=== PATIENT | female | born 1955 | race Caucasian/White ===

== ENCOUNTER → 2016-11-03 | Outpatient (CLI) | payer MEDICARE ==
--- NOTE | 2016-11-03 16:49 | MR ---
EXAMINATION TYPE: MR cervical spine wo con DATE OF EXAM: 11/03/2016 COMPARISON: NONE HISTORY: 61-year-old female with cervicalgia, patient fell 2 months ago, neck pain TECHNIQUE: Multiplanar, multisequence images of the cervical spine were acquired. FINDINGS: No craniocervical junction abnormality, predental space widening, or prevertebral soft tissue swellin g. There is normal alignment of the cervical spine. No suspicious bone marrow replacement. There is variable mild to moderate disc desiccation throughout way disc osteophyte complex formation and bulging discs. Scattered ligamentum flavum thickening is also present along with facet and uncove rtebral joint degenerative change. At C2-C3, mild facet degenerative change without canal or foraminal stenosis. At C3-C4, facet and uncovertebral joint arthropathy with ligamentum flavum thickening and minimal pos terior disc bulge. Changes result in mild right neuroforaminal stenosis and minimal narrowing of the spinal canal but no cord contact. At C4-C5, there is facet degenerative change and minimal uncovertebral joint arthropathy. This causes minimal narrowing of the right neuroforamen and no spinal canal stenosis. At C5-C6, there is broad-based disc osteophyte complex with facet arthropathy and ligamentum flavum t hickening. Changes result in mild spinal canal stenosis and mild right neuroforaminal stenosis. At C6/C7, there is disc osteophyte complex with superimposed central disc protrusion as well as facet and uncovertebral joint degenerative change. Changes mildly narrow the spinal canal without signific ant neural foraminal stenosis. At C7-T1, facet degenerative change without canal or foraminal stenosis. Normal course, caliber, and signal intensity of the cervical cord. No prevertebral or paravertebral soft tissue abnormality seen. IMPRESSION: 1. Mild multilevel degenerative disc disease as well as mild to moderate scattered facet and uncovert ebral joint arthropathy and ligamentum flavum thickening. 2. The greatest degree of mild spinal canal stenosis is at C5-C6. Changes do not cause any significan t mass effect onto the cord. 3. Variable mild neuroforaminal narrowing throughout. No high-grade foraminal compromise.
== END | disposition home or self-care (01) ==
LOC: RADMRIMAIN 15:09
PROVIDERS: ATTEND Psychiatry & Neurology Pain Medicine
DX: M50.220 Other cervical disc displacement, mid-cervical region, unspecified level (principal); M50.322 Other cervical disc degeneration at C5-C6 level
CPT/HCPCS: 72141

== ENCOUNTER → 2016-11-05 | Outpatient (CLI) | payer MEDICARE ==
--- NOTE | 2016-11-05 15:31 | CT ---
EXAMINATION TYPE: CT lumbar spine wo con DATE OF EXAM: 11/05/2016 COMPARISON: NONE HISTORY: Low back pain with leg and toe numbness CT DLP: 489.7 mGycm CONTRAST: CT scan of the lumbar is performed without contrast. TECHNIQUE: CT of the lumbar spine is performed on a spiral scan at 3 mm thick sections. Reconstructed images are performed in the coronal and sagittal planes. FINDINGS: Pedicle screws are present L4 and L5. T12-L1: No focal disc herniation or significant disc bulge is evident. No spinal canal stenosis or neural foraminal stenosis is present. L1-L2: Minimal disc contact with the anterior thecal sac is present. No spinal canal stenosis present . Mild facet degenerative changes are present. L2-L3: Mild disc bulge is present with mild anterior thecal sac compression. No AP spinal canal steno sis present. Facet hypertrophy is present with mild posterior lateral thecal sac compression. L3-L4: Moderate disc bulge has moderate anterior thecal sac flattening. Facet hypertrophy is mild pos terior lateral thecal sac compression. No AP spinal canal stenosis present. Neural foramen are patent . L4-L5: Posterior right paracentral endplate spurring is present in the right paracentral canal. Manoj ectomy has been performed and no AP spinal canal stenosis is present. Neural foramen appear patent. L5-S1: No focal disc herniation or significant disc bulge is evident. No spinal canal stenosis or n eural foraminal stenosis is present Vertebral alignment appears normal. There is a 0.2 cm calcification at the inferior pole left kidney. Punctate calcifications at the inferior pole right kidney measuring 0.1 cm. IMPRESSION: 1. Moderate disc bulging L3-4 with moderate anterior thecal sac compression. No stenosis is present. 2. Right paracentral endplate spurring with moderate anterior thecal sac compression. No stenosis is present due to prior laminectomy.
== END | disposition home or self-care (01) ==
LOC: RADCTMAIN 15:01
PROVIDERS: ATTEND Psychiatry & Neurology Neurology
DX: M51.26 Other intervertebral disc displacement, lumbar region (principal); M46.06 Spinal enthesopathy, lumbar region; Z88.0 Allergy status to penicillin; Z88.6 Allergy status to analgesic agent
CPT/HCPCS: 72131

== ENCOUNTER → 2016-12-01 | Outpatient (CLI) | payer MEDICARE ==
--- NOTE | 2016-12-03 12:03 | MM ---
Reason for exam: screening (asymptomatic). Last mammogram was performed 1 year ago. History: Patient is postmenopausal. 2 excisional biopsies of the left breast, 1999. Took hormonal contraceptives for 10 years. Physical Findings: A clinical breast exam by your physician is recommended on an annual basis and results should be correlated with mammographic findings. MG 3D Screening Mammo W/Cad Bilateral CC, MLO, and XCCL view(s) were taken. Prior study comparison: November 29, 2015, bilateral MG 3d screening mammo w/cad. March 13, 2011, left diagnostic mammogram w/CAD. September 10, 2010, [facility] DIGITAL LEFT BREAST MAMMOGRAM w/CAD. There are scattered fibroglandular densities. No suspicious abnormality. No significant changes when compared with prior studies. ASSESSMENT: Negative, BI-RAD 1 RECOMMENDATION: Routine screening mammogram of both breasts in 1 year.
== END | disposition home or self-care (01) ==
LOC: RADMAMWWP 13:44
PROVIDERS: ATTEND Internal Medicine
DX: Z12.31 Encounter for screening mammogram for malignant neoplasm of breast (principal)
CPT/HCPCS: 77063; G0202

== ENCOUNTER 2017-04-01 19:49 | Emergency (ER) | payer MEDICARE ==
[2017-04-01 19:58] VITALS: TEMP 96.7
[2017-04-01 20:00] LABS: Glucose,Whole Blood 112 mg/dL (75-99)
[2017-04-01] MEDS ORDERED: SODIUM CHLORIDE 0.9% 1,000 ML IV STA (20:27)
--- NOTE | 2017-04-01 20:58 | ED ---
Recheck HPI - General Chief Complaint: Recheck/Abnormal Lab/Rx Stated Complaint: diabetic issues Time Seen by Provider: 04/01/17 20:08 Source: patient, EMS, RN notes reviewed, old records reviewed Mode of arrival: EMS Limitations: no limitations - History of Present Illness Initial Comments: Patient is 61-year-old female presents emergency department today chief complaint of a episode of low blood sugar. She reports that she did not eat anything today, but noted that her blood sugar was elevated at 450. She took 14 units of insulin, and EMS was called to scene because patient was acting abnormal. Blood sugar was 26, and an IV was started and patient was given D50. Patient reports that she registered she feels well at this time. She does complain of some intermittent episodes of chest pain she had today. She did take 3 aspirin when that occurred. She denies any chest pain right now. Patient states that she has had no history of cardiac history. She managed her diabetes with insulin. She lives with her fianc. e - Related Data Home Medications Medication Instructions Recorded Confirmed ALPRAZolam [Xanax] 1 mg PO TID 04/01/17 04/01/17 Divalproex [Depakote] 1,000 mg PO HS 04/01/17 04/01/17 HYDROcodone/APAP 10-325MG [[place] 1 tab PO TID PRN 04/01/17 04/01/17 10-325] INSULIN LISPRO (humaLOG) [humaLOG] See Protocol SQ ACHS PRN 04/01/17 04/01/17 Mirtazapine [Remeron] 45 mg PO HS 04/01/17 04/01/17 Sertraline [Zoloft] 150 mg PO DAILY 04/01/17 04/01/17 Allergies Allergy/AdvReac Type Severity Reaction Status Date / Time Penicillins Allergy Unknown Verified 04/01/17 20:46 ramipril [From Altace] Allergy Unknown Verified 04/01/17 20:46 Review of Systems ROS Statement: Those systems with pertinent positive or pertinent negative responses have been documented in the HPI. ROS Other: All systems not noted in ROS Statement are negative. Past Medical History Past Medical History: CVA/TIA, Diabetes Mellitus, Hyperlipidemia, Hypertension, Osteoarthritis (OA) Additional Past Medical History / Comment(s): Diabetes mellitus type 2 insulin requiring, hypertension, hyperlipidemia, CVA, restless leg syndrome, chronic diarrhea. History of Any Multi-Drug Resistant Organisms: None Reported Past Surgical History: Adenoidectomy, Appendectomy, Cholecystectomy, Hysterectomy, Orthopedic Surgery, Tonsillectomy Additional Past Surgical History / Comment(s): right knee repacement x2 , left ankle surgery, bladder suspension x 2 partial hysterectomy , left breast biopsy,T+A, colonoscopy, cholecystectomy, Lasik for both eyes. Past Anesthesia/Blood Transfusion Reactions: No Reported Reaction Past Psychological History: Anxiety, Bipolar, Depression, Panic Disorder Smoking Status: Heavy tobacco smoker Past Alcohol Use History: None Reported Past Drug Use History: Prescription Drug Abuse - Past Family History Mother Family Medical History: Diabetes Mellitus (Mother at age of 84 from diabetes mellitus complications with diabetic coma.) Father Family Medical History: CVA/TIA (Father at age of 86 from CVA status post carotid endarterectomy.) Brother(s) Family Medical History: No Reported History (Patient had one brother) Son(s) Family Medical History: No Reported History (Patient has 2 sons no major medical problems) Daughter(s) Family Medical History: No Reported History (One daughter who overdosed on heroin.) General Exam - General Exam Comments Initial Comments: Is a 61-year-old female. Alert and oriented 4. No distress. Limitations: no limitations General appearance: alert Head exam: Present: atraumatic, normocephalic, normal inspection Eye exam: Present: normal appearance, PERRL, EOMI. Absent: scleral icterus, conjunctival injection, periorbital swelling ENT exam: Present: normal exam, mucous membranes moist Neck exam: Present: normal inspection. Absent: tenderness, meningismus, lymphadenopathy Respiratory exam: Present: normal lung sounds bilaterally. Absent: respiratory distress, wheezes, rales, rhonchi, stridor Cardiovascular Exam: Present: regular rate, normal rhythm, normal heart sounds. Absent: systolic murmur, diastolic murmur, rubs, gallop, clicks GI/Abdominal exam: Present: soft, normal bowel sounds. Absent: distended, tenderness, guarding, rebound, rigid Extremities exam: Present: normal inspection, full ROM, normal capillary refill. Absent: tenderness, pedal edema, joint swelling, calf tenderness Back exam: Present: normal inspection Neurological exam: Present: alert, oriented X3, CN II-XII intact Psychiatric exam: Present: normal affect, normal mood Skin exam: Present: warm, dry, intact, normal color. Absent: rash Course Vital Signs 04/01/17 19:55 Temperature 96.7 F L Pulse Rate 81 Respiratory 18 Rate Blood Pressure 128/71 O2 Sat by Pulse 97 Oximetry Medical Decision Making - Medical Decision Making Is a 61-year-old female presents emergency Department chief complaint of hypoglycemic episode. Patient's was given D50 a with EMS arrival. Her blood sugar was hit here was 120. She is alert and oriented and has no other significant complaints. She did state that she had some episodes of chest pain earlier today, she took aspirin. At this time patient's EKG was reviewed to be normal. His laboratory was reviewed to be normal. Chest x-ray shows no abnormalities. As the importance of eating before she takes insulin, and to adjust her sliding scale appropriately. She reports that she did not eat a lot states today before taking 14 units of insulin. Patient understands treatment plan will comply. She will be discharged at this time. Discussed follow-up with PCP. - Lab Data Result diagrams: 04/01/17 20:50 04/01/17 20:50 Lab Results 04/01/17 04/01/17 04/01/17 Range/Units 19:59 20:50 20:50 WBC 10.6 (3.8-10.6) k/uL RBC 3.89 (3.80-5.40) m/uL Hgb 12.1 (11.4-16.0) gm/dL Hct 37.8 (34.0-46.0) % MCV 97.2 (80.0-100.0) fL MCH 31.1 (25.0-35.0) pg MCHC 32.0 (31.0-37.0) g/dL RDW 12.4 (11.5-15.5) % Plt Count 237 (150-450) k/uL Neutrophils % 84 % Lymphocytes % 8 % Monocytes % 5 % Eosinophils % 0 % Basophils % 0 % Neutrophils # 8.9 H (1.3-7.7) k/uL Lymphocytes # 0.8 L (1.0-4.8) k/uL Monocytes # 0.6 (0-1.0) k/uL Eosinophils # 0.0 (0-0.7) k/uL Basophils # 0.0 (0-0.2) k/uL PT (9.0-12.0) sec INR (<1.2) APTT (22.0-30.0) sec Sodium (137-145) mmol/L Potassium (3.5-5.1) mmol/L Chloride (98-107) mmol/L Carbon Dioxide (22-30) mmol/L Anion Gap mmol/L BUN (7-17) mg/dL Creatinine (0.52-1.04) mg/dL Est GFR (MDRD) Af Amer (>60 ml/min/1.73 sqM) Est GFR (MDRD) Non-Af (>60 ml/min/1.73 sqM) Glucose (74-99) mg/dL POC Glucose (mg/dL) 112 H (75-99) mg/dL POC Glu Toggler ID [place], [place] Calcium (8.4-10.2) mg/dL Magnesium (1.6-2.3) mg/dL Total Bilirubin (0.2-1.3) mg/dL AST (14-36) U/L ALT (9-52) U/L Alkaline Phosphatase (38-126) U/L Total Creatine Kinase 26 L (30-135) U/L CK-MB (CK-2) 0.3 (0.0-2.4) ng/mL CK-MB (CK-2) Rel Index 1.2 Troponin I <0.012 (0.000-0.034) ng/mL Total Protein (6.3-8.2) g/dL Albumin (3.5-5.0) g/dL 04/01/17 04/01/17 Range/Units 20:50 20:50 WBC (3.8-10.6) k/uL RBC (3.80-5.40) m/uL Hgb (11.4-16.0) gm/dL Hct (34.0-46.0) % MCV (80.0-100.0) fL MCH (25.0-35.0) pg MCHC (31.0-37.0) g/dL RDW (11.5-15.5) % Plt Count (150-450) k/uL Neutrophils % % Lymphocytes % % Monocytes % % Eosinophils % % Basophils % % Neutrophils # (1.3-7.7) k/uL Lymphocytes # (1.0-4.8) k/uL Monocytes # (0-1.0) k/uL Eosinophils # (0-0.7) k/uL Basophils # (0-0.2) k/uL PT 10.5 (9.0-12.0) sec INR 1.1 (<1.2) APTT 23.8 (22.0-30.0) sec Sodium 140 (137-145) mmol/L Potassium 3.8 (3.5-5.1) mmol/L Chloride 105 (98-107) mmol/L Carbon Dioxide 30 (22-30) mmol/L Anion Gap 5 mmol/L BUN 20 H (7-17) mg/dL Creatinine 0.60 (0.52-1.04) mg/dL Est GFR (MDRD) Af Amer >60 (>60 ml/min/1.73 sqM) Est GFR (MDRD) Non-Af >60 (>60 ml/min/1.73 sqM) Glucose 101 H (74-99) mg/dL POC Glucose (mg/dL) (75-99) mg/dL POC Glu Toggler ID Calcium 9.3 (8.4-10.2) mg/dL Magnesium 1.6 (1.6-2.3) mg/dL Total Bilirubin 0.2 (0.2-1.3) mg/dL AST 16 (14-36) U/L ALT 22 (9-52) U/L Alkaline Phosphatase 51 (38-126) U/L Total Creatine Kinase (30-135) U/L CK-MB (CK-2) (0.0-2.4) ng/mL CK-MB (CK-2) Rel Index Troponin I (0.000-0.034) ng/mL Total Protein 6.2 L (6.3-8.2) g/dL Albumin 3.3 L (3.5-5.0) g/dL 04/01/17 21:47 KG shows normal sinus rhythm, normal EKG. Ventricular rate of. SC interval 194 ms. QRS duration 76 ms. QT QTc is 442/[address] elevation or T-wave inversion. No suturable ventricular arrhythmias. - Radiology Data Radiology results: report reviewed Chest x-ray was reviewed and negative for any acute process. Disposition Clinical Impression: Hypoglycemia due to insulin Disposition: HOME SELF-CARE Condition: Good Instructions: Insulin Scale A (MPH) Additional Instructions: Patient should having small frequent meals, dose her insulin appropriately. Follow-up with primary care provider. Return to the emergency department if any alarming signs or symptoms occur. Referrals: Keaton Abdi MD [Primary Care Provider] - 1-2 days Time of Disposition: 22:07
[2017-04-01 21:10] LABS: Basophils % (A) 0 %; CH 32.6; CHCM 33.7; Eosinophils % (A) 0 %; HCT 37.8 % (34.0-46.0); HGB 12.1 gm/dL (11.4-16.0); Luc # (Auto) 0.21; Luc % (Auto) 2; Lymphocytes # (A) 0.8 k/uL (1.0-4.8); Lymphocytes % (A) 8 %; MCH 31.1 pg (25.0-35.0); MCV 97.2 fL (80.0-100.0); Mean Platelet Volume 7.3; Monocytes # (A) 0.6 k/uL (0-1.0); Monocytes % (A) 5 %; Neutrophils # (A) 8.9 k/uL (1.3-7.7); Neutrophils % (A) 84 %; RBC 3.89 m/uL (3.80-5.40); RDW 12.4 % (11.5-15.5); WBC 10.6 k/uL (3.8-10.6); WBC (Perox) 10.16
[2017-04-01 21:16] LABS: INR 1.1 (<1.2); Partial Thromboplastin Time 23.8 sec (22.0-30.0); Prothrombin Time 10.5 sec (9.0-12.0)
[2017-04-01 21:25] LABS: ALT 22 U/L (9-52); AST 16 U/L (14-36); Alkaline Phosphatase 51 U/L (38-126); Anion Gap 5 mmol/L; Blood Urea Nitrogen 20 mg/dL (7-17); Calcium 9.3 mg/dL (8.4-10.2); Carbon Dioxide 30 mmol/L (22-30); Chloride 105 mmol/L (98-107); Glucose 101 mg/dL (74-99); Magnesium 1.6 mg/dL (1.6-2.3); Non-African American GFR(MDRD) >60 (>60 ml/min/1.73 sqM); Potassium 3.8 mmol/L (3.5-5.1); Sodium 140 mmol/L (137-145); Total Bilirubin 0.2 mg/dL (0.2-1.3); Total Protein 6.2 g/dL (6.3-8.2)
[2017-04-01 21:33] LABS: Creatine Kinase 26 U/L (30-135)
--- NOTE | 2017-04-01 21:39 | XR ---
EXAMINATION: XR chest 2V DATE AND TIME: 04/01/2017 9:35 PM ORDERING PROVIDER: Veda Fonseca CLINICAL INDICATION: Chest Pain TECHNIQUE: PA and lateral COMPARISON: 12/16/2009 DESCRIPTION: The lungs are clear. The pleural spaces are negative. The cardiac silhouette is not enlarged. The mediastinal and pleural silhouettes are unremarkable. The skeletal structures are intact without focal findings. The soft tissues are unremarkable. IMPRESSION: NO ACUTE PROCESS.
[2017-04-01 21:48] LABS: Creatine Kinase MB 0.3 ng/mL (0.0-2.4); Troponin I <0.012 ng/mL (0.000-0.034)
[2017-04-01 22:20] VITALS: BP 126/61; PULSE 72; RESP 16
== END 2017-04-01 22:20 | disposition home or self-care (01) ==
LOC: EC 19:49
DX: E11.649 Type 2 diabetes mellitus with hypoglycemia without coma (principal); Z79.4 Long term (current) use of insulin; E78.5 Hyperlipidemia, unspecified; I10 Essential (primary) hypertension; M19.90 Unspecified osteoarthritis, unspecified site; Z86.73 Personal history of transient ischemic attack (TIA), and cerebral infarction without residual deficits; F31.9 Bipolar disorder, unspecified; F41.0 Panic disorder [episodic paroxysmal anxiety]; F17.200 Nicotine dependence, unspecified, uncomplicated; Z79.899 Other long term (current) drug therapy; Z88.0 Allergy status to penicillin; Z88.8 Allergy status to other drugs, medicaments and biological substances
CPT/HCPCS: 36415; 71020; 80053; 82550; 82553; 83036; 83735; 84484; 85025; 85610; 85730; 93005; 96360; 99284

== ENCOUNTER → 2017-04-26 | Outpatient (CLI) | payer MEDICARE | END | disposition home or self-care (01) | LOC: LABWHC1 15:45 | PROVIDERS: ATTEND Psychiatry & Neurology Psychiatry | DX: F31.9 Bipolar disorder, unspecified (principal) | CPT/HCPCS: 36415; 80164 ==

== ENCOUNTER 2018-06-29 10:03 | Emergency (ER) | payer MEDICARE ==
[2018-06-29 10:13] VITALS: TEMP 97.9
[2018-06-29] MEDS ORDERED: SODIUM CHLORIDE 0.9% 500 ML 500 ML IV STA (10:41)
--- NOTE | 2018-06-29 10:50 | ED ---
General Adult HPI - General Chief complaint: Seizure Stated complaint: Tremors Time Seen by Provider: 06/29/18 10:24 Source: patient Mode of arrival: wheelchair Limitations: no limitations - History of Present Illness Initial comments: Dictation was produced using [employer] dictation software. please excuse any grammatical, word or spelling errors. Chief Complaint: Sick C3-year-old female past medical history diabetes, CVA, hypertension, osteoporosis arthritis presents after concerns for seizure-like symptoms. History of Present Illness: He 3-year-old female. She is brought in by her son. Patient was under the care for her son when he noticed she was having tonic- clonic like activity. During that time she was unconscious. He reports that she was also stiff and convulsing. Patient has had seizures before however is not on any antiseizure medications. Patient was convulsing for several seconds and was somnolent immediately after. Patient was also incontinent to urine. Patient has extensive neurologic history including CVA and what sounds like seizures in the past. Patient has been otherwise more tired over the last 2-3 days. Patient reports numbness to the left face left upper arm and left lower leg. The ROS documented in this emergency department record has been reviewed and confirmed by me. Those systems with pertinent positive or negative responses have been documented in the HPI. All other systems are other negative and/or noncontributory. PHYSICAL EXAM: General Impression: Alert and oriented x3, not in acute distress, lethargic, cachexic HEENT: Normocephalic atraumatic, extra-ocular movements intact, pupils equal and reactive to light bilaterally, mucous membranes moist. Cardiovascular: Heart regular rate and rhythm, S1&S2 audible, no murmurs, rubs or gallops Chest: Lungs clear to auscultation bilaterally, no rhonchi, no wheeze, no rales Abdomen: Bowel sounds present, abdomen soft, non-tender, non-distended, no organomegaly Musculoskeletal: Pulses present and equal in all extremities, no peripheral edema Motor: no focal deficits noted Neurological: CN II-XII grossly intact, no focal motor or sensory deficits noted Skin: Intact with no visualized rashes Psych: Normal affect and mood ED course: 63-year-old female presents with seizure-like symptoms today. The pressure upon arrival was 78/54, rest of vital signs within normal limits. His HPI is consistent with acute seizure. CBC is unremarkable. INR 1.6. Metabolic panel shows mild acidosis likely secondary to lactic acid. Rest of metabolic panel is grossly unremarkable. Alcohol is negative. Computed tomogr aphy scan of the brain was obtained showing no acute processes however there is progressive nonspecific white matter change compared to 2009. We do not have neurology. Our facility. [facility] be [facility] for further inpatient management of symptoms. Patient case was discussed with Dr. Austin. Patient was observed in emergency department with no recurrent seizure episodes. Patient still continues to have mild paresthesias to the left side of her body. EKG interpretation: Ventricular rate 68, normal sinus rhythm,. Interval to , QRS 64, QTC 425. No MT prolongation, no QTC prolongation, no ST or T-wave changes noted. Overall, this EKG is unremarkable - Related Data Home Medications Medication Instructions Recorded Confirmed Divalproex [Depakote] 1,000 mg PO HS 04/01/17 06/29/18 HYDROcodone/APAP 10-325MG [[place] 1 tab PO TID PRN 04/01/17 06/29/18 10-325] Mirtazapine [Remeron] 45 mg PO HS 04/01/17 06/29/18 Sertraline [Zoloft] 150 mg PO DAILY 04/01/17 06/29/18 ALPRAZolam [Xanax] 0.5 mg PO TID 06/29/18 06/29/18 Albuterol Inhaler [Ventolin Hfa 1 - 2 puff INHALATION RT-Q6H PRN 06/29/18 06/29/18 Inhaler] Ipratropium [place] [Atrovent Hfa] 2 puff INHALATION RT-QID 06/29/18 06/29/18 Oxybutynin ER [Ditropan Xl] 10 mg PO DAILY 06/29/18 06/29/18 Pregabalin [Lyrica] 150 mg PO BID 06/29/18 06/29/18 Primidone [Mysoline] 100 mg PO BID 06/29/18 06/29/18 metFORMIN HCL [Glucophage] 500 mg PO BID 06/29/18 06/29/18 Allergies Allergy/AdvReac Type Severity Reaction Status Date / Time Penicillins Allergy Unknown Verified 06/29/18 10:47 ramipril [From Altace] Allergy Unknown Verified 06/29/18 10:47 Review of Systems ROS Statement: Those systems with pertinent positive or pertinent negative responses have been documented in the HPI. ROS Other: All systems not noted in ROS Statement are negative. Past Medical History Past Medical History: CVA/TIA, Diabetes Mellitus, Hyperlipidemia, Hypertension, Osteoarthritis (OA) Additional Past Medical History / Comment(s): Diabetes mellitus type 2 insulin requiring, hypertension, hyperlipidemia, CVA, restless leg syndrome, chronic diarrhea. History of Any Multi-Drug Resistant Organisms: None Reported Past Surgical History: Adenoidectomy, Appendectomy, Cholecystectomy, Hysterectomy, Orthopedic Surgery, Tonsillectomy Additional Past Surgical History / Comment(s): right knee repacement x2 , left ankle surgery, bladder suspension x 2 partial hysterectomy , left breast biopsy,T+A, colonoscopy, cholecystectomy, Lasik for both eyes. Past Anesthesia/Blood Transfusion Reactions: No Reported Reaction Past Psychological History: Anxiety, Bipolar, Depression, Panic Disorder Smoking Status: Heavy tobacco smoker Past Alcohol Use History: None Reported Past Drug Use History: Prescription Drug Abuse - Past Family History Mother Family Medical History: Diabetes Mellitus (Mother at age of 84 from diabetes mellitus complications with diabetic coma.) Father Family Medical History: CVA/TIA (Father at age of 86 from CVA status post carotid endarterectomy.) Brother(s) Family Medical History: No Reported History (Patient had one brother) Son(s) Family Medical History: No Reported History (Patient has 2 sons no major medical problems) Daughter(s) Family Medical History: No Reported History (One daughter who overdosed on heroin.) General Exam Limitations: no limitations Course Vital Signs 06/29/18 06/29/18 10:08 11:25 Temperature 97.9 F Pulse Rate 65 67 Respiratory 15 16 Rate Blood Pressure 78/54 103/60 O2 Sat by Pulse 99 97 Oximetry Medical Decision Making - Lab Data Result diagrams: 06/29/18 11:41 06/29/18 11:41 Lab Results 06/29/18 06/29/18 06/29/18 Range/Units 11:41 11:41 11:41 WBC 4.8 (3.8-10.6) k/uL RBC 3.65 L (3.80-5.40) m/uL Hgb 11.8 (11.4-16.0) gm/dL Hct 36.4 (34.0-46.0) % MCV 99.5 (80.0-100.0) fL MCH 32.3 (25.0-35.0) pg MCHC 32.5 (31.0-37.0) g/dL RDW 14.4 (11.5-15.5) % Plt Count 180 (150-450) k/uL Neutrophils % 66 % Lymphocytes % 22 % Monocytes % 6 % Eosinophils % 3 % Basophils % 0 % Neutrophils # 3.2 (1.3-7.7) k/uL Lymphocytes # 1.0 (1.0-4.8) k/uL Monocytes # 0.3 (0-1.0) k/uL Eosinophils # 0.1 (0-0.7) k/uL Basophils # 0.0 (0-0.2) k/uL Macrocytosis Slight PT 15.7 H (9.0-12.0) sec INR 1.6 H (<1.2) Sodium 143 (137-145) mmol/L Potassium 3.8 (3.5-5.1) mmol/L Chloride 114 H (98-107) mmol/L Carbon Dioxide 19 L (22-30) mmol/L Anion Gap 10 mmol/L BUN 18 H (7-17) mg/dL Creatinine 0.85 (0.52-1.04) mg/dL Est GFR (CKD-EPI)AfAm 84 (>60 ml/min/1.73 sqM) Est GFR (CKD-EPI)NonAf 72 (>60 ml/min/1.73 sqM) Glucose 130 H (74-99) mg/dL Calcium 8.5 (8.4-10.2) mg/dL Magnesium 2.0 (1.6-2.3) mg/dL Total Bilirubin 0.4 (0.2-1.3) mg/dL AST 21 (14-36) U/L ALT 16 (9-52) U/L Alkaline Phosphatase 74 (38-126) U/L Troponin I (0.000-0.034) ng/mL Total Protein 6.3 (6.3-8.2) g/dL Albumin 3.3 L (3.5-5.0) g/dL Serum Alcohol <10 mg/dL 06/29/18 Range/Units 11:41 WBC (3.8-10.6) k/uL RBC (3.80-5.40) m/uL Hgb (11.4-16.0) gm/dL Hct (34.0-46.0) % MCV (80.0-100.0) fL MCH (25.0-35.0) pg MCHC (31.0-37.0) g/dL RDW (11.5-15.5) % Plt Count (150-450) k/uL Neutrophils % % Lymphocytes % % Monocytes % % Eosinophils % % Basophils % % Neutrophils # (1.3-7.7) k/uL Lymphocytes # (1.0-4.8) k/uL Monocytes # (0-1.0) k/uL Eosinophils # (0-0.7) k/uL Basophils # (0-0.2) k/uL Macrocytosis PT (9.0-12.0) sec INR (<1.2) Sodium (137-145) mmol/L Potassium (3.5-5.1) mmol/L Chloride (98-107) mmol/L Carbon Dioxide (22-30) mmol/L Anion Gap mmol/L BUN (7-17) mg/dL Creatinine (0.52-1.04) mg/dL Est GFR (CKD-EPI)AfAm (>60 ml/min/1.73 sqM) Est GFR (CKD-EPI)NonAf (>60 ml/min/1.73 sqM) Glucose (74-99) mg/dL Calcium (8.4-10.2) mg/dL Magnesium (1.6-2.3) mg/dL Total Bilirubin (0.2-1.3) mg/dL AST (14-36) U/L ALT (9-52) U/L Alkaline Phosphatase (38-126) U/L Troponin I <0.012 (0.000-0.034) ng/mL Total Protein (6.3-8.2) g/dL Albumin (3.5-5.0) g/dL Serum Alcohol mg/dL Disposition Clinical Impression: Seizure Disposition: OTHER INSTITUTION NOT DEFINED Condition: Fair Referrals: Keaton Abdi MD [Primary Care Provider] - 1-2 days Decision Time: 12:51 - Out of Hospital Transfer - Req. Specs Out of Hospital Transfer - Requested Specifics: Other Emergency Center ([facility]
[2018-06-29 11:26] VITALS: RESP 16
--- NOTE | 2018-06-29 11:32 | CT ---
EXAMINATION TYPE: CT brain wo con DATE OF EXAM: 06/29/2018 COMPARISON: 1310 HISTORY: Seizure, history of CVA CT DLP: 1154.4 mGycm Automated exposure control for dose reduction was used. TECHNIQUE: CT scan of the head is performed without contrast. FINDINGS: There is no acute intracranial hemorrhage or midline shift identified. No suspicious extr a axial fluid collection. There is diffuse ventricular and sulcal prominence consistent with diffuse age-related cerebral atrophy. There is a stable prominent perivascular space at the level inferior ri ght basal ganglia in comparison to the exam of 2009. These have advanced in comparison the prior of 2 010 such as within the right frontal lobe on image 33. There a few scattered areas of low-attenuation in the periventricular white matter consistent with chronic small vessel ischemic change. Atheroscl erosis is noted of the intracranial vasculature. The globes are intact and the visualized sinuses are clear. Incidentally noted hyperostosis frontalis internus. IMPRESSION: 1. No acute intracranial hemorrhage or midline shift. 2. Progressive nonspecific white matter change in comparison to the prior 2009, most commonly on the basis of chronic microangiopathy.
[2018-06-29 12:11] LABS: Basophils % (A) 0 %; Eosinophils # (A) 0.1 k/uL (0-0.7); Eosinophils % (A) 3 %; HCT 36.4 % (34.0-46.0); HGB 11.8 gm/dL (11.4-16.0); Lymphocytes % (A) 22 %; MCH 32.3 pg (25.0-35.0); MCHC 32.5 g/dL (31.0-37.0); MCV 99.5 fL (80.0-100.0); Macrocytosis Slight; Mean Platelet Volume 8.1; Monocytes # (A) 0.3 k/uL (0-1.0); Monocytes % (A) 6 %; Neutrophils # (A) 3.2 k/uL (1.3-7.7); Neutrophils % (A) 66 %; Platelet Count 180 k/uL (150-450); RBC 3.65 m/uL (3.80-5.40); RDW 14.4 % (11.5-15.5); WBC 4.8 k/uL (3.8-10.6)
[2018-06-29 12:12] LABS: ALT 16 U/L (9-52); AST 21 U/L (14-36); Albumin 3.3 g/dL (3.5-5.0); Alcohol <10 mg/dL; Alkaline Phosphatase 74 U/L (38-126); Anion Gap 10 mmol/L; Blood Urea Nitrogen 18 mg/dL (7-17); Calcium 8.5 mg/dL (8.4-10.2); Carbon Dioxide 19 mmol/L (22-30); Chloride 114 mmol/L (98-107); Glucose 130 mg/dL (74-99); Potassium 3.8 mmol/L (3.5-5.1); Sodium 143 mmol/L (137-145); Total Bilirubin 0.4 mg/dL (0.2-1.3); Total Protein 6.3 g/dL (6.3-8.2)
[2018-06-29 12:18] LABS: INR 1.6 (<1.2); Prothrombin Time 15.7 sec (9.0-12.0)
[2018-06-29 12:50] LABS: Appearance,Urine Clear (Clear); Bilirubin,Urine Negative (Negative); Blood,Urine Negative (Negative); Color,Urine Yellow; Glucose,Urine (UA) Negative (Negative); Ketones,Urine Negative (Negative); Leukocyte Esterase,Urine Negative (Negative); Nitrite,Urine Negative (Negative); Protein,Urine Negative (Negative); Specific Gravity,Urine 1.023 (1.001-1.035); Urobilinogen,Urine <2.0 mg/dL (<2.0)
[2018-06-29 13:31] VITALS: BP 109/62; PULSE 72
== END 2018-06-29 13:30 | disposition other institution (70) ==
LOC: EC 10:03
DX: R56.9 Unspecified convulsions (principal); R25.1 Tremor, unspecified; E87.2 Acidosis; E11.9 Type 2 diabetes mellitus without complications; F31.9 Bipolar disorder, unspecified; F41.0 Panic disorder [episodic paroxysmal anxiety]; M19.90 Unspecified osteoarthritis, unspecified site; F17.200 Nicotine dependence, unspecified, uncomplicated; Z79.84 Long term (current) use of oral hypoglycemic drugs; Z79.899 Other long term (current) drug therapy; Z88.0 Allergy status to penicillin; Z88.8 Allergy status to other drugs, medicaments and biological substances; Z96.651 Presence of right artificial knee joint; Z90.49 Acquired absence of other specified parts of digestive tract; Z90.89 Acquired absence of other organs; Z90.711 Acquired absence of uterus with remaining cervical stump
CPT/HCPCS: 99285 ×2; 96360 ×2; 96361 ×2; 36415; 93005; 80053; 83735; 84484; 85025; 85610; 81003; 70450; G0480; 80320

== ENCOUNTER → 2018-07-13 | Outpatient (CLI) | payer MEDICARE ==
--- NOTE | 2018-07-13 15:23 | US ---
EXAMINATION TYPE: US carotid duplex BILAT DATE OF EXAM: 07/13/2018 COMPARISON: CLINICAL HISTORY: G45.9 TIA. Patient states having an unsteady gait x 1 week ago. TIA in 2004. No HTN. EXAM MEASUREMENTS: RIGHT: Peak Systolic Velocity (PSV) cm/sec ----- Right CCA: 67.8 ----- Right ICA: 82.2 ----- Right ECA: 54.6 ICA/CCA ratio: 1.2 RIGHT: End Diastole cm/sec ----- Right CCA: 19.4 ----- Right ICA: 34.8 ----- Right ECA: 10.1 LEFT: Peak Systolic Velocity (PSV) cm/sec ----- Left CCA: 72.2 ----- Left ICA: 143.1 ----- Left ECA: 32.9 ICA/CCA ratio: 2.0 LEFT: End Diastole cm/sec ----- Left CCA: 29.3 ----- Left ICA: 48.5 ----- Left ECA: 10.1 VERTEBRALS (direction of flow): Right Vertebral: Antegrade Left Vertebral: Antegrade Rhythm: Arrhythmia Bilateral wall thickening. Elevated left proximal and mid ICA. Plaque seen in bilateral bulbs exten ding into proximal ICA. Small amount of plaque seen in distal right CCA. IMPRESSION: 1. Stenosis of the left internal carotid artery corresponds to 50-69%. This could be more accurately assessed with CTA neck. 2. No hemodynamically significant stenosis within the right visualized carotid arterial system. 3. Cardiac arrhythmia. Correlate with EKG. Supervisor Delivery Department called office at end of exam and spoke to Alba regarding preliminary results. Criteria for Assigning % of Stenosis / Diameter reduction (Estimation based on the indirect measurements of the internal carotid artery velocities (ICA PSV). 1. Normal (no stenosis)=ICA PSV < 125 cm/s: ratio < 2.0: ICA EDV<40 cm/s. 2. Less than 50% stenosis=ICA PSV < 125 cm/s: ratio < 2.0: ICA EDV<40 cm/s. 3. 50 to 69% stenosis=ICA PSV of 125 to 230 cm/s: ration 2.0 ? 4.0: ICA EDV 40-100 cm/s. 4. Greater than 70% stenosis to near occlusion= ICA PSV > 230 cm/s: ratio > 4.0: ICA EDV > 100 cm/s. 5. Near occlusion= ICA PSV velocities may be low or undetectable: variable ratio and ICA EDV. 6. Total occlusion=unable to detect flow.
== END | disposition home or self-care (01) ==
LOC: RADUSWWP 14:29
PROVIDERS: ATTEND Internal Medicine
DX: I65.22 Occlusion and stenosis of left carotid artery (principal); I49.9 Cardiac arrhythmia, unspecified; Z88.0 Allergy status to penicillin; Z88.8 Allergy status to other drugs, medicaments and biological substances
CPT/HCPCS: 93880

== ENCOUNTER → 2018-09-06 | Outpatient (CLI) | payer MEDICARE | LOC: LABWHC1 16:20 | PROVIDERS: ATTEND Psychiatry & Neurology Psychiatry | DX: F31.9 Bipolar disorder, unspecified (principal) | CPT/HCPCS: 36415; 80164 ==

== ENCOUNTER → 2019-02-02 | Outpatient (CLI) | payer MEDICARE ==
--- NOTE | 2019-02-03 14:19 | MM ---
Reason for exam: screening (asymptomatic). Last mammogram was performed 2 years and 2 months ago. History: Patient is postmenopausal. 2 excisional biopsies of the left breast, 1999. Took hormonal contraceptives for 10 years. Physical Findings: A clinical breast exam by your physician is recommended on an annual basis and results should be correlated with mammographic findings. MG 3D Screening Mammo W/Cad Bilateral CC, MLO, and XCCL view(s) were taken. Prior study comparison: December 01, 2016, bilateral MG 3d screening mammo w/cad. November 29, 2015, bilateral MG 3d screening mammo w/cad. The breast tissue is heterogeneously dense. This may lower the sensitivity of mammography. Benign appearing bilateral calcifications. No suspicious abnormality. No significant changes when compared with prior studies. ASSESSMENT: Benign, BI-RAD 2 RECOMMENDATION: Routine screening mammogram of both breasts in 1 year.
== END | disposition home or self-care (01) ==
LOC: RADMAMWWP 10:04
PROVIDERS: ATTEND Internal Medicine
DX: Z12.31 Encounter for screening mammogram for malignant neoplasm of breast (principal)
CPT/HCPCS: 77063; 77067

== ENCOUNTER → 2019-09-13 | Outpatient (CLI) | payer MEDICARE ==
[2019-09-13 12:56] LABS: Basophils % (A) 1 %; Eosinophils # (A) 0.2 k/uL (0-0.7); Eosinophils % (A) 3 %; HCT 36.8 % (34.0-46.0); HGB 11.6 gm/dL (11.4-16.0); Lymphocytes # (A) 0.9 k/uL (1.0-4.8); Lymphocytes % (A) 16 %; MCH 31.8 pg (25.0-35.0); MCHC 31.5 g/dL (31.0-37.0); MCV 100.7 fL (80.0-100.0); Mean Platelet Volume 8.5; Monocytes # (A) 0.4 k/uL (0-1.0); Monocytes % (A) 7 %; Neutrophils % (A) 70 %; Platelet Count 158 k/uL (150-450); RBC 3.65 m/uL (3.80-5.40); RDW 12.7 % (11.5-15.5); WBC 5.7 k/uL (3.8-10.6)
[2019-09-13 18:42] LABS: ALT 11 U/L (8-44); AST 20 U/L (13-35); Albumin/Globulin Ratio 1.54 (1.60-3.17); Alkaline Phosphatase 67 U/L (41-126); Amylase 23 U/L (23-121); BUN/Creat Ratio 26.25 Ratio (12.00-20.00); Bilirubin, Conjugated <0.20 mg/dL (0.20-0.40); Calcium 8.8 mg/dL (8.7-10.3); Carbon Dioxide 27.6 mmol/L (21.6-31.8); Chloride 103 mmol/L (96-109); Chol/HDL Ratio 3.04; Cholesterol 143 mg/dL (0-200); Globulin 2.4 g/dL (1.6-3.3); Glucose 124 mg/dL (70-110); LDL Cholesterol,Calculated 59.8 mg/dL (0.0-131.0); Non-African American GFR(CKD) 76.8 (60.0-200.0); Potassium 4.6 mmol/L (3.5-5.5); Sodium 140 mmol/L (135-145); Total Bilirubin 0.2 mg/dL (0.2-1.2); Total Protein 6.1 g/dL (6.2-8.2); Valproic Acid (Depakene) 87.9 ug/mL (50.0-100.0)
[2019-09-13 19:47] LABS: Hemoglobin A1C 7.4 % (4.0-6.0)
== END | disposition home or self-care (01) ==
LOC: LABWHC1 10:37
PROVIDERS: ATTEND Clinical Nurse Specialist Psychiatric/Mental Health
DX: F31.9 Bipolar disorder, unspecified (principal)
CPT/HCPCS: 36415; 80053; 80061; 80164; 82150; 82248; 82306; 83036; 83690; 84439; 84443; 84479; 85025; 93005

== ENCOUNTER 2020-01-08 16:35 | Emergency (ER) | payer MEDICARE ==
[2020-01-08] MEDS ORDERED: DIPH,PERTUS(ACELL)TETVAC-LF 0.5 ML VIAL IM ONE (16:52)
[2020-01-08] MEDS ORDERED: LIDOCAINE 1% INJ 10MG/ML (20 ML MDV) SQ ONE (16:56)
--- NOTE | 2020-01-08 17:00 | ED ---
General Adult HPI - General Chief complaint: Fall Stated complaint: Fall Head lac and injury Time Seen by Provider: 01/08/20 16:45 Source: patient Mode of arrival: wheelchair Limitations: no limitations - History of Present Illness Initial comments: 64-year-old female presenting for evaluation of fall, head trauma. Patient was taking about 4 walk, was pulled off the porch by the leash. She fell striking the right side of her head. She was unconscious for approximately 1 minute. She does not remember the events in their entirety. She has laceration above her right eye. She also is complaining of some neck stiffness as well. Denies focal numbness or weakness. She came through walk in triage. She does not have any history of anticoagulation, she is uncertain when her last tetanus was. Location: head, face Radiation: non-radiation - Related Data Home Medications Medication Instructions Recorded Confirmed Divalproex [Depakote] 500 mg PO BID 04/01/17 01/08/20 HYDROcodone/APAP 10-325MG [[place] 1 tab PO TID PRN 04/01/17 01/08/20 10-325] Mirtazapine [Remeron] 45 mg PO HS 04/01/17 01/08/20 Sertraline [Zoloft] 100 mg PO BID 04/01/17 01/08/20 ALPRAZolam [Xanax] 0.5 mg PO TID 06/29/18 01/08/20 Oxybutynin ER [Ditropan Xl] 10 mg PO BID 06/29/18 01/08/20 metFORMIN HCL [Glucophage] 500 mg PO BID 06/29/18 01/08/20 Celecoxib [CeleBREX] 200 mg PO DAILY 01/08/20 01/08/20 Ergocalciferol [Vitamin D2] 50,000 unit PO Q7D 01/08/20 01/08/20 Famotidine 20 mg PO BID PRN 01/08/20 01/08/20 Memantine [Namenda] 5 mg PO BID 01/08/20 01/08/20 Metoprolol Succinate (ER) [Toprol 25 mg PO DAILY 01/08/20 01/08/20 Xl] Omeprazole [PriLOSEC] 40 mg PO DAILY PRN 01/08/20 01/08/20 Ondansetron Odt [Zofran ODT] 4 mg SUBLINGUAL BID PRN 01/08/20 01/08/20 Pregabalin [Lyrica] 200 mg PO BID 01/08/20 01/08/20 SUMAtriptan SUCCINATE [Imitrex] 50 mg PO DAILY PRN 01/08/20 01/08/20 levETIRAcetam [Keppra] 250 mg PO BID 01/08/20 01/08/20 levETIRAcetam [Keppra] 500 mg PO BID 01/08/20 01/08/20 Allergies Allergy/AdvReac Type Severity Reaction Status Date / Time Penicillins Allergy Unknown Verified 01/08/20 16:42 ramipril [From Altace] Allergy Unknown Verified 01/08/20 16:42 Review of Systems ROS Statement: Those systems with pertinent positive or pertinent negative responses have been documented in the HPI. ROS Other: All systems not noted in ROS Statement are negative. Past Medical History Past Medical History: CVA/TIA, Diabetes Mellitus, Hyperlipidemia, Hypertension, Osteoarthritis (OA) Additional Past Medical History / Comment(s): Diabetes mellitus type 2 insulin requiring, hypertension, hyperlipidemia, CVA, restless leg syndrome, chronic diarrhea. History of Any Multi-Drug Resistant Organisms: None Reported Past Surgical History: Adenoidectomy, Appendectomy, Cholecystectomy, Hysterectomy, Orthopedic Surgery, Tonsillectomy Additional Past Surgical History / Comment(s): right knee repacement x2 , left ankle surgery, bladder suspension x 2 partial hysterectomy , left breast bio psy,T+A, colonoscopy, cholecystectomy, Lasik for both eyes. Past Anesthesia/Blood Transfusion Reactions: No Reported Reaction Past Psychological History: Anxiety, Bipolar, Depression, Panic Disorder Past Alcohol Use History: None Reported Past Drug Use History: Prescription Drug Abuse - Past Family History Mother Family Medical History: Diabetes Mellitus (Mother at age of 84 from diabetes mellitus complications with diabetic coma.) Father Family Medical History: CVA/TIA (Father at age of 86 from CVA status post carotid endarterectomy.) Brother(s) Family Medical History: No Reported History (Patient had one brother) Son(s) Family Medical History: No Reported History (Patient has 2 sons no major medical problems) Daughter(s) Family Medical History: No Reported History (One daughter who overdosed on heroin.) General Exam Limitations: no limitations General appearance: alert, in no apparent distress Head exam: Present: normocephalic, other (3 cm laceration above rt eye). Absent: atraumatic Eye exam: Present: PERRL, EOMI, periorbital tenderness (rt). Absent: periorbital swelling Neck exam: Present: normal inspection, full ROM. Absent: tenderness, meningi smus Respiratory exam: Present: normal lung sounds bilaterally. Absent: respiratory distress Cardiovascular Exam: Present: regular rate, normal rhythm GI/Abdominal exam: Present: soft. Absent: distended, tenderness, guarding Extremities exam: Present: normal inspection, normal capillary refill. Absent: pedal edema, calf tenderness Neurological exam: Present: alert, oriented X3, CN II-XII intact. Absent: motor sensory deficit Psychiatric exam: Present: normal affect, normal mood Skin exam: Present: warm, dry, other (Laceration of the right eye). Absent: cyanosis, diaphoretic Course Vital Signs 01/08/20 16:36 Temperature 98.7 F Pulse Rate 70 Respiratory 18 Rate Blood Pressure 109/69 O2 Sat by Pulse 98 Oximetry Procedures - Laceration Laceration #1 Consent Obtained: verbal consent Indication: laceration Site: face Size (cm): 3 Description: linear Depth: simple, single layer Anesthetic Used: lidocaine 1% Anesthesia Technique: local infiltration Amount (mls): 5 Pre-repair: wound explored, irrigated extensively, deep structures intact Type of Sutures: nylon Size of Sutures: 5-0 Number of Sutures: 6 Technique: simple, interrupted Patient Tolerated Procedure: well Medical Decision Making - Medical Decision Making 64 with fall, laceration. Laceration repaired in the emergency department. CT performed negative for intracranial hemorrhage or mass effect, CT cervical bones is negative for fracture dislocation. CT cervical spine negative for fracture subluxation. Patient tetanus is updated. She is very eager for discharge. She will be observed by her son who is at bedside for the next 24 hours. Disposition Clinical Impression: Fall, Laceration, Concussion Disposition: HOME SELF-CARE Instructions (If sedation given, give patient instructions): Fall Prevention for Older Adults (ED), Concussion (ED), Care For Your Stitches (DC), Laceration (ED) Additional Instructions: Please return for suture removal in approximate 7 days. Is patient prescribed a controlled substance at d/c from ED?: No Referrals: Bazo,Charbal B, MD [Primary Care Provider] - 1-2 days Time of Disposition: 18:05
--- NOTE | 2020-01-08 17:45 | CT ---
EXAMINATION TYPE: CT brain cspine wo con, CT facial bones wo con DATE OF EXAM: 01/08/2020 COMPARISON: CT brain 06/29/2018 HISTORY: Forehead laceration post fall injury, trauma and pain CT DLP: 1012.3 mGycm Automated exposure control for dose reduction was used. TECHNIQUE: CT scan of the head and cervical spine, facial bones are performed without contrast. FINDINGS: There is no acute intracranial hemorrhage, mass effect, or midline shift identified. The ventricles and sulci are within normal limits in size. There are cerebral vascular calcifications. C ortical atrophy is stable. Periventricular white matter shows patchy low attenuation. Possible choroi guido fissure cyst is stable on the right. The globes are intact and the visualized sinuses are clear. Cervical spine is visualized in its entirety from C1 through upper thoracic levels and demonstrates s atisfactory alignment without evidence of acute fracture or dislocation. Prevertebral soft tissue ap pears within normal limits. The C1-C2 articulation is unremarkable. There are facet arthropathy harris ges. Facial bones show no fracture. Laceration is noted along the anterior frontal scalp in the suprapatel lar location on the right, there is lucency in the soft tissues. Changes of hyperostosis frontalis in terna are present. Orbits are symmetric. Temporomandibular joints show osteoarthritic change. Ostio meatal units are patent. IMPRESSION: 1. There is no acute fracture or dislocation evident in the cervical spine. 2. No acute intracranial hemorrhage, mass effect, or midline shift is seen. 3. No facial bone fracture. Soft tissue injury.
[2020-01-08 18:21] VITALS: BP 98/63; PULSE 71; RESP 16; TEMP 98
== END 2020-01-08 18:26 | disposition home or self-care (01) ==
LOC: EC 16:35
DX: S06.0X9A Concussion with loss of consciousness of unspecified duration, initial encounter (principal); S01.81XA Laceration without foreign body of other part of head, initial encounter; S05.31XA Ocular laceration without prolapse or loss of intraocular tissue, right eye, initial encounter; I10 Essential (primary) hypertension; E11.9 Type 2 diabetes mellitus without complications; M19.90 Unspecified osteoarthritis, unspecified site; G25.81 Restless legs syndrome; F41.0 Panic disorder [episodic paroxysmal anxiety]; F31.9 Bipolar disorder, unspecified; F41.9 Anxiety disorder, unspecified; Z79.84 Long term (current) use of oral hypoglycemic drugs; Z79.1 Long term (current) use of non-steroidal anti-inflammatories (NSAID); Z79.899 Other long term (current) drug therapy; Z88.8 Allergy status to other drugs, medicaments and biological substances; Z88.0 Allergy status to penicillin; Z23 Encounter for immunization; Z86.73 Personal history of transient ischemic attack (TIA), and cerebral infarction without residual deficits; Z96.651 Presence of right artificial knee joint; W18.00XA Striking against unspecified object with subsequent fall, initial encounter; Y92.009 Unspecified place in unspecified non-institutional (private) residence as the place of occurrence of the external cause
CPT/HCPCS: 72125; 70486; 70450; 90715; 99283; 12013; 90471; J2001

== ENCOUNTER 2020-03-04 12:34 | Inpatient (IN) | payer MEDICARE ==
[2020-03-04] MEDS ORDERED: IPRATROPIUM-ALBUTEROL 3 ML NEB INHALATION STA (12:53)
[2020-03-04] MEDS ORDERED: methylPREDNISolone SOD SUCCI 125 MG/2 ML VIAL IV STA (12:54)
--- NOTE | 2020-03-04 13:11 | XR ---
EXAMINATION TYPE: XR chest 1V portable DATE OF EXAM: 03/04/2020 COMPARISON: 03/24/2017 HISTORY: Cough TECHNIQUE: Single frontal view of the chest is obtained. FINDINGS: Heart is enlarged and there is a subsegmental left perihilar lower lobe infiltrate. Hyperi nflation noted. Appears to be patchy infiltrate in the right perihilar region. Underlying COPD suspec bola. Arthropathy of the shoulders with diffuse osteopenia. No pneumothorax. IMPRESSION: 1. Findings suspicious for multifocal pneumonia.
--- NOTE | 2020-03-04 13:11 | ED ---
General Adult HPI - General Stated complaint: SOB Time Seen by Provider: 03/04/20 12:41 Source: patient, EMS, RN notes reviewed Mode of arrival: EMS Limitations: no limitations - History of Present Illness Initial comments: This is a 64-year-old female presents emergency department via EMS chief complaint of shortness of breath. Patient had increased congestion shortness breath since last night. Patient was found to have pulse ox of 78% on room air upon arrival. Patient states she's had low-grade temp, productive cough. Patient has no history of CHF. Patient's had a history of CVA. Denies any leg pain leg swelling she states she does have some mild chest discomfort, tightness. She did feel better after breathing treatment given by EMS. Patient denies any sick contacts. Patient has headache, dizziness, blurred vision - Related Data Home Medications Medication Instructions Recorded Confirmed Divalproex [Depakote] 500 mg PO BID 04/01/17 03/04/20 HYDROcodone/APAP 10-325MG [[place] 1 tab PO TID PRN 04/01/17 03/04/20 10-325] Mirtazapine [Remeron] 45 mg PO HS 04/01/17 03/04/20 Sertraline [Zoloft] 100 mg PO BID 04/01/17 03/04/20 ALPRAZolam [Xanax] 0.5 mg PO TID 06/29/18 03/04/20 metFORMIN HCL [Glucophage] 500 mg PO BID 06/29/18 03/04/20 Celecoxib [CeleBREX] 200 mg PO DAILY 01/08/20 03/04/20 Ergocalciferol [Vitamin D2] 50,000 unit PO Q7D 01/08/20 03/04/20 Famotidine 20 mg PO BID PRN 01/08/20 03/04/20 Memantine [Namenda] 5 mg PO BID 01/08/20 03/04/20 Metoprolol Succinate (ER) [Toprol 25 mg PO DAILY 01/08/20 03/04/20 Xl] Omeprazole [PriLOSEC] 40 mg PO DAILY PRN 01/08/20 03/04/20 Ondansetron Odt [Zofran ODT] 4 mg SUBLINGUAL BID PRN 01/08/20 03/04/20 Pregabalin [Lyrica] 200 mg PO TID 01/08/20 03/04/20 SUMAtriptan SUCCINATE [Imitrex] 50 mg PO DAILY PRN 01/08/20 03/04/20 levETIRAcetam [Keppra] 250 mg PO BID 01/08/20 03/04/20 levETIRAcetam [Keppra] 500 mg PO BID 01/08/20 03/04/20 Oxybutynin ER [Ditropan Xl] 15 mg PO DAILY 03/04/20 03/04/20 traZODone HCL 100 mg PO HS 03/04/20 03/04/20 Allergies Allergy/AdvReac Type Severity Reaction Status Date / Time Penicillins Allergy Unknown Verified 03/04/20 14:27 ramipril [From Altace] Allergy Unknown Verified 03/04/20 14:27 Review of Systems ROS Statement: Those systems with pertinent positive or pertinent negative responses have been documented in the HPI. ROS Other: All systems not noted in ROS Statement are negative. Past Medical History Past Medical History: CVA/TIA, Diabetes Mellitus, Hyperlipidemia, Hypertension, Osteoarthritis (OA) Additional Past Medical History / Comment(s): Diabetes mellitus type 2 insulin requiring, hypertension, hyperlipidemia, CVA, restless leg syndrome, chronic diarrhea. History of Any Multi-Drug Resistant Organisms: None Reported Past Surgical History: Adenoidectomy, Appendectomy, Cholecystectomy, Hysterectomy, Orthopedic Surgery, Tonsillectomy Additional Past Surgical History / Comment(s): right knee repacement x2 , left ankle surgery, bladder suspension x 2 partial hysterectomy , left breast biopsy,T+A, colonoscopy, cholecystectomy, Lasik for both eyes. Past Anesthesia/Blood Transfusion Reactions: No Reported Reaction Past Psychological History: Anxiety, Bipolar, Depression, Panic Disorder Past Alcohol Use History: None Reported Past Drug Use History: Prescription Drug Abuse - Past Family History Mother Family Medical History: Diabetes Mellitus (Mother at age of 84 from diabetes mellitus complications with diabetic coma.) Father Family Medical History: CVA/TIA (Father at age of 86 from CVA status post carotid endarterectomy.) Brother(s) Family Medical History: No Reported History (Patient had one brother) Son(s) Family Medical History: No Reported History (Patient has 2 sons no major medical problems) Daughter(s) Family Medical History: No Reported History (One daughter who overdosed on heroin.) General Exam General appearance: alert, in no apparent distress Head exam: Present: atraumatic, normocephalic, normal inspection Eye exam: Present: normal appearance, PERRL, EOMI. Absent: scleral icterus, conjunctival injection, periorbital swelling ENT exam: Present: normal exam, normal oropharynx, mucous membranes moist Neck exam: Present: normal inspection, full ROM. Absent: tenderness, meningismus, lymphadenopathy Respiratory exam: Present: respiratory distress, wheezes, rhonchi, decreased breath sounds. Absent: normal lung sounds bilaterally, rales, stridor Cardiovascular Exam: Present: normal rhythm, tachycardia, normal heart sounds. Absent: systolic murmur, diastolic murmur, rubs, gallop, clicks GI/Abdominal exam: Present: soft, normal bowel sounds. Absent: distended, tenderness, guarding, rebound, rigid Course Vital Signs 03/04/20 03/04/20 03/04/20 12:52 12:58 13:40 Temperature 99.1 F 99.1 F Pulse Rate 113 H 113 H 111 H Respiratory 22 22 Rate Blood Pressure 103/68 103/68 O2 Sat by Pulse 78 L 78 L Oximetry 03/04/20 03/04/20 13:57 14:06 Temperature Pulse Rate 117 H Respiratory Rate Blood Pressure O2 Sat by Pulse 93 L Oximetry EKG Findings - EKG Comments: EKG Findings:: EKG performed at 12:44 sinus tachycardia rate of 113 VT 160 QRS 66 QT/QTC 290/394 Medical Decision Making - Medical Decision Making Chest x-ray shows multifocal infiltrates, patient's had hypoxia, severe COPD, coronavirus positive. Patient will be admitted for further evaluation, treatme nt, pulmonary evaluation. - Lab Data Result diagrams: 03/04/20 13:30 03/04/20 13:30 Lab Results 03/04/20 03/04/20 03/04/20 Range/Units 13:30 13:30 13:30 WBC 4.5 (3.8-10.6) k/uL RBC 4.42 (3.80-5.40) m/uL Hgb 13.7 (11.4-16.0) gm/dL Hct 42.6 (34.0-46.0) % MCV 96.3 (80.0-100.0) fL MCH 31.0 (25.0-35.0) pg MCHC 32.2 (31.0-37.0) g/dL RDW 13.5 (11.5-15.5) % Plt Count 140 L (150-450) k/uL MPV 8.7 Neutrophils % 79 % Lymphocytes % 12 % Monocytes % 6 % Eosinophils % 0 % Basophils % 0 % Neutrophils # 3.6 (1.3-7.7) k/uL Lymphocytes # 0.6 L (1.0-4.8) k/uL Monocytes # 0.3 (0-1.0) k/uL Eosinophils # 0.0 (0-0.7) k/uL Basophils # 0.0 (0-0.2) k/uL PT 9.9 (9.0-12.0) sec INR 0.9 (<1.2) APTT 29.6 (22.0-30.0) sec Sodium 137 (137-145) mmol/L Potassium 4.2 (3.5-5.1) mmol/L Chloride 106 (98-107) mmol/L Carbon Dioxide 24 (22-30) mmol/L Anion Gap 7 mmol/L BUN 19 H (7-17) mg/dL Creatinine 0.68 (0.52-1.04) mg/dL Est GFR (CKD-EPI)AfAm >90 (>60 ml/min/1.73 sqM) Est GFR (CKD-EPI)NonAf >90 (>60 ml/min/1.73 sqM) Glucose 193 H (74-99) mg/dL Plasma Lactic Acid Tal (0.7-2.0) mmol/L Calcium 8.7 (8.4-10.2) mg/dL Magnesium 1.6 (1.6-2.3) mg/dL Total Bilirubin 0.7 (0.2-1.3) mg/dL AST 29 (14-36) U/L ALT 15 (4-34) U/L Alkaline Phosphatase 73 (38-126) U/L Lactate Dehydrogenase 799 H (313-618) U/L C-Reactive Protein 185.8 H (<10.0) mg/L Total Protein 6.8 (6.3-8.2) g/dL Albumin 3.5 (3.5-5.0) g/dL Coronavirus (PCR) (Not Detectd) 03/04/20 03/04/20 Range/Units 13:30 14:50 WBC (3.8-10.6) k/uL RBC (3.80-5.40) m/uL Hgb (11.4-16.0) gm/dL Hct (34.0-46.0) % MCV (80.0-100.0) fL MCH (25.0-35.0) pg MCHC (31.0-37.0) g/dL RDW (11.5-15.5) % Plt Count (150-450) k/uL MPV Neutrophils % % Lymphocytes % % Monocytes % % Eosinophils % % Basophils % % Neutrophils # (1.3-7.7) k/uL Lymphocytes # (1.0-4.8) k/uL Monocytes # (0-1.0) k/uL Eosinophils # (0-0.7) k/uL Basophils # (0-0.2) k/uL PT (9.0-12.0) sec INR (<1.2) APTT (22.0-30.0) sec Sodium (137-145) mmol/L Potassium (3.5-5.1) mmol/L Chloride (98-107) mmol/L Carbon Dioxide (22-30) mmol/L Anion Gap mmol/L BUN (7-17) mg/dL Creatinine (0.52-1.04) mg/dL Est GFR (CKD-EPI)AfAm (>60 ml/min/1.73 sqM) Est GFR (CKD-EPI)NonAf (>60 ml/min/1.73 sqM) Glucose (74-99) mg/dL Plasma Lactic Acid Tal 3.1 H* (0.7-2.0) mmol/L Calcium (8.4-10.2) mg/dL Magnesium (1.6-2.3) mg/dL Total Bilirubin (0.2-1.3) mg/dL AST (14-36) U/L ALT (4-34) U/L Alkaline Phosphatase (38-126) U/L Lactate Dehydrogenase (313-618) U/L C-Reactive Protein (<10.0) mg/L Total Protein (6.3-8.2) g/dL Albumin (3.5-5.0) g/dL Coronavirus (PCR) Detected A (Not Detectd) Disposition Clinical Impression: COVID-19 Disposition: ADMITTED IP TO THIS [facility] Condition: Serious Referrals: Keaton Abdi MD [Primary Care Provider] - 1-2 days
[2020-03-04 14:04] LABS: Basophils % (A) 0 %; Eosinophils % (A) 0 %; HCT 42.6 % (34.0-46.0); HGB 13.7 gm/dL (11.4-16.0); Lymphocytes # (A) 0.6 k/uL (1.0-4.8); Lymphocytes % (A) 12 %; MCHC 32.2 g/dL (31.0-37.0); MCV 96.3 fL (80.0-100.0); Mean Platelet Volume 8.7; Monocytes # (A) 0.3 k/uL (0-1.0); Monocytes % (A) 6 %; Neutrophils # (A) 3.6 k/uL (1.3-7.7); Neutrophils % (A) 79 %; Platelet Count 140 k/uL (150-450); RBC 4.42 m/uL (3.80-5.40); RDW 13.5 % (11.5-15.5); WBC 4.5 k/uL (3.8-10.6)
[2020-03-04 14:09] LABS: INR 0.9 (<1.2); Partial Thromboplastin Time 29.6 sec (22.0-30.0); Prothrombin Time 9.9 sec (9.0-12.0)
[2020-03-04 14:13] LABS: ALT 15 U/L (4-34); AST 29 U/L (14-36); African American GFR (CKD) >90 (>60 ml/min/1.73 sqM); Albumin 3.5 g/dL (3.5-5.0); Alkaline Phosphatase 73 U/L (38-126); Anion Gap 7 mmol/L; Blood Urea Nitrogen 19 mg/dL (7-17); Calcium 8.7 mg/dL (8.4-10.2); Carbon Dioxide 24 mmol/L (22-30); Chloride 106 mmol/L (98-107); Glucose 193 mg/dL (74-99); LDH 799 U/L (313-618); Magnesium 1.6 mg/dL (1.6-2.3); Non-African American GFR(CKD) >90 (>60 ml/min/1.73 sqM); Potassium 4.2 mmol/L (3.5-5.1); Sodium 137 mmol/L (137-145); Total Bilirubin 0.7 mg/dL (0.2-1.3); Total Protein 6.8 g/dL (6.3-8.2)
[2020-03-04 14:25] LABS: C Reactive Protein 185.8 mg/L (<10.0)
[2020-03-04] MEDS ORDERED: SUMAtriptan succinate 50 MG TAB PO PRN (17:42)
[2020-03-04] MEDS ORDERED: FAMOTIDINE 20 MG TAB PO PRN (17:42)
[2020-03-04] MEDS ORDERED: PANTOPRAZOLE 40 MG TABLET PO PRN (17:42)
[2020-03-04] MEDS ORDERED: ONDANSETRON ODT 4 MG TAB PO PRN (17:42)
[2020-03-04] MEDS ORDERED: HYDROcodone/APAP 10-325MG 1 EACH TAB PO PRN (17:42)
[2020-03-04] MEDS ORDERED: TEMAZEPAM 15 MG CAP PO PRN (17:44)
--- NOTE | 2020-03-04 18:37 | CT ---
EXAMINATION TYPE: CT angio chest DATE OF EXAM: 03/04/2020 COMPARISON: Chest x-ray same day HISTORY: cough, SOB, elevated d-dimer, +covid CT DLP: 320 mGycm Automated exposure control for dose reduction was used. CONTRAST: CTA scan of the thorax is performed with IV Contrast, patient injected with 100 mL of Isovue 370, pul monary embolism protocol. MIP images are created and reviewed. 3D reconstructed images are created on an independent workstation and reviewed. FINDINGS: LUNGS: The lungs are remarkable for bilateral multifocal airspace disease, there is no concerning par enchymal mass or nodule identified. There is no pleural effusion or pneumothorax seen. The tracheo bronchial tree is remarkable for suspected mucus plugging in the right lower lobe and left lower lobe . AORTA: No additional significant abnormality is seen. MEDIASTINUM: There is satisfactory enhancement of the pulmonary artery and its branches, there is no CT evidence for pulmonary embolism. There are no greater than 1 cm hilar or mediastinal lymph nodes. No pericardial effusion is seen. OTHER: Patient is post cholecystectomy. Surgical clips are present at the level of the lesser curvat ure of the stomach, there is motion present. IMPRESSION: BILATERAL PNEUMONIA, THERE IS ASSOCIATED EXTENSIVE MUCUS PLUGGING SUSPECTED IN THE LOWER LOBES, FOLLO W-UP IS RECOMMENDED. THERE IS NO EVIDENT PULMONARY EMBOLISM
[2020-03-04] MEDS: ALBUTEROL HFA INHALER INHALATION SCH (19:34)
--- NOTE | 2020-03-04 21:36 | HP ---
HISTORY AND PHYSICAL DATE OF SERVICE: 03/04/2020 CHIEF COMPLAINT: Shortness of breath. HISTORY OF PRESENT ILLNESS: This 64-year-old woman with past medical history of CVA, TIA, diabetes, hypertension, hyperlipidemia, history of DJD, history of adenoidectomy, being followed by Dr. Abdi in the outpatient setting is complaining of shortness of breath. The patient also had some cough congestion for the last 2 days and pulse ox 78 percent upon arrival and the patient has productive cough. The patient apparently exposed to son who might have had Covid and the patient came to [facility] and was admitted for further evaluation and treatment. The chest x-ray showed bilateral pneumonia. Otherwise, CT scan is pending at this time. There is no history of any fever, rigor or chills. No history of headache, loss of consciousness or seizures at this time. PAST MEDICAL HISTORY: History CVA/TIA, diabetes, hypertension, DJD history of adenoidectomy. MEDICATIONS: Prior to admission include home medication are: Trazodone, Glucophage. Keppra. Zoloft. Imitrex, Lyrica, Ditropan XL, Zofran, Prilosec, Remeron, Toprol-XL, Namenda, [place] 5 mg. Vitamin D3, Depakote, Celebrex. Xanax. ALLERGIES: PENICILLIN, RAMIPRIL. FAMILY HISTORY: History of diabetes in the family. SOCIAL HISTORY: History of smoking, continued ongoing. REVIEW OF SYSTEMS: ENT: No diminished vision. No diminished hearing. CARDIOVASCULAR system as mentioned earlier. RESPIRATORY: As mentioned earlier. GI no nausea or vomiting. no dysuria. NERVOUS SYSTEM: No numbness. ALLERGY/IMMUNOLOGY: No asthma or hay fever. MUSCULOSKELETAL as mentioned earlier. HEMATOLOGY/ONCOLOGY: No history of anemia. ENDOCRINE as mentioned earlier. CONSTITUTIONAL: As mentioned earlier. DERMATOLOGY: Negative. RHEUMATOLOGY negative. PSYCHIATRY as mentioned earlier. PHYSICAL EXAMINATION: The patient is alert and oriented times three. Pulse 100. Blood pressure 121/80, respiration 22. Temperature 94% on 6 L. HEENT: Conjunctivae normal. NECK: No JVD. CARDIOVASCULAR: S1, S2 muffled. RESPIRATORY: Breath sounds diminished in the bases. Bilateral scattered rhonchi and crackles. ABDOMEN: Soft. Nontender. LEGS are no edema. No swelling. NERVOUS SYSTEM: Higher functions as mentioned earlier. Moves all 4 limbs. No focal motor or sensory deficits. LYMPHATICS: No lymph nodes palpable in the neck, axillae or groin. JOINTS: No active deforming arthropathy. LABS: WBC 4.2, hemoglobin 13.7, platelets are 140. D-dimer is 0.94, and plasma lactic acid 3.1. LDH is 799. Covid-19 positive. ASSESSMENT: 1. Acute Covid-19 pneumonia with bilateral interstitial pneumonia with acute hypoxic respiratory failure. 2. Chronic obstructive pulmonary disease, acute exacerbation. 3. Elevated plasma lactic acid indicative of sepsis, present on admission. 4. Elevated D-dimer. 5. Mild thrombocytopenia. 6. Elevated LDH and CRP secondary to Covid-19. 7. History of cerebrovascular accident/transient ischemic attack. 8. Diabetes mellitus type 2. 9. Hypertension. 10.Hyperlipidemia. 11.History of degenerative joint disease. 12.History of restless leg syndrome. 13.History of chronic diarrhea. 14.History of appendectomy. 15.History of cholecystectomy. 16.History of nicotine dependence. 17.Anxiety, bipolar depression, panic disorder. 18.History of prescription drug abuse. 19.Obesity with body mass index 31.9. 20.FULL CODE. RECOMMENDATIONS AND DISCUSSION: In this 64-year-old woman who presented with multiple complex medical issues, we will monitor the patient closely, continue the current medications. Resume the home medications. Optimize the bronchodilator treatment. Pulmonary and infectious disease consultations. Consider the patient for Remdesivir since the patient hypoxic and the patient had bilateral opacities. I would also recommend a D-dimer as well as CT scan of the chest with CT angio as well. Prognosis guarded. Further recommendations to follow. A copy of dictation being forwarded to Dr. Abdi who is the primary physician. MMODL / IJN: [id number] / MURRAY
[2020-03-04 21:52] LABS: Glucose,Whole Blood 319 mg/dL (75-99)
[2020-03-04] MEDS: DIVALPROEX 500 MG TABLET.DR PO SCH (22:02)
[2020-03-04] MEDS: PREGABALIN 100 MG CAP PO SCH (22:02)
[2020-03-04] MEDS: levETIRAcetam 500 MG TAB PO SCH (22:02)
[2020-03-04] MEDS: ALPRAZolam 0.5 MG TAB PO SCH (22:03)
[2020-03-04] MEDS: traZODone HCL 100 MG TAB PO SCH (22:03)
[2020-03-04] MEDS: SERTRALINE 100 MG TAB PO SCH (22:03)
[2020-03-04] MEDS: INSULIN ASPART (NovoLOG) 100 UNIT/ML VIAL SQ SCH (22:04)
[2020-03-04] MEDS: MIRTAZAPINE 45 MG TABLET PO SCH (23:12)
[2020-03-04] MEDS: MEMANTINE 5 MG TAB PO SCH (23:12)
[2020-03-04] MEDS: levETIRAcetam 250 MG TAB PO SCH (23:12)
[2020-03-04 23:38] LABS: Ferritin 94.3 ng/mL (10.0-291.0)
[2020-03-05 05:21] LABS: Basophils # (A) 0.1 k/uL (0-0.2); Basophils % (A) 2 %; Eosinophils % (A) 0 %; HCT 33.7 % (34.0-46.0); HGB 11.2 gm/dL (11.4-16.0); Lymphocytes # (A) 0.6 k/uL (1.0-4.8); Lymphocytes % (A) 8 %; MCH 31.6 pg (25.0-35.0); MCHC 33.1 g/dL (31.0-37.0); MCV 95.6 fL (80.0-100.0); Mean Platelet Volume 9.7; Monocytes # (A) 0.3 k/uL (0-1.0); Monocytes % (A) 5 %; Neutrophils # (A) 6.4 k/uL (1.3-7.7); Neutrophils % (A) 83 %; Platelet Count 128 k/uL (150-450); RBC 3.53 m/uL (3.80-5.40); RDW 13.2 % (11.5-15.5); WBC 7.7 k/uL (3.8-10.6)
[2020-03-05 07:34] LABS: Glucose,Whole Blood 165 mg/dL (75-99)
[2020-03-05] MEDS: ALBUTEROL HFA INHALER INHALATION SCH ×4 (07:53→20:07)
[2020-03-05] MEDS: PREGABALIN 100 MG CAP PO SCH ×3 (08:33→22:48)
[2020-03-05] MEDS: ALPRAZolam 0.5 MG TAB PO SCH ×3 (08:33→22:48)
[2020-03-05] MEDS: levETIRAcetam 500 MG TAB PO SCH ×2 (08:33→20:19)
[2020-03-05] MEDS: SERTRALINE 100 MG TAB PO SCH ×2 (08:33→20:19)
[2020-03-05] MEDS: ZINC SULFATE 220 MG CAP PO SCH (08:34)
[2020-03-05] MEDS: DIVALPROEX 500 MG TABLET.DR PO SCH ×2 (08:34→20:19)
[2020-03-05] MEDS: MELOXICAM 7.5 MG TAB PO SCH (08:34)
[2020-03-05] MEDS: ASCORBIC ACID 500 MG TAB PO SCH (08:34)
[2020-03-05] MEDS: METOPROLOL SUCCINATE (ER) 25 MG TAB.ER.24H PO SCH (08:34)
[2020-03-05] MEDS: CHOLECALCIFEROL 400 UNIT TAB PO SCH (08:36)
[2020-03-05] MEDS: OXYBUTYNIN 15 MG TAB.ER.24 PO SCH (08:36)
[2020-03-05] MEDS: levETIRAcetam 250 MG TAB PO SCH ×2 (08:36→20:20)
[2020-03-05] MEDS: MEMANTINE 5 MG TAB PO SCH ×2 (08:37→20:20)
[2020-03-05] MEDS: INSULIN ASPART (NovoLOG) 100 UNIT/ML VIAL SQ SCH ×4 (08:40→22:48)
[2020-03-05] MEDS ORDERED: dexAMETHasone 2 MG TAB PO SCH (09:00)
[2020-03-05] MEDS ORDERED: ERGOCALCIFEROL 50,000 UNIT CAP PO SCH (09:00)
[2020-03-05 10:14] LABS: Anion Gap 5.8 mmol/L (4.00-12.00); BUN/Creat Ratio 31.25 Ratio (12.00-20.00); Calcium 7.8 mg/dL (8.7-10.3); Carbon Dioxide 26.2 mmol/L (21.6-31.8); Non-African American GFR(CKD) 76.8 (60.0-200.0); Potassium 4.4 mmol/L (3.5-5.5)
[2020-03-05] MEDS: ENOXAPARIN 40 MG/0.4 ML SYRINGE SQ SCH (11:09)
[2020-03-05 11:51] LABS: Glucose,Whole Blood 146 mg/dL (75-99)
--- NOTE | 2020-03-05 15:05 | P.PN ---
Subjective Progress Note Date: 03/05/20 This is a 64-year-old female who was recently admitted with shortness of breath along with some cough and congestion and is being closely monitored. She was also found to have Covid 19 pneumonia. CTA of the chest shows bilateral pneumonia with no evidence of PE noted. Patient was initiated on IV steroids along with bronchodilators, Lovenox, and zinc supplements. Pulmonary and infectious disease are consulted and pending at this time. Patient continues to require oxygen at 4 L via nasal cannula due to shortness of breath and cough. Patient's lactic acid has improved and is 0.9. Patient is currently afebrile. Review of systems: Constitutional: Reports of fatigue, and chills Cardiovascular: No reports of chest pain or palpitations Respiratory: Reports shortness of breath and cough GI: No reports of nausea, vomiting, or diarrhea : No reports of dysuria or retention Neurovascular: Ports generalized weakness no reports of numbness All medications have been reviewed Active Medications Albuterol Sulfate (Albuterol Hfa Inhaler) 2 puff INHALATION RT-QID [facility] Last Admin: 03/05/20 11:56 Dose: 2 puff Documented by: Alprazolam (Alprazolam 0.5 Mg Tab) 0.5 mg PO TID [facility] Last Admin: 03/05/20 08:33 Dose: 0.5 mg Documented by: Ascorbic Acid (Ascorbic Acid 500 Mg Tab) 250 mg PO DAILY [facility] Last Admin: 03/05/20 08:34 Dose: 250 mg Documented by: Budesonide/Formoterol Fumarate (Symbicort 160-4.5 Mcg Inhaler) 2 puff INHALATION RT-BID [facility] Cholecalciferol (Cholecalciferol 400 Unit Tab) 400 unit PO DAILY [facility] Last Admin: 03/05/20 08:36 Dose: 400 unit Documented by: Divalproex Sodium (Divalproex 500 Mg Tablet.Dr) 500 mg PO BID [facility] Last Admin: 03/05/20 08:34 Dose: 500 mg Documented by: Enoxaparin Sodium (Enoxaparin 40 Mg/0.4 Ml Syringe) 40 mg SQ Q24HR [facility] Last Admin: 03/05/20 11:09 Dose: 40 mg Documented by: Ergocalciferol (Ergocalciferol 50,000 Unit Cap) 50,000 unit PO Q7D [facility] Last Admin: 03/05/20 08:37 Dose: 50,000 unit Documented by: Famotidine (Famotidine 20 Mg Tab) 20 mg PO BID PRN PRN Reason: gerd Insulin Aspart (Insulin Aspart (Novolog) 100 Unit/Ml Vial) 0 unit SQ ACHS [facility]; Protocol Last Admin: 03/05/20 12:42 Dose: 1 unit Documented by: Levetiracetam (Levetiracetam 500 Mg Tab) 500 mg PO BID [facility] Last Admin: 03/05/20 08:33 Dose: 500 mg Documented by: Levetiracetam (Levetiracetam 250 Mg Tab) 250 mg PO BID [facility] Last Admin: 03/05/20 08:36 Dose: 250 mg Documented by: Meloxicam (Meloxicam 7.5 Mg Tab) 7.5 mg PO DAILY [facility] Last Admin: 03/05/20 08:34 Dose: 7.5 mg Documented by: Memantine (Memantine 5 Mg Tab) 5 mg PO BID [facility] Last Admin: 03/05/20 08:37 Dose: 5 mg Documented by: Methylprednisolone Sodium Succinate (Methylprednisolone Sod Succi 125 Mg/2 Ml Vial) 60 mg IV Q6HR [facility] Metoprolol Succinate (Metoprolol Succinate (Er) 25 Mg Tab.Er.24h) 25 mg PO DAILY [facility] Last Admin: 03/05/20 08:34 Dose: 25 mg Documented by: Mirtazapine (Mirtazapine 45 Mg Tablet) 45 mg PO HS [facility] Last Admin: 03/04/20 23:12 Dose: Not Given Documented by: Ondansetron HCl (Ondansetron Odt 4 Mg Tab) 4 mg PO BID PRN PRN Reason: Nausea Oxybutynin Chloride (Oxybutynin 15 Mg Tab.Er.24) 15 mg PO DAILY [facility] Last Admin: 03/05/20 08:36 Dose: 15 mg Documented by: Pantoprazole Sodium (Pantoprazole 40 Mg Tablet) 40 mg PO DAILY PRN PRN Reason: gerd Pregabalin (Pregabalin 100 Mg Cap) 200 mg PO TID [facility] Last Admin: 03/05/20 08:33 Dose: 200 mg Documented by: Sertraline HCl (Sertraline 100 Mg Tab) 100 mg PO BID [facility] Last Admin: 03/05/20 08:33 Dose: 100 mg Documented by: Sumatriptan Succinate (Sumatriptan Succinate 50 Mg Tab) 50 mg PO DAILY PRN PRN Reason: Migraine Headache Temazepam (Temazepam 15 Mg Cap) 15 mg PO HS PRN PRN Reason: Insomnia Trazodone HCl (Trazodone Hcl 100 Mg Tab) 100 mg PO HS [facility] Last Admin: 03/04/20 22:03 Dose: 100 mg Documented by: Zinc Sulfate (Zinc Sulfate 220 Mg Cap) 220 mg PO DAILY [facility] Last Admin: 03/05/20 08:34 Dose: 220 mg Documented by: Objective - Vital Signs Vital signs: Vital Signs Temp 98.3 F 03/05/20 13:24 Pulse 67 03/05/20 13:24 Resp 17 03/05/20 13:24 BP 96/56 03/05/20 13:24 Pulse Ox 96 03/05/20 13:24 Intake & Output 03/04/20 03/05/20 03/05/20 18:59 06:59 18:59 Intake Total 100 Balance 100 Weight 106.594 kg 106.594 kg Intake: Oral 100 Other: Voiding Method Bedside Commode Bedside Commode Incontinent Incontinent # Voids 0 0 - Exam Gen: This is a 64-year-old female awake, alert and oriented 3, well-developed, well-nourished. Temp is 98.3F, pulse is 67, respirations are 17, blood pressure is 96/56, oxygen saturation is 96 on 4 L via nasal cannula. HEENT: Head is atraumatic, normocephalic. Pupils equal, round. Sclerae is anicteric. NECK: Supple. No JVD. No lymphadenopathy. No thyromegaly. LUNGS: diminished breath sounds bilaterally with a few scattered rhonchi and crackles noted No intercostal retractions. HEART: S1, S2 are muffled ABDOMEN: Soft. Bowel sounds are present. No masses. No tenderness. EXTREMITIES: No pedal edema. No calf tenderness. NEUROLOGICAL: Patient is awake, alert and oriented x3. Cranial nerves 2 through 12 are grossly intact. Diffusely weak - Labs CBC & Chem 7: 03/05/20 04:56 03/05/20 04:56 Labs: Abnormal Lab Results - Last 24 Hours (Table) 03/04/20 03/04/20 03/04/20 Range/Units 13:30 13:30 14:50 RBC (3.80-5.40) m/uL Hgb (11.4-16.0) gm/dL Hct (34.0-46.0) % Plt Count (150-450) k/uL Lymphocytes # (1.0-4.8) k/uL D-Dimer 0.94 H (<0.60) mg/L FEU BUN/Creatinine Ratio (12.00-20.00) Ratio Glucose (70-110) mg/dL POC Glucose (mg/dL) (75-99) mg/dL Plasma Lactic Acid Tal (0.7-2.0) mmol/L Calcium (8.7-10.3) mg/dL Procalcitonin 0.20 H (0.02-0.09) ng/mL Coronavirus (PCR) Detected A (Not Detectd) 03/04/20 03/04/20 03/04/20 Range/Units 18:08 21:38 21:50 RBC (3.80-5.40) m/uL Hgb (11.4-16.0) gm/dL Hct (34.0-46.0) % Plt Count (150-450) k/uL Lymphocytes # (1.0-4.8) k/uL D-Dimer (<0.60) mg/L FEU BUN/Creatinine Ratio (12.00-20.00) Ratio Glucose (70-110) mg/dL POC Glucose (mg/dL) 319 H (75-99) mg/dL Plasma Lactic Acid Tal 4.4 H* 3.3 H* (0.7-2.0) mmol/L Calcium (8.7-10.3) mg/dL Procalcitonin (0.02-0.09) ng/mL Coronavirus (PCR) (Not Detectd) 03/05/20 03/05/20 03/05/20 Range/Units 01:05 04:56 04:56 RBC 3.53 L (3.80-5.40) m/uL Hgb 11.2 L (11.4-16.0) gm/dL Hct 33.7 L (34.0-46.0) % Plt Count 128 L (150-450) k/uL Lymphocytes # 0.6 L (1.0-4.8) k/uL D-Dimer (<0.60) mg/L FEU BUN/Creatinine Ratio 31.25 H (12.00-20.00) Ratio Glucose 175 H (70-110) mg/dL POC Glucose (mg/dL) (75-99) mg/dL Plasma Lactic Acid Tal 2.2 H* (0.7-2.0) mmol/L Calcium 7.8 L (8.7-10.3) mg/dL Procalcitonin (0.02-0.09) ng/mL Coronavirus (PCR) (Not Detectd) 03/05/20 03/05/20 Range/Units 07:32 11:49 RBC (3.80-5.40) m/uL Hgb (11.4-16.0) gm/dL Hct (34.0-46.0) % Plt Count (150-450) k/uL Lymphocytes # (1.0-4.8) k/uL D-Dimer (<0.60) mg/L FEU BUN/Creatinine Ratio (12.00-20.00) Ratio Glucose (70-110) mg/dL POC Glucose (mg/dL) 165 H 146 H (75-99) mg/dL Plasma Lactic Acid Tal (0.7-2.0) mmol/L Calcium (8.7-10.3) mg/dL Procalcitonin (0.02-0.09) ng/mL Coronavirus (PCR) (Not Detectd) Assessment and Plan Assessment: Acute: 19 pneumonia with bilateral interstitial pneumonia with acute hypoxic respiratory failure Chronic obstructive pulmonary disease, acute exacerbation Elevated plasma lactic acid indicative of sepsis, present on admission Elevated d-dimer Mild thrombocytopenia elevated LDH and CRP secondary to Covid 19 history of CVA/TIA Diabetes mellitus type 2 Hypertension Hyperlipidemia history of degenerative joint disease history of restless leg syndrome history of chronic diarrhea History of appendectomy History of cholecystectomy History of nicotine dependence Anxiety, bipolar depression, panic disorder History of prescription drug abuse Obesity with a body mass index of 31.9 Full code Recommendations and discussion: Recommend to continue current medications, management, and symptomatic treatment. Patient is maintained on bronchodilators along with IV steroids and will continue at this time. Patient was also started on zinc supplements and Lovenox. Infectious disease and pulmonary consulted and pending at this time. Patient continues to require 4 L of oxygen for continued shortness of breath. Patient's d-dimer was elevated and CTA of the chest was done showing bilateral pneumonia with extensive mucus plugging in the lower lobes with no evidence of PE noted. Will continue to monitor vital signs and labs closely. Due to multiple complex medical issues, prognosis is guarded. Further recommendations to follow.
[2020-03-05] MEDS: methylPREDNISolone SOD SUCCI 125 MG/2 ML VIAL IV SCH ×2 (16:42→16:45)
--- NOTE | 2020-03-05 17:17 | P.CNPUL ---
History of Present Illness Consult date: 03/05/20 Requesting physician: Brunilda Pinto Reason for consult: dyspnea, hypoxemia Chief complaint: Shortness of breath, hypoxemia, COVID19 History of present illness: 64-year-old white female patient of Dr. Abdi, with past medical history of hypertension, hyperlipidemia, previous history of CVA/TIA, diabetes mellitus type 2, osteoarthritis, anxiety, depression, presented emergency department on 03/04/2020 per EMS for evaluation of worsening shortness of breath, congestive cough, with onset of symptoms since last Wednesday, her symptoms aggressively became worse, with increasing chest congestion, cough, and patient has developed worsening dyspnea and hypoxemia. When the EMS arrived patient's pulse ox was 78% on room air, she also had a low-grade temperature. Has some mild chest discomfort, tightness, she received a breathing treatments given to her by the EMS, felt slightly better. She denied any sick contacts. Chest x-ray was completed showing hyperinflation, patchy infiltrate in the right perihilar region, subsegmental left perihilar lower lobe infiltrate, findings suspicious for multifocal pneumonia, patient was tested for COVID19 and was found to be positive. Her lab work on admission showed a white blood cell count of 4.5, hemoglobin of 13.7, lymphocyte count of 0.6, d-dimer was mildly elevated at 0.94, electrolytes were unremarkable, BUN was 19 creatinine was 0.68, plasma l actic acid was elevated at 3.1, currently improved and is down to 0.9. Inflammatory markers were elevated with LDH of 799, and CRP of 185.8, pro calcitonin level was 0.20. CTA chest showing bilateral pneumonia, with associated extensive mucus plugging suspected in the lower lobes, with no evidence of pulmonary embolism. Patient was started on Decadron, which we will switch over to high-dose IV Solu-Medrol, she is on Symbicort, Pepcid, Lovenox at 40 mg daily. Review of Systems All systems: negative Constitutional: Denies chills, Denies fever Eyes: denies blurred vision, denies pain Ears, nose, mouth and throat: Denies headache, Denies sore throat Cardiovascular: Denies chest pain, Denies shortness of breath Respiratory: Reports dyspnea, Denies cough Gastrointestinal: Denies abdominal pain, Denies diarrhea, Denies nausea, Denies vomiting Genitourinary: Denies dysuria, Denies hematuria Musculoskeletal: Denies myalgias Integumentary: Denies pruritus, Denies rash Neurological: Denies numbness, Denies weakness Psychiatric: Denies anxiety, Denies depression Endocrine: Denies fatigue, Denies weight change Past Medical History Past Medical History: COPD, CVA/TIA, Diabetes Mellitus, Hyperlipidemia, Hyper tension Additional Past Medical History / Comment(s): Diabetes mellitus type 2 insulin requiring, hypertension, hyperlipidemia, CVA, restless leg syndrome, chronic diarrhea. History of Any Multi-Drug Resistant Organisms: None Reported Past Surgical History: Adenoidectomy, Appendectomy, Cholecystectomy, Hysterectomy, Orthopedic Surgery, Tonsillectomy Additional Past Surgical History / Comment(s): right knee repacement x2 , left ankle surgery, bladder suspension x 2 partial hysterectomy , left breast biopsy,T+A, colonoscopy, cholecystectomy, Lasik for both eyes. Past Anesthesia/Blood Transfusion Reactions: No Reported Reaction Past Psychological History: Anxiety, Bipolar, Depression, Panic Disorder Smoking Status: Current every day smoker Past Alcohol Use History: None Reported Past Drug Use History: Prescription Drug Abuse - Past Family History Mother Family Medical History: Diabetes Mellitus Father Family Medical History: CVA/TIA Brother(s) Family Medical History: No Reported History Son(s) Family Medical History: No Reported History Daughter(s) Family Medical History: No Reported History Medications and Allergies Home Medications Medication Instructions Recorded Confirmed Type Divalproex [Depakote] 500 mg PO BID 04/01/17 03/04/20 History HYDROcodone/APAP 10-325MG [[place] 1 tab PO TID PRN 04/01/17 03/04/20 History 10-325] Mirtazapine [Remeron] 45 mg PO HS 04/01/17 03/04/20 History Sertraline [Zoloft] 100 mg PO BID 04/01/17 03/04/20 History ALPRAZolam [Xanax] 0.5 mg PO TID 06/29/18 03/04/20 History metFORMIN HCL [Glucophage] 500 mg PO BID 06/29/18 03/04/20 History Celecoxib [CeleBREX] 200 mg PO DAILY 01/08/20 03/04/20 History Ergocalciferol [Vitamin D2] 50,000 unit PO Q7D 01/08/20 03/04/20 History Famotidine 20 mg PO BID PRN 01/08/20 03/04/20 History Memantine [Namenda] 5 mg PO BID 01/08/20 03/04/20 History Metoprolol Succinate (ER) [Toprol 25 mg PO DAILY 01/08/20 03/04/20 History Xl] Omeprazole [PriLOSEC] 40 mg PO DAILY PRN 01/08/20 03/04/20 History Ondansetron Odt [Zofran ODT] 4 mg SUBLINGUAL BID PRN 01/08/20 03/04/20 History Pregabalin [Lyrica] 200 mg PO TID 01/08/20 03/04/20 History SUMAtriptan SUCCINATE [Imitrex] 50 mg PO DAILY PRN 01/08/20 03/04/20 History levETIRAcetam [Keppra] 250 mg PO BID 01/08/20 03/04/20 History levETIRAcetam [Keppra] 500 mg PO BID 01/08/20 03/04/20 History Oxybutynin ER [Ditropan Xl] 15 mg PO DAILY 03/04/20 03/04/20 History traZODone HCL 100 mg PO HS 03/04/20 03/04/20 History Allergies Allergy/AdvReac Type Severity Reaction Status Date / Time Penicillins Allergy Unknown Verified 03/04/20 14:27 ramipril [From Altace] Allergy Unknown Verified 03/04/20 14:27 Physical Exam Vitals: Vital Signs Temp Pulse Pulse Resp BP BP Pulse Ox 03/05/20 13:24 98.3 F 67 17 96/56 96 03/05/20 12:53 93 L 03/05/20 08:00 98.5 F 69 15 92/54 94 L 03/05/20 02:00 97.6 F 74 20 93/58 95 03/04/20 21:30 99.1 F 83 18 107/65 93 L 03/04/20 21:25 99 F 90 18 124/61 96 03/04/20 19:56 86 18 91 L Intake and Output 03/05/20 03/05/20 03/05/20 06:59 14:59 22:59 Intake Total 100 Balance 100 Intake: Oral 100 Other: Voiding Method Bedside Commode Incontinent # Voids 0 0 GENERAL EXAM: Alert, very pleasant, 64-year-old white female, on 4 L of oxygen and the pulse ox of 93-96%, comfortable in no apparent distress. HEAD: Normocephalic/atraumatic. EYES: Normal reaction of pupils, equal size. Conjunctiva pink, sclera white. NOSE: Clear with pink turbinates. THROAT: No erythema or exudates. NECK: No masses, no JVD, no thyroid enlargement, no adenopathy. CHEST: No chest wall deformity. Symmetrical expansion. LUNGS: Equal air entry with diffuse rhonchi CVS: Regular rate and rhythm, normal S1 and S2, no gallops, no murmurs, no rubs ABDOMEN: Soft, nontender. No hepatosplenomegaly, normal bowel sounds, no guarding or rigidity. EXTREMITIES: No clubbing, no edema, no cyanosis, 2+ pulses and upper and lower extremities. MUSCULOSKELETAL: Muscle strength and tone normal. SPINE: No scoliosis or deformity SKIN: No rashes CENTRAL NERVOUS SYSTEM: Alert and oriented -3. No focal deficits, tone is normal in all 4 extremities. PSYCHIATRIC: Alert and oriented -3. Appropriate affect. Intact judgment and insight. Results - Laboratory Findings CBC and BMP: 03/05/20 04:56 03/05/20 04:56 PT/INR, D-dimer PT 9.9 sec (9.0-12.0) 03/04/20 13:30 INR 0.9 (<1.2) 03/04/20 13:30 D-Dimer 0.94 mg/L FEU (<0.60) H 03/04/20 13:30 Abnormal lab findings: Abnormal Labs 03/04/20 03/04/20 03/04/20 13:30 13:30 13:30 RBC Hgb Hct Plt Count 140 L Lymphocytes # 0.6 L D-Dimer BUN 19 H BUN/Creatinine Ratio Glucose 193 H POC Glucose (mg/dL) Plasma Lactic Acid Tal 3.1 H* Calcium Lactate Dehydrogenase 799 H C-Reactive Protein 185.8 H Procalcitonin Coronavirus (PCR) 03/04/20 03/04/20 03/04/20 13:30 13:30 14:50 RBC Hgb Hct Plt Count Lymphocytes # D-Dimer 0.94 H BUN BUN/Creatinine Ratio Glucose POC Glucose (mg/dL) Plasma Lactic Acid Tal Calcium Lactate Dehydrogenase C-Reactive Protein Procalcitonin 0.20 H Coronavirus (PCR) Detected A 03/04/20 03/04/20 03/04/20 18:08 21:38 21:50 RBC Hgb Hct Plt Count Lymphocytes # D-Dimer BUN BUN/Creatinine Ratio Glucose POC Glucose (mg/dL) 319 H Plasma Lactic Acid Tal 4.4 H* 3.3 H* Calcium Lactate Dehydrogenase C-Reactive Protein Procalcitonin Coronavirus (PCR) 03/05/20 03/05/20 03/05/20 01:05 04:56 04:56 RBC 3.53 L Hgb 11.2 L Hct 33.7 L Plt Count 128 L Lymphocytes # 0.6 L D-Dimer BUN BUN/Creatinine Ratio 31.25 H Glucose 175 H POC Glucose (mg/dL) Plasma Lactic Acid Tal 2.2 H* Calcium 7.8 L Lactate Dehydrogenase C-Reactive Protein Procalcitonin Coronavirus (PCR) 03/05/20 03/05/20 07:32 11:49 RBC Hgb Hct Plt Count Lymphocytes # D-Dimer BUN BUN/Creatinine Ratio Glucose POC Glucose (mg/dL) 165 H 146 H Plasma Lactic Acid Tal Calcium Lactate Dehydrogenase C-Reactive Protein Procalcitonin Coronavirus (PCR) - Diagnostic Findings Chest x-ray: report reviewed, image reviewed CT scan - chest: report reviewed, image reviewed Assessment and Plan Plan: Assessment: #1. Acute hypoxic respiratory failure related to COVID 19 related to pneumonitis #2. Lactic acidosis, rule out possibility of sepsis #3. Increased inflammatory markers related to "19 related pneumonia #4. Elevated d-dimer with no evidence of pulmonary embolism on the CT chest #5. COPD #6. Previous history of CVA and TIA #7. Diabetes mellitus type 2 #8. Hypertension #9. Hyperlipidemia #10. History of DJD #11. History of adenoidectomy #12. Anxiety and depression Plan: We'll switch to oral Decadron to IV Solu-Medrol, we'll add Remdesivir, continue prophylactic dose of Lovenox, add bronchodilators, blood culture has been sent and pending, continue monitoring for signs of worsening oxygenation, no dyspnea, we'll continue to follow I performed a history & physical examination of the patient and discussed their management with my nurse practitioner, Yadira Mills. I reviewed the nurse practitioner's note and agree with the documented findings and plan of care. Lung sounds are positive for congestive cough, bibasilar crackles. The findings and the impression was discussed with the patient. I attest to the documentation by the nurse practitioner. Time with Patient: Greater than 30
[2020-03-05 17:29] LABS: Glucose,Whole Blood 190 mg/dL (75-99)
[2020-03-05] MEDS ORDERED: REMDESIVIR 200 MG in SODIUM CHLORIDE 0.9% 250 ML IVPB ONE (18:00)
[2020-03-05] MEDS: SYMBICORT 160-4.5 MCG INHALER INHALATION SCH (20:08)
[2020-03-05] MEDS: traZODone HCL 100 MG TAB PO SCH (20:19)
[2020-03-05] MEDS: MIRTAZAPINE 45 MG TABLET PO SCH (20:20)
[2020-03-05 21:33] LABS: Glucose,Whole Blood 209 mg/dL (75-99)
--- NOTE | 2020-03-05 23:17 | P.CONS ---
History of Present Illness - Reason for Consult Consult date: 03/05/20 Pneumonia Requesting physician: Brunilda Pinto - Chief Complaint shortness of breath x days - History of Present Illness Patient is a 64-year-old female presenting to the ER at [facility] yesterday afternoon for evaluation of increasing shortness of breath congested cough and this patient symptom has been going on since last Wednesday, patient had denies having any headache some sore throat but no other URI symptoms main symptom has been shortness of breath on minimal exertion and even at rest she also have a cough which is moderate intensity not bringing up any sputum some nausea but no vomiting no abdominal pain or diarrhea, with the symptom the patient was evaluated by the ER physician on arrival to the ER patient did have low-grade fever of 99.8 F, patient was hypoxic with O2 sats of 78% on room air patient did have a normal white count with lymphopenia D-dimer was elevated 0.94 elevated lactic acid elevated LDH CRP as well as procalcitonin leger PCR came back positive patient did have a chest x-ray multifocal pneumonia patient also have a CT angiogram of the chest which shows bilateral pneumonia with extensive mucus plugging suspected lower lobes patient was started on remdesivir Lovenox zinc and Solu-Medrol interestingly was consulted for further management of antibiotic therapy. Review of Systems Positive point has been mentioned in HPI rest of the systems are negative Past Medical History Past Medical History: COPD, CVA/TIA, Diabetes Mellitus, Hyperlipidemia, Hypertension Additional Past Medical History / Comment(s): Diabetes mellitus type 2 insulin requiring, hypertension, hyperlipidemia, CVA, restless leg syndrome, chronic diarrhea. History of Any Multi-Drug Resistant Organisms: None Reported Past Surgical History: Adenoidectomy, Appendectomy, Cholecystectomy, Hyst erectomy, Orthopedic Surgery, Tonsillectomy Additional Past Surgical History / Comment(s): right knee repacement x2 , left ankle surgery, bladder suspension x 2 partial hysterectomy , left breast biopsy,T+A, colonoscopy, cholecystectomy, Lasik for both eyes. Past Anesthesia/Blood Transfusion Reactions: No Reported Reaction Past Psychological History: Anxiety, Bipolar, Depression, Panic Disorder Smoking Status: Current every day smoker Past Alcohol Use History: None Reported Past Drug Use History: Prescription Drug Abuse - Past Family History Mother Family Medical History: Diabetes Mellitus Father Family Medical History: CVA/TIA Brother(s) Family Medical History: No Reported History Son(s) Family Medical History: No Reported History Daughter(s) Family Medical History: No Reported History Medications and Allergies Home Medications Medication Instructions Recorded Confirmed Type Divalproex [Depakote] 500 mg PO BID 04/01/17 03/04/20 History HYDROcodone/APAP 10-325MG [[facility] 1 tab PO TID PRN 04/01/17 03/04/20 History 10-325] Mirtazapine [Remeron] 45 mg PO HS 04/01/17 03/04/20 History Sertraline [Zoloft] 100 mg PO BID 04/01/17 03/04/20 History ALPRAZolam [Xanax] 0.5 mg PO TID 06/29/18 03/04/20 History metFORMIN HCL [Glucophage] 500 mg PO BID 06/29/18 03/04/20 History Celecoxib [CeleBREX] 200 mg PO DAILY 01/08/20 03/04/20 History Ergocalciferol [Vitamin D2] 50,000 unit PO Q7D 01/08/20 03/04/20 History Famotidine 20 mg PO BID PRN 01/08/20 03/04/20 History Memantine [Namenda] 5 mg PO BID 01/08/20 03/04/20 History Metoprolol Succinate (ER) [Toprol 25 mg PO DAILY 01/08/20 03/04/20 History Xl] Omeprazole [PriLOSEC] 40 mg PO DAILY PRN 01/08/20 03/04/20 History Ondansetron Odt [Zofran ODT] 4 mg SUBLINGUAL BID PRN 01/08/20 03/04/20 History Pregabalin [Lyrica] 200 mg PO TID 01/08/20 03/04/20 History SUMAtriptan SUCCINATE [Imitrex] 50 mg PO DAILY PRN 01/08/20 03/04/20 History levETIRAcetam [Keppra] 250 mg PO BID 01/08/20 03/04/20 History levETIRAcetam [Keppra] 500 mg PO BID 01/08/20 03/04/20 History Oxybutynin ER [Ditropan Xl] 15 mg PO DAILY 03/04/20 03/04/20 History traZODone HCL 100 mg PO HS 03/04/20 03/04/20 History Allergies Allergy/AdvReac Type Severity Reaction Status Date / Time Penicillins Allergy Unknown Verified 03/04/20 14:27 ramipril [From Altace] Allergy Unknown Verified 03/04/20 14:27 Physical Exam Vitals: Vital Signs Temp Pulse Resp BP Pulse Ox 03/05/20 20:00 98.1 F 73 18 99/62 90 L 03/05/20 13:24 98.3 F 67 17 96/56 96 03/05/20 12:53 93 L 03/05/20 08:00 98.5 F 69 15 92/54 94 L 03/05/20 02:00 97.6 F 74 20 93/58 95 Intake and Output 03/05/20 03/05/20 03/05/20 06:59 14:59 22:59 Intake Total 100 200 Balance 100 200 Intake: Oral 100 200 Other: Voiding Method Bedside Commode Incontinent # Voids 0 0 GENERAL DESCRIPTION: Elderly female lying in bed, no distress. No tachypnea or accessory muscle of respiration use. HEENT: Shows Pallor , no scleral icterus. Oral mucous membrane is dry. NECK: Trachea central, no thyromegaly. LUNGS: Unlabored breathing. Decreased breath sound at the bases. No wheeze or crackle. HEART: S1, S2, regular rate and rhythm. ABDOMEN: Soft, no tenderness , guarding or rigidity EXTREMITIES: No edema of feet. SKIN: No rash, no masses palpable. NEUROLOGICAL: The patient is awake, alert, oriented x3, mood and affect normal. Results CBC & Chem 7: 03/05/20 04:56 03/05/20 04:56 Labs: Abnormal Lab Results - Last 24 Hours (Table) 03/04/20 03/04/20 03/04/20 Range/Units 13:30 21:38 21:50 RBC (3.80-5.40) m/uL Hgb (11.4-16.0) gm/dL Hct (34.0-46.0) % Plt Count (150-450) k/uL Lymphocytes # (1.0-4.8) k/uL BUN/Creatinine Ratio (12.00-20.00) Ratio Glucose (70-110) mg/dL POC Glucose (mg/dL) 319 H (75-99) mg/dL Plasma Lactic Acid Tal 3.3 H* (0.7-2.0) mmol/L Calcium (8.7-10.3) mg/dL Procalcitonin 0.20 H (0.02-0.09) ng/mL 03/05/20 03/05/20 03/05/20 Range/Units 01:05 04:56 04:56 RBC 3.53 L (3.80-5.40) m/uL Hgb 11.2 L (11.4-16.0) gm/dL Hct 33.7 L (34.0-46.0) % Plt Count 128 L (150-450) k/uL Lymphocytes # 0.6 L (1.0-4.8) k/uL BUN/Creatinine Ratio 31.25 H (12.00-20.00) Ratio Glucose 175 H (70-110) mg/dL POC Glucose (mg/dL) (75-99) mg/dL Plasma Lactic Acid Tal 2.2 H* (0.7-2.0) mmol/L Calcium 7.8 L (8.7-10.3) mg/dL Procalcitonin (0.02-0.09) ng/mL 03/05/20 03/05/20 03/05/20 Range/Units 07:32 11:49 17:28 RBC (3.80-5.40) m/uL Hgb (11.4-16.0) gm/dL Hct (34.0-46.0) % Plt Count (150-450) k/uL Lymphocytes # (1.0-4.8) k/uL BUN/Creatinine Ratio (12.00-20.00) Ratio Glucose (70-110) mg/dL POC Glucose (mg/dL) 165 H 146 H 190 H (75-99) mg/dL Plasma Lactic Acid Tal (0.7-2.0) mmol/L Calcium (8.7-10.3) mg/dL Procalcitonin (0.02-0.09) ng/mL 03/05/20 Range/Units 21:32 RBC (3.80-5.40) m/uL Hgb (11.4-16.0) gm/dL Hct (34.0-46.0) % Plt Count (150-450) k/uL Lymphocytes # (1.0-4.8) k/uL BUN/Creatinine Ratio (12.00-20.00) Ratio Glucose (70-110) mg/dL POC Glucose (mg/dL) 209 H (75-99) mg/dL Plasma Lactic Acid Tal (0.7-2.0) mmol/L Calcium (8.7-10.3) mg/dL Procalcitonin (0.02-0.09) ng/mL Microbiology - Last 24 Hours (Table) 03/04/20 13:30 Blood Culture - Preliminary Blood No Growth after 24 hours Assessment and Plan Assessment: 1-patient presented to hospital with increasing shortness of breath congested cough sputum production in this patient who did have a evidence of lymphopenia elevated LDH CRP also elevated procalcitonin with evidence of bilateral multifocal pneumonia likely secondary to COVID-19 superadded bacterial pneumonia not entirely excluded. 2-penicillin allergy (1) COVID-19 Current Visit: Yes Status: Acute Code(s): U07.1 - COVID-19 SNOMED Code(s): 697638438 Plan: 1-we will obtain a sputum for Gram stain and culture 2-continue with remdesivir Solu-Medrol Lovenox and zinc 3-we will add Levaquin We will follow on clinical condition and cultures to further adjust medication if needed Thank you for this consultation we will follow the patient along with you Time with Patient: Greater than 30
[2020-03-06] MEDS: methylPREDNISolone SOD SUCCI 125 MG/2 ML VIAL IV SCH ×4 (02:10→21:47)
[2020-03-06 06:37] LABS: Basophils % (A) 0 %; Eosinophils % (A) 0 %; HCT 36.6 % (34.0-46.0); HGB 11.9 gm/dL (11.4-16.0); Hypochromasia Slight; Lymphocytes # (A) 0.8 k/uL (1.0-4.8); Lymphocytes % (A) 8 %; MCH 32.3 pg (25.0-35.0); MCHC 32.6 g/dL (31.0-37.0); MCV 99.1 fL (80.0-100.0); Mean Platelet Volume 9.3; Monocytes # (A) 0.3 k/uL (0-1.0); Monocytes % (A) 3 %; Neutrophils # (A) 8.7 k/uL (1.3-7.7); Neutrophils % (A) 86 %; Platelet Count 136 k/uL (150-450); RBC 3.69 m/uL (3.80-5.40); RDW 13.2 % (11.5-15.5); WBC 10.1 k/uL (3.8-10.6)
[2020-03-06 07:33] LABS: Glucose,Whole Blood 136 mg/dL (75-99)
[2020-03-06] MEDS: ASCORBIC ACID 500 MG TAB PO SCH (08:02)
[2020-03-06] MEDS: INSULIN ASPART (NovoLOG) 100 UNIT/ML VIAL SQ SCH ×4 (08:03→21:47)
[2020-03-06] MEDS: ZINC SULFATE 220 MG CAP PO SCH (08:03)
[2020-03-06] MEDS: LEVOFLOXACIN 750 MG TAB PO SCH (08:03)
[2020-03-06] MEDS: ENOXAPARIN 40 MG/0.4 ML SYRINGE SQ SCH (08:03)
[2020-03-06] MEDS: METOPROLOL SUCCINATE (ER) 25 MG TAB.ER.24H PO SCH (08:03)
[2020-03-06] MEDS: levETIRAcetam 500 MG TAB PO SCH ×2 (08:03→21:46)
[2020-03-06] MEDS: SERTRALINE 100 MG TAB PO SCH ×2 (08:03→21:46)
[2020-03-06] MEDS: DIVALPROEX 500 MG TABLET.DR PO SCH ×2 (08:03→21:46)
[2020-03-06] MEDS: MELOXICAM 7.5 MG TAB PO SCH (08:03)
[2020-03-06] MEDS: PREGABALIN 100 MG CAP PO SCH ×3 (08:03→22:14)
[2020-03-06] MEDS: ALPRAZolam 0.5 MG TAB PO SCH ×3 (08:03→22:14)
[2020-03-06] MEDS: MEMANTINE 5 MG TAB PO SCH ×2 (08:04→21:46)
[2020-03-06] MEDS: CHOLECALCIFEROL 400 UNIT TAB PO SCH (08:04)
[2020-03-06] MEDS: levETIRAcetam 250 MG TAB PO SCH ×2 (08:04→21:46)
[2020-03-06] MEDS: OXYBUTYNIN 15 MG TAB.ER.24 PO SCH (08:04)
[2020-03-06] MEDS: ALBUTEROL HFA INHALER INHALATION SCH ×4 (09:30→20:04)
[2020-03-06] MEDS: SYMBICORT 160-4.5 MCG INHALER INHALATION SCH ×2 (09:30→20:04)
[2020-03-06 10:18] LABS: African American GFR (CKD) 110.1 (60.0-200.0); Anion Gap 7.6 mmol/L (4.00-12.00); Calcium 8.3 mg/dL (8.7-10.3); Carbon Dioxide 25.4 mmol/L (21.6-31.8); Potassium 4.8 mmol/L (3.5-5.5)
[2020-03-06 11:24] LABS: Glucose,Whole Blood 187 mg/dL (75-99)
--- NOTE | 2020-03-06 15:07 | P.PN ---
Subjective Progress Note Date: 03/06/20 Principal diagnosis: Acute hypoxic respiratory failure secondary to CoVID 19 pneumonitis 64-year-old white female patient of Dr. Abdi, with past medical history of hypertension, hyperlipidemia, previous history of CVA/TIA, diabetes mellitus type 2, osteoarthritis, anxiety, depression, presented emergency department on 03/04/2020 per EMS for evaluation of worsening shortness of breath, congestive cough, with onset of symptoms since last Wednesday, her symptoms aggressively clyde me worse, with increasing chest congestion, cough, and patient has developed worsening dyspnea and hypoxemia. When the EMS arrived patient's pulse ox was 78% on room air, she also had a low-grade temperature. Has some mild chest discomfort, tightness, she received a breathing treatments given to her by the EMS, felt slightly better. She denied any sick contacts. Chest x-ray was completed showing hyperinflation, patchy infiltrate in the right perihilar region, subsegmental left perihilar lower lobe infiltrate, findings suspicious for multifocal pneumonia, patient was tested for COVID19 and was found to be positive. Her lab work on admission showed a white blood cell count of 4.5, hemoglobin of 13.7, lymphocyte count of 0.6, d-dimer was mildly elevated at 0.94, electrolytes were unremarkable, BUN was 19 creatinine was 0.68, plasma lactic acid was elevated at 3.1, currently improved and is down to 0.9. Inflammatory markers were elevated with LDH of 799, and CRP of 185.8, pro calcit onin level was 0.20. CTA chest showing bilateral pneumonia, with associated extensive mucus plugging suspected in the lower lobes, with no evidence of pulmonary embolism. Patient was started on Decadron, which we will switch over to high-dose IV Solu-Medrol, she is on Symbicort, Pepcid, Lovenox at 40 mg daily. The patient is seen today 03/06/2020 in follow-up on the regular medical floor. Currently maintaining O2 saturation in the 90s on 4 L/m per nasal cannula. She's afebrile. Blood cultures reveal no growth. White count 10.1. Hemoglobin 11.9. Platelets 136. Sodium 144. Potassium 4.8. Creatinine 0.6. This is day #2 of Remdesivir. She remains on bronchodilators, IV Solu-Medrol, Lovenox. Objective - Vital Signs Vital signs: Vital Signs Temp 97.5 F L 03/06/20 14:00 Pulse 65 03/06/20 14:00 Resp 18 03/06/20 14:00 BP 107/62 03/06/20 14:00 Pulse Ox 97 03/06/20 14:00 Intake & Output 03/05/20 03/06/20 03/06/20 18:59 06:59 18:59 Intake Total 200 300 Balance 200 300 Intake: Oral 200 300 Other: Voiding Method Bedside Commode Bedside Commode Incontinent Incontinent # Voids 0 0 - Exam GENERAL EXAM: Alert, very pleasant, 64-year-old female patient, on 4 L of oxygen and the pulse ox of 97%, comfortable in no apparent distress. HEAD: Normocephalic/atraumatic. EYES: Normal reaction of pupils, equal size. Conjunctiva pink, sclera white. NOSE: Clear with pink turbinates. THROAT: No erythema or exudates. NECK: No masses, no JVD, no thyroid enlargement, no adenopathy. CHEST: No chest wall deformity. Symmetrical expansion. LUNGS: Equal air entry with diffuse rhonchi CVS: Regular rate and rhythm, normal S1 and S2, no gallops, no murmurs, no rubs ABDOMEN: Soft, nontender. No hepatosplenomegaly, normal bowel sounds, no guarding or rigidity. EXTREMITIES: No clubbing, no edema, no cyanosis, 2+ pulses and upper and lower extremities. MUSCULOSKELETAL: Muscle strength and tone normal. SPINE: No scoliosis or deformity SKIN: No rashes CENTRAL NERVOUS SYSTEM: No focal deficits, tone is normal in all 4 extremities. PSYCHIATRIC: Alert and oriented -3. Appropriate affect. Intact judgment and insight. - Labs CBC & Chem 7: 03/06/20 05:48 03/06/20 05:48 Labs: Abnormal Lab Results - Last 24 Hours (Table) 03/05/20 03/05/20 03/06/20 Range/Units 17:28 21:32 05:48 RBC 3.69 L (3.80-5.40) m/uL Plt Count 136 L (150-450) k/uL Neutrophils # 8.7 H (1.3-7.7) k/uL Lymphocytes # 0.8 L (1.0-4.8) k/uL Chloride (96-109) mmol/L BUN/Creatinine Ratio (12.00-20.00) Ratio Glucose (70-110) mg/dL POC Glucose (mg/dL) 190 H 209 H (75-99) mg/dL Calcium (8.7-10.3) mg/dL 03/06/20 03/06/20 03/06/20 Range/Units 05:48 07:22 11:16 RBC (3.80-5.40) m/uL Plt Count (150-450) k/uL Neutrophils # (1.3-7.7) k/uL Lymphocytes # (1.0-4.8) k/uL Chloride 111 H (96-109) mmol/L BUN/Creatinine Ratio 40.00 H (12.00-20.00) Ratio Glucose 138 H (70-110) mg/dL POC Glucose (mg/dL) 136 H 187 H (75-99) mg/dL Calcium 8.3 L (8.7-10.3) mg/dL Microbiology - Last 24 Hours (Table) 03/04/20 13:30 Blood Culture - Preliminary Blood No Growth after 24 hours Assessment and Plan Assessment: 1 Acute hypoxic respiratory failure secondary to COVID 19 related to pn eumonitis 2 Lactic acidosis, rule out possibility of sepsis 3 Increased inflammatory markers related to CoVID 19 related pneumonia 4 Elevated d-dimer with no evidence of pulmonary embolism on the CT chest 5 COPD 6 Previous history of CVA and TIA 7 Diabetes mellitus type 2 8 Hypertension 9 Hyperlipidemia 10 History of DJD 11 History of adenoidectomy 12 Anxiety and depression Plan: The patient was seen and evaluated by Dr. Crawley Continue with the current treatment plan for now Repeat chest x-ray in the a.m. We'll continue to follow I, the cosigning physician, performed a history & physical examination of the patient. Lungs sounds with bilateral scattered rhonchi. Maintaining good O2 saturations in the 90s on 4 L/m per nasal cannula. I discussed the assessment and plan of care with my nurse practitioner, Cheri Shaw. I attest to the above note as dictated by her.
[2020-03-06 17:16] LABS: Glucose,Whole Blood 211 mg/dL (75-99)
[2020-03-06] MEDS: REMDESIVIR 100 MG in SODIUM CHLORIDE 0.9% 250 ML IVPB SCH (17:49)
[2020-03-06 20:46] LABS: Glucose,Whole Blood 182 mg/dL (75-99)
[2020-03-06] MEDS: traZODone HCL 100 MG TAB PO SCH (21:46)
[2020-03-06] MEDS: MIRTAZAPINE 45 MG TABLET PO SCH (21:46)
[2020-03-06] MEDS: NICOTINE 14MG/24HR PATCH TRANSDERM SCH (21:46)
[2020-03-07] MEDS: methylPREDNISolone SOD SUCCI 125 MG/2 ML VIAL IV SCH ×5 (00:48→23:11)
--- NOTE | 2020-03-07 00:51 | P.PN ---
Subjective Progress Note Date: 03/06/20 This is a 64-year-old female who was recently admitted with shortness of breath along with some cough and congestion and is being closely monitored. She was also found to have Covid 19 pneumonia. CTA of the chest shows bilateral pneumonia with no evidence of PE noted. Patient was initiated on IV steroids along with bronchodilators, Lovenox, and zinc supplements. Pulmonary and infectious disease are consulted and pending at this time. Patient continues to require oxygen at 4 L via nasal cannula due to shortness of breath and cough. Patient's lactic acid has improved and is 0.9. Patient is currently afebrile. 03/06/2020 Patient is seen in follow up and continues to have shortness of breath with cough and is being closely monitored. Pulmonary and infectious disease following. Patient is maintained on IV steroids along with bronchodilators, lovenox, and zinc supplements. Patient has been started on Remdesivir as well as Levaquin. Patient is quite weak and will have PT/OT evaluate the patient for possible ECF placement. Patient is currently on 4L of oxygen via NC. Social work consulted. Incentive spirometer ordered. Review of systems: Constitutional: Reports fatigue Cardiovascular: No reports of chest pain or palpitations Respiratory: Reports shortness of breath and cough GI: No reports of nausea, vomiting, or diarrhea : No reports of dysuria or retention Neurovascular: reports generalized weakness no reports of numbness All medications have been reviewed Active Medications Albuterol Sulfate (Albuterol Hfa Inhaler) 2 puff INHALATION RT-QID [facility] Last Admin: 03/06/20 15:46 Dose: 2 puff Documented by: Alprazolam (Alprazolam 0.5 Mg Tab) 0.5 mg PO TID [facility] Last Admin: 03/06/20 08:03 Dose: 0.5 mg Documented by: Ascorbic Acid (Ascorbic Acid 500 Mg Tab) 250 mg PO DAILY [facility] Last Admin: 03/06/20 08:02 Dose: 250 mg Documented by: Budesonide/Formoterol Fumarate (Symbicort 160-4.5 Mcg Inhaler) 2 puff INHALATION RT-BID [facility] Last Admin: 03/06/20 09:30 Dose: 2 puff Documented by: Cholecalciferol (Cholecalciferol 400 Unit Tab) 400 unit PO DAILY [facility] Last Admin: 03/06/20 08:04 Dose: 400 unit Documented by: Divalproex Sodium (Divalproex 500 Mg Tablet.Dr) 500 mg PO BID [facility] Last Admin: 03/06/20 08:03 Dose: 500 mg Documented by: Enoxaparin Sodium (Enoxaparin 40 Mg/0.4 Ml Syringe) 40 mg SQ Q24HR [facility] Last Admin: 03/06/20 08:03 Dose: 40 mg Documented by: Ergocalciferol (Ergocalciferol 50,000 Unit Cap) 50,000 unit PO Q7D [facility] Last Admin: 03/05/20 08:37 Dose: 50,000 unit Documented by: Famotidine (Famotidine 20 Mg Tab) 20 mg PO BID PRN PRN Reason: gerd Remdesivir 100 mg/ Sodium (Chloride) 250 mls @ 250 mls/hr IVPB DAILY@1800 [facility] Stop: 03/09/20 18:59 Insulin Aspart (Insulin Aspart (Novolog) 100 Unit/Ml Vial) 0 unit SQ ACHS [facility]; Protocol Last Admin: 03/06/20 12:58 Dose: 3 unit Documented by: Levetiracetam (Levetiracetam 500 Mg Tab) 500 mg PO BID [facility] Last Admin: 03/06/20 08:03 Dose: 500 mg Documented by: Levetiracetam (Levetiracetam 250 Mg Tab) 250 mg PO BID [facility] Last Admin: 03/06/20 08:04 Dose: 250 mg Documented by: Levofloxacin (Levofloxacin 750 Mg Tab) 750 mg PO DAILY [facility] Last Admin: 03/06/20 08:03 Dose: 750 mg Documented by: Meloxicam (Meloxicam 7.5 Mg Tab) 7.5 mg PO DAILY [facility] Last Admin: 03/06/20 08:03 Dose: 7.5 mg Documented by: Memantine (Memantine 5 Mg Tab) 5 mg PO BID [facility] Last Admin: 03/06/20 08:04 Dose: 5 mg Documented by: Methylprednisolone Sodium Succinate (Methylprednisolone Sod Succi 125 Mg/2 Ml Vial) 60 mg IV Q6HR [facility] Last Admin: 03/06/20 13:01 Dose: 60 mg Documented by: Metoprolol Succinate (Metoprolol Succinate (Er) 25 Mg Tab.Er.24h) 25 mg PO DAILY [facility] Last Admin: 03/06/20 08:03 Dose: 25 mg Documented by: Mirtazapine (Mirtazapine 45 Mg Tablet) 45 mg PO HS [facility] Last Admin: 03/05/20 20:20 Dose: 45 mg Documented by: Ondansetron HCl (Ondansetron Odt 4 Mg Tab) 4 mg PO BID PRN PRN Reason: Nausea Oxybutynin Chloride (Oxybutynin 15 Mg Tab.Er.24) 15 mg PO DAILY [facility] Last Admin: 03/06/20 08:04 Dose: 15 mg Documented by: Pantoprazole Sodium (Pantoprazole 40 Mg Tablet) 40 mg PO DAILY PRN PRN Reason: gerd Pregabalin (Pregabalin 100 Mg Cap) 200 mg PO TID [facility] Last Admin: 03/06/20 08:03 Dose: 200 mg Documented by: Sertraline HCl (Sertraline 100 Mg Tab) 100 mg PO BID [facility] Last Admin: 03/06/20 08:03 Dose: 100 mg Documented by: Sumatriptan Succinate (Sumatriptan Succinate 50 Mg Tab) 50 mg PO DAILY PRN PRN Reason: Migraine Headache Temazepam (Temazepam 15 Mg Cap) 15 mg PO HS PRN PRN Reason: Insomnia Trazodone HCl (Trazodone Hcl 100 Mg Tab) 100 mg PO HS [facility] Last Admin: 03/05/20 20:19 Dose: 100 mg Documented by: Zinc Sulfate (Zinc Sulfate 220 Mg Cap) 220 mg PO DAILY [facility] Last Admin: 03/06/20 08:03 Dose: 220 mg Documented by: Objective - Vital Signs Vital signs: Vital Signs Temp 97.5 F L 03/06/20 14:00 Pulse 65 03/06/20 14:00 Resp 18 03/06/20 14:00 BP 107/62 03/06/20 14:00 Pulse Ox 97 03/06/20 14:00 Intake & Output 03/05/20 03/06/20 03/06/20 18:59 06:59 18:59 Intake Total 200 300 Balance 200 300 Intake: Oral 200 300 Other: Voiding Method Bedside Commode Bedside Commode Incontinent Incontinent # Voids 0 0 - Exam Gen: This is a 64-year-old female awake, alert and oriented 3, well-developed, well-nourished. Temp is 97.5F, pulse is 65, respirations are 18, blood pressure is 107/62, oxygen saturation is 97 on 4 L via nasal cannula. HEENT: Head is atraumatic, normocephalic. Pupils equal, round. Sclerae is anicteric. NECK: Supple. No JVD. No lymphadenopathy. No thyromegaly. LUNGS: diminished breath sounds bilaterally with a few scattered rhonchi and crackles noted No intercostal retractions. HEART: S1, S2 are muffled ABDOMEN: Soft. Bowel sounds are present. No masses. No tenderness. EXTREMITIES: No pedal edema. No calf tenderness. NEUROLOGICAL: Patient is awake, alert and oriented x3. Cranial nerves 2 through 12 are grossly intact. Diffusely weak - Labs CBC & Chem 7: 03/06/20 05:48 03/06/20 05:48 Labs: Abnormal Lab Results - Last 24 Hours (Table) 03/05/20 03/05/20 03/06/20 Range/Units 17:28 21:32 05:48 RBC 3.69 L (3.80-5.40) m/uL Plt Count 136 L (150-450) k/uL Neutrophils # 8.7 H (1.3-7.7) k/uL Lymphocytes # 0.8 L (1.0-4.8) k/uL Chloride (96-109) mmol/L BUN/Creatinine Ratio (12.00-20.00) Ratio Glucose (70-110) mg/dL POC Glucose (mg/dL) 190 H 209 H (75-99) mg/dL Calcium (8.7-10.3) mg/dL 03/06/20 03/06/20 03/06/20 Range/Units 05:48 07:22 11:16 RBC (3.80-5.40) m/uL Plt Count (150-450) k/uL Neutrophils # (1.3-7.7) k/uL Lymphocytes # (1.0-4.8) k/uL Chloride 111 H (96-109) mmol/L BUN/Creatinine Ratio 40.00 H (12.00-20.00) Ratio Glucose 138 H (70-110) mg/dL POC Glucose (mg/dL) 136 H 187 H (75-99) mg/dL Calcium 8.3 L (8.7-10.3) mg/dL Microbiology - Last 24 Hours (Table) 03/04/20 13:30 Blood Culture - Preliminary Blood No Growth after 24 hours Assessment and Plan Assessment: Acute Covid 19 pneumonia with bilateral interstitial pneumonia with acute hypoxic respiratory failure Chronic obstructive pulmonary disease, acute exacerbation Elevated plasma lactic acid indicative of sepsis, present on admission Elevated d-dimer Mild thrombocytopenia elevated LDH and CRP secondary to Covid 19 history of CVA/TIA Diabetes mellitus type 2 Hypertension Hyperlipidemia history of degenerative joint disease history of restless leg syndrome history of chronic diarrhea History of appendectomy History of cholecystectomy History of nicotine dependence Anxiety, bipolar depression, panic disorder History of prescription drug abuse Obesity with a body mass index of 31.9 Full code Recommendations and discussion: Recommend to continue current medications, management, and symptomatic treatment. Patient is maintained on bronchodilators along with IV steroids and will continue at this time. Patient was also started on zinc supplements and Lovenox. Infectious disease and pulmonary following. Remdesivir and oral Levaquin initiated. Patient continues to require 4 L of oxygen for continued shortness of breath. Incentive spirometer ordered and instructed the patient to continue to use at least 10 times every hour while awake. Will continue to monitor vital signs and labs closely. Due to multiple complex medical issues, prognosis is guarded. PT/OT to evaluate the patient. Social work following for possible ecf placement. Further recommendations to follow.
--- NOTE | 2020-03-07 01:07 | PN ---
PROGRESS NOTE DATE OF SERVICE: 03/06/2020 REASON FOR FOLLOWUP: Acute COVID-19 pneumonia. INTERVAL HISTORY: The patient is currently afebrile. The patient is breathing comfortably. Patient denies having any chest pain. She did have a cough, not bringing up any sputum. No nausea, no vomiting. No abdominal pain, no diarrhea. PHYSICAL EXAMINATION: Blood pressure 96/55, pulse of 76, temperature 97.5. She is 93% on 4 L nasal cannula. General description is an elderly female lying in bed in no distress. RESPIRATORY SYSTEM: Unlabored breathing, decreased breath sounds at the bases. No wheeze. HEART: S1, S2. Regular rate and rhythm. ABDOMEN: Soft, no tenderness. LABS: Hemoglobin 11.9, white count 10.1, BUN of 24, creatinine 0.6. Blood culture negative. DIAGNOSTIC IMPRESSION AND PLAN: Patient with acute COVID-19 pneumonia in this patient currently being treated with remdesivir, Solu-Medrol to continue along with Lovenox and respiratory support and monitor clinical course closely. MMODL / IJN: [id number] /
[2020-03-07 07:16] LABS: Glucose,Whole Blood 182 mg/dL (75-99)
[2020-03-07] MEDS: SYMBICORT 160-4.5 MCG INHALER INHALATION SCH ×2 (07:58→19:28)
[2020-03-07] MEDS: ALBUTEROL HFA INHALER INHALATION SCH ×4 (07:58→19:28)
[2020-03-07] MEDS: OXYBUTYNIN 15 MG TAB.ER.24 PO SCH (08:24)
[2020-03-07] MEDS: DIVALPROEX 500 MG TABLET.DR PO SCH ×2 (08:24→20:46)
[2020-03-07] MEDS: CHOLECALCIFEROL 400 UNIT TAB PO SCH (08:24)
[2020-03-07] MEDS: levETIRAcetam 500 MG TAB PO SCH ×2 (08:24→20:45)
[2020-03-07] MEDS: MEMANTINE 5 MG TAB PO SCH ×2 (08:24→20:46)
[2020-03-07] MEDS: SERTRALINE 100 MG TAB PO SCH ×2 (08:24→20:45)
[2020-03-07] MEDS: ALPRAZolam 0.5 MG TAB PO SCH ×3 (08:25→21:52)
[2020-03-07] MEDS: LEVOFLOXACIN 750 MG TAB PO SCH (08:25)
[2020-03-07] MEDS: MELOXICAM 7.5 MG TAB PO SCH (08:25)
[2020-03-07] MEDS: PREGABALIN 100 MG CAP PO SCH ×3 (08:25→21:59)
[2020-03-07] MEDS: METOPROLOL SUCCINATE (ER) 25 MG TAB.ER.24H PO SCH (08:25)
[2020-03-07] MEDS: levETIRAcetam 250 MG TAB PO SCH ×2 (08:25→20:46)
[2020-03-07] MEDS: NICOTINE 14MG/24HR PATCH TRANSDERM SCH (08:26)
[2020-03-07] MEDS: ASCORBIC ACID 500 MG TAB PO SCH (08:26)
[2020-03-07] MEDS: ZINC SULFATE 220 MG CAP PO SCH (08:26)
[2020-03-07] MEDS: ENOXAPARIN 40 MG/0.4 ML SYRINGE SQ SCH (08:26)
[2020-03-07] MEDS: INSULIN ASPART (NovoLOG) 100 UNIT/ML VIAL SQ SCH ×4 (08:26→20:46)
--- NOTE | 2020-03-07 09:43 | XR ---
EXAMINATION TYPE: XR chest 1V portable DATE OF EXAM: 03/07/2020 COMPARISON: Prior chest x-ray 03/04/2020 HISTORY: Covid pneumonitis TECHNIQUE: Single frontal view of the chest is obtained. FINDINGS: Patchy density somewhat less confluent in the right upper lobe, there is patchy density in the right lower lobe, possibly retrocardiac region, perihilar region on the left. Heart is stable. A karan is dense. There is no pneumothorax or pleural effusion. IMPRESSION: Correlate for pneumonia.
[2020-03-07 10:09] LABS: Basophils # (A) 0.1 k/uL (0-0.2); Basophils % (A) 1 %; Eosinophils % (A) 0 %; HCT 37.1 % (34.0-46.0); HGB 12.1 gm/dL (11.4-16.0); Hypochromasia Slight; Lymphocytes # (A) 0.4 k/uL (1.0-4.8); Lymphocytes % (A) 4 %; MCH 31.8 pg (25.0-35.0); MCHC 32.6 g/dL (31.0-37.0); MCV 97.6 fL (80.0-100.0); Mean Platelet Volume 8.9; Monocytes # (A) 0.5 k/uL (0-1.0); Monocytes % (A) 4 %; Neutrophils # (A) 9.6 k/uL (1.3-7.7); Neutrophils % (A) 89 %; Platelet Count 139 k/uL (150-450); RDW 13.2 % (11.5-15.5); WBC 10.8 k/uL (3.8-10.6)
[2020-03-07 11:37] LABS: Glucose,Whole Blood 217 mg/dL (75-99)
--- NOTE | 2020-03-07 14:57 | P.PN ---
Subjective Progress Note Date: 03/07/20 Principal diagnosis: Acute hypoxic respiratory failure secondary to CoVID 19 pneumonitis 64-year-old white female patient of Dr. Abdi, with past medical history of hypertension, hyperlipidemia, previous history of CVA/TIA, diabetes mellitus type 2, osteoarthritis, anxiety, depression, presented emergency department on 03/04/2020 per EMS for evaluation of worsening shortness of breath, congestive cough, with onset of symptoms since last Wednesday, her symptoms aggressively clyde me worse, with increasing chest congestion, cough, and patient has developed worsening dyspnea and hypoxemia. When the EMS arrived patient's pulse ox was 78% on room air, she also had a low-grade temperature. Has some mild chest discomfort, tightness, she received a breathing treatments given to her by the EMS, felt slightly better. She denied any sick contacts. Chest x-ray was completed showing hyperinflation, patchy infiltrate in the right perihilar region, subsegmental left perihilar lower lobe infiltrate, findings suspicious for multifocal pneumonia, patient was tested for COVID19 and was found to be positive. Her lab work on admission showed a white blood cell count of 4.5, hemoglobin of 13.7, lymphocyte count of 0.6, d-dimer was mildly elevated at 0.94, electrolytes were unremarkable, BUN was 19 creatinine was 0.68, plasma lactic acid was elevated at 3.1, currently improved and is down to 0.9. Inflammatory markers were elevated with LDH of 799, and CRP of 185.8, pro calcit onin level was 0.20. CTA chest showing bilateral pneumonia, with associated extensive mucus plugging suspected in the lower lobes, with no evidence of pulmonary embolism. Patient was started on Decadron, which we will switch over to high-dose IV Solu-Medrol, she is on Symbicort, Pepcid, Lovenox at 40 mg daily. The patient is seen today 03/06/2020 in follow-up on the regular medical floor. Currently maintaining O2 saturation in the 90s on 4 L/m per nasal cannula. She's afebrile. Blood cultures reveal no growth. White count 10.1. Hemoglobin 11.9. Platelets 136. Sodium 144. Potassium 4.8. Creatinine 0.6. This is day #2 of Remdesivir. She remains on bronchodilators, IV Solu-Medrol, Lovenox. The patient is seen today 03/07/2020 in follow-up on the regular medical floor. She is awake and alert in no acute distress. He is maintaining O2 saturation in the mid 90s on 6 L/m per nasal cannula. Currently afebrile. Chest x-ray showing improvement. There is still some infiltrate in the right lower lobe. On antibiotics in the form of Levaquin. She remains on IV Solu-Medrol. This is day #3 of Remdesivir. Continue vitamin supplements. NicoDerm patch in place. Lovenox for DVT prophylaxis. Objective - Vital Signs Vital signs: Vital Signs Temp 97.5 F L 03/07/20 10:05 Pulse 69 03/07/20 10:05 Resp 20 03/07/20 10:05 BP 116/68 03/07/20 10:05 Pulse Ox 96 03/07/20 10:05 Intake & Output 03/06/20 03/07/20 03/07/20 18:59 06:59 18:59 Other: Voiding Method Bedside Commode Bedside Commode Bedside Commode Incontinent Incontinent Incontinent # Voids 2 1 - Exam GENERAL EXAM: Alert, very pleasant, 64-year-old female patient, on 6 L of oxygen and the pulse ox of 96%, comfortable in no apparent distress. HEAD: Normocephalic/atraumatic. EYES: Normal reaction of pupils, equal size. Conjunctiva pink, sclera white. NOSE: Clear with pink turbinates. THROAT: No erythema or exudates. NECK: No masses, no JVD, no thyroid enlargement, no adenopathy. CHEST: No chest wall deformity. Symmetrical expansion. LUNGS: Equal air entry with cataract rhonchi bilaterally CVS: Regular rate and rhythm, normal S1 and S2, no gallops, no murmurs, no rubs ABDOMEN: Soft, nontender. No hepatosplenomegaly, normal bowel sounds, no guarding or rigidity. EXTREMITIES: No clubbing, no edema, no cyanosis, 2+ pulses and upper and lower extremities. MUSCULOSKELETAL: Muscle strength and tone normal. SPINE: No scoliosis or deformity SKIN: No rashes CENTRAL NERVOUS SYSTEM: No focal deficits, tone is normal in all 4 extremities. PSYCHIATRIC: Alert and oriented -3. Appropriate affect. Intact judgment and insight. - Labs CBC & Chem 7: 03/07/20 09:46 03/06/20 05:48 Labs: Abnormal Lab Results - Last 24 Hours (Table) 03/06/20 03/06/20 03/07/20 Range/Units 17:13 20:45 07:04 WBC (3.8-10.6) k/uL Plt Count (150-450) k/uL Neutrophils # (1.3-7.7) k/uL Lymphocytes # (1.0-4.8) k/uL POC Glucose (mg/dL) 211 H 182 H 182 H (75-99) mg/dL 03/07/20 03/07/20 Range/Units 09:46 11:35 WBC 10.8 H (3.8-10.6) k/uL Plt Count 139 L (150-450) k/uL Neutrophils # 9.6 H (1.3-7.7) k/uL Lymphocytes # 0.4 L (1.0-4.8) k/uL POC Glucose (mg/dL) 217 H (75-99) mg/dL Microbiology - Last 24 Hours (Table) 03/04/20 13:30 Blood Culture - Preliminary Blood No Growth after 48 hours Assessment and Plan Assessment: 1 Acute hypoxic respiratory failure secondary to COVID 19 related to pneumonitis 2 Lactic acidosis, rule out possibility of sepsis 3 Increased inflammatory markers related to CoVID 19 related pneumonia 4 Elevated d-dimer with no evidence of pulmonary embolism on the CT chest 5 COPD 6 Previous history of CVA and TIA 7 Diabetes mellitus type 2 8 Hypertension 9 Hyperlipidemia 10 History of DJD 11 History of adenoidectomy 12 Anxiety and depression Plan: The patient was seen and evaluated by Dr. Crawley Continue with the current treatment plan for now We'll continue to follow I, the cosigning physician, performed a history & physical examination of the patient. Lungs sounds with bilateral scattered rhonchi. Maintaining good O2 saturations in the 90s on 6 L/m per nasal cannula. I discussed the assessment and plan of care with my nurse practitioner, Cheri Shaw. I attest to the above note as dictated by her.
[2020-03-07 15:47] LABS: Anion Gap 8.2 mmol/L (4.00-12.00); Calcium 8.4 mg/dL (8.7-10.3); Carbon Dioxide 25.8 mmol/L (21.6-31.8); Non-African American GFR(CKD) 76.8 (60.0-200.0); Potassium 4.1 mmol/L (3.5-5.5)
--- NOTE | 2020-03-07 15:52 | P.PN ---
Subjective Progress Note Date: 03/07/20 HISTORY OF PRESENT ILLNESS This is a 64-year-old female admitted to the hospital and treated for: 19 pneumonia. Patient states that she is feeling a little bit better today. She continues to have cough. She denies having any abdominal pain, no diarrhea. No abdominal tenderness. No edema. Repeat chest x-ray correlate for pneumonia. She has been afebrile, heart rate 69, blood pressure 116/60, pulse ox 96% on 6 L nasal cannula. Repeat lab work reveals CBC 10.8, platelet count 139, lymphocytes 0.4. Legionella antigen negative. Patient is on day #3/5 of Remdesivir. PHYSICAL EXAMINATION Gen: This is a 64-year-old female. She is resting in bed and appears to be comfortable at rest. HEENT: Head is atraumatic, normocephalic. Pupils equal, round. Sclerae is anicteric. LUNGS: Decreased breath sounds at the bases. No wheezing. No intercostal retractions. HEART: Regular rate and rhythm. No murmur. ABDOMEN: Soft. Bowel sounds are present. No masses. No tenderness. EXTREMITIES: No pedal edema. No calf tenderness. NEUROLOGICAL: Patient is awake, alert and oriented x3. ASSESSMENT Covid 19 pneumonia Acute hypoxic respiratory failure Lactic acidosis Elevated inflammatory marker secondary to Covid 19 Elevated d-dimer with CAT scan negative for pulmonary embolism COPD PLAN Continue Remdesivir day #3/5 Continue supplements with zinc, vitamin C, vitamin D Continue Lovenox 40 mg subcu every 24 hours Continue Solu-Medrol 60 mg IV every 6 hours Continue Levaquin 750 mg daily The above dictated assessment and findings were discussed with Dr. Cowart. The impression and plan of care have been directed as dictated. Brisa Bloom nurse practitioner acting as scribe for Dr. Cowart. Objective - Vital Signs Vital signs: Vital Signs Temp 98.4 F 03/07/20 05:40 Pulse 73 03/07/20 05:40 Resp 22 03/07/20 05:40 BP 128/71 03/07/20 05:40 Pulse Ox 91 L 03/07/20 05:40 Intake & Output 03/06/20 03/07/20 03/07/20 18:59 06:59 18:59 Other: Voiding Method Bedside Commode Bedside Commode Incontinent Incontinent # Voids 2 1 - Labs CBC & Chem 7: 03/07/20 09:46 03/06/20 05:48 Labs: Abnormal Lab Results - Last 24 Hours (Table) 03/06/20 03/06/20 03/06/20 Range/Units 11:16 17:13 20:45 WBC (3.8-10.6) k/uL Plt Count (150-450) k/uL Neutrophils # (1.3-7.7) k/uL Lymphocytes # (1.0-4.8) k/uL POC Glucose (mg/dL) 187 H 211 H 182 H (75-99) mg/dL 03/07/20 03/07/20 Range/Units 07:04 09:46 WBC 10.8 H (3.8-10.6) k/uL Plt Count 139 L (150-450) k/uL Neutrophils # 9.6 H (1.3-7.7) k/uL Lymphocytes # 0.4 L (1.0-4.8) k/uL POC Glucose (mg/dL) 182 H (75-99) mg/dL Microbiology - Last 24 Hours (Table) 03/04/20 13:30 Blood Culture - Preliminary Blood No Growth after 48 hours
--- NOTE | 2020-03-07 16:14 | P.PN ---
Subjective Progress Note Date: 03/07/20 This is a 64-year-old female who was recently admitted with shortness of breath along with some cough and congestion and is being closely monitored. She was also found to have Covid 19 pneumonia. CTA of the chest shows bilateral pneumonia with no evidence of PE noted. Patient was initiated on IV steroids along with bronchodilators, Lovenox, and zinc supplements. Pulmonary and infectious disease are consulted and pending at this time. Patient continues to require oxygen at 4 L via nasal cannula due to shortness of breath and cough. Patient's lactic acid has improved and is 0.9. Patient is currently afebrile. 03/06/2020 Patient is seen in follow up and continues to have shortness of breath with cough and is being closely monitored. Pulmonary and infectious disease following. Patient is maintained on IV steroids along with bronchodilators, lovenox, and zinc supplements. Patient has been started on Remdesivir as well as Levaquin. Patient is quite weak and will have PT/OT evaluate the patient for possible ECF placement. Patient is currently on 4L of oxygen via NC. Social work consulted. Incentive spirometer ordered. 03/07/2020 Patient is seen and evaluated in follow up with worsening shortness of breath and currently maintained on 6 L of oxygen via nasal cannula at 96%. Patient is lethargic although arousable and slightly confused at times. Patient continues to be maintained on IV steroids along with bronchodilators, Lovenox, zinc, oral Levaquin, and Remdesivir day 2. Pulmonary and infectious disease are following closely. Sugar slightly elevated in the 200s and is currently maintained on sliding scale and will continue at this time. Appetite continues to be poor al though patient does eat at each meal. She needs encouragement with the use of incentive spirometer. Once stabilized and discharge patient will possibly require ECF for continued rehab as she continues to be quite weak and not getting out of bed much. PT/OT following. Review of systems: Constitutional: Reports fatigue Cardiovascular: No reports of chest pain or palpitations Respiratory: Reports worsening shortness of breath and cough GI: No reports of nausea, vomiting, or diarrhea : No reports of dysuria or retention Neurovascular: reports generalized weakness no reports of numbness All medications have been reviewed Active Medications Albuterol Sulfate (Albuterol Hfa Inhaler) 2 puff INHALATION RT-QID [facility] Last Admin: 03/07/20 15:47 Dose: 2 puff Documented by: Alprazolam (Alprazolam 0.5 Mg Tab) 0.5 mg PO TID [facility] Last Admin: 03/07/20 08:25 Dose: 0.5 mg Documented by: Ascorbic Acid (Ascorbic Acid 500 Mg Tab) 250 mg PO DAILY [facility] Last Admin: 03/07/20 08:26 Dose: 250 mg Documented by: Budesonide/Formoterol Fumarate (Symbicort 160-4.5 Mcg Inhaler) 2 puff INHALATION RT-BID [facility] Last Admin: 03/07/20 07:58 Dose: 2 puff Documented by: Cholecalciferol (Cholecalciferol 400 Unit Tab) 400 unit PO DAILY [facility] Last Admin: 03/07/20 08:24 Dose: 400 unit Documented by: Divalproex Sodium (Divalproex 500 Mg Tablet.Dr) 500 mg PO BID [facility] Last Admin: 03/07/20 08:24 Dose: 500 mg Documented by: Enoxaparin Sodium (Enoxaparin 40 Mg/0.4 Ml Syringe) 40 mg SQ Q24HR [facility] Last Admin: 03/07/20 08:26 Dose: 40 mg Documented by: Ergocalciferol (Ergocalciferol 50,000 Unit Cap) 50,000 unit PO Q7D [facility] Last Admin: 03/05/20 08:37 Dose: 50,000 unit Documented by: Famotidine (Famotidine 20 Mg Tab) 20 mg PO BID PRN PRN Reason: gerd Remdesivir 100 mg/ Sodium (Chloride) 250 mls @ 250 mls/hr IVPB DAILY@1800 [facility] Stop: 03/09/20 18:59 Last Admin: 03/06/20 17:49 Dose: 250 mls/hr Documented by: Insulin Aspart (Insulin Aspart (Novolog) 100 Unit/Ml Vial) 0 unit SQ ACHS [facility]; Protocol Last Admin: 03/07/20 12:46 Dose: 4 unit Documented by: Levetiracetam (Levetiracetam 500 Mg Tab) 500 mg PO BID [facility] Last Admin: 03/07/20 08:24 Dose: 500 mg Documented by: Levetiracetam (Levetiracetam 250 Mg Tab) 250 mg PO BID [facility] Last Admin: 03/07/20 08:25 Dose: 250 mg Documented by: Levofloxacin (Levofloxacin 750 Mg Tab) 750 mg PO DAILY [facility] Last Admin: 03/07/20 08:25 Dose: 750 mg Documented by: Meloxicam (Meloxicam 7.5 Mg Tab) 7.5 mg PO DAILY [facility] Last Admin: 03/07/20 08:25 Dose: 7.5 mg Documented by: Memantine (Memantine 5 Mg Tab) 5 mg PO BID [facility] Last Admin: 03/07/20 08:24 Dose: 5 mg Documented by: Methylprednisolone Sodium Succinate (Methylprednisolone Sod Succi 125 Mg/2 Ml Vial) 60 mg IV Q6HR [facility] Last Admin: 03/07/20 12:46 Dose: 60 mg Documented by: Metoprolol Succinate (Metoprolol Succinate (Er) 25 Mg Tab.Er.24h) 25 mg PO DAILY [facility] Last Admin: 03/07/20 08:25 Dose: 25 mg Documented by: Mirtazapine (Mirtazapine 45 Mg Tablet) 45 mg PO HS [facility] Last Admin: 03/06/20 21:46 Dose: 45 mg Documented by: Nicotine (Nicotine 14mg/24hr Patch) 1 patch TRANSDERM DAILY [facility] Last Admin: 03/07/20 08:26 Dose: 1 patch Documented by: Ondansetron HCl (Ondansetron Odt 4 Mg Tab) 4 mg PO BID PRN PRN Reason: Nausea Oxybutynin Chloride (Oxybutynin 15 Mg Tab.Er.24) 15 mg PO DAILY [facility] Last Admin: 03/07/20 08:24 Dose: 15 mg Documented by: Pantoprazole Sodium (Pantoprazole 40 Mg Tablet) 40 mg PO DAILY PRN PRN Reason: gerd Pregabalin (Pregabalin 100 Mg Cap) 200 mg PO TID [facility] Last Admin: 03/07/20 08:25 Dose: 200 mg Documented by: Sertraline HCl (Sertraline 100 Mg Tab) 100 mg PO BID [facility] Last Admin: 03/07/20 08:24 Dose: 100 mg Documented by: Sumatriptan Succinate (Sumatriptan Succinate 50 Mg Tab) 50 mg PO DAILY PRN PRN Reason: Migraine Headache Temazepam (Temazepam 15 Mg Cap) 15 mg PO HS PRN PRN Reason: Insomnia Trazodone HCl (Trazodone Hcl 100 Mg Tab) 100 mg PO HS [facility] Last Admin: 03/06/20 21:46 Dose: 100 mg Documented by: Zinc Sulfate (Zinc Sulfate 220 Mg Cap) 220 mg PO DAILY [facility] Last Admin: 03/07/20 08:26 Dose: 220 mg Documented by: Objective - Vital Signs Vital signs: Vital Signs Temp 98.4 F 03/07/20 05:40 Pulse 73 03/07/20 05:40 Resp 22 03/07/20 05:40 BP 128/71 03/07/20 05:40 Pulse Ox 91 L 03/07/20 05:40 Intake & Output 03/06/20 03/07/20 03/07/20 18:59 06:59 18:59 Other: Voiding Method Bedside Commode Bedside Commode Incontinent Incontinent # Voids 2 1 - Exam Gen: This is a 64-year-old female awake, alert and oriented 3, well-developed, well-nourished. Temp is 97.5F, pulse is 69, respirations are 20, blood pressure is 116/68, oxygen saturation is 96% on 6 L via nasal cannula. HEENT: Head is atraumatic, normocephalic. Pupils equal, round. Sclerae is anicteric. NECK: Supple. No JVD. No lymphadenopathy. No thyromegaly. LUNGS: diminished breath sounds bilaterally with a few scattered rhonchi and c rackles noted No intercostal retractions. HEART: S1, S2 are muffled ABDOMEN: Soft. Bowel sounds are present. No masses. No tenderness. EXTREMITIES: No pedal edema. No calf tenderness. NEUROLOGICAL: Patient is awake, alert and oriented x3. Cranial nerves 2 through 12 are grossly intact. Diffusely weak - Labs CBC & Chem 7: 03/07/20 09:46 03/07/20 09:46 Labs: Abnormal Lab Results - Last 24 Hours (Table) 03/06/20 03/06/20 03/06/20 Range/Units 05:48 11:16 17:13 Chloride 111 H (96-109) mmol/L BUN/Creatinine Ratio 40.00 H (12.00-20.00) Ratio Glucose 138 H (70-110) mg/dL POC Glucose (mg/dL) 187 H 211 H (75-99) mg/dL Calcium 8.3 L (8.7-10.3) mg/dL 03/06/20 03/07/20 Range/Units 20:45 07:04 Chloride (96-109) mmol/L BUN/Creatinine Ratio (12.00-20.00) Ratio Glucose (70-110) mg/dL POC Glucose (mg/dL) 182 H 182 H (75-99) mg/dL Calcium (8.7-10.3) mg/dL Microbiology - Last 24 Hours (Table) 03/04/20 13:30 Blood Culture - Preliminary Blood No Growth after 48 hours Assessment and Plan Assessment: Acute Covid 19 pneumonia with bilateral interstitial pneumonia with acute hypoxic respiratory failure Chronic obstructive pulmonary disease, acute exacerbation Elevated plasma lactic acid indicative of sepsis, present on admission Elevated d-dimer Mild thrombocytopenia elevated LDH and CRP secondary to Covid 19 history of CVA/TIA Diabetes mellitus type 2 Hypertension Hyperlipidemia history of degenerative joint disease history of restless leg syndrome history of chronic diarrhea History of appendectomy History of cholecystectomy History of nicotine dependence Anxiety, bipolar depression, panic disorder History of prescription drug abuse Obesity with a body mass index of 31.9 Full code Recommendations and discussion: Recommend to continue current medications, management, and symptomatic treatment. Patient is maintained on bronchodilators along with IV steroids and will continue at this time. Patient was also started on zinc supplements and Lovenox. Infectious disease and pulmonary following. Remdesivir and oral Levaquin initiated. Patient continues to require 6 L of oxygen for continued shortness of breath. Incentive spirometer ordered and instructed the patient to continue to use at least 10 times every hour while awake. Patient needs encou ragement on the use of incentive spirometer. Discussed with nursing staff. Will continue to monitor vital signs and labs closely. Due to multiple complex medical issues, prognosis is guarded. PT/OT to evaluate the patient. Social work following for possible ecf placement. Further recommendations to follow.
[2020-03-07 17:00] LABS: Glucose,Whole Blood 162 mg/dL (75-99)
[2020-03-07] MEDS: REMDESIVIR 100 MG in SODIUM CHLORIDE 0.9% 250 ML IVPB SCH (17:57)
[2020-03-07 20:20] LABS: Glucose,Whole Blood 214 mg/dL (75-99)
[2020-03-07] MEDS: MIRTAZAPINE 45 MG TABLET PO SCH (20:46)
[2020-03-07] MEDS: traZODone HCL 100 MG TAB PO SCH (20:46)
[2020-03-08] MEDS: methylPREDNISolone SOD SUCCI 125 MG/2 ML VIAL IV SCH ×3 (06:01→17:24)
[2020-03-08 07:24] LABS: Glucose,Whole Blood 193 mg/dL (75-99)
[2020-03-08] MEDS: ENOXAPARIN 40 MG/0.4 ML SYRINGE SQ SCH (08:19)
[2020-03-08] MEDS: ZINC SULFATE 220 MG CAP PO SCH (08:20)
[2020-03-08] MEDS: PREGABALIN 100 MG CAP PO SCH ×3 (08:20→21:20)
[2020-03-08] MEDS: INSULIN ASPART (NovoLOG) 100 UNIT/ML VIAL SQ SCH ×4 (08:20→21:20)
[2020-03-08] MEDS: ALPRAZolam 0.5 MG TAB PO SCH ×3 (08:20→21:20)
[2020-03-08] MEDS: CHOLECALCIFEROL 400 UNIT TAB PO SCH (08:20)
[2020-03-08] MEDS: ASCORBIC ACID 500 MG TAB PO SCH (08:20)
[2020-03-08] MEDS: METOPROLOL SUCCINATE (ER) 25 MG TAB.ER.24H PO SCH (08:21)
[2020-03-08] MEDS: LEVOFLOXACIN 750 MG TAB PO SCH (08:21)
[2020-03-08] MEDS: levETIRAcetam 500 MG TAB PO SCH ×2 (08:21→21:20)
[2020-03-08] MEDS: SERTRALINE 100 MG TAB PO SCH ×2 (08:21→21:20)
[2020-03-08] MEDS: levETIRAcetam 250 MG TAB PO SCH ×2 (08:21→21:20)
[2020-03-08] MEDS: OXYBUTYNIN 15 MG TAB.ER.24 PO SCH (08:21)
[2020-03-08] MEDS: MELOXICAM 7.5 MG TAB PO SCH (08:21)
[2020-03-08] MEDS: MEMANTINE 5 MG TAB PO SCH ×2 (08:21→21:20)
[2020-03-08] MEDS: DIVALPROEX 500 MG TABLET.DR PO SCH ×2 (08:21→21:20)
[2020-03-08] MEDS: NICOTINE 14MG/24HR PATCH TRANSDERM SCH (08:21)
[2020-03-08] MEDS: SYMBICORT 160-4.5 MCG INHALER INHALATION SCH ×2 (09:07→19:51)
[2020-03-08] MEDS: ALBUTEROL HFA INHALER INHALATION SCH ×4 (09:07→19:51)
[2020-03-08 12:09] LABS: Glucose,Whole Blood 192 mg/dL (75-99)
--- NOTE | 2020-03-08 14:31 | P.PN ---
Subjective Progress Note Date: 03/08/20 This is a 64-year-old female who was recently admitted with shortness of breath along with some cough and congestion and is being closely monitored. She was also found to have Covid 19 pneumonia. CTA of the chest shows bilateral pneumonia with no evidence of PE noted. Patient was initiated on IV steroids along with bronchodilators, Lovenox, and zinc supplements. Pulmonary and infectious disease are consulted and pending at this time. Patient continues to require oxygen at 4 L via nasal cannula due to shortness of breath and cough. Patient's lactic acid has improved and is 0.9. Patient is currently afebrile. 03/06/2020 Patient is seen in follow up and continues to have shortness of breath with cough and is being closely monitored. Pulmonary and infectious disease following. Patient is maintained on IV steroids along with bronchodilators, lovenox, and zinc supplements. Patient has been started on Remdesivir as well as Levaquin. Patient is quite weak and will have PT/OT evaluate the patient for possible ECF placement. Patient is currently on 4L of oxygen via NC. Social work consulted. Incentive spirometer ordered. 03/07/2020 Patient is seen and evaluated in follow up with worsening shortness of breath and currently maintained on 6 L of oxygen via nasal cannula at 96%. Patient is lethargic although arousable and slightly confused at times. Patient continues to be maintained on IV steroids along with bronchodilators, Lovenox, zinc, oral Levaquin, and Remdesivir day 2. Pulmonary and infectious disease are following closely. Sugar slightly elevated in the 200s and is currently maintained on sliding scale and will continue at this time. Appetite continues to be poor al though patient does eat at each meal. She needs encouragement with the use of incentive spirometer. Once stabilized and discharge patient will possibly require ECF for continued rehab as she continues to be quite weak and not getting out of bed much. PT/OT following. 03/08/2020 Patient seen in follow-up and continues to be closely monitored. Patient is currently receiving Remdesivir for Covid 19 and is on day 3. She is maintained on IV steroids along with inhalers, Lovenox, zinc, and oral antibiotics in the form of Levaquin. Infectious disease and pulmonary are following. Her nursing staff patient is now requiring 8 L via nasal cannula as she was found to be 89% on 6 L of oxygen. Discussed with the patient at length about continuing to use incentive spirometer and increasing activity and getting up out of the bed as she continues to lay most of the day and sleep most of the day. Patient also instructed and educated about the importance of eating and maintaining her diet. Will continue with close monitoring of blood sugars and treat with sliding scale. D-dimer slightly improved at 0.71. Will repeat a.m. labs and monitor vital signs and labs closely. Social work following for possible placement at a [facility] for continued PT/OT therapy for strength and mobility. Review of systems: Constitutional: Reports fatigue Cardiovascular: No reports of chest pain or palpitations Respiratory: Reports worsening shortness of breath and cough GI: No reports of nausea, vomiting, or diarrhea : No reports of dysuria or retention Neurovascular: reports generalized weakness no reports of numbness All medications have been reviewed Active Medications Albuterol Sulfate (Albuterol Hfa Inhaler) 2 puff INHALATION RT-QID [facility] Last Admin: 03/08/20 12:01 Dose: 2 puff Documented by: Alprazolam (Alprazolam 0.5 Mg Tab) 0.5 mg PO TID [facility] Last Admin: 03/08/20 08:20 Dose: 0.5 mg Documented by: Ascorbic Acid (Ascorbic Acid 500 Mg Tab) 250 mg PO DAILY [facility] Last Admin: 03/08/20 08:20 Dose: 250 mg Documented by: Budesonide/Formoterol Fumarate (Symbicort 160-4.5 Mcg Inhaler) 2 puff INHALATION RT-BID [facility] Last Admin: 03/08/20 09:07 Dose: 2 puff Documented by: Cholecalciferol (Cholecalciferol 400 Unit Tab) 400 unit PO DAILY [facility] Last Admin: 03/08/20 08:20 Dose: 400 unit Documented by: Divalproex Sodium (Divalproex 500 Mg Tablet.Dr) 500 mg PO BID [facility] Last Admin: 03/08/20 08:21 Dose: 500 mg Documented by: Enoxaparin Sodium (Enoxaparin 40 Mg/0.4 Ml Syringe) 40 mg SQ Q24HR [facility] Last Admin: 03/08/20 08:19 Dose: 40 mg Documented by: Ergocalciferol (Ergocalciferol 50,000 Unit Cap) 50,000 unit PO Q7D [facility] Last Admin: 03/05/20 08:37 Dose: 50,000 unit Documented by: Famotidine (Famotidine 20 Mg Tab) 20 mg PO BID PRN PRN Reason: gerd Remdesivir 100 mg/ Sodium (Chloride) 250 mls @ 250 mls/hr IVPB DAILY@1800 [facility] Stop: 03/09/20 18:59 Last Admin: 03/07/20 17:57 Dose: 250 mls/hr Documented by: Insulin Aspart (Insulin Aspart (Novolog) 100 Unit/Ml Vial) 0 unit SQ ACHS [facility]; Protocol Last Admin: 03/08/20 12:26 Dose: 3 unit Documented by: Levetiracetam (Levetiracetam 500 Mg Tab) 500 mg PO BID [facility] Last Admin: 03/08/20 08:21 Dose: 500 mg Documented by: Levetiracetam (Levetiracetam 250 Mg Tab) 250 mg PO BID [facility] Last Admin: 03/08/20 08:21 Dose: 250 mg Documented by: Levofloxacin (Levofloxacin 750 Mg Tab) 750 mg PO DAILY [facility] Last Admin: 03/08/20 08:21 Dose: 750 mg Documented by: Meloxicam (Meloxicam 7.5 Mg Tab) 7.5 mg PO DAILY [facility] Last Admin: 03/08/20 08:21 Dose: 7.5 mg Documented by: Memantine (Memantine 5 Mg Tab) 5 mg PO BID [facility] Last Admin: 03/08/20 08:21 Dose: 5 mg Documented by: Methylprednisolone Sodium Succinate (Methylprednisolone Sod Succi 125 Mg/2 Ml Vial) 60 mg IV Q6HR [facility] Last Admin: 03/08/20 12:26 Dose: 60 mg Documented by: Metoprolol Succinate (Metoprolol Succinate (Er) 25 Mg Tab.Er.24h) 25 mg PO DAILY [facility] Last Admin: 03/08/20 08:21 Dose: 25 mg Documented by: Mirtazapine (Mirtazapine 45 Mg Tablet) 45 mg PO HS [facility] Last Admin: 03/07/20 20:46 Dose: 45 mg Documented by: Nicotine (Nicotine 14mg/24hr Patch) 1 patch TRANSDERM DAILY [facility] Last Admin: 03/08/20 08:21 Dose: 1 patch Documented by: Ondansetron HCl (Ondansetron Odt 4 Mg Tab) 4 mg PO BID PRN PRN Reason: Nausea Oxybutynin Chloride (Oxybutynin 15 Mg Tab.Er.24) 15 mg PO DAILY [facility] Last Admin: 03/08/20 08:21 Dose: 15 mg Documented by: Pantoprazole Sodium (Pantoprazole 40 Mg Tablet) 40 mg PO DAILY PRN PRN Reason: gerd Pregabalin (Pregabalin 100 Mg Cap) 200 mg PO TID [facility] Last Admin: 03/08/20 08:20 Dose: 200 mg Documented by: Sertraline HCl (Sertraline 100 Mg Tab) 100 mg PO BID [facility] Last Admin: 03/08/20 08:21 Dose: 100 mg Documented by: Sumatriptan Succinate (Sumatriptan Succinate 50 Mg Tab) 50 mg PO DAILY PRN PRN Reason: Migraine Headache Last Admin: 03/07/20 19:56 Dose: 50 mg Documented by: Temazepam (Temazepam 15 Mg Cap) 15 mg PO HS PRN PRN Reason: Insomnia Trazodone HCl (Trazodone Hcl 100 Mg Tab) 100 mg PO HS [facility] Last Admin: 03/07/20 20:46 Dose: 100 mg Documented by: Zinc Sulfate (Zinc Sulfate 220 Mg Cap) 220 mg PO DAILY [facility] Last Admin: 03/08/20 08:20 Dose: 220 mg Documented by: Objective - Vital Signs Vital signs: Vital Signs Temp 97.5 F L 03/08/20 04:31 Pulse 70 03/08/20 04:31 Resp 16 03/08/20 04:31 BP 128/73 03/08/20 04:31 Pulse Ox 89 L 03/08/20 04:31 Intake & Output 03/07/20 03/08/20 03/08/20 18:59 06:59 18:59 Intake Total 250 200 Balance 250 200 Intake: Intake, IV Titration 250 Amount Remdesivir 100 mg In 250 Sodium Chloride 0.9% 250 ml @ 250 mls/hr IVPB DAILY@1800 [facility] Rx#: [id number] Oral 200 Other: Voiding Method Bedside Commode Bedside Commode Incontinent Incontinent # Voids 1 1 - Exam Gen: This is a 64-year-old female awake, alert and oriented 3, well-developed, well-nourished. Temp is 97.5F, pulse is 70, respirations are 16, blood pressure is 128/73, oxygen saturation is 89 % on 6 L via nasal cannula with oxygen improvement of 94% on 8 L high flow HEENT: Head is atraumatic, normocephalic. Pupils equal, round. Sclerae is anicteric. NECK: Supple. No JVD. No lymphadenopathy. No thyromegaly. LUNGS: diminished breath sounds bilaterally with a few scattered rhonchi and crackles noted No intercostal retractions. HEART: S1, S2 are muffled ABDOMEN: Soft. Bowel sounds are present. No masses. No tenderness. EXTREMITIES: No pedal edema. No calf tenderness. NEUROLOGICAL: Patient is awake, alert and oriented x3. Cranial nerves 2 through 12 are grossly intact. Diffusely weak - Labs CBC & Chem 7: 03/07/20 09:46 03/07/20 09:46 Labs: Abnormal Lab Results - Last 24 Hours (Table) 03/07/20 03/07/20 03/07/20 Range/Units 09:46 09:46 11:35 WBC 10.8 H (3.8-10.6) k/uL Plt Count 139 L (150-450) k/uL Neutrophils # 9.6 H (1.3-7.7) k/uL Lymphocytes # 0.4 L (1.0-4.8) k/uL D-Dimer (<0.60) mg/L FEU BUN 28.0 H (9.0-27.0) mg/dL BUN/Creatinine Ratio 35.00 H (12.00-20.00) Ratio Glucose 248 H (70-110) mg/dL POC Glucose (mg/dL) 217 H (75-99) mg/dL Calcium 8.4 L (8.7-10.3) mg/dL 03/07/20 03/07/20 03/08/20 Range/Units 16:55 20:03 06:58 WBC (3.8-10.6) k/uL Plt Count (150-450) k/uL Neutrophils # (1.3-7.7) k/uL Lymphocytes # (1.0-4.8) k/uL D-Dimer 0.71 H (<0.60) mg/L FEU BUN (9.0-27.0) mg/dL BUN/Creatinine Ratio (12.00-20.00) Ratio Glucose (70-110) mg/dL POC Glucose (mg/dL) 162 H 214 H (75-99) mg/dL Calcium (8.7-10.3) mg/dL 03/08/20 Range/Units 07:07 WBC (3.8-10.6) k/uL Plt Count (150-450) k/uL Neutrophils # (1.3-7.7) k/uL Lymphocytes # (1.0-4.8) k/uL D-Dimer (<0.60) mg/L FEU BUN (9.0-27.0) mg/dL BUN/Creatinine Ratio (12.00-20.00) Ratio Glucose (70-110) mg/dL POC Glucose (mg/dL) 193 H (75-99) mg/dL Calcium (8.7-10.3) mg/dL Microbiology - Last 24 Hours (Table) 03/04/20 13:30 Blood Culture - Preliminary Blood No Growth after 72 hours Assessment and Plan Assessment: Acute Covid 19 pneumonia with bilateral interstitial pneumonia with acute hypoxic respiratory failure Chronic obstructive pulmonary disease, acute exacerbation Elevated plasma lactic acid indicative of sepsis, present on admission Elevated d-dimer Mild thrombocytopenia elevated LDH and CRP secondary to Covid 19 history of CVA/TIA Diabetes mellitus type 2 Hypertension Hyperlipidemia history of degenerative joint disease history of restless leg syndrome history of chronic diarrhea History of appendectomy History of cholecystectomy History of nicotine dependence Anxiety, bipolar depression, panic disorder History of prescription drug abuse Obesity with a body mass index of 31.9 Full code Recommendations and discussion: Recommend to continue current medications, management, and symptomatic treatment. Patient is maintained on bronchodilators along with IV steroids and will continue at this time. Patient was also started on zinc supplements and Lovenox. Infectious disease and pulmonary following. Remdesivir and oral Levaquin initiated. Patient continues to require 8 L of oxygen for continued shortness of breath. Incentive spirometer ordered and instructed the patient to continue to use at least 10 times every hour while awake. Patient needs encouragement on the use of incentive spirometer. Discussed with nursing staff. Will continue to monitor vital signs and labs closely. Due to multiple complex medical issues, prognosis is guarded. PT/OT to evaluate the patient. Social work following for possible ecf placement at a [facility]. Further recommendations to follow.
--- NOTE | 2020-03-08 14:53 | P.PN ---
Subjective Progress Note Date: 03/08/20 Principal diagnosis: Acute hypoxic respiratory failure secondary to CoVID 19 pneumonitis 64-year-old white female patient of Dr. Abdi, with past medical history of hypertension, hyperlipidemia, previous history of CVA/TIA, diabetes mellitus type 2, osteoarthritis, anxiety, depression, presented emergency department on 03/04/2020 per EMS for evaluation of worsening shortness of breath, congestive cough, with onset of symptoms since last Wednesday, her symptoms aggressively clyde me worse, with increasing chest congestion, cough, and patient has developed worsening dyspnea and hypoxemia. When the EMS arrived patient's pulse ox was 78% on room air, she also had a low-grade temperature. Has some mild chest discomfort, tightness, she received a breathing treatments given to her by the EMS, felt slightly better. She denied any sick contacts. Chest x-ray was completed showing hyperinflation, patchy infiltrate in the right perihilar region, subsegmental left perihilar lower lobe infiltrate, findings suspicious for multifocal pneumonia, patient was tested for COVID19 and was found to be positive. Her lab work on admission showed a white blood cell count of 4.5, hemoglobin of 13.7, lymphocyte count of 0.6, d-dimer was mildly elevated at 0.94, electrolytes were unremarkable, BUN was 19 creatinine was 0.68, plasma lactic acid was elevated at 3.1, currently improved and is down to 0.9. Inflammatory markers were elevated with LDH of 799, and CRP of 185.8, pro calcit onin level was 0.20. CTA chest showing bilateral pneumonia, with associated extensive mucus plugging suspected in the lower lobes, with no evidence of pulmonary embolism. Patient was started on Decadron, which we will switch over to high-dose IV Solu-Medrol, she is on Symbicort, Pepcid, Lovenox at 40 mg daily. The patient is seen today 03/06/2020 in follow-up on the regular medical floor. Currently maintaining O2 saturation in the 90s on 4 L/m per nasal cannula. She's afebrile. Blood cultures reveal no growth. White count 10.1. Hemoglobin 11.9. Platelets 136. Sodium 144. Potassium 4.8. Creatinine 0.6. This is day #2 of Remdesivir. She remains on bronchodilators, IV Solu-Medrol, Lovenox. The patient is seen today 03/07/2020 in follow-up on the regular medical floor. She is awake and alert in no acute distress. He is maintaining O2 saturation in the mid 90s on 6 L/m per nasal cannula. Currently afebrile. Chest x-ray showing improvement. There is still some infiltrate in the right lower lobe. On antibiotics in the form of Levaquin. She remains on IV Solu-Medrol. This is day #3 of Remdesivir. Continue vitamin supplements. NicoDerm patch in place. Lovenox for DVT prophylaxis. The patient is seen today 03/08/2020 in follow-up on the regular medical floor. She remains awake and alert in no acute distress. She is now requiring 8 L high flow nasal cannula to maintain O2 saturations in the 90s. She states she is feeling better. Continues with a cough. Nonproductive. D-dimer 0.71. LDH 292. Glucose 192. Continue on Symbicort, albuterol, Lovenox IV Solu-Medrol. Remains on vitamin C, vitamin D, zinc. This is day #4 of her Remdesivir. Nicotine patch in place. Objective - Vital Signs Vital signs: Vital Signs Temp 97.6 F 03/08/20 11:00 Pulse 67 03/08/20 11:00 Resp 16 03/08/20 11:00 BP 113/63 03/08/20 11:00 Pulse Ox 94 L 03/08/20 11:00 Intake & Output 03/07/20 03/08/20 03/08/20 18:59 06:59 18:59 Intake Total 250 200 240 Balance 250 200 240 Intake: Intake, IV Titration 250 Amount Remdesivir 100 mg In 250 Sodium Chloride 0.9% 250 ml @ 250 mls/hr IVPB DAILY@1800 [facility] Rx#: [id number] Oral 200 240 Other: Voiding Method Bedside Commode Bedside Commode Bedside Commode Incontinent Incontinent Incontinent # Voids 1 1 - Exam GENERAL EXAM: Alert, very pleasant, 64-year-old female patient, on 8 L of oxygen and the pulse ox of 94%, comfortable in no apparent distress. HEAD: Normocephalic/atraumatic. EYES: Normal reaction of pupils, equal size. Conjunctiva pink, sclera white. NOSE: Clear with pink turbinates. THROAT: No erythema or exudates. NECK: No masses, no JVD, no thyroid enlargement, no adenopathy. CHEST: No chest wall deformity. Symmetrical expansion. LUNGS: Equal air entry with scattered rhonchi bilaterally CVS: Regular rate and rhythm, normal S1 and S2, no gallops, no murmurs, no rubs ABDOMEN: Soft, nontender. No hepatosplenomegaly, normal bowel sounds, no guarding or rigidity. EXTREMITIES: No clubbing, no edema, no cyanosis, 2+ pulses and upper and lower extremities. MUSCULOSKELETAL: Muscle strength and tone normal. SPINE: No scoliosis or deformity SKIN: No rashes CENTRAL NERVOUS SYSTEM: No focal deficits, tone is normal in all 4 extremities. PSYCHIATRIC: Alert and oriented -3. Appropriate affect. Intact judgment and insight. - Labs CBC & Chem 7: 03/07/20 09:46 03/07/20 09:46 Labs: Abnormal Lab Results - Last 24 Hours (Table) 03/07/20 03/07/20 03/07/20 Range/Units 09:46 16:55 20:03 D-Dimer (<0.60) mg/L FEU BUN 28.0 H (9.0-27.0) mg/dL BUN/Creatinine Ratio 35.00 H (12.00-20.00) Ratio Glucose 248 H (70-110) mg/dL POC Glucose (mg/dL) 162 H 214 H (75-99) mg/dL Calcium 8.4 L (8.7-10.3) mg/dL Lactate Dehydrogenase (120-246) U/L 03/08/20 03/08/20 03/08/20 Range/Units 06:58 06:58 07:07 D-Dimer 0.71 H (<0.60) mg/L FEU BUN (9.0-27.0) mg/dL BUN/Creatinine Ratio (12.00-20.00) Ratio Glucose (70-110) mg/dL POC Glucose (mg/dL) 193 H (75-99) mg/dL Calcium (8.7-10.3) mg/dL Lactate Dehydrogenase 292 H (120-246) U/L 03/08/20 Range/Units 11:49 D-Dimer (<0.60) mg/L FEU BUN (9.0-27.0) mg/dL BUN/Creatinine Ratio (12.00-20.00) Ratio Glucose (70-110) mg/dL POC Glucose (mg/dL) 192 H (75-99) mg/dL Calcium (8.7-10.3) mg/dL Lactate Dehydrogenase (120-246) U/L Microbiology - Last 24 Hours (Table) 03/04/20 13:30 Blood Culture - Preliminary Blood No Growth after 72 hours Assessment and Plan Assessment: 1 Acute hypoxic respiratory failure secondary to COVID 19 related to pneumonitis, on 8 L high flow nasal cannula, receiving Remdesivir 2 Lactic acidosis, rule out possibility of sepsis 3 Increased inflammatory markers related to CoVID 19 related pneumonia, receiving steroids 4 Elevated d-dimer with no evidence of pulmonary embolism on the CT chest 5 COPD 6 Previous history of CVA and TIA 7 Diabetes mellitus type 2 8 Hypertension 9 Hyperlipidemia 10 History of DJD 11 History of adenoidectomy 12 Anxiety and depression Plan: The patient was seen and evaluated by Dr. Crawley Remains on 8 L high flow nasal cannula Continue Remdesivir, IV steroids, Lovenox Continue vitamin supplements Titrate the FiO2 as tolerated We'll continue to follow I, the cosigning physician, performed a history & physical examination of the patient. Lungs sounds with bilateral scattered rhonchi. Maintaining good O2 saturations in the 90s on 8 L/m per nasal cannula. I discussed the assessment and plan of care with my nurse practitioner, Cheri Shaw. I attest to the above note as dictated by her.
--- NOTE | 2020-03-08 15:54 | P.PN ---
Subjective Progress Note Date: 03/08/20 HISTORY OF PRESENT ILLNESS This is a 64-year-old female admitted to the hospital and treated for COVID-19 pneumonia. Patient states that she is feeling a little bit better today. She continues to have cough. She denies having any abdominal pain, no diarrhea. No abdominal tenderness. No edema. Repeat chest x-ray correlate for pneumonia. She has been afebrile, heart rate 69, blood pressure 116/60, pulse ox 96% on 6 L nasal cannula. Repeat lab work reveals CBC 10.8, platelet count 139, lymphocytes 0.4. Legionella antigen negative. Patient is on day #3/5 of Remdesivir. 03/08: The patient is feeling better today, breathing status is improving but still requiring large amount of oxygen. She denies having any chest pain. She does complain of overall body aches. No lower extremity edema. Patient has been afebrile, heart rate 70, blood pressure 120/73, pulse ox 89% on 6 L, 94% on 8 L. PHYSICAL EXAMINATION Gen: This is a 64-year-old female. She is resting in bed and appears to be comfortable at rest. HEENT: Head is atraumatic, normocephalic. Pupils equal, round. Sclerae is anicteric. LUNGS: Decreased breath sounds at the bases. Mild expiratory wheezing. No in tercostal retractions. HEART: Regular rate and rhythm. No murmur. ABDOMEN: Soft. Bowel sounds are present. No masses. No tenderness. EXTREMITIES: No pedal edema. No calf tenderness. NEUROLOGICAL: Patient is awake, alert and oriented x3. ASSESSMENT Covid 19 pneumonia Acute hypoxic respiratory failure Lactic acidosis Elevated inflammatory marker secondary to Covid 19 Elevated d-dimer with CAT scan negative for pulmonary embolism COPD PLAN Continue Remdesivir day #4/5 Continue supplements with zinc, vitamin C, vitamin D Continue Lovenox 40 mg subcu every 24 hours Continue Solu-Medrol 60 mg IV every 6 hours Continue Levaquin 750 mg daily The above dictated assessment and findings were discussed with Dr. Cowart. The impression and plan of care have been directed as dictated. Brisa Bloom nurse practitioner acting as scribe for Dr. Cowart. Objective - Vital Signs Vital signs: Vital Signs Temp 97.6 F 03/08/20 11:00 Pulse 67 03/08/20 11:00 Resp 16 03/08/20 11:00 BP 113/63 03/08/20 11:00 Pulse Ox 94 L 03/08/20 11:00 Intake & Output 03/07/20 03/08/20 03/08/20 18:59 06:59 18:59 Intake Total 250 200 Balance 250 200 Intake: Intake, IV Titration 250 Amount Remdesivir 100 mg In 250 Sodium Chloride 0.9% 250 ml @ 250 mls/hr IVPB DAILY@1800 [facility] Rx#: [id number] Oral 200 Other: Voiding Method Bedside Commode Bedside Commode Bedside Commode Incontinent Incontinent Incontinent # Voids 1 1 - Labs CBC & Chem 7: 03/07/20 09:46 03/07/20 09:46 Labs: Abnormal Lab Results - Last 24 Hours (Table) 03/07/20 03/07/20 03/07/20 Range/Units 09:46 16:55 20:03 D-Dimer (<0.60) mg/L FEU BUN 28.0 H (9.0-27.0) mg/dL BUN/Creatinine Ratio 35.00 H (12.00-20.00) Ratio Glucose 248 H (70-110) mg/dL POC Glucose (mg/dL) 162 H 214 H (75-99) mg/dL Calcium 8.4 L (8.7-10.3) mg/dL Lactate Dehydrogenase (120-246) U/L 03/08/20 03/08/20 03/08/20 Range/Units 06:58 06:58 07:07 D-Dimer 0.71 H (<0.60) mg/L FEU BUN (9.0-27.0) mg/dL BUN/Creatinine Ratio (.00-20.00) Ratio Glucose (70-110) mg/dL POC Glucose (mg/dL) 193 H (75-99) mg/dL Calcium (8.7-10.3) mg/dL Lactate Dehydrogenase 292 H (120-246) U/L 03/08/20 Range/Units 11:49 D-Dimer (<0.60) mg/L FEU BUN (9.0-27.0) mg/dL BUN/Creatinine Ratio (12.00-20.00) Ratio Glucose (70-110) mg/dL POC Glucose (mg/dL) 192 H (75-99) mg/dL Calcium (8.7-10.3) mg/dL Lactate Dehydrogenase (120-246) U/L Microbiology - Last 24 Hours (Table) 03/04/20 13:30 Blood Culture - Preliminary Blood No Growth after 72 hours
[2020-03-08 16:41] LABS: Glucose,Whole Blood 176 mg/dL (75-99)
[2020-03-08 16:56] LABS: C Reactive Protein 3.3 mg/dL (0.0-0.8)
[2020-03-08] MEDS: REMDESIVIR 100 MG in SODIUM CHLORIDE 0.9% 250 ML IVPB SCH (17:25)
[2020-03-08 20:20] LABS: Glucose,Whole Blood 204 mg/dL (75-99)
[2020-03-08] MEDS: MIRTAZAPINE 45 MG TABLET PO SCH (21:20)
[2020-03-08] MEDS: traZODone HCL 100 MG TAB PO SCH (21:20)
[2020-03-09] MEDS: methylPREDNISolone SOD SUCCI 125 MG/2 ML VIAL IV SCH ×4 (00:32→17:16)
[2020-03-09 07:21] LABS: Glucose,Whole Blood 228 mg/dL (75-99)
[2020-03-09] MEDS: NICOTINE 14MG/24HR PATCH TRANSDERM SCH (08:48)
[2020-03-09] MEDS: ASCORBIC ACID 500 MG TAB PO SCH (08:48)
[2020-03-09] MEDS: CHOLECALCIFEROL 400 UNIT TAB PO SCH (08:48)
[2020-03-09] MEDS: ALPRAZolam 0.5 MG TAB PO SCH ×3 (08:48→20:52)
[2020-03-09] MEDS: OXYBUTYNIN 15 MG TAB.ER.24 PO SCH (08:49)
[2020-03-09] MEDS: SERTRALINE 100 MG TAB PO SCH ×2 (08:49→20:51)
[2020-03-09] MEDS: ZINC SULFATE 220 MG CAP PO SCH (08:49)
[2020-03-09] MEDS: MEMANTINE 5 MG TAB PO SCH ×2 (08:49→20:52)
[2020-03-09] MEDS: METOPROLOL SUCCINATE (ER) 25 MG TAB.ER.24H PO SCH (08:49)
[2020-03-09] MEDS: PREGABALIN 100 MG CAP PO SCH ×3 (08:49→20:52)
[2020-03-09] MEDS: ENOXAPARIN 40 MG/0.4 ML SYRINGE SQ SCH (08:50)
[2020-03-09] MEDS: levETIRAcetam 250 MG TAB PO SCH ×2 (08:50→20:51)
[2020-03-09] MEDS: DIVALPROEX 500 MG TABLET.DR PO SCH ×2 (08:51→20:51)
[2020-03-09] MEDS: INSULIN ASPART (NovoLOG) 100 UNIT/ML VIAL SQ SCH ×4 (08:51→20:52)
[2020-03-09] MEDS: LEVOFLOXACIN 750 MG TAB PO SCH (08:52)
[2020-03-09] MEDS: levETIRAcetam 500 MG TAB PO SCH ×2 (08:53→20:52)
[2020-03-09] MEDS: MELOXICAM 7.5 MG TAB PO SCH (08:56)
[2020-03-09] MEDS: SYMBICORT 160-4.5 MCG INHALER INHALATION SCH ×2 (09:06→19:47)
[2020-03-09] MEDS: ALBUTEROL HFA INHALER INHALATION SCH ×4 (09:06→19:47)
[2020-03-09 11:18] LABS: Glucose,Whole Blood 258 mg/dL (75-99)
[2020-03-09] MEDS: HYDROcodone/APAP 5-325MG 1 EACH TAB PO PRN ×2 (12:28→19:37)
--- NOTE | 2020-03-09 14:06 | P.PN ---
Subjective Progress Note Date: 03/09/20 Principal diagnosis: Acute hypoxic respiratory failure secondary to CoVID 19 pneumonitis 64-year-old white female patient of Dr. Abdi, with past medical history of hypertension, hyperlipidemia, previous history of CVA/TIA, diabetes mellitus type 2, osteoarthritis, anxiety, depression, presented emergency department on 03/04/2020 per EMS for evaluation of worsening shortness of breath, congestive cough, with onset of symptoms since last Wednesday, her symptoms aggressively clyde me worse, with increasing chest congestion, cough, and patient has developed worsening dyspnea and hypoxemia. When the EMS arrived patient's pulse ox was 78% on room air, she also had a low-grade temperature. Has some mild chest discomfort, tightness, she received a breathing treatments given to her by the EMS, felt slightly better. She denied any sick contacts. Chest x-ray was completed showing hyperinflation, patchy infiltrate in the right perihilar region, subsegmental left perihilar lower lobe infiltrate, findings suspicious for multifocal pneumonia, patient was tested for COVID19 and was found to be positive. Her lab work on admission showed a white blood cell count of 4.5, hemoglobin of 13.7, lymphocyte count of 0.6, d-dimer was mildly elevated at 0.94, electrolytes were unremarkable, BUN was 19 creatinine was 0.68, plasma lactic acid was elevated at 3.1, currently improved and is down to 0.9. Inflammatory markers were elevated with LDH of 799, and CRP of 185.8, pro calcit onin level was 0.20. CTA chest showing bilateral pneumonia, with associated extensive mucus plugging suspected in the lower lobes, with no evidence of pulmonary embolism. Patient was started on Decadron, which we will switch over to high-dose IV Solu-Medrol, she is on Symbicort, Pepcid, Lovenox at 40 mg daily. The patient is seen today 03/06/2020 in follow-up on the regular medical floor. Currently maintaining O2 saturation in the 90s on 4 L/m per nasal cannula. She's afebrile. Blood cultures reveal no growth. White count 10.1. Hemoglobin 11.9. Platelets 136. Sodium 144. Potassium 4.8. Creatinine 0.6. This is day #2 of Remdesivir. She remains on bronchodilators, IV Solu-Medrol, Lovenox. The patient is seen today 03/07/2020 in follow-up on the regular medical floor. She is awake and alert in no acute distress. He is maintaining O2 saturation in the mid 90s on 6 L/m per nasal cannula. Currently afebrile. Chest x-ray showing improvement. There is still some infiltrate in the right lower lobe. On antibiotics in the form of Levaquin. She remains on IV Solu-Medrol. This is day #3 of Remdesivir. Continue vitamin supplements. NicoDerm patch in place. Lovenox for DVT prophylaxis. The patient is seen today 03/08/2020 in follow-up on the regular medical floor. She remains awake and alert in no acute distress. She is now requiring 8 L high flow nasal cannula to maintain O2 saturations in the 90s. She states she is feeling better. Continues with a cough. Nonproductive. D-dimer 0.71. LDH 292. Glucose 192. Continue on Symbicort, albuterol, Lovenox IV Solu-Medrol. Remains on vitamin C, vitamin D, zinc. This is day #4 of her Remdesivir. Nicotine patch in place. Patient is seen today 03/09/2020 in follow-up on the regular medical floor. She is awake and alert in no acute distress. She is resting quite comfortably in bed. She does have a loose nonproductive cough. Maintaining O2 saturation in the 90s on 8 L high flow nasal cannula. She's been afebrile. Hemodynamically stable. This is day #5 of her Remdesivir. She remains on IV Solu-Medrol, bronchodilators, Lovenox. Antibiotics in the form of Levaquin. Continues on vitamin supplements. Objective - Vital Signs Vital signs: Vital Signs Temp 98.1 F 03/09/20 11:00 Pulse 63 03/09/20 11:00 Resp 17 03/09/20 11:00 BP 110/68 03/09/20 11:00 Pulse Ox 98 03/09/20 11:00 Intake & Output 03/08/20 03/09/20 03/09/20 18:59 06:59 18:59 Intake Total 490 Balance 490 Intake: Intake, IV Titration 250 Amount Remdesivir 100 mg In 250 Sodium Chloride 0.9% 250 ml @ 250 mls/hr IVPB DAILY@1800 [facility] Rx#: [id number] Oral 240 Other: Voiding Method Bedside Commode Bedside Commode Bedside Commode Incontinent # Voids 2 # Bowel Movements 0 - Exam GENERAL EXAM: Alert, very pleasant, 64-year-old female patient, on 8 L of oxygen and the pulse ox of 98%, comfortable in no apparent distress. HEAD: Normocephalic/atraumatic. EYES: Normal reaction of pupils, equal size. Conjunctiva pink, sclera white. NOSE: Clear with pink turbinates. THROAT: No erythema or exudates. NECK: No masses, no JVD, no thyroid enlargement, no adenopathy. CHEST: No chest wall deformity. Symmetrical expansion. LUNGS: Equal air entry with scattered rhonchi bilaterally CVS: Regular rate and rhythm, normal S1 and S2, no gallops, no murmurs, no rubs ABDOMEN: Soft, nontender. No hepatosplenomegaly, normal bowel sounds, no guarding or rigidity. EXTREMITIES: No clubbing, no edema, no cyanosis, 2+ pulses and upper and lower extremities. MUSCULOSKELETAL: Muscle strength and tone normal. SPINE: No scoliosis or deformity SKIN: No rashes CENTRAL NERVOUS SYSTEM: No focal deficits, tone is normal in all 4 extremities. PSYCHIATRIC: Alert and oriented -3. Appropriate affect. Intact judgment and insight. - Labs CBC & Chem 7: 03/07/20 09:46 03/07/20 09:46 Labs: Abnormal Lab Results - Last 24 Hours (Table) 03/08/20 03/08/20 03/08/20 Range/Units 06:58 16:40 20:16 POC Glucose (mg/dL) 176 H 204 H (75-99) mg/dL C-Reactive Protein 3.3 H (0.0-0.8) mg/dL 03/09/20 03/09/20 Range/Units 07:13 11:17 POC Glucose (mg/dL) 228 H 258 H (75-99) mg/dL C-Reactive Protein (0.0-0.8) mg/dL Microbiology - Last 24 Hours (Table) 03/04/20 13:30 Blood Culture - Preliminary Blood No Growth after 96 hours Assessment and Plan Assessment: 1 Acute hypoxic respiratory failure secondary to COVID 19 related to pneumonitis, on 8 L high flow nasal cannula, receiving Remdesivir 2 Lactic acidosis, rule out possibility of sepsis 3 Increased inflammatory markers related to CoVID 19 related pneumonia, receiving steroids 4 Elevated d-dimer with no evidence of pulmonary embolism on the CT chest 5 COPD 6 Previous history of CVA and TIA 7 Diabetes mellitus type 2 8 Hypertension 9 Hyperlipidemia 10 History of DJD 11 History of adenoidectomy 12 Anxiety and depression Plan: The patient was seen and evaluated by Dr. Crawley Continue Remdesivir, IV steroids, Lovenox Continue vitamin supplements Titrate the FiO2 as tolerated Chest x-ray and labs in a.m. We'll continue to follow I, the cosigning physician, performed a history & physical examination of the patient. Lungs sounds with bilateral scattered rhonchi. Maintaining good O2 saturations in the 90s on 8 L/m per nasal cannula. I discussed the assessment and plan of care with my nurse practitioner, Cheri Shaw. I attest to the above note as dictated by her.
[2020-03-09 17:07] LABS: Glucose,Whole Blood 212 mg/dL (75-99)
[2020-03-09] MEDS: REMDESIVIR 100 MG in SODIUM CHLORIDE 0.9% 250 ML IVPB SCH (17:17)
[2020-03-09 20:14] LABS: Glucose,Whole Blood 244 mg/dL (75-99)
[2020-03-09] MEDS: MIRTAZAPINE 45 MG TABLET PO SCH (20:52)
[2020-03-09] MEDS: traZODone HCL 100 MG TAB PO SCH (20:52)
--- NOTE | 2020-03-09 22:20 | PN ---
PROGRESS NOTE DATE OF SERVICE: 03/09/2020 REASON FOR FOLLOWUP: COVID-19 pneumonia. INTERVAL HISTORY: Patient is currently afebrile. The patient is breathing comfortably. However, she continues to have a cough, not bringing up any sputum though. No nausea, no vomiting. No abdominal pain, no diarrhea. PHYSICAL EXAMINATION: Blood pressure 113/67, pulse of 64, temperature 97.3. She is 97% on 8 L nasal cannula. General description is an elderly female lying in bed in no distress. Respiratory system: Unlabored breathing, coarse breath sounds bilaterally, no wheeze. Heart S1, S2. Regular rate and rhythm. Abdomen soft. No tenderness. LABS: No new labs have been done today. Blood culture negative. DIAGNOSTIC IMPRESSION AND PLAN: Patient with acute COVID-19 pneumonia and this patient with no worsening, chest x-ray showing some clinical improvement, however, is requiring more supplemental oxygen. The patient is currently covered with Lovenox, Solu-Medrol, Remdesivir and patient will complete her 5-day course and continue supportive care. MMODL / IJN: [id number] /
[2020-03-10] MEDS: methylPREDNISolone SOD SUCCI 125 MG/2 ML VIAL IV SCH ×5 (00:32→23:43)
[2020-03-10 07:15] LABS: Glucose,Whole Blood 275 mg/dL (75-99)
[2020-03-10] MEDS: INSULIN ASPART (NovoLOG) 100 UNIT/ML VIAL SQ SCH ×4 (08:18→20:51)
[2020-03-10] MEDS: ENOXAPARIN 40 MG/0.4 ML SYRINGE SQ SCH (08:18)
[2020-03-10] MEDS: DIVALPROEX 500 MG TABLET.DR PO SCH ×2 (08:19→20:50)
[2020-03-10] MEDS: METOPROLOL SUCCINATE (ER) 25 MG TAB.ER.24H PO SCH (08:19)
[2020-03-10] MEDS: MEMANTINE 5 MG TAB PO SCH ×2 (08:19→20:51)
[2020-03-10] MEDS: OXYBUTYNIN 15 MG TAB.ER.24 PO SCH (08:19)
[2020-03-10] MEDS: ALPRAZolam 0.5 MG TAB PO SCH ×3 (08:19→22:42)
[2020-03-10] MEDS: MELOXICAM 7.5 MG TAB PO SCH (08:19)
[2020-03-10] MEDS: levETIRAcetam 500 MG TAB PO SCH ×2 (08:19→20:51)
[2020-03-10] MEDS: ZINC SULFATE 220 MG CAP PO SCH (08:19)
[2020-03-10] MEDS: levETIRAcetam 250 MG TAB PO SCH ×2 (08:19→22:42)
[2020-03-10] MEDS: NICOTINE 14MG/24HR PATCH TRANSDERM SCH (08:19)
[2020-03-10] MEDS: ASCORBIC ACID 500 MG TAB PO SCH (08:19)
[2020-03-10] MEDS: PREGABALIN 100 MG CAP PO SCH ×3 (08:20→22:42)
[2020-03-10] MEDS: CHOLECALCIFEROL 400 UNIT TAB PO SCH (08:20)
[2020-03-10] MEDS: LEVOFLOXACIN 750 MG TAB PO SCH (08:27)
[2020-03-10] MEDS: SERTRALINE 100 MG TAB PO SCH ×2 (08:27→20:51)
--- NOTE | 2020-03-10 08:38 | XR ---
EXAMINATION TYPE: XR chest 1V portable DATE OF EXAM: 03/10/2020 Comparison: 05/08/2019 Clinical History: 64-year-old female CoVID pneumonia Findings: Heart normal size. Atherosclerotic arch calcifications. Bilateral mild interstitial densities especia lly in the periphery of the lungs similar to minimally increased on the left. Possible trace left eff usion. Impression: Subtle interstitial infiltrates may be minimally worsened on the left.
[2020-03-10] MEDS: ALBUTEROL HFA INHALER INHALATION SCH ×4 (08:44→20:54)
[2020-03-10] MEDS: SYMBICORT 160-4.5 MCG INHALER INHALATION SCH ×2 (08:44→21:00)
[2020-03-10] MEDS: HYDROcodone/APAP 5-325MG 1 EACH TAB PO PRN ×2 (10:12→19:22)
[2020-03-10 10:58] LABS: Glucose,Whole Blood 273 mg/dL (75-99)
[2020-03-10 11:55] LABS: C Reactive Protein 1.7 mg/dL (0.0-0.8)
--- NOTE | 2020-03-10 14:38 | P.PN ---
Subjective Progress Note Date: 03/10/20 Principal diagnosis: Acute hypoxic respiratory failure secondary to CoVID 19 pneumonitis 64-year-old white female patient of Dr. Abdi, with past medical history of hypertension, hyperlipidemia, previous history of CVA/TIA, diabetes mellitus type 2, osteoarthritis, anxiety, depression, presented emergency department on 03/04/2020 per EMS for evaluation of worsening shortness of breath, congestive cough, with onset of symptoms since last Wednesday, her symptoms aggressively clyde me worse, with increasing chest congestion, cough, and patient has developed worsening dyspnea and hypoxemia. When the EMS arrived patient's pulse ox was 78% on room air, she also had a low-grade temperature. Has some mild chest discomfort, tightness, she received a breathing treatments given to her by the EMS, felt slightly better. She denied any sick contacts. Chest x-ray was completed showing hyperinflation, patchy infiltrate in the right perihilar region, subsegmental left perihilar lower lobe infiltrate, findings suspicious for multifocal pneumonia, patient was tested for COVID19 and was found to be positive. Her lab work on admission showed a white blood cell count of 4.5, hemoglobin of 13.7, lymphocyte count of 0.6, d-dimer was mildly elevated at 0.94, electrolytes were unremarkable, BUN was 19 creatinine was 0.68, plasma lactic acid was elevated at 3.1, currently improved and is down to 0.9. Inflammatory markers were elevated with LDH of 799, and CRP of 185.8, pro calcit onin level was 0.20. CTA chest showing bilateral pneumonia, with associated extensive mucus plugging suspected in the lower lobes, with no evidence of pulmonary embolism. Patient was started on Decadron, which we will switch over to high-dose IV Solu-Medrol, she is on Symbicort, Pepcid, Lovenox at 40 mg daily. The patient is seen today 03/06/2020 in follow-up on the regular medical floor. Currently maintaining O2 saturation in the 90s on 4 L/m per nasal cannula. She's afebrile. Blood cultures reveal no growth. White count 10.1. Hemoglobin 11.9. Platelets 136. Sodium 144. Potassium 4.8. Creatinine 0.6. This is day #2 of Remdesivir. She remains on bronchodilators, IV Solu-Medrol, Lovenox. The patient is seen today 03/07/2020 in follow-up on the regular medical floor. She is awake and alert in no acute distress. He is maintaining O2 saturation in the mid 90s on 6 L/m per nasal cannula. Currently afebrile. Chest x-ray showing improvement. There is still some infiltrate in the right lower lobe. On antibiotics in the form of Levaquin. She remains on IV Solu-Medrol. This is day #3 of Remdesivir. Continue vitamin supplements. NicoDerm patch in place. Lovenox for DVT prophylaxis. The patient is seen today 03/08/2020 in follow-up on the regular medical floor. She remains awake and alert in no acute distress. She is now requiring 8 L high flow nasal cannula to maintain O2 saturations in the 90s. She states she is feeling better. Continues with a cough. Nonproductive. D-dimer 0.71. LDH 292. Glucose 192. Continue on Symbicort, albuterol, Lovenox IV Solu-Medrol. Remains on vitamin C, vitamin D, zinc. This is day #4 of her Remdesivir. Nicotine patch in place. Patient is seen today 03/09/2020 in follow-up on the regular medical floor. She is awake and alert in no acute distress. She is resting quite comfortably in bed. She does have a loose nonproductive cough. Maintaining O2 saturation in the 90s on 8 L high flow nasal cannula. She's been afebrile. Hemodynamically stable. This is day #5 of her Remdesivir. She remains on IV Solu-Medrol, bronchodilators, Lovenox. Antibiotics in the form of Levaquin. Continues on vitamin supplements. The patient is seen today 03/10/2020 in follow-up on the regular medical floor. She remains awake and alert in no acute distress. Resting quite comfortably in bed. Still requiring 8 L high flow nasal cannula to maintain O2 saturations in the 90s. She's been afebrile. Hemodynamically stable. D-dimer 0.74. LDH 322. C-reactive protein 1.7. Glucose 273. Completed Remdesivir yesterday. She remains on IV Solu-Medrol, bronchodilators, Lovenox. Antibiotics in the form of Levaquin. Continues on vitamin supplements. Chest x-ray shows subtle interstitial infiltrates slightly worse on the left. Objective - Vital Signs Vital signs: Vital Signs Temp 97.2 F L 03/10/20 11:00 Pulse 73 03/10/20 11:00 Resp 17 03/10/20 11:00 BP 104/68 03/10/20 11:00 Pulse Ox 97 03/10/20 11:00 Intake & Output 03/09/20 03/10/20 03/10/20 18:59 06:59 18:59 Other: Voiding Method Bedside Commode Bedside Commode Bedside Commode Incontinent Incontinent # Voids 3 # Bowel Movements 1 - Exam GENERAL EXAM: Alert, very pleasant, 64-year-old female patient, on 8 L of oxygen and the pulse ox of 97%, comfortable in no apparent distress. HEAD: Normocephalic/atraumatic. EYES: Normal reaction of pupils, equal size. Conjunctiva pink, sclera white. NOSE: Clear with pink turbinates. THROAT: No erythema or exudates. NECK: No masses, no JVD, no thyroid enlargement, no adenopathy. CHEST: No chest wall deformity. Symmetrical expansion. LUNGS: Equal air entry with scattered rhonchi bilaterally CVS: Regular rate and rhythm, normal S1 and S2, no gallops, no murmurs, no rubs ABDOMEN: Soft, nontender. No hepatosplenomegaly, normal bowel sounds, no guarding or rigidity. EXTREMITIES: No clubbing, no edema, no cyanosis, 2+ pulses and upper and lower extremities. MUSCULOSKELETAL: Muscle strength and tone normal. SPINE: No scoliosis or deformity SKIN: No rashes CENTRAL NERVOUS SYSTEM: No focal deficits, tone is normal in all 4 extremities. PSYCHIATRIC: Alert and oriented -3. Appropriate affect. Intact judgment and insight. - Labs CBC & Chem 7: 03/07/20 09:46 03/07/20 09:46 Labs: Abnormal Lab Results - Last 24 Hours (Table) 03/09/20 03/09/20 03/10/20 Range/Units 16:55 20:11 07:13 D-Dimer (<0.60) mg/L FEU POC Glucose (mg/dL) 212 H 244 H 275 H (75-99) mg/dL Lactate Dehydrogenase (120-246) U/L C-Reactive Protein (0.0-0.8) mg/dL 03/10/20 03/10/2020 Range/Units 07:33 07:33 10:57 D-Dimer 0.74 H (<0.60) mg/L FEU POC Glucose (mg/dL) 273 H (75-99) mg/dL Lactate Dehydrogenase 322 H (120-246) U/L C-Reactive Protein 1.7 H (0.0-0.8) mg/dL Microbiology - Last 24 Hours (Table) 03/04/20 13:30 Blood Culture - Preliminary Blood No Growth after 120 hours Assessment and Plan Assessment: 1 Acute hypoxic respiratory failure secondary to COVID 19 related to pneumonitis, on 8 L high flow nasal cannula, completed Remdesivir 2 Lactic acidosis, rule out possibility of sepsis 3 Increased inflammatory markers related to CoVID 19 related pneumonia, receiving steroids 4 Elevated d-dimer with no evidence of pulmonary embolism on the CT chest 5 COPD 6 Previous history of CVA and TIA 7 Diabetes mellitus type 2 8 Hypertension 9 Hyperlipidemia 10 History of DJD 11 History of adenoidectomy 12 Anxiety and depression Plan: The patient was seen and evaluated by Dr. Crawley Chest x-ray and labs reviewed Completed Remdesivir, Continue IV steroids, Lovenox Continue vitamin supplements Titrate the FiO2 as tolerated We'll continue to follow I, the cosigning physician, performed a history & physical examination of the patient. Lungs sounds with bilateral scattered rhonchi. Maintaining good O2 saturations in the 90s on 8 L/m per nasal cannula. I discussed the assessment and plan of care with my nurse practitioner, Cheri Shaw. I attest to the above note as dictated by her.
[2020-03-10 17:18] LABS: Glucose,Whole Blood 191 mg/dL (75-99)
[2020-03-10 20:10] LABS: Glucose,Whole Blood 244 mg/dL (75-99)
[2020-03-10] MEDS: MIRTAZAPINE 45 MG TABLET PO SCH (20:51)
[2020-03-10] MEDS: traZODone HCL 100 MG TAB PO SCH (20:51)
--- NOTE | 2020-03-10 23:19 | PN ---
PROGRESS NOTE DATE OF SERVICE: 03/10/2020 REASON FOR FOLLOWUP: COVID-19 pneumonia. INTERVAL HISTORY: The patient is currently afebrile. The patient is feeling better. Still requiring high-flow oxygen. Denies any chest pain or shortness of breath. Did have a cough, not bringing up any sputum. No nausea, vomiting or diarrhea. PHYSICAL EXAMINATION: Blood pressure 104/60, pulse of 74, temperature 97.3. She is 97% on 8 L nasal cannula. General description: The patient is an elderly female up in the bed in no distress. Respiratory system: Unlabored breathing, some coarse breath sounds at the base. No wheeze. HEART: S1, S2 regular rate and rhythm. ABDOMEN: Soft, no tenderness. LABS: Inflammatory markers have improved. The patient did have a chest x-ray, slight worsening. DIAGNOSTIC IMPRESSION AND PLAN: Patient with acute COVID-19 pneumonia in this patient who has completed her 5-day course of Remdesivir. Currently on zinc, Solu-Medrol and Lovenox to continue and monitor clinical course closely. Continue supportive care. MMODL / IJN: [id number] /
--- NOTE | 2020-03-11 03:06 | P.PN ---
Subjective Progress Note Date: 03/09/20 Principal diagnosis: Acute Covid 19 pneumonia with bilateral interstitial pneumonia with acute hypoxic respiratory failure This is a 64-year-old female who was recently admitted with shortness of breath along with some cough and congestion and is being closely monitored. She was also found to have Covid 19 pneumonia. CTA of the chest shows bilateral pneumonia with no evidence of PE noted. Patient was initiated on IV steroids along with bronchodilators, Lovenox, and zinc supplements. Pulmonary and infectious disease are consulted and pending at this time. Patient continues to require oxygen at 4 L via nasal cannula due to shortness of breath and cough. Patient's lactic acid has improved and is 0.9. Patient is currently afebrile. 03/06/2020 Patient is seen in follow up and continues to have shortness of breath with cough and is being closely monitored. Pulmonary and infectious disease following. Patient is maintained on IV steroids along with bronchodilators, lovenox, and zinc supplements. Patient has been started on Remdesivir as well as Levaquin. Patient is quite weak and will have PT/OT evaluate the patient for possible ECF placement. Patient is currently on 4L of oxygen via NC. Social work consulted. Incentive spirometer ordered. 03/07/2020 Patient is seen and evaluated in follow up with worsening shortness of breath and currently maintained on 6 L of oxygen via nasal cannula at 96%. Patient is lethargic although arousable and slightly confused at times. Patient continues to be maintained on IV steroids along with bronchodilators, Lovenox, zinc, oral Levaquin, and Remdesivir day 2. Pulmonary and infectious disease are following closely. Sugar slightly elevated in the 200s and is currently maintained on sliding scale and will continue at this time. Appetite continues to be poor although patient does eat at each meal. She needs encouragement with the use of incentive spirometer. Once stabilized and discharge patient will possibly require ECF for continued rehab as she continues to be quite weak and not getting out of bed much. PT/OT following. 03/08/2020 Patient seen in follow-up and continues to be closely monitored. Patient is currently receiving Remdesivir for Covid 19 and is on day 3. She is maintained on IV steroids along with inhalers, Lovenox, zinc, and oral antibiotics in the form of Levaquin. Infectious disease and pulmonary are following. Her nursing staff patient is now requiring 8 L via nasal cannula as she was found to be 89% on 6 L of oxygen. Discussed with the patient at length about continuing to use incentive spirometer and increasing activity and getting up out of the bed as she continues to lay most of the day and sleep most of the day. Patient also instructed and educated about the importance of eating and maintaining her diet. Will continue with close monitoring of blood sugars and treat with sliding scale. D-dimer slightly improved at 0.71. Will repeat a.m. labs and monitor vital signs and labs closely. Social work following for possible placement at a [facility] hub for continued PT/OT therapy for strength and mobility. 03/09/2020 Patient is currently lying in the bed comfortably. Awake alert oriented x3. Denied any worsening shortness of breath. Patient still having nonproductive cough. Currently on high flow oxygen at 8 L via nasal cannula. Continued on remdesivir day 5. Patient is also on IV Solu-Medrol and Lovenox. Continued on breathing treatments. And vitamin supplementation. Patient is afebrile. Laboratory data reviewed. Blood sugar is slightly elev ated due to IV steroids. Pulmonary is following. Current medications reviewed. Review of systems: Constitutional: Reports fatigue Cardiovascular: No reports of chest pain or palpitations Respiratory: Reports worsening shortness of breath and cough GI: No reports of nausea, vomiting, or diarrhea : No reports of dysuria or retention Neurovascular: reports generalized weakness no reports of numbness All medications have been reviewed Objective - Vital Signs Vital signs: Vital Signs Temp 98.1 F 03/09/20 11:00 Pulse 63 03/09/20 11:00 Resp 17 03/09/20 11:00 BP 110/68 03/09/20 11:00 Pulse Ox 98 03/09/20 11:00 Intake & Output 03/08/20 03/09/20 03/09/20 18:59 06:59 18:59 Intake Total 490 Balance 490 Intake: Intake, IV Titration 250 Amount Remdesivir 100 mg In 250 Sodium Chloride 0.9% 250 ml @ 250 mls/hr IVPB DAILY@1800 [facility] Rx#: [id number] Oral 240 Other: Voiding Method Bedside Commode Bedside Commode Bedside Commode Incontinent # Voids 2 # Bowel Movements 0 - Exam - Exam Gen: This is a 64-year-old female awake, alert and oriented 3, well-developed, well-nourished. Temp is 97.5F, pulse is 70, respirations are 16, blood pressure is 128/73, oxygen saturation is 89 % on 6 L via nasal cannula with oxygen improvement of 94% on 8 L high flow HEENT: Head is atraumatic, normocephalic. Pupils equal, round. Sclerae is anicteric. NECK: Supple. No JVD. No lymphadenopathy. No thyromegaly. LUNGS: diminished breath sounds bilaterally with a few scattered rhonchi and crackles noted No intercostal retractions. HEART: S1, S2 are muffled ABDOMEN: Soft. Bowel sounds are present. No masses. No tenderness. EXTREMITIES: No pedal edema. No calf tenderness. NEUROLOGICAL: Patient is awake, alert and oriented x3. Cranial nerves 2 through 12 are grossly intact. Diffusely weak - Labs CBC & Chem 7: 03/07/20 09:46 03/07/20 09:46 Labs: Abnormal Lab Results - Last 24 Hours (Table) 03/08/20 03/09/20 03/09/20 Range/Units 20:16 07:13 11:17 POC Glucose (mg/dL) 204 H 228 H 258 H (75-99) mg/dL 03/09/20 Range/Units 16:55 POC Glucose (mg/dL) 212 H (75-99) mg/dL Microbiology - Last 24 Hours (Table) 03/04/20 13:30 Blood Culture - Preliminary Blood No Growth after 120 hours Assessment and Plan Assessment: Acute Covid 19 pneumonia with bilateral interstitial pneumonia with acute hypoxic respiratory failure Chronic obstructive pulmonary disease, acute exacerbation Elevated plasma lactic acid indicative of sepsis, present on admission Elevated d-dimer Mild thrombocytopenia elevated LDH and CRP secondary to Covid 19 history of CVA/TIA Diabetes mellitus type 2 Hypertension Hyperlipidemia history of degenerative joint disease history of restless leg syndrome history of chronic diarrhea History of appendectomy History of cholecystectomy History of nicotine dependence Anxiety, bipolar depression, panic disorder History of prescription drug abuse Obesity with a body mass index of 31.9 Full code Recommendations and discussion: Recommend to continue current medications, management, and symptomatic treatment. Patient is maintained on bronchodilators along with IV steroids and will continue at this time. Patient was also started on zinc supplements and Lovenox. Infectious disease and pulmonary following. Remdesivir and oral Levaquin initiated. Patient continues to require 8 L of oxygen for continued shortness of breath. Incentive spirometer ordered and instructed the patient to continue to use at least 10 times every hour while awake. Patient needs encouragement on the use of incentive spirometer. Discussed with nursing staff. Will continue to monitor vital signs and labs closely. Due to multiple complex medical issues, prognosis is guarded. PT/OT to evaluate the patient. Social work following for possible ecf placement at a [facility]. Further recommendations to follow. Time with Patient: Greater than 30
--- NOTE | 2020-03-11 03:08 | P.PN ---
Subjective Progress Note Date: 03/10/20 Principal diagnosis: Acute Covid 19 pneumonia with bilateral interstitial pneumonia with acute hypoxic respiratory failure This is a 64-year-old female who was recently admitted with shortness of breath along with some cough and congestion and is being closely monitored. She was also found to have Covid 19 pneumonia. CTA of the chest shows bilateral pneumonia with no evidence of PE noted. Patient was initiated on IV steroids along with bronchodilators, Lovenox, and zinc supplements. Pulmonary and infectious disease are consulted and pending at this time. Patient continues to require oxygen at 4 L via nasal cannula due to shortness of breath and cough. Patient's lactic acid has improved and is 0.9. Patient is currently afebrile. 03/06/2020 Patient is seen in follow up and continues to have shortness of breath with cough and is being closely monitored. Pulmonary and infectious disease following. Patient is maintained on IV steroids along with bronchodilators, lovenox, and zinc supplements. Patient has been started on Remdesivir as well as Levaquin. Patient is quite weak and will have PT/OT evaluate the patient for possible ECF placement. Patient is currently on 4L of oxygen via NC. Social work consulted. Incentive spirometer ordered. 03/07/2020 Patient is seen and evaluated in follow up with worsening shortness of breath and currently maintained on 6 L of oxygen via nasal cannula at 96%. Patient is lethargic although arousable and slightly confused at times. Patient continues to be maintained on IV steroids along with bronchodilators, Lovenox, zinc, oral Levaquin, and Remdesivir day 2. Pulmonary and infectious disease are following closely. Sugar slightly elevated in the 200s and is currently maintained on sliding scale and will continue at this time. Appetite continues to be poor although patient does eat at each meal. She needs encouragement with the use of incentive spirometer. Once stabilized and discharge patient will possibly require ECF for continued rehab as she continues to be quite weak and not getting out of bed much. PT/OT following. 03/08/2020 Patient seen in follow-up and continues to be closely monitored. Patient is currently receiving Remdesivir for Covid 19 and is on day 3. She is maintained on IV steroids along with inhalers, Lovenox, zinc, and oral antibiotics in the form of Levaquin. Infectious disease and pulmonary are following. Her nursing staff patient is now requiring 8 L via nasal cannula as she was found to be 89% on 6 L of oxygen. Discussed with the patient at length about continuing to use incentive spirometer and increasing activity and getting up out of the bed as she continues to lay most of the day and sleep most of the day. Patient also instructed and educated about the importance of eating and maintaining her diet. Will continue with close monitoring of blood sugars and treat with sliding scale. D-dimer slightly improved at 0.71. Will repeat a.m. labs and monitor vital signs and labs closely. Social work following for possible placement at a [employer] [facility] for continued PT/OT therapy for strength and mobility. 03/09/2020 Patient is currently lying in the bed comfortably. Awake alert oriented x3. Denied any worsening shortness of breath. Patient still having nonproductive cough. Currently on high flow oxygen at 8 L via nasal cannula. Continued on remdesivir day 5. Patient is also on IV Solu-Medrol and Lovenox. Continued on breathing treatments. And vitamin supplementation. Patient is afebrile. Laboratory data reviewed. Blood sugar is slightly elev ated due to IV steroids. Pulmonary is following. 03/10/2020 Patient is currently lying in the bed comfortably. Awake alert and oriented x3. On oxygen at 8 L via nasal cannula. No complaints of chest pain. Does have cough without much sputum production. No fever no chills. Laboratory data showed D-dimer 0.74, LDH 322 and CRP 1.7 Continue insulin sliding scale for elevated blood sugars. Otherwise patient is on IV Solu-Medrol, Lovenox and vitamin supplementation. Patient completed remdesivir course for 5 days. Review of systems: Constitutional: Reports fatigue Cardiovascular: No reports of chest pain or palpitations Respiratory: Reports worsening shortness of breath and cough GI: No reports of nausea, vomiting, or diarrhea : No reports of dysuria or retention Neurovascular: reports generalized weakness no reports of numbness All medications have been reviewed Objective - Vital Signs Vital signs: Vital Signs Temp 97.3 F L 03/10/20 16:42 Pulse 74 03/10/20 16:42 Resp 17 03/10/20 16:42 BP 98/60 03/10/20 16:42 Pulse Ox 97 03/10/20 16:42 Intake & Output 03/09/20 03/10/20 03/10/20 18:59 06:59 18:59 Other: Voiding Method Bedside Commode Bedside Commode Bedside Commode Incontinent Incontinent # Voids 3 # Bowel Movements 1 - Exam - Exam Gen: This is a 64-year-old female awake, alert and oriented 3, well-developed, well-nourished. Temp is 97.5F, pulse is 70, respirations are 16, blood pressur e is 128/73, oxygen saturation is 89 % on 6 L via nasal cannula with oxygen improvement of 94% on 8 L high flow HEENT: Head is atraumatic, normocephalic. Pupils equal, round. Sclerae is anicteric. NECK: Supple. No JVD. No lymphadenopathy. No thyromegaly. LUNGS: diminished breath sounds bilaterally with a few scattered rhonchi and crackles noted No intercostal retractions. HEART: S1, S2 are muffled ABDOMEN: Soft. Bowel sounds are present. No masses. No tenderness. EXTREMITIES: No pedal edema. No calf tenderness. NEUROLOGICAL: Patient is awake, alert and oriented x3. Cranial nerves 2 through 12 are grossly intact. Diffusely weak - Labs CBC & Chem 7: 03/07/20 09:46 03/07/20 09:46 Labs: Abnormal Lab Results - Last 24 Hours (Table) 03/09/20 03/10/20 03/10/20 Range/Units 20:11 07:13 07:33 D-Dimer 0.74 H (<0.60) mg/L FEU POC Glucose (mg/dL) 244 H 275 H (75-99) mg/dL Lactate Dehydrogenase (120-246) U/L C-Reactive Protein (0.0-0.8) mg/dL 03/10/20 03/10/20 03/10/20 Range/Units 07:33 10:57 17:17 D-Dimer (<0.60) mg/L FEU POC Glucose (mg/dL) 273 H 191 H (75-99) mg/dL Lactate Dehydrogenase 322 H (120-246) U/L C-Reactive Protein 1.7 H (0.0-0.8) mg/dL Microbiology - Last 24 Hours (Table) 03/04/20 13:30 Blood Culture - Final Blood No Growth after 144 hours Assessment and Plan Assessment: Acute Covid 19 pneumonia with bilateral interstitial pneumonia with acute hypoxic respiratory failure Chronic obstructive pulmonary disease, acute exacerbation Elevated plasma lactic acid indicative of sepsis, present on admission Elevated d-dimer Mild thrombocytopenia elevated LDH and CRP secondary to Covid 19 history of CVA/TIA Diabetes mellitus type 2 Hypertension Hyperlipidemia history of degenerative joint disease history of restless leg syndrome history of chronic diarrhea History of appendectomy History of cholecystectomy History of nicotine dependence Anxiety, bipolar depression, panic disorder History of prescription drug abuse Obesity with a body mass index of 31.9 Full code Recommendations and discussion: Recommend to continue current medications, management, and symptomatic treatment. Patient is maintained on bronchodilators along with IV steroids and will continue at this time. Patient was also started on zinc supplements and Lovenox. Infectious disease and pulmonary following. Remdesivir and oral Levaquin initiated. Patient continues to require 8 L of oxygen for continued shortness of breath. Incentive spirometer ordered and instructed the patient to continue to use at least 10 times every hour while awake. Patient needs encouragement on the use of incentive spirometer. Discussed with nursing staff. Will continue to monitor vital signs and labs closely. Due to multiple complex medical issues, prognosis is guarded. PT/OT to evaluate the patient. Social work following for possible ecf placement at a [facility]. Further recommendations to follow. Time with Patient: Greater than 30
[2020-03-11 05:49] VITALS: BP 104/59
[2020-03-11] MEDS: methylPREDNISolone SOD SUCCI 125 MG/2 ML VIAL IV SCH ×2 (05:50→13:22)
[2020-03-11 07:36] LABS: Glucose,Whole Blood 189 mg/dL (75-99)
[2020-03-11] MEDS: CHOLECALCIFEROL 400 UNIT TAB PO SCH (08:16)
[2020-03-11] MEDS: MEMANTINE 5 MG TAB PO SCH (08:16)
[2020-03-11] MEDS: OXYBUTYNIN 15 MG TAB.ER.24 PO SCH (08:16)
[2020-03-11] MEDS: LEVOFLOXACIN 750 MG TAB PO SCH (08:16)
[2020-03-11] MEDS: ZINC SULFATE 220 MG CAP PO SCH (08:16)
[2020-03-11] MEDS: DIVALPROEX 500 MG TABLET.DR PO SCH (08:16)
[2020-03-11] MEDS: levETIRAcetam 250 MG TAB PO SCH (08:16)
[2020-03-11] MEDS: NICOTINE 14MG/24HR PATCH TRANSDERM SCH (08:16)
[2020-03-11] MEDS: levETIRAcetam 500 MG TAB PO SCH (08:17)
[2020-03-11] MEDS: ALPRAZolam 0.5 MG TAB PO SCH (08:17)
[2020-03-11] MEDS: SERTRALINE 100 MG TAB PO SCH (08:17)
[2020-03-11] MEDS: METOPROLOL SUCCINATE (ER) 25 MG TAB.ER.24H PO SCH (08:17)
[2020-03-11] MEDS: PREGABALIN 100 MG CAP PO SCH (08:17)
[2020-03-11] MEDS: ASCORBIC ACID 500 MG TAB PO SCH (08:17)
[2020-03-11] MEDS: ENOXAPARIN 40 MG/0.4 ML SYRINGE SQ SCH (08:18)
[2020-03-11] MEDS: INSULIN ASPART (NovoLOG) 100 UNIT/ML VIAL SQ SCH ×2 (08:18→13:22)
[2020-03-11] MEDS: MELOXICAM 7.5 MG TAB PO SCH (08:18)
[2020-03-11] MEDS: ALBUTEROL HFA INHALER INHALATION SCH ×2 (08:36→12:08)
[2020-03-11] MEDS: SYMBICORT 160-4.5 MCG INHALER INHALATION SCH (08:36)
[2020-03-11 11:08] LABS: African American GFR (CKD) >90 (>60 ml/min/1.73 sqM); Anion Gap 3 mmol/L; Blood Urea Nitrogen 35 mg/dL (7-17); Calcium 8.2 mg/dL (8.4-10.2); Carbon Dioxide 33 mmol/L (22-30); Chloride 102 mmol/L (98-107); Glucose 295 mg/dL (74-99); Non-African American GFR(CKD) 81 (>60 ml/min/1.73 sqM); Potassium 4.5 mmol/L (3.5-5.1); Sodium 138 mmol/L (137-145)
[2020-03-11 11:15] LABS: HCT 39.2 % (34.0-46.0); HGB 12.9 gm/dL (11.4-16.0); MCH 31.7 pg (25.0-35.0); MCHC 32.9 g/dL (31.0-37.0); MCV 96.3 fL (80.0-100.0); Mean Platelet Volume 8.9; Platelet Count 139 k/uL (150-450); RBC 4.07 m/uL (3.80-5.40); RDW 13.1 % (11.5-15.5); WBC 7.4 k/uL (3.8-10.6)
[2020-03-11 11:23] LABS: Glucose,Whole Blood 267 mg/dL (75-99)
[2020-03-11] MEDS: SODIUM CHLORIDE 0.9% 250 ML IV SCH ×6 (11:43→16:41)
[2020-03-11 12:07] VITALS: PULSE 70; RESP 16; TEMP 98
--- NOTE | 2020-03-11 13:08 | P.PN ---
Subjective Progress Note Date: 03/11/20 64-year-old female patient with known history of CVA, diabetes mellitus type 2, chronic anxiety and depression and hypertension hyperlipidemia whereas been in the hospital for parvovirus colonizing infection. The patient has completed treatment. The patient developed an acute hypoxic respiratory failure and the patient is currently on 4 L of oxygen by nasal cannula. She is about to get discharged to long-term. She is quite weak and debilitated and the patient will need further recovery at the long-term. She is on IV Solu-Medrol and this will be switched to Decadron at a time of discharge. No fever. No chills. She has a good appetite. No nausea. No vomiting. No abdominal pain. She has global weakness and she is able to sit up on a recliner. Objective - Vital Signs Vital signs: Vital Signs Temp 98.0 F 03/11/20 12:06 Pulse 70 03/11/20 12:06 Resp 16 03/11/20 12:06 BP 104/59 03/11/20 04:15 Pulse Ox 97 03/11/20 12:06 Intake & Output 03/10/20 03/11/20 03/11/20 18:59 06:59 18:59 Other: Voiding Method Bedside Commode Bedside Commode Bedside Commode Incontinent Incontinent Incontinent # Voids 5 4 # Bowel Movements 1 - Exam - Exam GENERAL EXAM: Alert, very pleasant, 64-year-old female patient, on 4 L of oxygen and the pulse ox of 97%, comfortable in no apparent distress. HEAD: Normocephalic/atraumatic. EYES: Normal reaction of pupils, equal size. Conjunctiva pink, sclera white. NOSE: Clear with pink turbinates. THROAT: No erythema or exudates. NECK: No masses, no JVD, no thyroid enlargement, no adenopathy. CHEST: No chest wall deformity. Symmetrical expansion. LUNGS: Equal air entry with scattered rhonchi bilaterally CVS: Regular rate and rhythm, normal S1 and S2, no gallops, no murmurs, no rubs ABDOMEN: Soft, nontender. No hepatosplenomegaly, normal bowel sounds, no guarding or rigidity. EXTREMITIES: No clubbing, no edema, no cyanosis, 2+ pulses and upper and lower extremities. MUSCULOSKELETAL: Muscle strength and tone normal. SPINE: No scoliosis or deformity SKIN: No rashes CENTRAL NERVOUS SYSTEM: No focal deficits, tone is normal in all 4 extremities. PSYCHIATRIC: Alert and oriented -3. Appropriate affect. Intact judgment and insight. - Labs CBC & Chem 7: 03/11/20 10:20 03/11/20 10:20 Labs: Abnormal Lab Results - Last 24 Hours (Table) 03/10/20 03/10/20 03/11/20 Range/Units 17:17 20:03 07:35 Plt Count (150-450) k/uL Carbon Dioxide (22-30) mmol/L BUN (7-17) mg/dL Glucose (74-99) mg/dL POC Glucose (mg/dL) 191 H 244 H 189 H (75-99) mg/dL Calcium (8.4-10.2) mg/dL 03/11/20 03/11/20 03/11/20 Range/Units 10:20 10:20 11:18 Plt Count 139 L (150-450) k/uL Carbon Dioxide 33 H (22-30) mmol/L BUN 35 H (7-17) mg/dL Glucose 295 H (74-99) mg/dL POC Glucose (mg/dL) 267 H (75-99) mg/dL Calcium 8.2 L (8.4-10.2) mg/dL Microbiology - Last 24 Hours (Table) 03/04/20 13:30 Blood Culture - Final Blood No Growth after 144 hours Assessment and Plan Plan: 1 Acute hypoxic respiratory failure secondary to COVID 19 related to pneumonitis, on 4 L high flow nasal cannula, completed Remdesivirthe patient is currently on steroids in the form of Solu-Medrol episodes of 60 mg every 6 hours.. The patient is clinically improved. The patient is having profound generalized weakness and the patient is looking for a long-term transfer for further rehabilitation. 2 Lactic acidosis, rule out possibility of sepsis 3 Increased inflammatory markers related to CoVID 19 related pneumonia, receiving steroids 4 Elevated d-dimer with no evidence of pulmonary embolism on the CT chest 5 COPD 6 Previous history of CVA and TIA 7 Diabetes mellitus type 2 8 Hypertension 9 Hyperlipidemia 10 History of DJD 11 History of adenoidectomy 12 Anxiety and depression Plan: condition is stable for now Completed Remdesivir the patient can be switched to oral Decadron 6 mg patient remains profoundly weak. She will benefit from rehabilitation. The patient will be sent to rehab on oxygen at 4 L per minute nasal cannula. Continue vitamin supplements Titrate the FiO2 as tolerated at the long-term possible discharge today
[2020-03-11 13:18] LABS: Band Neutrophils % 3 %; Metamyelocytes # (M) 0.22 k/uL (0); Metamyelocytes % 3 %; Monocytes # (M) 0.74 k/uL (0-1.0); Myelocytes % 4 %; Neutrophils % (M) 78 %; Nucleated Red Blood Cells 0 /100 WBC (0-0); Total Cells Counted 200
[2020-03-11 13:19] LABS: Anisocytosis (M) Present; Poikilocytosis (M) Present
--- NOTE | 2020-03-11 13:21 | P.DS ---
Providers Date of admission: 03/04/20 16:37 Expected date of discharge: 03/11/20 Attending physician: Brunilda Pinto Consults: 03/04/20 15:59 Consult Physician Urgent Consulting Provider: William Crawley Consult Reason/Comments: covid Do you want consulting provider notified?: Yes 03/04/20 16:02 Consult Physician Urgent Consulting Provider: Shiloh Cowart Consult Reason/Comments: COVID Do you want consulting provider notified?: Yes Primary care physician: Trinidad [facility] Course: Final diagnosis Acute Covid 19 pneumonia with bilateral interstitial pneumonia with acute hypoxic respiratory failure Chronic obstructive pulmonary disease, acute exacerbation Gait dysfunction Elevated plasma lactic acid indicative of sepsis, present on admission Elevated d-dimer Mild thrombocytopenia elevated LDH and CRP secondary to Covid 19 history of CVA/TIA Diabetes mellitus type 2 Hypertension Hyperlipidemia history of degenerative joint disease history of restless leg syndrome history of chronic diarrhea History of appendectomy History of cholecystectomy History of nicotine dependence Anxiety, bipolar depression, panic disorder History of prescription drug abuse Obesity with a body mass index of 31.9 Full code Discharge disposition Patient is being discharged in a stable condition with guarded prognosis to [facility] for continued PT/OT therapy. Patient will follow-up with Dr. Abdi in the outpatient setting upon discharge. Patient will continue on Levaquin for the next 5 days to complete the course and then may discontinue. Patient will also continue on dexamethasone for the next 10 days to complete the course. Total time taken is greater than 35 minutes. History of present illness This is a 64-year-old female who was recently admitted with acute Covid 19 pneumonia with bilateral interstitial pneumonia with acute hypoxic respiratory failure and was being closely monitored. Infectious disease and pulmonary were following and patient was maintained on sitting, Lovenox, IV Solu-Medrol, Levaquin, and Remdesivir. Patient did complete the course of remdesivir. Patient was maintained on IV Solu-Medrol and will transition to dexamethasone 6 mg daily for the next 10 days to complete the course. She will also continue on Levaquin 750 mg daily for the next 5 days and then may discontinue. Continue to be weak and was seen and evaluated by PT/OT recommending subacute rehab upon discharge for continued therapy. Patient is currently on 4 L of oxygen nasal cannula at 93-94%. Continue to wean FiO2 as tolerated. Currently no reports of chest pain, worsening shortness of breath, or palpitations. Patient is afebrile. No reports of nausea or vomiting and patient is tolerating diet. Patient will be going to [facility] today. Instructed the patient to continue with incentive spirometer at least 10 times every hour while awake and needs encouragement. On exam vital signs are stable. Temp is 98.0F, pulse is 70, respirations are 16, blood pressure is 135/80, oxygen saturation is 93% on 4 L via nasal cannula. Cardio S1, S2 are muffled. Respiratory system shows diminished breath sounds at the bases with some scattered rhonchi noted. Abdomen is soft and nontender. Nervous system shows diffuse weakness. Please refer to medication reconciliation sheet for a list of medications. Patient Condition at Discharge: Stable Plan - Discharge Summary Discharge Rx Participant: No New Discharge Prescriptions: New Nicotine 14Mg/24Hr Patch [Habitrol] 1 patch TRANSDERM DAILY patch Levofloxacin [Levaquin] 750 mg PO DAILY 5 Days #5 tab HYDROcodone/APAP 5-325MG [Jean 5-325] 1 each PO Q6HR PRN #6 tab PRN Reason: Pain INSULIN ASPART (NovoLOG) [NovoLOG (formulary)] 0 unit SQ ACHS vial Zinc Sulfate [Orazinc] 220 mg PO DAILY cap Budesonide-Formot 160-4.5 Mcg [Symbicort 160-4.5 Mcg Inhaler] 2 puff INHALATION RT-BID puff Albuterol Inhaler [Ventolin Hfa Inhaler] 2 puff INHALATION RT-QID puff Ascorbic Acid [Vitamin C] 250 mg PO DAILY tab Cholecalciferol [Vitamin D3] 400 unit PO DAILY tab Dexamethasone 6 mg PO DAILY 10 Days #10 tablet Continue Sertraline [Zoloft] 100 mg PO BID Mirtazapine [Remeron] 45 mg PO HS Divalproex [Depakote] 500 mg PO BID SUMAtriptan SUCCINATE [Imitrex] 50 mg PO DAILY PRN PRN Reason: Migraine Headache Ondansetron Odt [Zofran ODT] 4 mg SUBLINGUAL BID PRN PRN Reason: Nausea Ergocalciferol [Vitamin D2 (DRISDOL)] 50,000 unit PO Q7D Omeprazole [PriLOSEC] 40 mg PO DAILY PRN PRN Reason: gerds Metoprolol Succinate (ER) [Toprol XL] 25 mg PO DAILY Memantine [Namenda] 5 mg PO BID Famotidine 20 mg PO BID PRN PRN Reason: gerds levETIRAcetam [Keppra] 500 mg PO BID levETIRAcetam [Keppra] 250 mg PO BID Celecoxib [CeleBREX] 200 mg PO DAILY Oxybutynin ER [Ditropan Xl] 15 mg PO DAILY Pregabalin [Lyrica] 200 mg PO TID #6 cap traZODone HCL 100 mg PO HS #2 tab ALPRAZolam [Xanax] 0.5 mg PO TID #3 tab Discontinued HYDROcodone/APAP 10-325MG [Jean 10-325] 1 tab PO TID PRN PRN Reason: Pain metFORMIN HCL [Glucophage] 500 mg PO BID Discharge Medication List Divalproex [Depakote] 500 mg PO BID 04/01/17 [History] Mirtazapine [Remeron] 45 mg PO HS 04/01/17 [History] Sertraline [Zoloft] 100 mg PO BID 04/01/17 [History] Celecoxib [CeleBREX] 200 mg PO DAILY 01/08/20 [History] Ergocalciferol [Vitamin D2 (DRISDOL)] 50,000 unit PO Q7D 01/08/20 [History] Famotidine 20 mg PO BID PRN 01/08/20 [History] Memantine [Namenda] 5 mg PO BID 01/08/20 [History] Metoprolol Succinate (ER) [Toprol XL] 25 mg PO DAILY 01/08/20 [History] Omeprazole [PriLOSEC] 40 mg PO DAILY PRN 01/08/20 [History] Ondansetron Odt [Zofran ODT] 4 mg SUBLINGUAL BID PRN 01/08/20 [History] SUMAtriptan SUCCINATE [Imitrex] 50 mg PO DAILY PRN 01/08/20 [History] levETIRAcetam [Keppra] 250 mg PO BID 01/08/20 [History] levETIRAcetam [Keppra] 500 mg PO BID 01/08/20 [History] Oxybutynin ER [Ditropan Xl] 15 mg PO DAILY 03/04/20 [History] ALPRAZolam [Xanax] 0.5 mg PO TID #3 tab 03/11/20 [Rx] Albuterol Inhaler [Ventolin Hfa Inhaler] 2 puff INHALATION RT-QID puff 03/11/20 [Rx] Ascorbic Acid [Vitamin C] 250 mg PO DAILY tab 03/11/20 [Rx] Budesonide-Formot 160-4.5 Mcg [Symbicort 160-4.5 Mcg Inhaler] 2 puff INHALATION RT-BID puff 03/11/20 [Rx] Cholecalciferol [Vitamin D3] 400 unit PO DAILY tab 03/11/20 [Rx] Dexamethasone 6 mg PO DAILY 10 Days #10 tablet 03/11/20 [Rx] HYDROcodone/APAP 5-325MG [Jean 5-325] 1 each PO Q6HR PRN #6 tab 03/11/20 [Rx] INSULIN ASPART (NovoLOG) [NovoLOG (formulary)] 0 unit SQ ACHS vial 03/11/20 [Rx] Levofloxacin [Levaquin] 750 mg PO DAILY 5 Days #5 tab 03/11/20 [Rx] Nicotine 14Mg/24Hr Patch [Habitrol] 1 patch TRANSDERM DAILY patch 03/11/20 [Rx] Pregabalin [Lyrica] 200 mg PO TID #6 cap 03/11/20 [Rx] Zinc Sulfate [Orazinc] 220 mg PO DAILY cap 03/11/20 [Rx] traZODone HCL 100 mg PO HS #2 tab 03/11/20 [Rx] Follow up Appointment(s)/Referral(s): Keaton Abdi MD [Primary Care Provider] - 1-2 days (office would like PT to call to make appointment ) [facility], [NON-STAFF] - 1 Week Activity/Diet/Wound Care/Special Instructions: Patient is going [facility] Continue current diet Continue to monitor blood sugars before meals at bedtime and treat accordingly with sliding scale Continue with antibiotics for the next 5 days and then may discontinue Continue with dexamethasone 6 mg for the next 10 days and then may discontinue Activity as tolerated Continue with oxygen and wean accordingly Discharge Disposition: TRANSFER TO SNF/ECF
[2020-03-11 13:44] VITALS: BMI 31.8
--- NOTE | 2020-03-11 14:43 | P.PN ---
Subjective Progress Note Date: 03/11/20 HISTORY OF PRESENT ILLNESS This is a 64-year-old female admitted to the hospital and treated for COVID-19 pneumonia. Patient states that she is feeling a little bit better today. She continues to have cough. She denies having any abdominal pain, no diarrhea. No abdominal tenderness. No edema. Repeat chest x-ray correlate for pneumonia. She has been afebrile, heart rate 69, blood pressure 116/60, pulse ox 96% on 6 L nasal cannula. Repeat lab work reveals CBC 10.8, platelet count 139, lymphocytes 0.4. Legionella antigen negative. Patient is on day #3/5 of Remdesivir. 03/08: The patient is feeling better today, breathing status is improving but still requiring large amount of oxygen. She denies having any chest pain. She does complain of overall body aches. No lower extremity edema. Patient has been afebrile, heart rate 70, blood pressure 120/73, pulse ox 89% on 6 L, 94% on 8 L. 03/11: Patient complains of cough that is nonproductive but more prevalent. She denies any chest pain. She feels that she is getting better every day. She denies any abdominal pain. Patient is afebrile, heart rate 70, blood pressure, pulse ox 97% on 4 L nasal cannula. PHYSICAL EXAMINATION Gen: This is a 64-year-old female. She is resting in bed and appears to be comfortable at rest. HEENT: Head is atraumatic, normocephalic. Pupils equal, round. Sclerae is anicteric. LUNGS: Lungs are clear to auscultation. No intercostal retractions. HEART: Regular rate and rhythm. No murmur. ABDOMEN: Soft. Bowel sounds are present. No masses. No tenderness. EXTREMITIES: No pedal edema. No calf tenderness. NEUROLOGICAL: Patient is awake, alert and oriented x3. ASSESSMENT Covid 19 pneumonia Acute hypoxic respiratory failure Lactic acidosis Elevated inflammatory marker secondary to Covid 19 Elevated d-dimer with CAT scan negative for pulmonary embolism COPD PLAN Completed course of Remdesivir Continue supplements with zinc, vitamin C, vitamin D Continue Lovenox 40 mg subcu every 24 hours Continue Solu-Medrol 60 mg IV every 6 hours Continue Levaquin 750 mg daily Patient is cleared for discharge from infectious disease. The above dictated assessment and findings were discussed with Dr. Cowart. The impression and plan of care have been directed as dictated. Brisa Bloom nurse practitioner acting as scribe for Dr. Cowart. Objective - Vital Signs Vital signs: Vital Signs Temp 98.0 F 03/11/20 12:06 Pulse 70 03/11/20 12:06 Resp 16 03/11/20 12:06 BP 104/59 03/11/20 04:15 Pulse Ox 97 03/11/20 12:06 Intake & Output 03/10/20 03/11/20 03/11/20 18:59 06:59 18:59 Other: Voiding Method Bedside Commode Bedside Commode Bedside Commode Incontinent Incontinent Incontinent # Voids 5 4 # Bowel Movements 1 - Labs CBC & Chem 7: 03/11/20 10:20 03/11/20 10:20 Labs: Abnormal Lab Results - Last 24 Hours (Table) 03/10/20 03/10/20 03/11/20 Range/Units 17:17 20:03 07:35 Plt Count (150-450) k/uL Carbon Dioxide (22-30) mmol/L BUN (7-17) mg/dL Glucose (74-99) mg/dL POC Glucose (mg/dL) 191 H 244 H 189 H (75-99) mg/dL Calcium (8.4-10.2) mg/dL 03/11/20 03/11/20 03/11/20 Range/Units 10:20 10:20 11:18 Plt Count 139 L (150-450) k/uL Carbon Dioxide 33 H (22-30) mmol/L BUN 35 H (7-17) mg/dL Glucose 295 H (74-99) mg/dL POC Glucose (mg/dL) 267 H (75-99) mg/dL Calcium 8.2 L (8.4-10.2) mg/dL Microbiology - Last 24 Hours (Table) 03/04/20 13:30 Blood Culture - Final Blood No Growth after 144 hours
== END 2020-03-11 16:56 | DRG 871 ==
LOC: EC 12:34 → 6NMEDSUR 16:37
PROVIDERS: ADMIT Hospitalist; ATTEND Hospitalist
PROC: XW033E5 Introduction of Remdesivir Anti-infective into Peripheral Vein, Percutaneous Approach, New Technology Group 5 (ICD-10-PCS; principal; 2020-03-04)
DX: A41.89 Other specified sepsis (principal); U07.1 COVID-19; J12.89 Other viral pneumonia; J96.01 Acute respiratory failure with hypoxia; E87.2 Acidosis; J44.1 Chronic obstructive pulmonary disease with (acute) exacerbation; J84.9 Interstitial pulmonary disease, unspecified; F31.30 Bipolar disorder, current episode depressed, mild or moderate severity, unspecified; F17.200 Nicotine dependence, unspecified, uncomplicated; E78.5 Hyperlipidemia, unspecified; E11.65 Type 2 diabetes mellitus with hyperglycemia; D72.810 Lymphocytopenia; D69.6 Thrombocytopenia, unspecified; E66.9 Obesity, unspecified; M19.90 Unspecified osteoarthritis, unspecified site; F41.0 Panic disorder [episodic paroxysmal anxiety]; G25.81 Restless legs syndrome; I10 Essential (primary) hypertension; T38.0X5A Adverse effect of glucocorticoids and synthetic analogues, initial encounter; Z79.52 Long term (current) use of systemic steroids; Z79.1 Long term (current) use of non-steroidal anti-inflammatories (NSAID); Z68.31 Body mass index [BMI] 31.0-31.9, adult; Z79.899 Other long term (current) drug therapy; Z79.4 Long term (current) use of insulin; Z82.3 Family history of stroke; Z90.711 Acquired absence of uterus with remaining cervical stump; Z90.49 Acquired absence of other specified parts of digestive tract; Z88.0 Allergy status to penicillin; Z86.73 Personal history of transient ischemic attack (TIA), and cerebral infarction without residual deficits; Z83.3 Family history of diabetes mellitus; Z88.8 Allergy status to other drugs, medicaments and biological substances; Z98.890 Other specified postprocedural states; Z90.89 Acquired absence of other organs
CPT/HCPCS: 36415; 71045; 71275; 80048; 80053; 82728; 83605; 83615; 83735; 84145; 85025; 85379; 85610; 85730; 86140; 87040; 87449; 87635; 93005; 94640; 96374; 99285

== ENCOUNTER 2020-05-10 17:58 | Emergency (ER) | payer MEDICARE ==
[2020-05-10 18:12] VITALS: BP 101/68; PULSE 97; RESP 18; TEMP 98.2
--- NOTE | 2020-05-10 19:19 | ED ---
Psych HPI - General Chief Complaint: Psychiatric Symptoms Stated Complaint: Mental Health Time Seen by Provider: 05/10/20 18:16 Source: patient, RN notes reviewed Mode of arrival: wheelchair - History of Present Illness Initial Comments: This is a 65-year-old female who presents with complaints of feeling depressed and suicidal. She states she's been feeling this way for several weeks she had thought about overdosing on her Xanax and [place]. She states her son is moving around in the week and this is even further making her depressed. She denies any alcohol use she denies any other symptoms at this time. She does admit to taking 2 Xanax prior to coming here today. MD Complaint: suicidal ideation, feels depressed - Related Data Home Medications Medication Instructions Recorded Confirmed Divalproex [Depakote] 500 mg PO BID 04/01/17 05/10/20 Mirtazapine [Remeron] 45 mg PO HS 04/01/17 05/10/20 Sertraline [Zoloft] 100 mg PO BID 04/01/17 05/10/20 Celecoxib [CeleBREX] 200 mg PO DAILY 01/08/20 05/10/20 Ergocalciferol [Vitamin D2 50,000 unit PO Q7D 01/08/20 05/10/20 (DRISDOL)] Famotidine 20 mg PO BID PRN 01/08/20 05/10/20 Memantine [Namenda] 5 mg PO BID 01/08/20 05/10/20 Metoprolol Succinate (ER) [Toprol 25 mg PO DAILY 01/08/20 05/10/20 XL] Ondansetron Odt [Zofran ODT] 4 mg SUBLINGUAL BID PRN 01/08/20 05/10/20 SUMAtriptan SUCCINATE [Imitrex] 50 mg PO DAILY PRN 01/08/20 05/10/20 levETIRAcetam [Keppra] 250 mg PO BID 01/08/20 05/10/20 levETIRAcetam [Keppra] 500 mg PO BID 01/08/20 05/10/20 Oxybutynin ER [Ditropan Xl] 15 mg PO DAILY 03/04/20 05/10/20 Albuterol Inhaler [Ventolin Hfa 2 puff INHALATION RT-QID PRN 05/10/20 05/10/20 Inhaler] HYDROcodone/APAP 5-325MG [[place] 1 tab PO Q6HR PRN 05/10/20 05/10/20 5-325] Midodrine HCl [ProAmantine] 2.5 mg PO TID PRN 05/10/20 05/10/20 Nicotine 14Mg/24Hr Patch [Habitrol] 1 patch TRANSDERM DAILY PRN 05/10/2005/10 Omeprazole 20 mg PO BID PRN 05/10/20 05/10/20 Previous Rx's Medication Instructions Recorded ALPRAZolam [Xanax] 0.5 mg PO TID #3 tab 03/11/20 Ascorbic Acid [Vitamin C] 250 mg PO DAILY tab 03/11/20 Cholecalciferol [Vitamin D3 (10 400 unit PO DAILY tab 03/11/20 Mcg = 400 Iu)] Pregabalin [Lyrica] 200 mg PO TID #6 cap 03/11/20 Zinc Sulfate [Orazinc] 220 mg PO DAILY cap 03/11/20 traZODone HCL 100 mg PO HS #2 tab 03/11/20 Allergies Allergy/AdvReac Type Severity Reaction Status Date / Time Penicillins Allergy Unknown Verified 05/10/20 19:19 ramipril [From Altace] Allergy Unknown Verified 05/10/20 19:19 Review of Systems ROS Statement: Those systems with pertinent positive or pertinent negative responses have been documented in the HPI. ROS Other: All systems not noted in ROS Statement are negative. Past Medical History Past Medical History: COPD, CVA/TIA, Diabetes Mellitus, Hyperlipidemia, Hypertension Additional Past Medical History / Comment(s): Diabetes mellitus type 2 insulin requiring, hypertension, hyperlipidemia, CVA, restless leg syndrome, chronic diarrhea. History of Any Multi-Drug Resistant Organisms: None Reported Past Surgical History: Adenoidectomy, Appendectomy, Cholecystectomy, Hysterectomy, Orthopedic Surgery, Tonsillectomy Additional Past Surgical History / Comment(s): right knee repacement x2 , left ankle surgery, bladder suspension x 2 partial hysterectomy , left breast biopsy,T+A, colonoscopy, cholecystectomy, Lasik for both eyes. Past Anesthesia/Blood Transfusion Reactions: No Reported Reaction Past Psychological History: Anxiety, Bipolar, Depression, Panic Disorder Smoking Status: Current every day smoker Past Alcohol Use History: None Reported Past Drug Use History: Prescription Drug Abuse - Past Family History Mother Family Medical History: Diabetes Mellitus Father Family Medical History: CVA/TIA Brother(s) Family Medical History: No Reported History Son(s) Family Medical History: No Reported History Daughter(s) Family Medical History: No Reported History General Exam - General Exam Comments Initial Comments: this is a well-developed sec appearing female who is awake alert oriented 3 Limitations: no limitations General appearance: alert, anxious Head exam: Present: atraumatic, normocephalic, normal inspection Eye exam: Present: normal appearance, PERRL, EOMI. Absent: scleral icterus, conjunctival injection, periorbital swelling ENT exam: Present: normal exam, mucous membranes moist Neck exam: Present: normal inspection. Absent: tenderness, meningismus, lymphadenopathy Respiratory exam: Present: normal lung sounds bilaterally. Absent: respiratory distress, wheezes, rales, rhonchi, stridor Cardiovascular Exam: Present: regular rate, normal rhythm, normal heart sounds. Absent: systolic murmur, diastolic murmur, rubs, gallop, clicks GI/Abdominal exam: Present: soft, normal bowel sounds. Absent: distended, tenderness, guarding, rebound, rigid Extremities exam: Present: normal inspection, full ROM, normal capillary refill. Absent: tenderness, pedal edema, joint swelling, calf tenderness Back exam: Present: normal inspection Neurological exam: Present: alert, oriented X3, CN II-XII intact Psychiatric exam: Present: depressed, suicidal ideation Skin exam: Present: warm, dry, intact, normal color. Absent: rash Course Vital Signs 05/10/20 18:09 Temperature 98.2 F Pulse Rate 97 Respiratory 18 Rate Blood Pressure 101/68 O2 Sat by Pulse 96 Oximetry Medical Decision Making - Medical Decision Making The patient was evaluated by psychiatric service he currently isn't suicidal or homicidal. She is having difficulty because her son is moving across state she is not going with them she is concerned about heart appear pills. She'll be discharged with outpatient referrals. Her son will monitor her at this time. Disposition Clinical Impression: Adjustment reaction of adult life Disposition: HOME SELF-CARE Condition: Good Instructions (If sedation given, give patient instructions): Mood Disorders (ED), Stress (ED) Is patient prescribed a controlled substance at d/c from ED?: No Referrals: Keaton Abdi MD [Primary Care Provider] - 1-2 days
== END 2020-05-10 21:56 | disposition home or self-care (01) ==
LOC: EC 17:58
DX: F43.20 Adjustment disorder, unspecified (principal); F41.9 Anxiety disorder, unspecified; F31.9 Bipolar disorder, unspecified; F41.0 Panic disorder [episodic paroxysmal anxiety]; J44.9 Chronic obstructive pulmonary disease, unspecified; G25.81 Restless legs syndrome; E78.5 Hyperlipidemia, unspecified; I10 Essential (primary) hypertension; F17.200 Nicotine dependence, unspecified, uncomplicated; Z79.899 Other long term (current) drug therapy; Z86.73 Personal history of transient ischemic attack (TIA), and cerebral infarction without residual deficits; Z90.49 Acquired absence of other specified parts of digestive tract; Z90.710 Acquired absence of both cervix and uterus; Z96.651 Presence of right artificial knee joint; Z88.0 Allergy status to penicillin; Z88.8 Allergy status to other drugs, medicaments and biological substances
CPT/HCPCS: 82075; 99285

== ENCOUNTER 2020-10-10 17:47 | Observation (INO) | payer MEDICARE ==
[2020-10-10 18:14] LABS: Glucose,Whole Blood 167 mg/dL (75-99)
[2020-10-10] MEDS ORDERED: SODIUM CHLORIDE 0.9% 500 ML 500 ML IV STA (18:34)
--- NOTE | 2020-10-10 18:44 | ED ---
General Adult HPI - General Chief complaint: Weakness Stated complaint: Loss of Memory/Slurred Speech Time Seen by Provider: 10/10/20 18:30 Source: patient, family, RN notes reviewed, old records reviewed Mode of arrival: wheelchair Limitations: no limitations - History of Present Illness Initial comments: Patient had been found by family, more sleepy than normal over the past 3 days. Patient admits to taking Xanax and Ekalaka. Patient denies headache. Denies focal numbness or weakness. No fever reported. No vomiting. No abdominal pain. No chest pain. Patient does admit that she's been more sleepy. At first she states she took one Xanax and one Ekalaka, later stating that she may have taken several. - Related Data Home Medications Medication Instructions Recorded Confirmed Divalproex [Depakote] 500 mg PO BID 04/01/17 05/10/20 Mirtazapine [Remeron] 45 mg PO HS 04/01/17 05/10/20 Sertraline [Zoloft] 100 mg PO BID 04/01/17 05/10/20 Celecoxib [CeleBREX] 200 mg PO DAILY 01/08/20 05/10/20 Ergocalciferol [Vitamin D2 50,000 unit PO Q7D 01/08/20 05/10/20 (DRISDOL)] Famotidine 20 mg PO BID PRN 01/08/20 05/10/20 Memantine [Namenda] 5 mg PO BID 01/08/20 05/10/20 Metoprolol Succinate (ER) [Toprol 25 mg PO DAILY 01/08/20 05/10/20 XL] Ondansetron Odt [Zofran ODT] 4 mg SUBLINGUAL BID PRN 01/08/20 05/10/20 SUMAtriptan SUCCINATE [Imitrex] 50 mg PO DAILY PRN 01/08/20 05/10/20 levETIRAcetam [Keppra] 250 mg PO BID 01/08/20 05/10/20 levETIRAcetam [Keppra] 500 mg PO BID 01/08/20 05/10/20 Oxybutynin ER [Ditropan Xl] 15 mg PO DAILY 03/04/20 05/10/20 Albuterol Inhaler [Ventolin Hfa 2 puff INHALATION RT-QID PRN 05/10/20 05/10/20 Inhaler] HYDROcodone/APAP 5-325MG [Ekalaka 1 tab PO Q6HR PRN 05/10/20 05/10/20 5-325] Midodrine HCl [ProAmantine] 2.5 mg PO TID PRN 05/10/20 05/10/20 Nicotine 14Mg/24Hr Patch [Habitrol] 1 patch TRANSDERM DAILY PRN 05/10/20 05/10/20 Omeprazole 20 mg PO BID PRN 05/10/20 05/10/20 Previous Rx's Medication Instructions Recorded ALPRAZolam [Xanax] 0.5 mg PO TID #3 tab 03/11/20 Ascorbic Acid [Vitamin C] 250 mg PO DAILY tab 03/11/20 Cholecalciferol [Vitamin D3 (10 400 unit PO DAILY tab 03/11/20 Mcg = 400 Iu)] Pregabalin [Lyrica] 200 mg PO TID #6 cap 03/11/20 Zinc Sulfate [Orazinc] 220 mg PO DAILY cap 03/11/20 traZODone HCL 100 mg PO HS #2 tab 03/11/20 Allergies Allergy/AdvReac Type Severity Reaction Status Date / Time Penicillins Allergy Unknown Verified 10/10/20 18:10 ramipril [From Altace] Allergy Unknown Verified 10/10/20 18:10 Review of Systems ROS Statement: Those systems with pertinent positive or pertinent negative responses have been documented in the HPI. ROS Other: All systems not noted in ROS Statement are negative. Past Medical History Past Medical History: COPD, CVA/TIA, Diabetes Mellitus, Hyperlipidemia, Hyperten beck Additional Past Medical History / Comment(s): Diabetes mellitus type 2 insulin requiring, hypertension, hyperlipidemia, CVA, restless leg syndrome, chronic diarrhea. History of Any Multi-Drug Resistant Organisms: None Reported Past Surgical History: Adenoidectomy, Appendectomy, Cholecystectomy, Hysterectomy, Orthopedic Surgery, Tonsillectomy Additional Past Surgical History / Comment(s): right knee repacement x2 , left ankle surgery, bladder suspension x 2 partial hysterectomy , left breast biopsy,T+A, colonoscopy, cholecystectomy, Lasik for both eyes. Past Anesthesia/Blood Transfusion Reactions: No Reported Reaction Past Psychological History: Anxiety, Bipolar, Depression, Panic Disorder Smoking Status: Current every day smoker Past Alcohol Use History: None Reported Past Drug Use History: Prescription Drug Abuse - Past Family History Mother Family Medical History: Diabetes Mellitus Father Family Medical History: CVA/TIA Brother(s) Family Medical History: No Reported History Son(s) Family Medical History: No Reported History Daughter(s) Family Medical History: No Reported History General Exam Limitations: no limitations General appearance: lethargic Head exam: Present: atraumatic, normocephalic Eye exam: Present: normal appearance, PERRL ENT exam: Present: mucous membranes dry Neck exam: Present: normal inspection. Absent: tenderness, meningismus Respiratory exam: Present: normal lung sounds bilaterally. Absent: respiratory distress, wheezes Cardiovascular Exam: Present: regular rate, normal rhythm GI/Abdominal exam: Present: soft. Absent: distended, tenderness, guarding Extremities exam: Present: normal inspection, normal capillary refill. Absent: pedal edema, calf tenderness Neurological exam: Present: alert, oriented X3 (Slow to respond). Absent: motor sensory deficit Psychiatric exam: Present: normal affect, normal mood Skin exam: Present: warm, dry, intact Course Vital Signs 10/10/20 18:06 Temperature 98.7 F Pulse Rate 70 Respiratory 20 Rate Blood Pressure 123/71 O2 Sat by Pulse 99 Oximetry EKG Findings - EKG Comments: EKG Findings:: EKG: Normal sinus rhythm, ventricular rate 73, UT interval 192, QRS duration 74, QTC [address] segment elevation. Medical Decision Making - Medical Decision Making 65-year-old female with increased sleepiness, and weakness. Some confusion. Patient is arousable, she is maintaining her airway. She will answer questions appropriately. She does have a pain contract and is on Ekalaka and Xanax at home. She denies overuse of these medications. She has stable vitals. She has a n onfocal neurologic exam. Workup is initiated. Normal CBC, normal CMP patient has urine drug screen which is positive for both benzodiazepines and opiates. Urinalysis negative for infection. Patient's will be observed overnight without further medications to ensure that mental status improves. Case discussed with Dr. Carrasco who will admit. - Lab Data Result diagrams: 10/10/20 18:37 10/10/20 18:37 Lab Results 10/10/20 10/10/20 10/10/20 Range/Units 18:12 18:37 18:37 WBC 6.2 (3.8-10.6) k/uL RBC 3.89 (3.80-5.40) m/uL Hgb 12.6 (11.4-16.0) gm/dL Hct 37.4 (34.0-46.0) % MCV 96.1 (80.0-100.0) fL MCH 32.3 (25.0-35.0) pg MCHC 33.6 (31.0-37.0) g/dL RDW 12.1 (11.5-15.5) % Plt Count 233 (150-450) k/uL MPV 7.7 Neutrophils % 52 % Lymphocytes % 35 % Monocytes % 7 % Eosinophils % 3 % Basophils % 1 % Neutrophils # 3.2 (1.3-7.7) k/uL Lymphocytes # 2.2 (1.0-4.8) k/uL Monocytes # 0.4 (0-1.0) k/uL Eosinophils # 0.2 (0-0.7) k/uL Basophils # 0.0 (0-0.2) k/uL PT 9.7 (9.0-12.0) sec INR 0.9 (<1.2) APTT 27.4 (22.0-30.0) sec VBG pH (7.31-7.41) VBG pCO2 (37-51) mmHg VBG HCO3 (24-28) mmol/L Sodium (137-145) mmol/L Potassium (3.5-5.1) mmol/L Chloride (98-107) mmol/L Carbon Dioxide (22-30) mmol/L Anion Gap mmol/L BUN (7-17) mg/dL Creatinine (0.52-1.04) mg/dL Est GFR (CKD-EPI)AfAm (>60 ml/min/1.73 sqM) Est GFR (CKD-EPI)NonAf (>60 ml/min/1.73 sqM) Glucose (74-99) mg/dL POC Glucose (mg/dL) 167 H (75-99) mg/dL POC Glu Adult School Teacher ID Willian Isaac Plasma Lactic Acid Tal (0.7-2.0) mmol/L Calcium (8.4-10.2) mg/dL Magnesium (1.6-2.3) mg/dL Total Bilirubin (0.2-1.3) mg/dL AST (14-36) U/L ALT (4-34) U/L Alkaline Phosphatase (38-126) U/L Troponin I (0.000-0.034) ng/mL Total Protein (6.3-8.2) g/dL Albumin (3.5-5.0) g/dL Urine Color Urine Appearance (Clear) Urine pH (5.0-8.0) Ur Specific Bruner (1.001-1.035) Urine Protein (Negative) Urine Glucose (UA) (Negative) Urine Ketones (Negative) Urine Blood (Negative) Urine Nitrite (Negative) Urine Bilirubin (Negative) Urine Urobilinogen (<2.0) mg/dL Ur Leukocyte Esterase (Negative) Urine Opiates Screen (NotDetected) Ur Oxycodone Screen (NotDetected) Urine Methadone Screen (NotDetected) Ur Propoxyphene Screen (NotDetected) Ur Barbiturates Screen (NotDetected) U Tricyclic Antidepress (NotDetected) Ur Phencyclidine Scrn (NotDetected) Ur Amphetamines Screen (NotDetected) U Methamphetamines Scrn (NotDetected) U Benzodiazepines Scrn (NotDetected) Urine Cocaine Screen (NotDetected) U Marijuana (THC) Screen (NotDetected) Serum Alcohol mg/dL 10/10/20 10/10/20 10/10/20 Range/Units 18:37 18:37 18:37 WBC (3.8-10.6) k/uL RBC (3.80-5.40) m/uL Hgb (11.4-16.0) gm/dL Hct (34.0-46.0) % MCV (80.0-100.0) fL MCH (25.0-35.0) pg MCHC (31.0-37.0) g/dL RDW (11.5-15.5) % Plt Count (150-450) k/uL MPV Neutrophils % % Lymphocytes % % Monocytes % % Eosinophils % % Basophils % % Neutrophils # (1.3-7.7) k/uL Lymphocytes # (1.0-4.8) k/uL Monocytes # (0-1.0) k/uL Eosinophils # (0-0.7) k/uL Basophils # (0-0.2) k/uL PT (9.0-12.0) sec INR (<1.2) APTT (22.0-30.0) sec VBG pH (7.31-7.41) VBG pCO2 (37-51) mmHg VBG HCO3 (24-28) mmol/L Sodium 138 (137-145) mmol/L Potassium 4.5 (3.5-5.1) mmol/L Chloride 105 (98-107) mmol/L Carbon Dioxide 24 (22-30) mmol/L Anion Gap 9 mmol/L BUN 23 H (7-17) mg/dL Creatinine 0.72 (0.52-1.04) mg/dL Est GFR (CKD-EPI)AfAm >90 (>60 ml/min/1.73 sqM) Est GFR (CKD-EPI)NonAf 88 (>60 ml/min/1.73 sqM) Glucose 177 H (74-99) mg/dL POC Glucose (mg/dL) (75-99) mg/dL POC Glu Adult School Teacher ID Plasma Lactic Acid Tal 1.3 (0.7-2.0) mmol/L Calcium 9.2 (8.4-10.2) mg/dL Magnesium 1.7 (1.6-2.3) mg/dL Total Bilirubin <0.1 L (0.2-1.3) mg/dL AST 20 (14-36) U/L ALT 10 (4-34) U/L Alkaline Phosphatase 72 (38-126) U/L Troponin I (0.000-0.034) ng/mL Total Protein 6.6 (6.3-8.2) g/dL Albumin 4.0 (3.5-5.0) g/dL Urine Color Yellow Urine Appearance Clear (Clear) Urine pH 5.0 (5.0-8.0) Ur Specific Bruner 1.023 (1.001-1.035) Urine Protein Negative (Negative) Urine Glucose (UA) Negative (Negative) Urine Ketones Negative (Negative) Urine Blood Negative (Negative) Urine Nitrite Negative (Negative) Urine Bilirubin Negative (Negative) Urine Urobilinogen <2.0 (<2.0) mg/dL Ur Leukocyte Esterase Negative (Negative) Urine Opiates Screen (NotDetected) Ur Oxycodone Screen (NotDetected) Urine Methadone Screen (NotDetected) Ur Propoxyphene Screen (NotDetected) Ur Barbiturates Screen (NotDetected) U Tricyclic Antidepress (NotDetected) Ur Phencyclidine Scrn (NotDetected) Ur Amphetamines Screen (NotDetected) U Methamphetamines Scrn (NotDetected) U Benzodiazepines Scrn (NotDetected) Urine Cocaine Screen (NotDetected) U Marijuana (THC) Screen (NotDetected) Serum Alcohol <10 mg/dL 10/10/20 10/10/20 10/10/20 Range/Units 18:37 18:37 18:41 WBC (3.8-10.6) k/uL RBC (3.80-5.40) m/uL Hgb (11.4-16.0) gm/dL Hct (34.0-46.0) % MCV (80.0-100.0) fL MCH (25.0-35.0) pg MCHC (31.0-37.0) g/dL RDW (11.5-15.5) % Plt Count (150-450) k/uL MPV Neutrophils % % Lymphocytes % % Monocytes % % Eosinophils % % Basophils % % Neutrophils # (1.3-7.7) k/uL Lymphocytes # (1.0-4.8) k/uL Monocytes # (0-1.0) k/uL Eosinophils # (0-0.7) k/uL Basophils # (0-0.2) k/uL PT (9.0-12.0) sec INR (<1.2) APTT (22.0-30.0) sec VBG pH 7.45 H (7.31-7.41) VBG pCO2 28 L (37-51) mmHg VBG HCO3 19 L (24-28) mmol/L Sodium (137-145) mmol/L Potassium (3.5-5.1) mmol/L Chloride (98-107) mmol/L Carbon Dioxide (22-30) mmol/L Anion Gap mmol/L BUN (7-17) mg/dL Creatinine (0.52-1.04) mg/dL Est GFR (CKD-EPI)AfAm (>60 ml/min/1.73 sqM) Est GFR (CKD-EPI)NonAf (>60 ml/min/1.73 sqM) Glucose (74-99) mg/dL POC Glucose (mg/dL) (75-99) mg/dL POC Glu Adult School Teacher ID Plasma Lactic Acid Tal (0.7-2.0) mmol/L Calcium (8.4-10.2) mg/dL Magnesium (1.6-2.3) mg/dL Total Bilirubin (0.2-1.3) mg/dL AST (14-36) U/L ALT (4-34) U/L Alkaline Phosphatase (38-126) U/L Troponin I <0.012 (0.000-0.034) ng/mL Total Protein (6.3-8.2) g/dL Albumin (3.5-5.0) g/dL Urine Color Urine Appearance (Clear) Urine pH (5.0-8.0) Ur Specific Bruner (1.001-1.035) Urine Protein (Negative) Urine Glucose (UA) (Negative) Urine Ketones (Negative) Urine Blood (Negative) Urine Nitrite (Negative) Urine Bilirubin (Negative) Urine Urobilinogen (<2.0) mg/dL Ur Leukocyte Esterase (Negative) Urine Opiates Screen Detected H (NotDetected) Ur Oxycodone Screen Detected H (NotDetected) Urine Methadone Screen Not Detected (NotDetected) Ur Propoxyphene Screen Not Detected (NotDetected) Ur Barbiturates Screen Not Detected (NotDetected) U Tricyclic Antidepress Not Detected (NotDetected) Ur Phencyclidine Scrn Not Detected (NotDetected) Ur Amphetamines Screen Not Detected (NotDetected) U Methamphetamines Scrn Not Detected (NotDetected) U Benzodiazepines Scrn Detected H (NotDetected) Urine Cocaine Screen Not Detected (NotDetected) U Marijuana (THC) Screen Not Detected (NotDetected) Serum Alcohol mg/dL Disposition Clinical Impression: AMS (altered mental status), Polypharmacy Disposition: ADMITTED IP TO THIS [facility] Condition: Stable Is patient prescribed a controlled substance at d/c from ED?: No Referrals: Keaton Abdi MD [Primary Care Provider] - 1-2 days Decision to Admit Reason: Admit from EC Decision Date: 10/10/20 Decision Time: 20:37
[2020-10-10 19:02] LABS: VBG PH 7.45 (7.31-7.41)
[2020-10-10 19:04] LABS: Appearance,Urine Clear (Clear); Bilirubin,Urine Negative (Negative); Blood,Urine Negative (Negative); Color,Urine Yellow; Glucose,Urine (UA) Negative (Negative); Ketones,Urine Negative (Negative); Leukocyte Esterase,Urine Negative (Negative); Nitrite,Urine Negative (Negative); Protein,Urine Negative (Negative); Specific Gravity,Urine 1.023 (1.001-1.035); Urobilinogen,Urine <2.0 mg/dL (<2.0)
[2020-10-10 19:11] LABS: Basophils % (A) 1 %; Eosinophils # (A) 0.2 k/uL (0-0.7); Eosinophils % (A) 3 %; HCT 37.4 % (34.0-46.0); HGB 12.6 gm/dL (11.4-16.0); Lymphocytes # (A) 2.2 k/uL (1.0-4.8); Lymphocytes % (A) 35 %; MCH 32.3 pg (25.0-35.0); MCHC 33.6 g/dL (31.0-37.0); MCV 96.1 fL (80.0-100.0); Mean Platelet Volume 7.7; Monocytes # (A) 0.4 k/uL (0-1.0); Monocytes % (A) 7 %; Neutrophils # (A) 3.2 k/uL (1.3-7.7); Neutrophils % (A) 52 %; Platelet Count 233 k/uL (150-450); RBC 3.89 m/uL (3.80-5.40); RDW 12.1 % (11.5-15.5); WBC 6.2 k/uL (3.8-10.6)
[2020-10-10 19:15] LABS: ALT 10 U/L (4-34); AST 20 U/L (14-36); African American GFR (CKD) >90 (>60 ml/min/1.73 sqM); Alcohol <10 mg/dL; Alkaline Phosphatase 72 U/L (38-126); Anion Gap 9 mmol/L; Blood Urea Nitrogen 23 mg/dL (7-17); Calcium 9.2 mg/dL (8.4-10.2); Carbon Dioxide 24 mmol/L (22-30); Chloride 105 mmol/L (98-107); Glucose 177 mg/dL (74-99); INR 0.9 (<1.2); Magnesium 1.7 mg/dL (1.6-2.3); Non-African American GFR(CKD) 88 (>60 ml/min/1.73 sqM); Partial Thromboplastin Time 27.4 sec (22.0-30.0); Potassium 4.5 mmol/L (3.5-5.1); Prothrombin Time 9.7 sec (9.0-12.0); Sodium 138 mmol/L (137-145); Total Bilirubin <0.1 mg/dL (0.2-1.3); Total Protein 6.6 g/dL (6.3-8.2)
[2020-10-10 20:16] LABS: Amphetamine Screen,Urine Not Detected (NotDetected); Benzodiazepines Screen,Urine Detected (NotDetected); Cocaine Screen,Urine Not Detected (NotDetected); Opiate Screen,Urine Detected (NotDetected); Phencyclidine Screen,Urine Not Detected (NotDetected); Urn Cannabinoid Scrn Not Detected (NotDetected)
[2020-10-10 20:17] LABS: Barbiturate Screen,Urine Not Detected (NotDetected); Methadone Screen, Urine Not Detected (NotDetected); Oxycodone Screen, Urine Detected (NotDetected); Tricyclic Antidepressant,Urine Not Detected (NotDetected)
[2020-10-10] MEDS ORDERED: NALOXONE 0.4 MG/ML 1 ML VIAL IV PRN (20:32)
[2020-10-10] MEDS ORDERED: ACETAMINOPHEN TAB 325 MG TAB PO PRN (20:32)
[2020-10-11 07:29] LABS: Glucose,Whole Blood 134 mg/dL (75-99)
[2020-10-11] MEDS ORDERED: ALBUTEROL NEBULIZED 2.5 MG/3 ML INHALATION PRN (11:09)
[2020-10-11 12:01] LABS: Glucose,Whole Blood 129 mg/dL (75-99)
[2020-10-11] MEDS: NICOTINE 14MG/24HR PATCH TRANSDERM SCH (12:05)
[2020-10-11] MEDS: KETOROLAC 15 MG/ML 1 ML VIAL IVP PRN (16:06)
--- NOTE | 2020-10-11 16:45 | P.HPIM ---
History of Present Illness H&P Date: 10/11/20 Chief Complaint: More sleepy as reported by family members for the past 3 days Ms. Paredes is a 65-year-old female with a past medical history of COPD, CVA/TIA, diabetes mellitus, hypertension, hyperlipidemia (6 syndrome, chronic diarrhea, anxiety with depression, bipolar disorder, panic disorder brought into the hospital as the patient was found to be more sleepy than normal by the family members over the past 3 days. Patient is a very poor historian. She states that she took Xanax and Pana for her pain as prescribed by her pain doctor. She states that she has to take 4 of narcos and 3 Xanax every day for her chronic pain and anxiety issues. She mentions that recently she was advised to stop taking trazodone and that she was started on Remeron. Patient does not remember the list of medications that she takes on a regular basis. On reviewing her medication list she is on multiple opioids, narcotics and antiseizure medications. Patient denies having any fevers chills or rigors. No complaints of chest pain or palpitations. No cough or difficulty in breathing. No abdominal pain nausea vomiting or diarrhea. Patient states that she does have issues with walking due to her pain issues and states that that is no change in her gait. Patient denies having any dysuria or hematuria. She denies having any headaches, blurring of vision or weakness in her extremities. In the ER at the time of admission patient's temperature was 98.7, heart rate 70, respiratory 20, blood pressure 120/71 saturating at 99 on room air. She had Labs done showing white count of 6.2, hemoglobin 12.6, platelets 233. Sodium 138, potassium 4.5, chloride 105, bicarbonate 24, PA and 23, creatinine 0.72. AST 20, ALT 10, troponin less than 0.012. Urinalysis negative for nitrites and leukocyte esterase. UDS is positive for opioids oxycodone and benzos. Review of Systems REVIEW OF SYSTEMS: CONSTITUTIONAL: No fever, no malaise, no fatigue. HEENT: No headache, no neck stiffness, no blurring of vision CARDIOVASCULAR: no chest pain or palpitations PULMONARY: No cough or difficulty in breathing GASTROINTESTINAL: No Abdominal pain nausea vomiting or diarrhea NEUROLOGICAL: No weakness of extremities HEMATOLOGICAL: Denies any bleeding or petechiae. GENITOURINARY: Denies any burning micturition, frequency, or urgency. MUSCULOSKELETAL/RHEUMATOLOGICAL: Denies any joint pain, swelling, or any muscle pain. ENDOCRINE: Denies polyuria polydipsia or heat or cold intolerance The rest of the 14-point review of systems is negative. Past Medical History Past Medical History: COPD, CVA/TIA, Diabetes Mellitus, Hyperlipidemia, Hypertension Additional Past Medical History / Comment(s): Diabetes mellitus type 2 insulin requiring, hypertension, hyperlipidemia, CVA, restless leg syndrome, chronic diarrhea. History of Any Multi-Drug Resistant Organisms: None Reported Past Surgical History: Adenoidectomy, Appendectomy, Cholecystectomy, Hysterectomy, Orthopedic Surgery, Tonsillectomy Additional Past Surgical History / Comment(s): right knee repacement x2 , left ankle surgery, bladder suspension x 2 partial hysterectomy , left breast biopsy,T+A, colonoscopy, cholecystectomy, Lasik for both eyes. Past Anesthesia/Blood Transfusion Reactions: No Reported Reaction Past Psychological History: Anxiety, Bipolar, Depression, Panic Disorder Smoking Status: Current every day smoker Past Alcohol Use History: None Reported Past Drug Use History: Prescription Drug Abuse - Past Family History Mother Family Medical History: Diabetes Mellitus Father Family Medical History: CVA/TIA Brother(s) Family Medical History: No Reported History Son(s) Family Medical History: No Reported History Daughter(s) Family Medical History: No Reported History Medications and Allergies Home Medications Medication Instructions Recorded Confirmed Type Divalproex [Depakote] 500 mg PO BID 04/01/17 10/10/20 History Sertraline [Zoloft] 100 mg PO BID 04/01/17 10/10/20 History Celecoxib [CeleBREX] 200 mg PO DAILY 01/08/20 10/10/20 History Ergocalciferol [Vitamin D2 1,250 mcg PO Q7D 01/08/20 10/10/20 History (DRISDOL)] Famotidine 20 mg PO BID PRN 01/08/20 10/10/20 History Memantine [Namenda] 5 mg PO BID 01/08/20 10/10/20 History Metoprolol Succinate (ER) [Toprol 25 mg PO DAILY 01/08/20 10/10/20 History XL] Ondansetron Odt [Zofran ODT] 4 mg PO BID PRN 01/08/20 10/10/20 History levETIRAcetam [Keppra] 250 mg PO BID 01/08/20 10/10/20 History levETIRAcetam [Keppra] 500 mg PO BID 01/08/20 10/10/20 History Oxybutynin ER [Ditropan Xl] 15 mg PO DAILY 03/04/20 10/10/20 History Pregabalin [Lyrica] 200 mg PO TID #6 cap 03/11/20 10/10/20 Rx traZODone HCL 100 mg PO HS #2 tab 03/11/20 10/10/20 Rx Albuterol Inhaler [Ventolin Hfa 2 puff INHALATION RT-QID PRN 05/10/20 10/10/20 History Inhaler] ALPRAZolam [Xanax] 0.5 mg PO TID PRN 10/10/20 10/10/20 History Donepezil [Aricept] 5 mg PO HS 10/10/20 10/10/20 History HYDROcodone/APAP 10-325MG [Pana 1 tab PO QID PRN 10/10/20 10/10/20 History 10-325] Mirtazapine [Remeron] 30 mg PO HS 10/10/20 10/10/20 History Omeprazole 40 mg PO DAILY 10/10/20 10/10/20 History SUMAtriptan SUCCINATE [Imitrex] 100 mg PO DAILY PRN 10/10/20 10/10/20 History metFORMIN HCL [Glucophage] 500 mg PO BID 10/10/20 10/10/20 History Allergies Allergy/AdvReac Type Severity Reaction Status Date / Time Penicillins Allergy Unknown Verified 10/10/20 18:10 ramipril [From Altace] Allergy Unknown Verified 10/10/20 18:10 Physical Exam Vitals: Vital Signs Temp Pulse Pulse Resp BP BP Pulse Ox 10/11/20 08:00 18 10/11/20 07:00 98.2 F 66 18 122/52 95 10/11/20 01:34 97.6 F 64 16 111/61 99 10/10/20 23:23 18 10/10/20 22:40 98.7 F 73 14 112/74 98 10/10/20 22:00 126/68 10/10/20 18:06 98.7 F 70 20 123/71 99 Intake and Output 10/10/20 10/11/20 10/11/20 22:59 06:59 14:59 Intake Total 400 Balance 400 Intake: Oral 400 Other: Voiding Method Toilet Toilet # Voids 1 3 Weight 80.286 kg PHYSICAL EXAMINATION: GENERAL: no acute distress. Comfortably sitting in bed appears to be no acute distress HEENT: Pupils are round and equally reacting to light. EOMI. No scleral icterus. No conjunctival pallor. CARDIOVASCULAR: S1 and S2 present. No murmurs, rubs, or gallops. PULMONARY: Bilateral breath sounds positive. No wheeze or crackles.. ABDOMEN: Soft,non -tender, normal bowel sounds. No guarding or rigidity. MUSCULOSKELETAL: No joint swelling or deformity. EXTREMITIES: No edema NEUROLOGICAL: Alert awake oriented 2-3, Gross neurological examination did not reveal any focal deficits. SKIN:No rash Results CBC & Chem 7: 10/10/20 18:37 10/10/20 18:37 Labs: Abnormal Lab Results - Last 24 Hours (Table) 10/10/20 10/10/20 10/10/20 Range/Units 18:12 18:37 18:37 VBG pH 7.45 H (7.31-7.41) VBG pCO2 28 L (37-51) mmHg VBG HCO3 19 L (24-28) mmol/L BUN 23 H (7-17) mg/dL Glucose 177 H (74-99) mg/dL POC Glucose (mg/dL) 167 H (75-99) mg/dL Total Bilirubin <0.1 L (0.2-1.3) mg/dL Urine Opiates Screen (NotDetected) Ur Oxycodone Screen (NotDetected) U Benzodiazepines Scrn (NotDetected) 10/10/20 10/11/20 Range/Units 18:41 07:27 VBG pH (7.31-7.41) VBG pCO2 (37-51) mmHg VBG HCO3 (24-28) mmol/L BUN (7-17) mg/dL Glucose (74-99) mg/dL POC Glucose (mg/dL) 134 H (75-99) mg/dL Total Bilirubin (0.2-1.3) mg/dL Urine Opiates Screen Detected H (NotDetected) Ur Oxycodone Screen Detected H (NotDetected) U Benzodiazepines Scrn Detected H (NotDetected) Thrombosis Risk Factor Assmnt - Choose All That Apply Any of the Below Risk Factors Present?: Yes Each Risk Factor Represents 2 Points: Age 61-74 years Thrombosis Risk Factor Assessment Total Risk Factor Score: 2 Thrombosis Risk Factor Assessment Level: Low Risk Assessment and Plan Assessment: ASSESSMENT Altered mental status changes- encephalopathy-could be due to polypharmacy Cognitive impairment History of CVA/TIA COPD Hypertension Hyperlipidemia Restless leg syndrome Chronic diarrhea History of Right knee replacement Left ankle surgery Bladder suspension surgery 2 Partial hysterectomy Anxiety with depression Bipolar disorder Panic disorder Nicotine dependence UDS positive for opioids, oxycodone, benzos PLAN: Will order CAT scan of the brain Patient's mentation improving slowly back to her baseline Discontinued all opioids and benzos and narcotics We will try to get the list of medications that the patient takes at home GI DVT prophylaxis Further recommendations to follow depending on the progress of the patient
[2020-10-11 17:28] LABS: Glucose,Whole Blood 174 mg/dL (75-99)
--- NOTE | 2020-10-11 17:42 | CT ---
EXAMINATION TYPE: CT brain wo con DATE OF EXAM: 10/11/2020 COMPARISON: 01/08/2020 HISTORY: Altered mental status. CT DLP: 1266 mGycm Automated exposure control for dose reduction was used. There is cerebral cortical atrophy. There is no mass effect nor midline shift. There is no sign of in tracranial hemorrhage. There is large right Virchow-Bradford space. There is no evidence of acute intrac ranial abnormality. The calvarium is intact. Mastoid sinuses appear normal. IMPRESSION: Cerebral atrophy. No acute intracranial abnormality. No change compared to old exam.
[2020-10-11] MEDS: MEMANTINE 5 MG TAB PO SCH (19:28)
[2020-10-11] MEDS: levETIRAcetam 500 MG TAB PO SCH (19:28)
[2020-10-11] MEDS: levETIRAcetam 250 MG TAB PO SCH (19:28)
[2020-10-11] MEDS: SERTRALINE 100 MG TAB PO SCH (19:29)
[2020-10-11 19:42] VITALS: RESP 16
[2020-10-11 20:02] LABS: Glucose,Whole Blood 192 mg/dL (75-99)
[2020-10-11] MEDS ORDERED: MIRTAZAPINE 15 MG TAB PO SCH (21:00)
[2020-10-11] MEDS ORDERED: DONEPEZIL 5 MG TAB PO SCH (21:00)
[2020-10-11] MEDS ORDERED: ALPRAZolam 0.5 MG TAB PO STA (21:09)
[2020-10-11] MEDS ORDERED: HYDROcodone/APAP 10-325MG 1 EACH TAB PO ONE (21:09)
[2020-10-11] MEDS: metFORMIN 500 MG TAB PO SCH (21:16)
[2020-10-12 06:49] LABS: Basophils % (A) 1 %; Eosinophils # (A) 0.2 k/uL (0-0.7); Eosinophils % (A) 3 %; HCT 39.2 % (34.0-46.0); HGB 12.9 gm/dL (11.4-16.0); Lymphocytes # (A) 2.3 k/uL (1.0-4.8); Lymphocytes % (A) 40 %; MCH 31.2 pg (25.0-35.0); MCV 94.5 fL (80.0-100.0); Mean Platelet Volume 7.6; Monocytes # (A) 0.4 k/uL (0-1.0); Monocytes % (A) 7 %; Neutrophils # (A) 2.6 k/uL (1.3-7.7); Neutrophils % (A) 46 %; Platelet Count 232 k/uL (150-450); RBC 4.14 m/uL (3.80-5.40); WBC 5.7 k/uL (3.8-10.6)
[2020-10-12 07:09] LABS: African American GFR (CKD) >90 (>60 ml/min/1.73 sqM); Anion Gap 6 mmol/L; Blood Urea Nitrogen 24 mg/dL (7-17); Carbon Dioxide 25 mmol/L (22-30); Chloride 108 mmol/L (98-107); Glucose 124 mg/dL (74-99); Non-African American GFR(CKD) >90 (>60 ml/min/1.73 sqM); Potassium 4.1 mmol/L (3.5-5.1); Sodium 139 mmol/L (137-145)
[2020-10-12 07:09] LABS: Glucose,Whole Blood 124 mg/dL (75-99)
[2020-10-12] MEDS: KETOROLAC 15 MG/ML 1 ML VIAL IVP PRN (07:34)
[2020-10-12] MEDS: NICOTINE 14MG/24HR PATCH TRANSDERM SCH (07:35)
[2020-10-12] MEDS: INSULIN ASPART (NovoLOG) 100 UNIT/ML VIAL SQ SCH ×2 (07:36→12:47)
[2020-10-12] MEDS: levETIRAcetam 500 MG TAB PO SCH (07:36)
[2020-10-12] MEDS: metFORMIN 500 MG TAB PO SCH (07:37)
[2020-10-12] MEDS: SERTRALINE 100 MG TAB PO SCH (07:38)
[2020-10-12] MEDS: MEMANTINE 5 MG TAB PO SCH (07:38)
[2020-10-12] MEDS: levETIRAcetam 250 MG TAB PO SCH (07:38)
[2020-10-12] MEDS ORDERED: OXYBUTYNIN 15 MG TAB.ER.24 PO SCH (09:00)
[2020-10-12] MEDS ORDERED: ERGOCALCIFEROL 1,250 MCG (50,000 IU) CAPSULE PO SCH (09:00)
[2020-10-12] MEDS ORDERED: PANTOPRAZOLE 40 MG TABLET PO SCH (09:00)
[2020-10-12] MEDS ORDERED: METOPROLOL SUCCINATE (ER) 25 MG TAB.ER.24H PO SCH (09:00)
[2020-10-12 11:55] LABS: Glucose,Whole Blood 180 mg/dL (75-99)
[2020-10-12 14:10] VITALS: BP 153/71; PULSE 75; TEMP 98.2
--- NOTE | 2020-10-12 15:03 | P.DS ---
Providers Date of admission: 10/10/20 20:32 Attending physician: Brunilda Pinto [facility]: Ms. Paredes is a 65-year-old female with a past medical history of COPD, CVA/TIA, diabetes mellitus, hypertension, hyperlipidemia (6 syndrome, chronic diarrhea, anxiety with depression, bipolar disorder, panic disorder brought into the hospital as the patient was found to be more sleepy than normal by the family members over the past 3 days. Patient is a very poor historian. She states that she took Xanax and [place] for her pain as prescribed by her pain doctor. She states that she has to take 4 of narcos and 3 Xanax every day for her chronic pain and anxiety issues. She mentions that recently she was advised to stop taking trazodone and that she was started on Remeron. Patient does not remember the list of medications that she takes on a regular basis. On reviewing her medication list she is on multiple opioids, narcotics and antiseizure medications. Patient denies having any fevers chills or rigors. No complaints of chest pain or palpitations. No cough or difficulty in breathing. No abdominal pain nausea vomiting or diarrhea. Patient states that she does have issues with walking due to her pain issues and states that that is no change in her gait. Patient denies having any dysuria or hematuria. She denies having any headaches, blurring of vision or weakness in her extremities. In the ER at the time of admission patient's temperature was 98.7, heart rate 70, respiratory 20, blood pressure 120/71 saturating at 99 on room air. She had Labs done showing white count of 6.2, hemoglobin 12.6, platelets 233. Sodium 138, potassium 4.5, chloride 105, bicarbonate 24, PA and 23, creatinine 0.72. AST 20, ALT 10, troponin less than 0.012. Urinalysis negative for nitrites and leukocyte esterase. UDS is positive for opioids oxycodone and benzos. 10/12/2020 Patient is awake and alert and clinically doing well at this time, patient altered mental status and encephalopathy if it to be toxic from multiple opiate medications. Patient was asked to discontinue [place], use Xanax only on as- needed basis, cut down the dose of trazodone and Lyrica and patient will be discharged to follow up with Dr. Abdi as an outpatient. PHYSICAL EXAMINATION: GENERAL: no acute distress. Comfortably sitting in bed appears to be no acute distress HEENT: Pupils are round and equally reacting to light. EOMI. No scleral icterus. No conjunctival pallor. CARDIOVASCULAR: S1 and S2 present. No murmurs, rubs, or gallops. PULMONARY: Bilateral breath sounds positive. No wheeze or crackles.. ABDOMEN: Soft,non -tender, normal bowel sounds. No guarding or rigidity. MUSCULOSKELETAL: No joint swelling or deformity. EXTREMITIES: No edema NEUROLOGICAL: Alert awake oriented 3, Gross neurological examination did not reveal any focal deficits. SKIN:No rash Assessment and Plan Altered mental status changes- toxic encephalopathy-due to polypharmacy area and computed tomography scan of the brain did not show any significant abnormality Cognitive impairment History of CVA/TIA COPD Hypertension Hyperlipidemia Restless leg syndrome Chronic diarrhea Anxiety with depression Bipolar disorder Panic disorder Nicotine dependence UDS positive for opioids, oxycodone, benzos Patient Condition at Discharge: Stable Plan - Discharge Summary Discharge Rx Participant: No New Discharge Prescriptions: Continue Sertraline [Zoloft] 100 mg PO BID Divalproex [Depakote] 500 mg PO BID Ondansetron Odt [Zofran ODT] 4 mg PO BID PRN PRN Reason: Nausea Ergocalciferol [Vitamin D2 (DRISDOL)] 1,250 mcg PO Q7D Metoprolol Succinate (ER) [Toprol XL] 25 mg PO DAILY Memantine [Namenda] 5 mg PO BID Famotidine 20 mg PO BID PRN PRN Reason: Heartburn levETIRAcetam [Keppra] 500 mg PO BID levETIRAcetam [Keppra] 250 mg PO BID Celecoxib [CeleBREX] 200 mg PO DAILY Oxybutynin ER [Ditropan Xl] 15 mg PO DAILY Albuterol Inhaler [Ventolin Hfa Inhaler] 2 puff INHALATION RT-QID PRN PRN Reason: Shortness Of Breath Donepezil [Aricept] 5 mg PO HS Mirtazapine [Remeron] 30 mg PO HS ALPRAZolam [Xanax] 0.5 mg PO TID PRN PRN Reason: Severe Anxiety metFORMIN HCL [Glucophage] 500 mg PO BID Omeprazole 40 mg PO DAILY SUMAtriptan SUCCINATE [Imitrex] 100 mg PO DAILY PRN PRN Reason: Migraine Headache Changed traZODone HCL 50 mg PO HS #2 tab Pregabalin [Lyrica] 100 mg PO BID #6 cap Discontinued HYDROcodone/APAP 10-325MG [[place] 10-325] 1 tab PO QID PRN PRN Reason: Pain Discharge Medication List Divalproex [Depakote] 500 mg PO BID 04/01/17 [History] Sertraline [Zoloft] 100 mg PO BID 04/01/17 [History] Celecoxib [CeleBREX] 200 mg PO DAILY 01/08/20 [History] Ergocalciferol [Vitamin D2 (DRISDOL)] 1,250 mcg PO Q7D 01/08/20 [History] Famotidine 20 mg PO BID PRN 01/08/20 [History] Memantine [Namenda] 5 mg PO BID 01/08/20 [History] Metoprolol Succinate (ER) [Toprol XL] 25 mg PO DAILY 01/08/20 [History] Ondansetron Odt [Zofran ODT] 4 mg PO BID PRN 01/08/20 [History] levETIRAcetam [Keppra] 250 mg PO BID 01/08/20 [History] levETIRAcetam [Keppra] 500 mg PO BID 01/08/20 [History] Oxybutynin ER [Ditropan Xl] 15 mg PO DAILY 03/04/20 [History] Albuterol Inhaler [Ventolin Hfa Inhaler] 2 puff INHALATION RT-QID PRN 05/10/20 [History] ALPRAZolam [Xanax] 0.5 mg PO TID PRN 10/10/20 [History] Donepezil [Aricept] 5 mg PO HS 10/10/20 [History] Mirtazapine [Remeron] 30 mg PO HS 10/10/20 [History] Omeprazole 40 mg PO DAILY 10/10/20 [History] SUMAtriptan SUCCINATE [Imitrex] 100 mg PO DAILY PRN 10/10/20 [History] metFORMIN HCL [Glucophage] 500 mg PO BID 10/10/20 [History] Pregabalin [Lyrica] 100 mg PO BID #6 cap 10/12/20 [Rx] traZODone HCL 50 mg PO HS #2 tab 10/12/20 [Rx] Follow up Appointment(s)/Referral(s): Keaton Abdi MD [Primary Care Provider] - 3 Days Discharge Disposition: HOME SELF-CARE
== END 2020-10-12 14:03 | disposition home or self-care (01) ==
LOC: EC 17:47 → 6NMEDSUR 20:32
PROVIDERS: ADMIT Hospitalist; ATTEND Hospitalist
DX: T42.4X1A Poisoning by benzodiazepines, accidental (unintentional), initial encounter (principal); T40.2X1A Poisoning by other opioids, accidental (unintentional), initial encounter; G92 Toxic encephalopathy; E11.9 Type 2 diabetes mellitus without complications; I10 Essential (primary) hypertension; J44.9 Chronic obstructive pulmonary disease, unspecified; E78.5 Hyperlipidemia, unspecified; G89.29 Other chronic pain; G31.84 Mild cognitive impairment of uncertain or unknown etiology; K52.9 Noninfective gastroenteritis and colitis, unspecified; G25.81 Restless legs syndrome; F31.9 Bipolar disorder, unspecified; F41.8 Other specified anxiety disorders; F41.0 Panic disorder [episodic paroxysmal anxiety]; F17.200 Nicotine dependence, unspecified, uncomplicated; Z79.1 Long term (current) use of non-steroidal anti-inflammatories (NSAID); Z79.899 Other long term (current) drug therapy; Z88.0 Allergy status to penicillin; Z88.8 Allergy status to other drugs, medicaments and biological substances; Z86.73 Personal history of transient ischemic attack (TIA), and cerebral infarction without residual deficits; Z90.49 Acquired absence of other specified parts of digestive tract; Z90.711 Acquired absence of uterus with remaining cervical stump; Z96.651 Presence of right artificial knee joint; Z98.890 Other specified postprocedural states; Z83.3 Family history of diabetes mellitus; Z82.3 Family history of stroke
CPT/HCPCS: 96376; 96374; 96361; 99285; 36415; 93005; 80053; 80048; 82803; 83605; 83735; 84484; 85025 ×2; 85610; 85730; 81003; 80306; 70450; G0378 ×3; G0480; S4990 ×2; J1885 ×2; 80320

== ENCOUNTER → 2021-01-22 | Outpatient (CLI) | payer MEDICARE | END | disposition home or self-care (01) | LOC: LABWHC1 14:15 | PROVIDERS: ATTEND Psychiatry & Neurology Psychiatry | DX: F31.9 Bipolar disorder, unspecified (principal) | CPT/HCPCS: 36415; 80164 ==

== ENCOUNTER → 2021-07-25 | Outpatient (CLI) | payer MEDICARE | END | disposition home or self-care (01) | LOC: LABWHC1 14:46 | PROVIDERS: ATTEND Psychiatry & Neurology Neurology | DX: Z01.818 Encounter for other preprocedural examination (principal) | CPT/HCPCS: 93005 ==

== ENCOUNTER → 2021-07-28 | Outpatient (CLI) | payer MEDICARE | END | disposition home or self-care (01) | LOC: LABWHC1 14:21 | PROVIDERS: ATTEND Psychiatry & Neurology Neurology | DX: Z01.812 Encounter for preprocedural laboratory examination (principal); Z20.822 Contact with and (suspected) exposure to COVID-19 | CPT/HCPCS: U0003; C9803 ==

== ENCOUNTER → 2022-07-27 | Outpatient (CLI) | payer MEDICARE ==
--- NOTE | 2022-07-27 14:16 | MM ---
Reason for Exam: Additional evaluation requested from abnormal screening. Last screening mammogram was performed 2 month(s) ago. Patient History: Menarche at age 10. First Full-Term at age 21. Hysterectomy at age 33. Postmenopausal. Patient has history of breast feeding. Patient used Hormonal Contraceptives for 10 years. 1999, Excisional Biopsy on the Left side. 1999, Excisional Biopsy on the Left side. Risk Values: Sahra 5 year model risk: 2.3%. NCI Lifetime model risk: 7.1%. Tissue Density: Right: The breast tissue is heterogeneously dense. This may lower the sensitivity of mammography. Findings: Analyzed By CAD. New group of heterogeneous calcifications over 3 mm segment in the anterior depth slight inferior outer aspect persists on additional views and does not layer on true lateral images. Overall Assessment: Suspicious, BI-RAD 4 Management: Needle Localization of the right breast. Surgical Consultation of the right breast. Technologist does not believe patient is candidate for stereotactic guided core biopsy due to marked compression during mammogram. Advise surgical referral. Electronically signed and approved by: Elvin Hinkle M.D.
== END | disposition home or self-care (01) ==
LOC: RADMAMWWP 13:06
PROVIDERS: ATTEND Family Medicine
DX: R92.8 Other abnormal and inconclusive findings on diagnostic imaging of breast (principal); Z78.0 Asymptomatic menopausal state; Z98.890 Other specified postprocedural states
CPT/HCPCS: 77065; G0279; 77061

== ENCOUNTER → 2022-09-30 | Outpatient (CLI) | payer MEDICARE ==
[2022-09-30 16:21] LABS: African American GFR (CKD) >90 (>60 ml/min/1.73 sqM); Blood Urea Nitrogen 20 mg/dL (7-17); Non-African American GFR(CKD) >90 (>60 ml/min/1.73 sqM)
--- NOTE | 2022-10-01 08:13 | CT ---
EXAMINATION TYPE: CT abdomen pelvis w con DATE OF EXAM: 09/30/2022 COMPARISON: None INDICATION: ABNORMAL WEIGHT LOSS AND DIARRHEA DLP: 432.0 mGycm, Automated exposure control for dose reduction was used. CONTRAST: 80 mL of Isovue 370. Study performed with Oral Contrast TECHNIQUE: Axial images were obtained from above the diaphragm to the pubic rami in the axial plane a t 5 mm thick sections. Reconstructed images are reviewed on the computer in the coronal plane. FINDINGS: Limited CT sections are obtained the lung bases. The lung bases are clear. CT ABDOMEN: Liver: Normal Spleen: Normal Pancreas: Normal Adrenal glands: The adrenal glands are normal. Gallbladder: Surgically absent Kidneys: No masses are evident. No hydronephrosis is present. No cysts are present. Delayed images were obtained through the kidneys, which remain unremarkable. Heart appears to be a nonobstructing 0 .7 cm renal stone within the mid left kidney. Punctate nonobstructing renal stones at the inferior po le left kidney. Aorta: Vascular calcification is within the aorta. Inferior vena cava: Normal. CT PELVIS: Electronic device along the anterior pelvic wall. Loops of bowel within the abdomen and pelvis are normal. Fecal debris is within the colon. Oral contr ast extends to the distal small bowel loops. There is nondistention of the sigmoid colon with contras t or fecal debris. This area is somewhat limited in evaluation. Consider laboratory evaluation for ne oplasm. There are loops of bowel which are incompletely distended or lack oral contrast limiting the ir evaluation. Appendix: Not identified. No dilated tubular structure or inflammatory changes evident. Urinary bladder: Normal. Genitourinary structures: Uterus and ovaries are not identified. Osseous structures: No suspicious lytic or sclerotic lesions. Postsurgical changes are at the L4-5 le monica lumbar spine IMPRESSIONS: 1. Moderate fecal retention. 2. Nonobstructing left renal stones. 3. Incomplete distention of the sigmoid colon with air contrast. This area lacks fecal debris. Small underlying neoplasm difficult to exclude. Consider laboratory correlation for colon neoplasm.
== END | disposition home or self-care (01) ==
LOC: RADCTMAIN 15:27
PROVIDERS: ATTEND Family Medicine
DX: N20.0 Calculus of kidney (principal); K63.89 Other specified diseases of intestine; K56.41 Fecal impaction; R63.4 Abnormal weight loss
CPT/HCPCS: 82565; 84520; 74177; 36415; Q9967

== ENCOUNTER 2023-08-12 16:51 | Emergency (ER) | payer MEDICARE ==
[2023-08-12 17:26] VITALS: TEMP 97.6
--- NOTE | 2023-08-12 19:47 | ED ---
General Adult HPI - General Chief complaint: Recheck/Abnormal Lab/Rx Stated complaint: Urogenital Time Seen by Provider: 08/12/23 19:13 Source: patient Mode of arrival: ambulatory Limitations: no limitations - History of Present Illness Initial comments: 68-year-old female presenting to the ED with chief complaint of pain pump being out of place. Patient reports yesterday noticed the pain pump in her abdomen which was bulging out place which has progressively moved more out of place since onset. Patient reports that she is normally not able to see her pain pump in her abdomen. Since then, notes increasing pain around the area of the pain pump. No changes in bowel movements. However, patient does note that she did have some dysuria last night reporting that it was difficult to urinate however today, patient reports no difficulties urinating. No chest pain shortness of breath. No fever or chills. No other complaints at this time. - Related Data Home Medications Medication Instructions Recorded Confirmed Divalproex [Depakote] 500 mg PO BID 04/01/17 10/10/20 Sertraline [Zoloft] 100 mg PO BID 04/01/17 10/10/20 Celecoxib [CeleBREX] 200 mg PO DAILY 01/08/20 10/10/20 Ergocalciferol [Vitamin D2 1,250 mcg PO Q7D 01/08/20 10/10/20 (DRISDOL)] Famotidine 20 mg PO BID PRN 01/08/20 10/10/20 Memantine [Namenda] 5 mg PO BID 01/08/20 10/10/20 Metoprolol Succinate (ER) [Toprol 25 mg PO DAILY 01/08/20 10/10/20 XL] Ondansetron Odt [Zofran ODT] 4 mg PO BID PRN 01/08/20 10/10/20 levETIRAcetam [Keppra] 250 mg PO BID 01/08/20 10/10/20 levETIRAcetam [Keppra] 500 mg PO BID 01/08/20 10/10/20 Oxybutynin ER [Ditropan XL] 15 mg PO DAILY 03/04/20 10/10/20 Albuterol Inhaler [Ventolin Hfa 2 puff INHALATION RT-QID PRN 05/10/20 10/10/20 Inhaler] ALPRAZolam [Xanax] 0.5 mg PO TID PRN 10/10/20 10/10/20 Donepezil [Aricept] 5 mg PO HS 10/10/20 10/10/20 Mirtazapine [Remeron] 30 mg PO HS 10/10/20 10/10/20 Omeprazole 40 mg PO DAILY 10/10/20 10/10/20 SUMAtriptan succinate [Imitrex] 100 mg PO DAILY PRN 10/10/20 10/10/20 metFORMIN HCL [Glucophage] 500 mg PO BID 10/10/20 10/10/20 Previous Rx's Medication Instructions Recorded Pregabalin [Lyrica] 100 mg PO BID #6 cap 10/12/20 traZODone HCL 50 mg PO HS #2 tab 10/12/20 Sulfamethox-Tmp 800-160Mg [Bactrim 1 each PO Q12HR 5 Days #10 tab 08/12/23 Ds] Allergies Allergy/AdvReac Type Severity Reaction Status Date / Time Penicillins Allergy Unknown Verified 08/12/23 17:02 ramipril [From Altace] Allergy Unknown Verified 08/12/23 17:02 Review of Systems ROS Statement: Those systems with pertinent positive or pertinent negative responses have been documented in the HPI. ROS Other: All systems not noted in ROS Statement are negative. Past Medical History Past Medical History: COPD, CVA/TIA, Diabetes Mellitus, Hyperlipidemia, Hypertension Additional Past Medical History / Comment(s): Diabetes mellitus type 2 insulin requiring, hypertension, hyperlipidemia, CVA, restless leg syndrome, chronic diarrhea. History of Any Multi-Drug Resistant Organisms: None Reported Past Surgical History: Adenoidectomy, Appendectomy, Cholecystectomy, Hysterectomy, Orthopedic Surgery, Tonsillectomy Additional Past Surgical History / Comment(s): right knee repacement x2 , left ankle surgery, bladder suspension x 2 partial hysterectomy , left breast biopsy,T+A, colonoscopy, cholecystectomy, Lasik for both eyes. Past Anesthesia/Blood Transfusion Reactions: No Reported Reaction Past Psychological History: Anxiety, Bipolar, Depression, Panic Disorder Smoking Status: Current every day smoker Past Alcohol Use History: None Reported Past Drug Use History: Prescription Drug Abuse - Past Family History Mother Family Medical History: Diabetes Mellitus Father Family Medical History: CVA/TIA Brother(s) Family Medical History: No Reported History Son(s) Family Medical History: No Reported History Daughter(s) Family Medical History: No Reported History General Exam Limitations: no limitations General appearance: alert, in no apparent distress Eye exam: Present: normal appearance Neck exam: Present: normal inspection Respiratory exam: Present: normal lung sounds bilaterally Cardiovascular Exam: Present: regular rate GI/Abdominal exam: Present: soft (Pain pump visible in the left lower quadrant with no surrounding skin changes. Bowel sounds intact. Area surrounding pain pump is mildly tender to palpation otherwise abdomen nontender. No rebound guarding or rigidity.) Neurological exam: Present: alert, oriented X3 Skin exam: Present: warm, dry Course Vital Signs 08/12/23 08/12/23 08/12/23 16:59 19:29 21:00 Temperature 97.6 F Pulse Rate 60 63 72 Respiratory 16 16 16 Rate Blood Pressure 148/70 119/71 O2 Sat by Pulse 99 94 L 95 Oximetry Medical Decision Making - Medical Decision Making Was pt. sent in by a medical professional or institution (, PA, DAMAGE ASSESSOR, urgent care, hospital, or [facility]...) When possible be specific @ -No Did you speak to anyone other than the patient for history (EMS, parent, family, police, friend...)? What history was obtained from this source @ -No Did you review nursing and triage notes (agree or disagree)? Why? @ -I reviewed and agree with nursing and triage notes Were old charts reviewed (outside hosp., previous admission, EMS record, old EKG, old radiological studies, urgent care reports/EKG's, [facility] records)? Report findings @ -No old charts were reviewed Differential Diagnosis (chest pain, altered mental status, abdominal pain women, abdominal pain men, vaginal bleeding, weakness, fever, dyspnea, syncope, headache, dizziness, GI bleed, back pain, seizure, CVA, palpatations, mental health, musculoskeletal)? @ -Differential Musculoskeletal Muscular strain, contusion, ligament sprain, fracture, arthritis, septic arthritis, bursitis, cellulitis, muscle spasm, nerve compression, DVT, arterial occlusion, herpes zoster, electrolyte abnormality, tumor.... This is not meant to be in all inclusive list EKG interpreted by me (3pts min.). @ -None X-rays interpreted by me (1pt min.). @ -KUB interpreted me showing similar orientation of the pain pump compared to prior imaging. CT interpreted by me (1pt min.). @ -None done U/S interpreted by me (1pt. min.). @ -None done What testing was considered but not performed or refused? (CT, X-rays, U/S, labs )? Why? @ -None What meds were considered but not given or refused? Why? @ -None Did you discuss the management of the patient with other professionals (professionals i.e. , PA, DAMAGE ASSESSOR, lab, RT, psych nurse, clinical social work therapist, freezing room worker, teacher, collection officer, case picker)? Give summary @ -No Was smoking cessation discussed for >3mins.? @ -No Was critical care preformed (if so, how long)? @ -No Were there social determinants of health that impacted care today? How? (Homelessness, low income, unemployed, alcoholism, drug addiction, transportation, low edu. Level, literacy, decrease access to med. care, [facility], rehab)? @ -No Was there de-escalation of care discussed even if they declined (Discuss DNR or withdrawal of care, Hospice)? DNR status @ -No What co-morbidities impacted this encounter? (DM, HTN, Smoking, COPD, CAD, Cancer, CVA, ARF, Chemo, Hep., AIDS, mental health diagnosis, sleep apnea, morbid obesity)? @ -None Was patient admitted / discharged? Hospital course, mention meds given and route, prescriptions, significant lab abnormalities, going to OR and other pertinent info. @ -Discharge 68-year-old female presents to the ED with complaints stating that her pain pump feels like it is out of place for the past 1 to 2 days. Also did describe some intermittent difficulties urinating. Laboratory studies reviewed. UA does show evidence of UTI with moderate leukocyte esterase, 26 white blood cells, rare bacteria. KUB of the abdomen shows similar orientation of the patient's pain pump over the line of the left lower quadrant. Patient discharged home with prescription for Bactrim and advised close follow-up with her neurologist, Dr. Baldwin. Discharged home in stable condition. Discussed return precautions with patient who verbalized agreement. Undiagnosed new problem with uncertain prognosis? @ -No Drug Therapy requiring intensive monitoring for toxicity (Heparin, Nitro, Insulin, Cardizem)? @ -No Were any procedures done? @ -No Diagnosis/symptom? @ -Urinary tract infection Acute, or Chronic, or Acute on Chronic? @ -Acute Uncomplicated (without systemic symptoms) or Complicated (systemic symptoms)? @ -Uncomplicated Side effects of treatment? @ -No Exacerbation, Progression, or Severe Exacerbation? @ -No Poses a threat to life or bodily function? How? (Chest pain, [place], [place], pneumonia, PE, COPD, DKA, ARF, appy, cholecystitis, CVA, Diverticulitis, Homicidal, Suicidal, threat to staff... and all critical care pts) @ -No - Lab Data Lab Results 08/12/23 Range/Units 21:13 Urine Color Yellow Urine Appearance Cloudy H (Clear) Urine pH 5.5 (5.0-8.0) Ur Specific Brutus 1.027 (1.001-1.035) Urine Protein Negative (Negative) Urine Glucose (UA) Negative (Negative) Urine Ketones Negative (Negative) Urine Blood Negative (Negative) Urine Nitrite Negative (Negative) Urine Bilirubin Negative (Negative) Urine Urobilinogen 2.0 (<2.0) mg/dL Ur Leukocyte Esterase Moderate H (Negative) Urine RBC 4 (0-5) /hpf Urine WBC 26 H (0-5) /hpf Ur Squamous Epith Cells 3 (0-4) /hpf Urine Bacteria Rare H (None) /hpf Urine Mucus Rare H (None) /hpf Disposition Clinical Impression: UTI (urinary tract infection) Disposition: HOME SELF-CARE Condition: Good Instructions (If sedation given, give patient instructions): Urinary Tract Infection in Women (ED) Additional Instructions: Please return to the Emergency Department if symptoms worsen or any other concerns. Please take antibiotics as prescribed. Follow-up with Dr. Baldwin. Prescriptions: Sulfamethox-Tmp 800-160Mg [Bactrim Ds] 1 each PO Q12HR 5 Days #10 tab Is patient prescribed a controlled substance at d/c from ED?: No Referrals: Tate Gore DO [Primary Care Provider] - 1-2 days Time of Disposition: 21:50
[2023-08-12] MEDS: ACETAMINOPHEN TAB 500 MG TAB PO STA (19:56)
--- NOTE | 2023-08-12 20:19 | XR ---
EXAMINATION TYPE: XR KUB DATE OF EXAM: 08/12/2023 8:11 PM CLINICAL INDICATION:Female, 68 years old with history of Pain pump LLQ patient feels out of place; PH H COMPARISON: CT abdomen 09/22/2022 TECHNIQUE: One radiographic view of the abdomen was obtained. FINDINGS: The bowel gas pattern is nonspecific without dilated loops of small or large bowel. There i s no evidence for organomegaly or pneumoperitoneum. The osseous structures are intact. Fecal materia l and gas are demonstrated throughout the colon and rectum. Postsurgical clips are present right upper quadrant. Orthopedic hardware is identified at the lower l umbar spine L4-L5 levels. Patient's pain pump is identified overlying the left lower quadrant and is in similar position when compared to rigger radiograph from CT of September 2022. IMPRESSION: 1. Nonspecific bowel gas pattern without radiographic evidence for acute process. 2. Similar orientation of the patient's pain pump overlying the left lower quadrant.
[2023-08-12 21:28] LABS: Appearance,Urine Cloudy (Clear); Bacteria,Urine Rare /hpf; Bilirubin,Urine Negative (Negative); Blood,Urine Negative (Negative); Color,Urine Yellow; Glucose,Urine (UA) Negative (Negative); Ketones,Urine Negative (Negative); Leukocyte Esterase,Urine Moderate (Negative); Mucus,Urine Rare /hpf; Nitrite,Urine Negative (Negative); PH, Urine 5.5 (5.0-8.0); Protein,Urine Negative (Negative); RBC,Urine 4 /hpf (0-5); Specific Gravity,Urine 1.027 (1.001-1.035); Squamous Epithelial Cell,Urine 3 /hpf (0-4); WBC,Urine 26 /hpf (0-5)
[2023-08-12] MEDS: SULFAMETH-TMP DS STARTER PACK 2 TAB BTL PO STA (22:18)
[2023-08-12 22:48] VITALS: BP 116/80; PULSE 77; RESP 18
== END 2023-08-12 22:29 | disposition home or self-care (01) ==
LOC: EC 16:51
DX: N39.0 Urinary tract infection, site not specified (principal); F17.200 Nicotine dependence, unspecified, uncomplicated; Z88.0 Allergy status to penicillin; Z88.8 Allergy status to other drugs, medicaments and biological substances
CPT/HCPCS: 74018; 81001; 99284

== ENCOUNTER 2024-03-08 10:30 | Inpatient (IN) | payer MEDICARE ==
--- NOTE | 2024-03-08 11:19 | ED ---
Weakness HPI - General Chief complaint: Weakness Stated complaint: vomiting Time Seen by Provider: 03/08/24 10:46 Source: patient, RN notes reviewed Mode of arrival: wheelchair Limitations: no limitations - History of Present Illness Initial comments: 68-year-old female who presents to the emergency department for evaluation of generalized weakness. Patient's son reports that this been going on for 2 weeks. He notes that she had her pain pump shut off 2 weeks ago and since then has been feeling weak, not eating well, nauseous. Her son reports that she went back to the doctor today and they tried her pain pump back on. She denies any fever, chills, abdominal pain. She denies chest pain, shortness of breath. - Related Data Home Medications Medication Instructions Recorded Confirmed Ergocalciferol [Vitamin D2 1,250 mcg PO PARKS 01/08/20 03/08/24 (DRISDOL)] levETIRAcetam [Keppra] 500 mg PO BID 01/08/20 03/08/24 Albuterol Inhaler [Ventolin Hfa 2 puff INHALATION RT-QID PRN 05/10/20 03/08/24 Inhaler] ALPRAZolam [Xanax] 0.5 mg PO TID 10/10/20 03/08/24 Donepezil [Aricept] 5 mg PO HS 10/10/20 03/08/24 Omeprazole 40 mg PO DAILY 10/10/20 03/08/24 metFORMIN HCL [Glucophage] 500 mg PO DAILY 10/10/20 03/08/24 Celecoxib [CeleBREX] 100 mg PO DAILY 03/08/24 03/08/24 Loratadine 10 mg PO DAILY 03/08/24 03/08/24 Lurasidone [Latuda] 20 mg PO DAILY 03/08/24 03/08/24 Mirtazapine [Remeron] 45 mg PO HS 03/08/24 03/08/24 Pregabalin [Lyrica] 150 mg PO TID 03/08/24 03/08/24 Triamcinolone 0.1% Cream [Kenalog 1 applic TOPICAL BID 03/08/24 03/08/24 0.1% Cream] oxyCODONE-APAP 5-325MG [Percocet 1 tab PO BID PRN 12/04/24 12/04/24 5-325 mg] Allergies Allergy/AdvReac Type Severity Reaction Status Date / Time Penicillins Allergy Unknown Verified 03/08/24 17:04 ramipril [From Altace] Allergy Unknown Verified 03/08/24 17:04 Review of Systems ROS Statement: Those systems with pertinent positive or pertinent negative responses have been documented in the HPI. ROS Other: All systems not noted in ROS Statement are negative. Past Medical History Past Medical History: COPD, CVA/TIA, Diabetes Mellitus, Hyperlipidemia, Hypertension Additional Past Medical History / Comment(s): Diabetes mellitus type 2 insulin r equiring, hypertension, hyperlipidemia, CVA, restless leg syndrome, chronic diarrhea. History of Any Multi-Drug Resistant Organisms: None Reported Past Surgical History: Adenoidectomy, Appendectomy, Cholecystectomy, Hysterectomy, Orthopedic Surgery, Tonsillectomy Additional Past Surgical History / Comment(s): right knee repacement x2 , left ankle surgery, bladder suspension x 2 partial hysterectomy , left breast biopsy,T+A, colonoscopy, cholecystectomy, Lasik for both eyes. Past Anesthesia/Blood Transfusion Reactions: No Reported Reaction Past Psychological History: Anxiety, Bipolar, Depression, Panic Disorder Smoking Status: Current every day smoker Past Alcohol Use History: None Reported Past Drug Use History: Prescription Drug Abuse - Past Family History Mother Family Medical History: Diabetes Mellitus Father Family Medical History: CVA/TIA Brother(s) Family Medical History: No Reported History Son(s) Family Medical History: No Reported History Daughter(s) Family Medical History: No Reported History General Exam Limitations: no limitations General appearance: alert, in no apparent distress Head exam: Present: atraumatic, normocephalic, normal inspection Eye exam: Present: normal appearance, PERRL, EOMI. Absent: scleral icterus, conjunctival injection, periorbital swelling ENT exam: Present: normal exam, mucous membranes moist Respiratory exam: Present: normal lung sounds bilaterally. Absent: respiratory distress, wheezes, rales, rhonchi, stridor Cardiovascular Exam: Present: regular rate, normal rhythm, normal heart sounds. Absent: systolic murmur, diastolic murmur, rubs, gallop, clicks GI/Abdominal exam: Present: soft. Absent: distended, tenderness, guarding, rebound, rigid Extremities exam: Present: normal inspection, full ROM, normal capillary refill. Absent: tenderness, pedal edema, joint swelling, calf tenderness Neurological exam: Present: alert, oriented X3 Psychiatric exam: Present: normal affect, normal mood Skin exam: Present: warm, dry, intact, normal color. Absent: rash Course Vital Signs 03/08/24 10:36 Temperature 97.4 F L Pulse Rate 90 Respiratory 20 Rate Blood Pressure 105/69 O2 Sat by Pulse 98 Oximetry Medical Decision Making - Medical Decision Making Was pt. sent in by a medical professional or institution (, [facility], IRON POURER, urgent care, hospital, or half-way...) When possible be specific @ -No Did you speak to anyone other than the patient for history (EMS, parent, family, police, friend...)? What history was obtained from this source @ -No Did you review nursing and triage notes (agree or disagree)? Why? @ -I reviewed and agree with nursing and triage notes Were old charts reviewed (outside hosp., previous admission, EMS record, old EKG, old radiological studies, urgent care reports/EKG's, half-way records)? Report findings @ -No old charts were reviewed Differential Diagnosis (chest pain, altered mental status, abdominal pain women, abdominal pain men, vaginal bleeding, weakness, fever, dyspnea, syncope, headache, dizziness, GI bleed, back pain, seizure, CVA, palpatations, mental health, musculoskeletal)? @ -Differential Weakness: Hypoglycemia, shock, sepsis, hyponatremia, anemia, infection, TX, ETOH, adverse medicine reaction, overdose, stroke, this is not meant to be an all-inclusive list. EKG interpreted by me (3pts min.). @ -EKG at 1148 shows sinus rhythm with diffuse T wave inversions rate 74, GA 158, QRS 74, QTQTc [id number] X-rays interpreted by me (1pt min.). @ -Chest x-ray shows no acute process CT interpreted by me (1pt min.). @ -None done U/S interpreted by me (1pt. min.). @ -None done What testing was considered but not performed or refused? (CT, X-rays, U/S, l abs)? Why? @ -None What meds were considered but not given or refused? Why? @ -None Did you discuss the management of the patient with other professionals (professionals i.e. , PA, IRON POURER, lab, RT, psych nurse, social science analyst, crop insurance claims adjuster, teacher, licensed loan officer assistant, rehabilitation case coordinator)? Give summary @ -Case discussed with Kade Vale with [facility] who is accepting of the admission Was smoking cessation discussed for >3mins.? @ -No Was critical care preformed (if so, how long)? @ -No Were there social determinants of health that impacted care today? How? (Homelessness, low income, unemployed, alcoholism, drug addiction, transportation, low edu. Level, literacy, decrease access to med. care, prison, rehab)? @ -No Was there de-escalation of care discussed even if they declined (Discuss DNR or withdrawal of care, Hospice)? DNR status @ -No What co-morbidities impacted this encounter? (DM, HTN, Smoking, COPD, CAD, Cancer, CVA, ARF, Chemo, Hep., AIDS, mental health diagnosis, sleep apnea, morbid obesity)? @ -None Was patient admitted / discharged? Hospital course, mention meds given and route, prescriptions, significant lab abnormalities, going to OR and other pertinent info. @ -Admitted. Patient presented emergency department for generalized weakness, nausea, vomiting. Laboratory studies obtained.Shows no significant leukocytosis, hemoglobin stable; normal coagulation studies; no significant lactic acidosis, troponin 0.044 will be trended every 3 hours x 2. UA shows no evidence of infectious process. Negative for COVID, influenza, RSV. Chest x- ray reveals no evidence of infectious process. Patient will be admitted for generalized weakness with serial troponins. Case was discussed with Kade Vale was accepting of the admission. Case discussed with Dr. Watters. Undiagnosed new problem with uncertain prognosis? @ -No Drug Therapy requiring intensive monitoring for toxicity (Heparin, Nitro, Insulin, Cardizem)? @ -No Were any procedures done? @ -No Diagnosis/symptom? @ -Generalized weakness Acute, or Chronic, or Acute on Chronic? @ -Acute Uncomplicated (without systemic symptoms) or Complicated (systemic symptoms)? @ -Uncomplicated Side effects of treatment? @ -No Exacerbation, Progression, or Severe Exacerbation? @ -No Poses a threat to life or bodily function? How? (Chest pain, [place], [place], pneumonia, PE, COPD, DKA, ARF, appy, cholecystitis, CVA, Diverticulitis, Homicidal, Suicidal, threat to staff... and all critical care pts) @ -Possible - Lab Data Result diagrams: 03/08/24 11:25 03/08/24 11:25 Lab Results 03/08/24 03/08/24 03/08/24 Range/Units 11:25 11:25 11:25 WBC 8.7 (3.8-10.6) k/uL RBC 4.24 (3.80-5.40) m/uL Hgb 13.0 (11.4-16.0) gm/dL Hct 40.9 (34.0-46.0) % MCV 96.4 (80.0-100.0) fL MCH 30.7 (25.0-35.0) pg MCHC 31.8 (31.0-37.0) g/dL RDW 13.3 (11.5-15.5) % Plt Count 173 (150-450) k/uL MPV 8.5 Neutrophils % 75 % Lymphocytes % 17 % Monocytes % 4 % Eosinophils % 1 % Basophils % 0 % Neutrophils # 6.5 (1.3-7.7) k/uL Lymphocytes # 1.5 (1.0-4.8) k/uL Monocytes # 0.4 (0-1.0) k/uL Eosinophils # 0.1 (0-0.7) k/uL Basophils # 0.0 (0-0.2) k/uL PT 11.2 (10.0-12.5) sec INR 1.0 (<1.2) APTT 23.7 (22.0-30.0) sec Sodium 139 (137-145) mmol/L Potassium 4.9 (3.5-5.1) mmol/L Chloride 109 H (98-107) mmol/L Carbon Dioxide 25 (22-30) mmol/L Anion Gap 5 mmol/L BUN 26 H (7-17) mg/dL Creatinine 0.68 (0.52-1.04) mg/dL Est GFR (CKD-EPI)AfAm >90 (>60 ml/min/1.73 sqM) Est GFR (CKD-EPI)NonAf 89 (>60 ml/min/1.73 sqM) Glucose 169 H (74-99) mg/dL Plasma Lactic Acid Tal (0.7-2.0) mmol/L Calcium 8.7 (8.4-10.2) mg/dL Magnesium (1.6-2.3) mg/dL Total Bilirubin 0.8 (0.2-1.3) mg/dL AST 39 H (14-36) U/L ALT 30 (4-34) U/L Alkaline Phosphatase 65 (38-126) U/L Troponin I (0.000-0.034) ng/mL Total Protein 7.1 (6.3-8.2) g/dL Albumin 3.9 (3.5-5.0) g/dL Urine Color Urine Appearance (Clear) Urine pH (5.0-8.0) Ur Specific [place] (1.001-1.035) Urine Protein (Negative) Urine Glucose (UA) (Negative) Urine Ketones (Negative) Urine Blood (Negative) Urine Nitrite (Negative) Urine Bilirubin (Negative) Urine Urobilinogen (<2.0) mg/dL Ur Leukocyte Esterase (Negative) Influenza Type A (PCR) (Not Detectd) Influenza Type B (PCR) (Not Detectd) RSV (PCR) (Not Detectd) SARS-CoV-2 (PCR) (Not Detectd) 03/08/24 03/08/24 03/08/24 Range/Units 11:25 11:25 11:25 WBC (3.8-10.6) k/uL RBC (3.80-5.40) m/uL Hgb (11.4-16.0) gm/dL Hct (34.0-46.0) % MCV (80.0-100.0) fL MCH (25.0-35.0) pg MCHC (31.0-37.0) g/dL RDW (11.5-15.5) % Plt Count (150-450) k/uL MPV Neutrophils % % Lymphocytes % % Monocytes % % Eosinophils % % Basophils % % Neutrophils # (1.3-7.7) k/uL Lymphocytes # (1.0-4.8) k/uL Monocytes # (0-1.0) k/uL Eosinophils # (0-0.7) k/uL Basophils # (0-0.2) k/uL PT (10.0-12.5) sec INR (<1.2) APTT (22.0-30.0) sec Sodium (137-145) mmol/L Potassium (3.5-5.1) mmol/L Chloride (98-107) mmol/L Carbon Dioxide (22-30) mmol/L Anion Gap mmol/L BUN (7-17) mg/dL Creatinine (0.52-1.04) mg/dL Est GFR (CKD-EPI)AfAm (>60 ml/min/1.73 sqM) Est GFR (CKD-EPI)NonAf (>60 ml/min/1.73 sqM) Glucose (74-99) mg/dL Plasma Lactic Acid Tal 1.1 (0.7-2.0) mmol/L Calcium (8.4-10.2) mg/dL Magnesium 1.8 (1.6-2.3) mg/dL Total Bilirubin (0.2-1.3) mg/dL AST (14-36) U/L ALT (4-34) U/L Alkaline Phosphatase (38-126) U/L Troponin I 0.044 H* (0.000-0.034) ng/mL Total Protein (6.3-8.2) g/dL Albumin (3.5-5.0) g/dL Urine Color Urine Appearance (Clear) Urine pH (5.0-8.0) Ur Specific [place] (1.001-1.035) Urine Protein (Negative) Urine Glucose (UA) (Negative) Urine Ketones (Negative) Urine Blood (Negative) Urine Nitrite (Negative) Urine Bilirubin (Negative) Urine Urobilinogen (<2.0) mg/dL Ur Leukocyte Esterase (Negative) Influenza Type A (PCR) (Not Detectd) Influenza Type B (PCR) (Not Detectd) RSV (PCR) (Not Detectd) SARS-CoV-2 (PCR) (Not Detectd) 03/08/24 03/08/24 03/08/24 Range/Units 12:08 14:53 15:09 WBC (3.8-10.6) k/uL RBC (3.80-5.40) m/uL Hgb (11.4-16.0) gm/dL Hct (34.0-46.0) % MCV (80.0-100.0) fL MCH (25.0-35.0) pg MCHC (31.0-37.0) g/dL RDW (11.5-15.5) % Plt Count (150-450) k/uL MPV Neutrophils % % Lymphocytes % % Monocytes % % Eosinophils % % Basophils % % Neutrophils # (1.3-7.7) k/uL Lymphocytes # (1.0-4.8) k/uL Monocytes # (0-1.0) k/uL Eosinophils # (0-0.7) k/uL Basophils # (0-0.2) k/uL PT (10.0-12.5) sec INR (<1.2) APTT (22.0-30.0) sec Sodium (137-145) mmol/L Potassium (3.5-5.1) mmol/L Chloride (98-107) mmol/L Carbon Dioxide (22-30) mmol/L Anion Gap mmol/L BUN (7-17) mg/dL Creatinine (0.52-1.04) mg/dL Est GFR (CKD-EPI)AfAm (>60 ml/min/1.73 sqM) Est GFR (CKD-EPI)NonAf (>60 ml/min/1.73 sqM) Glucose (74-99) mg/dL Plasma Lactic Acid Tal (0.7-2.0) mmol/L Calcium (8.4-10.2) mg/dL Magnesium (1.6-2.3) mg/dL Total Bilirubin (0.2-1.3) mg/dL AST (14-36) U/L ALT (4-34) U/L Alkaline Phosphatase (38-126) U/L Troponin I 0.045 H* (0.000-0.034) ng/mL Total Protein (6.3-8.2) g/dL Albumin (3.5-5.0) g/dL Urine Color Colorless Urine Appearance Clear (Clear) Urine pH 5.0 (5.0-8.0) Ur Specific [place] 1.018 (1.001-1.035) Urine Protein Negative (Negative) Urine Glucose (UA) Negative (Negative) Urine Ketones Negative (Negative) Urine Blood Negative (Negative) Urine Nitrite Negative (Negative) Urine Bilirubin Negative (Negative) Urine Urobilinogen <2.0 (<2.0) mg/dL Ur Leukocyte Esterase Negative (Negative) Influenza Type A (PCR) Not Detected (Not Detectd) Influenza Type B (PCR) Not Detected (Not Detectd) RSV (PCR) Not Detected (Not Detectd) SARS-CoV-2 (PCR) Not Detected (Not Detectd) Disposition Clinical Impression: Generalized weakness, Elevated troponin Disposition: ADMITTED IP TO THIS HOSP Condition: Stable Is patient prescribed a controlled substance at d/c from ED?: No
[2024-03-08] MEDS: SODIUM CHLORIDE 0.9% 500 ML 500 ML IV STA (11:29)
[2024-03-08 11:40] LABS: Basophils % (A) 0 %; Eosinophils # (A) 0.1 k/uL (0-0.7); Eosinophils % (A) 1 %; HCT 40.9 % (34.0-46.0); Lymphocytes # (A) 1.5 k/uL (1.0-4.8); Lymphocytes % (A) 17 %; MCH 30.7 pg (25.0-35.0); MCHC 31.8 g/dL (31.0-37.0); MCV 96.4 fL (80.0-100.0); Mean Platelet Volume 8.5; Monocytes # (A) 0.4 k/uL (0-1.0); Monocytes % (A) 4 %; Neutrophils # (A) 6.5 k/uL (1.3-7.7); Neutrophils % (A) 75 %; Platelet Count 173 k/uL (150-450); RBC 4.24 m/uL (3.80-5.40); RDW 13.3 % (11.5-15.5); WBC 8.7 k/uL (3.8-10.6)
[2024-03-08 11:59] LABS: Partial Thromboplastin Time 23.7 sec (22.0-30.0); Prothrombin Time 11.2 sec (10.0-12.5)
[2024-03-08 12:03] LABS: ALT 30 U/L (4-34); African American GFR (CKD) >90 (>60 ml/min/1.73 sqM); Anion Gap 5 mmol/L; Blood Urea Nitrogen 26 mg/dL (7-17); Calcium 8.7 mg/dL (8.4-10.2); Carbon Dioxide 25 mmol/L (22-30); Chloride 109 mmol/L (98-107); Glucose 169 mg/dL (74-99); Non-African American GFR(CKD) 89 (>60 ml/min/1.73 sqM); Sodium 139 mmol/L (137-145); Total Bilirubin 0.8 mg/dL (0.2-1.3)
--- NOTE | 2024-03-08 12:17 | XR ---
EXAMINATION TYPE: XR chest 2V DATE OF EXAM: 03/08/2024 11:41 AM COMPARISON: Chest radiographs from03/10/2020 CLINICAL INDICATION: Female, 68 years old with history of Weakness; TECHNIQUE: XR chest 2V Frontal and lateral views of the chest. FINDINGS: Lungs/Pleura: There is no evidence of pleural effusion, focal consolidation, or pneumothorax. Pulmonary vascularity: Unremarkable. Heart/mediastinum: Cardiomediastinal silhouette is unremarkable. Atherosclerotic calcifications are seen in the aorta. Musculoskeletal: No acute osseous pathology. Rotator cuff left repair anchor. IMPRESSION: No acute cardiopulmonary disease/process. [facility], , 03/08/2024 12:15 PM
[2024-03-08 12:29] LABS: AST 39 U/L (14-36); Albumin 3.9 g/dL (3.5-5.0); Potassium 4.9 mmol/L (3.5-5.1); Total Protein 7.1 g/dL (6.3-8.2)
[2024-03-08 12:30] LABS: Alkaline Phosphatase 65 U/L (38-126)
[2024-03-08] MEDS: SODIUM CHLORIDE 0.9% 500 ML 500 ML IV ONE (13:07)
[2024-03-08] MEDS: ASPIRIN 81 MG PO STA (13:15)
[2024-03-08 15:15] LABS: Appearance,Urine Clear (Clear); Bilirubin,Urine Negative (Negative); Blood,Urine Negative (Negative); Color,Urine Colorless; Glucose,Urine (UA) Negative (Negative); Ketones,Urine Negative (Negative); Leukocyte Esterase,Urine Negative (Negative); Nitrite,Urine Negative (Negative); Protein,Urine Negative (Negative); Specific Gravity,Urine 1.018 (1.001-1.035); Urobilinogen,Urine <2.0 mg/dL (<2.0)
[2024-03-08] MEDS ORDERED: IBUPROFEN 400 MG TAB PO PRN (16:25)
[2024-03-08] MEDS ORDERED: NALOXONE 0.4 MG/ML 1 ML VIAL IV PRN (16:25)
[2024-03-08] MEDS ORDERED: ONDANSETRON 4 MG/2 ML VIAL IVP PRN (17:22)
[2024-03-08] MEDS ORDERED: MELATONIN 3 MG TABLET PO PRN (17:22)
[2024-03-08] MEDS ORDERED: oxyCODONE-APAP 5-325MG 1 EACH TAB PO PRN (17:25)
[2024-03-08] MEDS ORDERED: DEXTROSE 50% SYRINGE 50 ML IVP PRN ×2 (17:31)
--- NOTE | 2024-03-08 18:04 | P.HPIM ---
History of Present Illness H&P Date: 03/08/24 History of Presenting Illness: Patient is a very pleasant 68-year-old female with a past medical history of hypertension, hyperlipidemia, [id number] diabetes mellitus type 2, CVA, COPD and continued nicotine dependence, chronic back pain, bipolar disorder, anxiety, depression, and panic disorder. She presented to the emergency department chief complaint of generalized weakness, nausea, and vomiting. Patient and her son at bedside reports that her pain pump was shut off approximately 2 weeks ago and since this time she has been experiencing increased generalized weakness, fatigue, nausea, vomiting, and decreased appetite. Patient's son at bedside states his mother symptoms significantly worsened over the past few days and she went back to her pain management doctor and they attempted to turn the pain pump back on today but were unsuccessful. He states he was going to take her home but she is just too weak so he brought her to the emergency department for evaluation. Upon arrival to our facility, patient reporting feeling fatigued, tired, nauseous, and no appetite. She states generalized lower back pain currently rating 5 out of 10 at this time. She denies having any headache, lightheadedness, dizziness, chest pain, palpi tations, shortness of breath, cough or congestion, or experiencing any focal numbness/tingling/weakness/swelling in her extremities. Patient underwent evaluation in the emergency department. Vital signs upon arrival show blood pressure 105/69, heart rate 90, respiratory rate 20, temp 97.4 F, and SpO2 of 98% on room air. EKG completed showing normal sinus rhythm at 74 bpm with diffuse T wave inversion. Chest x-ray completed was negative for acute cardiopulmonary process. Labs completed and reviewed. CBC unremarkable. Coagulation profile normal findings. BMP showing hyperchloremia with chloride of 109 and mild prerenal azotemia with BUN of 26. Blood glucose was 169. Magnesium was 1.8. Liver profile showing slightly elevated AST of 39 otherwise normal findings. Troponin was 0.044 with repeat troponin of 0.045. Urinalysis negative for infection. Influenza A, influenza B, RSV, and COVID PCR negative. Review of systems: Pertinent positives and negatives as discussed in HPI, a complete review of systems was performed and all other systems are negative. Physical exam: Vital signs reviewed and stable. General: Nontoxic, no distress and appears stated age. Derm: Skin warm and dry, normal coloration for ethnicity. Head: Atraumatic, normocephalic and symmetric. Eyes: EOM's intact, no lid lag, and anicteric sclera Mouth: no lip lesions, mucus membranes moist Cardiovascular: regular rate and rhythm with normal S1S2, systolic murmur, positive posterior tibial pulses bilaterally, and cap refill < 2 seconds. Lungs: Respirations even, regular, and unlabored on room air. Lungs CTA bila terally, no rhonchi, no rales, no wheezing, and no accessory muscle usage. Abdominal: soft, nontender to palpation, no guarding, no appreciable organomegaly Ext: ROM intact. No gross muscle atrophy, no edema, no contractures Neuro: Speech clear, face symmetrical and CN II-XII grossly intact with no noted focal neuro deficits Psych: Alert and oriented to person, place, time, and situation. Appropriate and pleasant affect. Assessment and Plan of Care: Generalized weakness with intractable nausea and vomiting, possibly secondary to opioid withdrawal Elevated troponin Hypertension Hyperlipidemia History of CVA Chronic back pain -Cardiology consulted, appreciate recommendations -Telemetry monitoring -Trend troponins -Cardiac diet, NPO at midnight -Patient started on aspirin 81 mg daily and atorvastatin 80 mg daily. -Lipid profile and hemoglobin A1c with a.m. labs. -Echocardiogram -Continue Percocet 5/325 mg tablets every 6 hours as needed for pain management and to prevent further symptoms of opioid withdrawal. -PT/OT consulted for evaluation. Bipolar disorder Anxiety and depression Panic disorder -Continue daily medication regimen with Aricept 5 mg nightly, Keppra 500 mg twice daily, Latuda 20 mg daily, Remeron 45 mg nightly, and Lyrica 150 mg 3 times daily Data and imaging reviewed: As stated above in HPI CODE STATUS: Full code DVT prophylaxis: Heparin Anticipated discharge date: Pending clinical course, likely 24 to [address]: Home Patient was seen independently by Nurse Practitioner. This document was prepared using [employer] dictation software. Please allow for errors in roof service technician while rare they do occur. Kade Vale NP rendered care for this patient independently, reviewed the findings and plan as documented in the note above and agree with plan. I did not physically speak with or examine the patient on this date. Past Medical History Past Medical History: COPD, CVA/TIA, Diabetes Mellitus, Hyperlipidemia, Hypertension Additional Past Medical History / Comment(s): Diabetes mellitus type 2 insulin requiring, hypertension, hyperlipidemia, CVA, restless leg syndrome, chronic diarrhea. History of Any Multi-Drug Resistant Organisms: None Reported Past Surgical History: Adenoidectomy, Appendectomy, Cholecystectomy, Hysterectomy, Orthopedic Surgery, Tonsillectomy Additional Past Surgical History / Comment(s): right knee repacement x2 , left a nkle surgery, bladder suspension x 2 partial hysterectomy , left breast biopsy,T+A, colonoscopy, cholecystectomy, Lasik for both eyes. Past Anesthesia/Blood Transfusion Reactions: No Reported Reaction Past Psychological History: Anxiety, Bipolar, Depression, Panic Disorder Smoking Status: Current every day smoker Past Alcohol Use History: None Reported Past Drug Use History: Prescription Drug Abuse - Past Family History Mother Family Medical History: Diabetes Mellitus Father Family Medical History: CVA/TIA Brother(s) Family Medical History: No Reported History Son(s) Family Medical History: No Reported History Daughter(s) Family Medical History: No Reported History Medications and Allergies Home Medications Medication Instructions Recorded Confirmed Type Ergocalciferol [Vitamin D2 1,250 mcg PO PARKS 01/08/20 03/08/24 History (DRISDOL)] levETIRAcetam [Keppra] 500 mg PO BID 01/08/20 03/08/24 History Albuterol Inhaler [Ventolin Hfa 2 puff INHALATION RT-QID PRN 05/10/20 03/08/24 History Inhaler] ALPRAZolam [Xanax] 0.5 mg PO TID 10/10/20 03/08/24 History Donepezil [Aricept] 5 mg PO HS 10/10/20 03/08/24 History Omeprazole 40 mg PO DAILY 10/10/20 03/08/24 History metFORMIN HCL [Glucophage] 500 mg PO DAILY 10/10/20 03/08/24 History Celecoxib [CeleBREX] 100 mg PO DAILY 03/08/24 03/08/24 History Loratadine 10 mg PO DAILY 03/08/24 03/08/24 History Lurasidone [Latuda] 20 mg PO DAILY 03/08/24 03/08/24 History Mirtazapine [Remeron] 45 mg PO HS 03/08/24 03/08/24 History Pregabalin [Lyrica] 150 mg PO TID 03/08/24 03/08/24 History Triamcinolone 0.1% Cream [Kenalog 1 applic TOPICAL BID 03/08/24 03/08/24 History 0.1% Cream] oxyCODONE-APAP 5-325MG [Percocet 1 tab PO BID PRN 03/08/24 03/08/24 History 5-325 mg] Allergies Allergy/AdvReac Type Severity Reaction Status Date / Time Penicillins Allergy Unknown Verified 03/08/24 17:04 ramipril [From Altace] Allergy Unknown Verified 03/08/24 17:04 Physical Exam Vitals: Vital Signs Temp Pulse Resp BP Pulse Ox 03/08/24 10:36 97.4 F L 90 20 105/69 98 Intake and Output 03/08/24 03/08/24 03/08/24 06:59 14:59 22:59 Other: Weight 58.967 kg Results CBC & Chem 7: 03/08/24 11:25 03/08/24 11:25 Labs: Abnormal Lab Results - Last 24 Hours (Table) 03/08/24 03/08/24 03/08/24 Range/Units 11:25 11:25 14:53 Chloride 109 H (98-107) mmol/L BUN 26 H (7-17) mg/dL Glucose 169 H (74-99) mg/dL AST 39 H (14-36) U/L Troponin I 0.044 H* 0.045 H* (0.000-0.034) ng/mL
[2024-03-08 20:38] LABS: Glucose,Whole Blood 160 mg/dL (70-110)
[2024-03-08] MEDS: INSULIN ASPART (NovoLOG) 100 UNIT/ML VIAL SQ SCH (21:01)
[2024-03-08] MEDS: PREGABALIN 75 MG CAP PO SCH (21:19)
[2024-03-08] MEDS: NICOTINE 21MG/24HR PATCH TRANSDERM SCH (21:19)
[2024-03-08] MEDS: levETIRAcetam 500 MG TAB PO SCH (21:19)
[2024-03-08] MEDS: MIRTAZAPINE 45 MG TABLET PO SCH (21:39)
[2024-03-08] MEDS: DONEPEZIL 5 MG TAB PO SCH (21:39)
[2024-03-08] MEDS: HEPARIN SODIUM,PORCINE 5,000 UNIT/ML 1 ML VIAL SQ SCH (23:36)
[2024-03-09 04:07] LABS: Glucose,Whole Blood 211 mg/dL (70-110)
[2024-03-09 09:08] LABS: Glucose,Whole Blood 214 mg/dL (70-110)
--- NOTE | 2024-03-09 10:27 | P.CRDCN ---
History of Present Illness Consult date: 03/09/24 Consult reason: chest pain History of present illness: This is a 68-year-old female, does not follow with a chief controller in our office. She has a past medical history of hypertension, hyperlipidemia, diabetes mellitus type 2, CVA, COPD, tobacco use and dependence, chronic back pain, bipolar disorder. We have been asked to evaluate the patient for chest pain. Due to mental status changes, patient is unable to provide any information. Patient presented to the hospital due to weakness nausea and vomiting. Patient apparently had a pain pump shut off 2 weeks ago and was having weakness fatigue nausea vomiting decreased appetite. Blood pressure 146/76, heart rate 74, pulse ox 95% on 3 L nasal cannula. Patient is seen today in the emergency center waiting for bed on the cardiac stepdown unit. Blood pressure 138/67, heart rate 84, pulse ox 100% on room air, afebrile -EKG: Sinus rhythm with nonspecific ST changes. -Chest x-ray: No acute process -Laboratory studies: CBC normal. Sodium 139, potassium 4.9, BUN 26 and creatinine 1.68. Troponin 0.044, 0.045, 0.037. -Home cardiac medications: None Review Of Systems: At the time of my exam: Unable to obtain due to patient's mental status. Physical examination: Gen: This is a 68-year-old female in no acute distress VS: reviewed HEENT: Head is atraumatic, normocephalic. Pupils equal, round. Sclerae is anicteric. NECK: Supple. No JVD. LUNGS: Clear to auscultation. No wheezes or rhonchi. No intercostal retractions. HEART: Regular rate and rhythm. No murmur. ABDOMEN: Soft No tenderness. EXTREMITIES: No pedal edema. No calf tenderness. NEUROLOGICAL: Patient is awake, alert and oriented x3. Assessment: NSTEMI Metabolic encephalopathy Hypertension Hyperlipidemia Diabetes mellitus type 2 History of CVA COPD Dementia Tobacco use and dependence Chronic back pain with removal of pain pump 2 weeks ago Plan: No heparin to be started at this time due to mental status changes of unclear etiology Continue patient on aspirin 81 mg daily, Lipitor Obtain 2-D echocardiogram and Doppler study to assess cardiac structure and function Smoking cessation. Patient will be provided with the [employer] quit line information at discharge. Further recommendations to follow based upon clinical course Thank you kindly for this consultation. Nurse practitioner note has been reviewed, I agree with documented findings and plan of care. Patient was seen and examined. Past Medical History Past Medical History: COPD, CVA/TIA, Diabetes Mellitus, Hyperlipidemia, Hypertension Additional Past Medical History / Comment(s): Diabetes mellitus type 2 insulin requiring, hypertension, hyperlipidemia, CVA, restless leg syndrome, chronic diarrhea. History of Any Multi-Drug Resistant Organisms: None Reported Past Surgical History: Adenoidectomy, Appendectomy, Cholecystectomy, Hysterectomy, Orthopedic Surgery, Tonsillectomy Additional Past Surgical History / Comment(s): right knee repacement x2 , left ankle surgery, bladder suspension x 2 partial hysterectomy , left breast biopsy,T+A, colonoscopy, cholecystectomy, Lasik for both eyes. Past Anesthesia/Blood Transfusion Reactions: No Reported Reaction Past Psychological History: Anxiety, Bipolar, Depression, Panic Disorder Smoking Status: Current every day smoker Past Alcohol Use History: None Reported Past Drug Use History: Prescription Drug Abuse - Past Family History Mother Family Medical History: Diabetes Mellitus Father Family Medical History: CVA/TIA Brother(s) Family Medical History: No Reported History Son(s) Family Medical History: No Reported History Daughter(s) Family Medical History: No Reported History Medications and Allergies Home Medications Medication Instructions Recorded Confirmed Type Ergocalciferol [Vitamin D2 1,250 mcg PO PARKS 01/08/20 03/08/24 History (DRISDOL)] levETIRAcetam [Keppra] 500 mg PO BID 01/08/20 03/08/24 History Albuterol Inhaler [Ventolin Hfa 2 puff INHALATION RT-QID PRN 05/10/20 03/08/24 History Inhaler] ALPRAZolam [Xanax] 0.5 mg PO TID 10/10/20 03/08/24 History Donepezil [Aricept] 5 mg PO HS 10/10/20 03/08/24 History Omeprazole 40 mg PO DAILY 10/10/20 03/08/24 History metFORMIN HCL [Glucophage] 500 mg PO DAILY 10/10/20 03/08/24 History Celecoxib [CeleBREX] 100 mg PO DAILY 03/08/24 03/08/24 History Loratadine 10 mg PO DAILY 03/08/24 03/08/24 History Lurasidone [Latuda] 20 mg PO DAILY 03/08/24 03/08/24 History Mirtazapine [Remeron] 45 mg PO HS 03/08/24 03/08/24 History Pregabalin [Lyrica] 150 mg PO TID 03/08/24 03/08/24 History Triamcinolone 0.1% Cream [Kenalog 1 applic TOPICAL BID 03/08/24 03/08/24 History 0.1% Cream] oxyCODONE-APAP 5-325MG [Percocet 1 tab PO BID PRN 03/08/24 03/08/24 History 5-325 mg] Allergies Allergy/AdvReac Type Severity Reaction Status Date / Time Penicillins Allergy Unknown Verified 03/08/24 17:04 ramipril [From Altace] Allergy Unknown Verified 03/08/24 17:04 Physical Exam Vitals: Vital Signs Temp Pulse Resp BP Pulse Ox 03/09/24 06:00 74 18 146/76 95 03/09/24 05:00 88 18 158/85 94 L 03/09/24 04:00 90 16 174/90 90 L 03/09/24 02:23 96 20 163/94 91 L 03/08/24 23:00 100 17 135/78 98 03/08/24 10:36 97.4 F L 90 20 105/69 98 Intake and Output 03/08/24 03/09/24 03/09/24 22:59 06:59 14:59 Other: Weight 58.967 kg Results 03/08/24 11:25 03/08/24 11:25 Cardiac Enzymes 03/08/24 03/08/24 03/08/24 Range/Units 11:25 11:25 14:53 AST 39 H (14-36) U/L Troponin I 0.044 H* 0.045 H* (0.000-0.034) ng/mL 03/08/24 Range/Units 18:18 AST (14-36) U/L Troponin I 0.037 H* (0.000-0.034) ng/mL Coagulation 03/08/24 Range/Units 11:25 PT 11.2 (10.0-12.5) sec APTT 23.7 (22.0-30.0) sec CBC 03/08/24 Range/Units 11:25 WBC 8.7 (3.8-10.6) k/uL RBC 4.24 (3.80-5.40) m/uL Hgb 13.0 (11.4-16.0) gm/dL Hct 40.9 (34.0-46.0) % Plt Count 173 (150-450) k/uL Comprehensive Metabolic Panel 03/08/24 Range/Units 11:25 Sodium 139 (137-145) mmol/L Potassium 4.9 (3.5-5.1) mmol/L Chloride 109 H (98-107) mmol/L Carbon Dioxide 25 (22-30) mmol/L BUN 26 H (7-17) mg/dL Creatinine 0.68 (0.52-1.04) mg/dL Glucose 169 H (74-99) mg/dL Calcium 8.7 (8.4-10.2) mg/dL AST 39 H (14-36) U/L ALT 30 (4-34) U/L Alkaline Phosphatase 65 (38-126) U/L Total Protein 7.1 (6.3-8.2) g/dL Albumin 3.9 (3.5-5.0) g/dL Current Medications Generic Name Dose Route Start Last Admin Trade Name Freq PRN Reason Stop Dose Admin Acetaminophen 650 mg 03/08/24 16:25 Acetaminophen Tab 325 Mg Tab PO Q6HR PRN Mild Pain or Fever > 100.5 Albuterol Sulfate 2.5 mg 03/08/24 17:25 Albuterol Nebulized 2.5 Mg/3 Ml INHALATION RT-QID PRN Shortness Of Breath Aspirin 81 mg 03/09/24 09:00 Aspirin 81 Mg PO DAILY [facility] Atorvastatin Calcium 80 mg 03/09/24 09:00 Atorvastatin 80 Mg Tab PO DAILY [facility] Dextrose/Water 25 ml 03/08/24 17:31 Dextrose 50% Syringe 50 Ml IVP PER PROTOCOL PRN Hypoglycemia Protocol Dextrose/Water 50 ml 03/08/24 17:31 Dextrose 50% Syringe 50 Ml IVP PER PROTOCOL PRN Hypoglycemia Protocol Donepezil HCl 5 mg 03/08/24 21:00 03/08/24 21:39 Donepezil 5 Mg Tab PO 5 mg HS ALEKSANDRA Administration Ergocalciferol 1,250 mcg 03/12/24 09:00 Ergocalciferol 1,250 Mcg (50,000 Iu) Capsule PO PARKS ALEKSANDRA Heparin Sodium (Porcine) 5,000 unit 03/09/24 00:00 03/08/24 23:36 Heparin Sodium,Porcine 5,000 Unit/Ml 1 Ml Vial SQ 5,000 unit Q8HR ALEKSANDRA Administration Insulin Aspart 0 unit 03/08/24 21:00 03/08/24 21:01 Insulin Aspart (Novolog) 100 Unit/Ml Vial SQ Not Given ACHS [facility] Protocol Levetiracetam 500 mg 03/08/24 21:00 03/08/24 21:19 Levetiracetam 500 Mg Tab PO 500 mg BID ALEKSANDRA Administration Loratadine 10 mg 03/09/24 09:00 Loratadine 10 Mg Tab PO DAILY [facility] Lurasidone HCl 20 mg 03/09/24 09:00 Lurasidone 20 Mg Tab PO DAILY [facility] Melatonin 3 mg 03/08/24 17:22 Melatonin 3 Mg Tablet PO HS PRN Insomnia Meloxicam 7.5 mg 03/09/24 09:00 Meloxicam 7.5 Mg Tab PO DAILY [facility] Mirtazapine 45 mg 03/08/24 21:00 03/08/24 21:39 Mirtazapine 45 Mg Tablet PO 45 mg HS [facility] Administration Naloxone HCl 0.2 mg 03/08/24 16:25 Naloxone 0.4 Mg/Ml 1 Ml Vial IV Q2M PRN Opioid Reversal Nicotine 1 patch 03/08/24 17:30 03/08/24 21:19 Nicotine 21mg/24hr Patch TRANSDERM 1 patch DAILY [facility] Administration Ondansetron HCl 4 mg 03/08/24 17:22 Ondansetron 4 Mg/2 Ml Vial IVP Q8HR PRN Nausea And Vomiting Oxycodone/Acetaminophen 1 each 03/08/24 17:49 Oxycodone-Apap 5-325mg 1 Each Tab PO QID PRN Pain Pantoprazole Sodium 40 mg 03/09/24 09:00 Pantoprazole 40 Mg Tablet PO DAILY [facility] Pregabalin 150 mg 03/08/24 22:00 03/08/24 21:19 Pregabalin 75 Mg Cap PO 150 mg TID ALEKSANDRA Administration Intake and Output 03/08/24 03/09/24 03/09/24 22:59 06:59 14:59 Other: Weight 58.967 kg 03/08/24 11:25 03/08/24 11:25
[2024-03-09 11:05] LABS: Chol/HDL Ratio 2.72 Ratio; LDL Cholesterol,Calculated 98.2 mg/dL (0.0-131.0); VLDL Calculation 19.52 mg/dL (5.00-40.00)
[2024-03-09 11:40] LABS: Glucose,Whole Blood 226 mg/dL (70-110)
[2024-03-09 11:52] LABS: HCT 44.7 % (34.0-46.0); HGB 13.6 gm/dL (11.4-16.0); Hypochromasia Slight; MCH 30.7 pg (25.0-35.0); MCHC 30.4 g/dL (31.0-37.0); MCV 100.8 fL (80.0-100.0); Macrocytosis Slight; Mean Platelet Volume 9.7; Platelet Count 147 k/uL (150-450); RBC 4.44 m/uL (3.80-5.40); RDW 13.6 % (11.5-15.5); WBC 13.6 k/uL (3.8-10.6)
[2024-03-09 12:03] LABS: ALT 28 U/L (4-34); AST 31 U/L (14-36); African American GFR (CKD) >90 (>60 ml/min/1.73 sqM); Albumin 4.4 g/dL (3.5-5.0); Alkaline Phosphatase 100 U/L (38-126); Anion Gap 10 mmol/L; Blood Urea Nitrogen 24 mg/dL (7-17); Calcium 9.1 mg/dL (8.4-10.2); Carbon Dioxide 24 mmol/L (22-30); Chloride 105 mmol/L (98-107); Glucose 253 mg/dL (74-99); Magnesium 1.7 mg/dL (1.6-2.3); Non-African American GFR(CKD) 90 (>60 ml/min/1.73 sqM); Potassium 5.7 mmol/L (3.5-5.1); Sodium 139 mmol/L (137-145); Total Bilirubin 0.5 mg/dL (0.2-1.3); Total Protein 7.7 g/dL (6.3-8.2)
[2024-03-09] MEDS: LORazepam 2 MG/ML INJ IV STA (12:31)
[2024-03-09] MEDS ORDERED: LORazepam 2 MG/ML INJ IV PRN (13:46)
--- NOTE | 2024-03-09 14:06 | P.PN ---
Subjective Progress Note Date: 03/09/24 Hospital Course: Patient is a very pleasant 68-year-old female with a past medical history of hypertension, hyperlipidemia, [id number] diabetes mellitus type 2, CVA, COPD and continued nicotine dependence, chronic back pain, bipolar disorder, anxiety, depression, and panic disorder. She presented to the emergency department chief complaint of generalized weakness, nausea, and vomiting. Patient and her son at bedside reports that her pain pump was shut off approximately 2 weeks ago and since this time she has been experiencing increased generalized weakness, fatigue, nausea, vomiting, and decreased appetite. Patient's son at bedside states his mother symptoms significantly worsened over the past few days and she went back to her pain management doctor and they attempted to turn the pain pump back on today but were unsuccessful. He states he was going to take her home but she is just too weak so he brought her to the emergency department for evaluation. Upon arrival to our facility, patient reporting feeling fatigued, tired, nauseous, and no appetite. She states generalized lower back pain currently rating 5 out of 10 at this time. She denies having any headache, lightheadedness, dizziness, chest pain, palpitations, shortness of breath, cough or congestion, or experiencing any focal numbness/tingling/weakness/swelling in her extremities. Patient underwent evaluation in the emergency department. Vital signs upon arrival show blood pressure 105/69, heart rate 90, respiratory rate 20, temp 97.4 F, and SpO2 of 98% on room air. EKG completed showing normal sinus rhythm at 74 bpm with diffuse T wave inversion. Chest x-ray completed was negative for acute cardiopulmonary process. Labs completed and reviewed. CBC unremarkable. Coagulation profile normal findings. BMP showing hyperchloremia with chloride of 109 and mild prerenal azotemia with BUN of 26. Blood glucose was 169. Magnesium was 1.8. Liver profile showing slightly elevated AST of 39 otherwise normal findings. Troponin was 0.044 with repeat troponin of 0.045. Urinalysis negative for infection. Influenza A, influenza B, RSV, and COVID PCR negative. Physical exam: Patient was seen and fully evaluated at bedside this morning. Patient currently having panic attack and reports feeling very anxious. Patient answering minimal questions but does report just feeling anxious and she cannot control her anx iety. Patient shaking bilateral arms up and down and continuously writhing hands and fingers together. Per RN at bedside this started when she awoke pt from a sound sleep and there was another pt directly across the connors yelling and screaming at ER staff and Police officers. Pt became very anxious and refusing to drink water or take her medications.When asked, pt denies pain or discomfort or feeling SOB she repeated again that she feels panicked and anxious. Pt does have documented history of panic disorders and anxiety. Will place order for IV ativan and monitor for improvement. If no improvement will place consult to psychiatry for evaluation and change oral keppra to IV. Recent blood glucose is 214. Vital signs reviewed and stable. General: Nontoxic, no distress and appears stated age. Derm: Skin warm and dry, normal coloration for ethnicity. Head: Atraumatic, normocephalic and symmetric. Eyes: EOM's intact, no lid lag, and anicteric sclera Mouth: no lip lesions, mucus membranes moist Cardiovascular: regular rate and rhythm with normal S1S2, systolic murmur, positive posterior tibial pulses bilaterally, and cap refill < 2 seconds. Lungs: Respirations even, regular, and unlabored on room air. Lungs CTA bilaterally, no rhonchi, no rales, no wheezing, and no accessory muscle usage. Abdominal: soft, nontender to palpation, no guarding, no appreciable organomegaly Ext: ROM intact. No gross muscle atrophy, no edema, no contractures Neuro: Speech clear, face symmetrical and CN II-XII grossly intact with no noted focal neuro deficits Psych: Alert and oriented to person, place, time, and situation. Appropriate and pleasant affect. Assessment and Plan of Care: Patient was seen and fully evaluated at bedside this morning. Patient currently having panic attack and reports feeling very anxious. Patient answering minimal questions but does report just feeling anxious and she cannot control her anxiety. Patient shaking bilateral arms up and down and continuously writhing hands and fingers together. Per RN at bedside this started when she awoke pt from a sound sleep and there was another pt directly across the connors yelling and screaming at ER staff and Police officers. Pt became very anxious and refusing to drink water or take her medications.When asked, pt denies pain or discomfort or feeling SOB she repeated again that she feels panicked and anxious. Pt does have documented history of panic disorders and anxiety. Will place order for IV ativan and monitor for improvement. If no improvement will place consult to psychiatry for evaluation and change oral keppra to IV. Recent blood glucose is 214, VSS. RN denies patient having any falls or injuries. Mental status changes likely secondary to acute panic attack, patient does report feeling very anxious and panicky and did awake to a lot of commotion going on around her in the emergency department.. Will continue to monitor and place additional orders if indicated based on patient's improvement. Metabolic encephalopathy, suspected secondary to acute panic attack with patient's reports of feeling anxious Generalized weakness with intractable nausea and vomiting, possibly secondary to opioid withdrawal Elevated troponins Hypertension Hyperlipidemia History of CVA Chronic back pain -Cardiology consulted, appreciate recommendations -Telemetry monitoring -Trended resulting at 0.044, 0.045, 0.037. -Continue aspirin 81 mg daily and atorvastatin 80 mg daily. -Lipid profile and hemoglobin A1c with a.m. labs. -Echocardiogram -Continue Percocet 5/325 mg tablets every 6 hours as needed for pain management and to prevent further symptoms of opioid withdrawal. -PT/OT consulted for evaluation. Bipolar disorder Anxiety and depression Panic disorder -Continue daily medication regimen with Aricept 5 mg nightly, Keppra 500 mg twice daily, Latuda 20 mg daily, Remeron 45 mg nightly, and Lyrica 150 mg 3 times daily Data and imaging reviewed: Labs reviewed. CBC showing mild leukocytosis with WBC count of 13.6 and macro cytosis with MCV of 100.8. BMP showing hyperkalemia with potassium of 5.[address] order for repeat stat BMP as previous potassium 4.9 and was reported as slight hemolysis. Renal function showing creatinine of 0.66 and BUN of 24 with GFR of 90. Blood glucose 253. Magnesium slightly low at 1.7 liver profile unremarkable. Vital signs reviewed. Blood pressure 138/67, heart rate 84, respiratory rate 13, temp 96.6 F, and SpO2 of 100% on room air. CODE STATUS: Full code DVT prophylaxis: Heparin Anticipated discharge date: Pending clinical course, likely 24 to [address]: Home Patient was seen independently by Nurse Practitioner. This document was prepared using [employer] dictation software. Please allow for errors in edi consultant while rare they do occur. Kade Vale NP rendered care for this patient independently, reviewed the findings and plan as documented in the note above and agree with plan. I did not physically speak with or examine the patient on this date. Objective - Vital Signs Vital signs: Vital Signs Temp 97.4 F L 03/08/24 10:36 Pulse 74 03/09/24 06:00 Resp 18 03/09/24 06:00 BP 146/76 03/09/24 06:00 Pulse Ox 95 03/09/24 06:00 FiO2 Intake & Output 03/08/24 03/09/24 03/09/24 18:59 06:59 18:59 Weight 58.967 kg 58.967 kg - Labs CBC & Chem 7: 03/09/24 11:14 03/09/24 11:14 Labs: Abnormal Lab Results - Last 24 Hours (Table) 03/08/24 03/08/24 03/08/24 Range/Units 11:25 11:25 14:53 Chloride 109 H (98-107) mmol/L BUN 26 H (7-17) mg/dL Glucose 169 H (74-99) mg/dL POC Glucose (mg/dL) (70-110) mg/dL AST 39 H (14-36) U/L Troponin I 0.044 H* 0.045 H* (0.000-0.034) ng/mL 03/08/24 03/08/24 03/09/24 Range/Units 18:18 20:36 03:57 Chloride (98-107) mmol/L BUN (7-17) mg/dL Glucose (74-99) mg/dL POC Glucose (mg/dL) 160 H 211 H (70-110) mg/dL AST (14-36) U/L Troponin I 0.037 H* (0.000-0.034) ng/mL 03/09/24 Range/Units 09:06 Chloride (98-107) mmol/L BUN (7-17) mg/dL Glucose (74-99) mg/dL POC Glucose (mg/dL) 214 H (70-110) mg/dL AST (14-36) U/L Troponin I (0.000-0.034) ng/mL
--- NOTE | 2024-03-09 14:35 | CT ---
EXAMINATION TYPE: CT brain wo con CT DLP: 1243.4 mGycm, Automated exposure control for dose reduction was used. DATE OF EXAM: 03/09/2024 2:18 PM COMPARISON: Prior CT Brain from 10/11/2020. CLINICAL INDICATION:Female, 68 years old with history of worsening mental status, ams TECHNIQUE: Brain: Multiple axial CT images of the brain were obtained without IV contrast. . Coronal and sagitta l reformats reviewed. FINDINGS: Brain: Extra-axial spaces: No abnormal extra-axial fluid collections. Ventricular system: Within normal limits Cerebral parenchyma: No acute intraparenchymal hemorrhage or mass effect. The marin-white junction is well differentiated. Scattered hypoattenuating areas are seen within the periventricular white matte r. Prominent right basal ganglia Virchow-Bradford space redemonstrated. Cerebellum: Unremarkable. Mass effect: No evidence of midline shift. Intracranial vasculature: Atherosclerotic calcifications of the intracranial vessels. Soft tissues: Normal. Calvarium/osseous structures: No depressed skull fracture. Benign hyperostosis frontalis noted. Paranasal sinuses and mastoid air cells: Clear Visualized orbits: Bilateral aphakia IMPRESSION: 1. No acute intracranial process. 2. Nonspecific white matter changes, likely secondary to chronic small vessel ischemic disease. [facility], , 03/09/2024 2:33 PM
[2024-03-09 15:16] LABS: African American GFR (CKD) >90 (>60 ml/min/1.73 sqM); Anion Gap 2 mmol/L; Blood Urea Nitrogen 25 mg/dL (7-17); Calcium 8.7 mg/dL (8.4-10.2); Carbon Dioxide 29 mmol/L (22-30); Chloride 107 mmol/L (98-107); Glucose 169 mg/dL (74-99); Non-African American GFR(CKD) >90 (>60 ml/min/1.73 sqM); Potassium 4.6 mmol/L (3.5-5.1); Sodium 138 mmol/L (137-145)
[2024-03-09] MEDS: levETIRAcetam IV 500 MG/5 ML VIAL IVP STA (15:24)
[2024-03-09] MEDS: MAGNESIUM SULFATE-D5W PMX 1 GM in DEXTROSE/WATER 1 100ML.BAG IVPB SCH (15:27)
[2024-03-09] MEDS: LORATADINE 10 MG TAB PO SCH (15:33)
[2024-03-09] MEDS: ATORVASTATIN 80 MG TAB PO SCH (15:33)
[2024-03-09] MEDS: MELOXICAM 7.5 MG TAB PO SCH (15:33)
[2024-03-09] MEDS: ASPIRIN 81 MG PO SCH (15:33)
[2024-03-09] MEDS: LURASIDONE 20 MG TAB PO SCH (15:33)
[2024-03-09] MEDS: PANTOPRAZOLE 40 MG TABLET PO SCH (15:34)
[2024-03-09 16:21] LABS: Glucose,Whole Blood 131 mg/dL (70-110)
--- NOTE | 2024-03-09 16:25 | P.CNNES ---
History of Present Illness Consult date: 03/09/24 Requesting physician: Kade Vale Reason for Consult: ams History of Present Illness: This is a 68-year-old woman who presented emergency department because of generalized weakness nausea vomiting. Neurology is consulted for altered mental status. History is obtained from medical record. Seems the patient has multiple medical issues and per the nurse practitioner from primary team son reports that the patient pain pump was shut off approximately 2 weeks ago and since then the patient's been experiencing increased generalized weakness fatigue nausea vomiting decreased appetite.. Seems the patient condition has w orsened over the past few days she want to see her pain specialist and they attempted to turn the pain pump back on but were unsuccessful. As a result he brought her to the hospital for further evaluation. She has been having low back pain currently and generalized weakness. According to the nurse she is severely confused. Upon looking at patient medical history seems to the patient has a history of stroke/TIA, diabetes hypertension hyperlipidemia COPD type 2 diabetes restless leg syndrome and she is on Keppra but no mention of history of seizure from the medical history notes. She has underlying history of anxiety, bipolar, depression, panic attack. Some of the workup during this hospital visit consisted of: Initial CBC with differential is unremarkable I reviewed the rest of the lab workup. Initial plasma lactic acid venous 1.1, sodium, calcium, magnesium are within normal limits CT of the head is reported as no acute intracranial process. Nonspecific white matter change, likely secondary to chronic small vessel ischemic disease. I personally reviewed the CT of the head and there is no acute or subacute stroke. Review of Systems As per HPI. Past Medical History Past Medical History: COPD, CVA/TIA, Diabetes Mellitus, Hyperlipidemia, Hypertension Additional Past Medical History / Comment(s): Diabetes mellitus type 2 insulin requiring, hypertension, hyperlipidemia, CVA, restless leg syndrome, chronic diarrhea. History of Any Multi-Drug Resistant Organisms: None Reported Past Surgical History: Adenoidectomy, Appendectomy, Cholecystectomy, Hysterectomy, Orthopedic Surgery, Tonsillectomy Additional Past Surgical History / Comment(s): right knee repacement x2 , left ankle surgery, bladder suspension x 2 partial hysterectomy , left breast biopsy,T+A, colonoscopy, cholecystectomy, Lasik for both eyes. Past Anesthesia/Blood Transfusion Reactions: No Reported Reaction Past Psychological History: Anxiety, Bipolar, Depression, Panic Disorder Smoking Status: Current every day smoker Past Alcohol Use History: None Reported Past Drug Use History: Prescription Drug Abuse - Past Family History Mother Family Medical History: Diabetes Mellitus Father Family Medical History: CVA/TIA Brother(s) Family Medical History: No Reported History Son(s) Family Medical History: No Reported History Daughter(s) Family Medical History: No Reported History Medications and Allergies Home Medications Medication Instructions Recorded Confirmed Type Ergocalciferol [Vitamin D2 1,250 mcg PO PARKS 01/08/20 03/08/24 History (DRISDOL)] levETIRAcetam [Keppra] 500 mg PO BID 01/08/20 03/08/24 History Albuterol Inhaler [Ventolin Hfa 2 puff INHALATION RT-QID PRN 05/10/20 03/08/24 History Inhaler] ALPRAZolam [Xanax] 0.5 mg PO TID 10/10/20 03/08/24 History Donepezil [Aricept] 5 mg PO HS 10/10/20 03/08/24 History Omeprazole 40 mg PO DAILY 10/10/20 03/08/24 History metFORMIN HCL [Glucophage] 500 mg PO DAILY 10/10/20 03/08/24 History Celecoxib [CeleBREX] 100 mg PO DAILY 03/08/24 03/08/24 History Loratadine 10 mg PO DAILY 03/08/24 03/08/24 History Lurasidone [Latuda] 20 mg PO DAILY 03/08/24 03/08/24 History Mirtazapine [Remeron] 45 mg PO HS 03/08/24 03/08/24 History Pregabalin [Lyrica] 150 mg PO TID 03/08/24 03/08/24 History Triamcinolone 0.1% Cream [Kenalog 1 applic TOPICAL BID 03/08/24 03/08/24 History 0.1% Cream] oxyCODONE-APAP 5-325MG [Percocet 1 tab PO BID PRN 03/08/24 03/08/24 History 5-325 mg] Allergies Allergy/AdvReac Type Severity Reaction Status Date / Time Penicillins Allergy Unknown Verified 03/08/24 17:04 ramipril [From Altace] Allergy Unknown Verified 03/08/24 17:04 Physical Examination - Vital Signs Vital Signs: Vital Signs Temp Pulse Resp BP Pulse Ox 03/09/24 12:25 101 H 17 109/66 100 03/09/24 10:45 112 H 18 149/79 97 03/09/24 10:14 96.6 F L 84 13 138/67 100 03/09/24 06:00 74 18 146/76 95 03/09/24 05:00 88 18 158/85 94 L 03/09/24 04:00 90 16 174/90 90 L 03/09/24 02:23 96 20 163/94 91 L 03/08/24 23:00 100 17 135/78 98 Intake and Output 03/09/24 03/09/24 03/09/24 06:59 14:59 22:59 Other: Weight 58.967 kg General: Lying in bed and is not in acute distress. HENT: Supple neck. Neuro: Limited. Patient is moderate drowsy but is awake able to voice. She is oriented to self and she correctly stated that she is in the hospital and correctly stated the current year but it took her a long time to answer those questions but at the end she answered them correctly. She followed few simple commands such as showing thumbs up sticking out her tongue left in the upper extremities and wiggling her toes. Again as stated earlier she is slow to respond to questions. Pupils are round, 2 to 3 mm bilaterally and reactive to light. No facial weakness. No dysarthria from limited language Motor the strength is hard to assess individual muscle strength because of her cooperation but she was able to lift up bilateral upper extremities above gravity and appears symmetrical. Lowers she was wiggling her toes. Results - Laboratory Findings CBC and BMP: 03/09/24 11:14 03/09/24 14:26 Abnormal Lab Findings: Abnormal Labs 03/08/24 03/08/24 03/08/24 07:28 07:28 11:25 WBC MCV MCHC Plt Count Potassium Chloride 109 H BUN 26 H Glucose 169 H POC Glucose (mg/dL) Hemoglobin A1c 7.2 H AST 39 H Troponin I HDL Cholesterol 68.30 H 03/08/24 03/08/24 03/08/24 11:25 14:53 18:18 WBC MCV MCHC Plt Count Potassium Chloride BUN Glucose POC Glucose (mg/dL) Hemoglobin A1c AST Troponin I 0.044 H* 0.045 H* 0.037 H* HDL Cholesterol 03/08/24 03/09/24 03/09/24 20:36 03:57 09:06 WBC MCV MCHC Plt Count Potassium Chloride BUN Glucose POC Glucose (mg/dL) 160 H 211 H 214 H Hemoglobin A1c AST Troponin I HDL Cholesterol 03/09/24 03/09/24 03/09/24 11:14 11:14 11:39 WBC 13.6 H MCV 100.8 H MCHC 30.4 L Plt Count 147 L Potassium 5.7 H Chloride BUN 24 H Glucose 253 H POC Glucose (mg/dL) 226 H Hemoglobin A1c AST Troponin I HDL Cholesterol 03/09/24 14:26 WBC MCV MCHC Plt Count Potassium Chloride BUN 25 H Glucose 169 H POC Glucose (mg/dL) Hemoglobin A1c AST Troponin I HDL Cholesterol Assessment and Plan Assessment: This is a 68-year-old woman chronic back pain who present emerged since her pain pump was shut off approximately 2 weeks ago and ever since she has been having the generalized weakness nausea and vomiting. As well she is altered. Altered mental status/encephalopathy of unknown etiology. Generalized weakness, nausea vomiting Slightly elevated troponin Underlying history of chronic low back pain and her pain pump was shut off about 2 weeks ago and it seems she went to the pain specialist recently and they attempted to turn on pump back but unsuccessful. History of stroke History of diabetes type 2 Hypertension Hyperlipidemia Bipolar Anxiety Depression Panic disorder Plan: I ordered ammonia level, TSH, vitamin B12 and folate Ordered CT of the thoracic and lumbar region Ordered MRI of the brain and CTA head and neck. Ordered routine EEG Cardiology is consulted Psychiatry is consulted Will defer the rest of the medical management to primary and other specialist Thank you for the consultation Time with Patient: Greater than 30
[2024-03-09 17:17] LABS: Glucose,Whole Blood 119 mg/dL (70-110)
--- NOTE | 2024-03-09 18:34 | CT ---
EXAMINATION TYPE: CT thor lumbar spine wo con DATE OF EXAM: 03/09/2024 5:27 PM COMPARISON: 11/05/2016 CLINICAL INDICATION: Female, 68 years old with history of back pain and weakness, WEAKNESS/PAIN TECHNIQUE: Axial images through millimeters thick sections from the lower cervical spine through the lumbar spine. Reconstructed images in the coronal and sagittal plane. Contrast used: mL of , (none if empty) Oral contrast used: (none if empty) FINDINGS: Vertebral body alignment is preserved. Some mild diffuse narrowing of disc height is present within t he mid thoracic spine. Postsurgical changes noted L4-5. Pedicle screws and a disc spacer are present at these levels. T9-10: There is a central spur with mild anterior thecal sac compression. No spinal canal stenosis is evident. No cord contact is identified. L3-4: Some facet changes are present L3-4. Some lateral canal narrowing appears to be present seconda ry to facet hypertrophy and ligamentum laxity at the L3-4 level. This appears to be developing from p rior study. L5-S1:Facet degenerative changes are present L5-S1. Vertebral body heights appear preserved. Neural stimulator lead appears to enter the L3-4 level exten ds to superior endplate of T9 level. No focal disc herniations or significant disc bulges are evident . L4-5 level has some limitation canal evaluation due to metallic scatter artifact. IMPRESSION: 1. SPINAL CANAL STENOSIS IN THE LATERAL DIMENSION L3-4 SECONDARY TO FACET HYPERTROPHY AND LIGAMENTUM FLAVUM LAXITY. 2. CENTRAL ENDPLATE SPUR T9-T10 WITHOUT SPINAL CANAL STENOSIS OR CORD CONTACT. 3. POSTSURGICAL CHANGES L4-5. [facility], Workstation: [facility], 03/09/2024 6:31 PM
--- NOTE | 2024-03-09 19:04 | CT ---
EXAMINATION TYPE: CT angio head neck DATE OF EXAM: 03/09/2024 5:27 PM COMPARISON: None. CLINICAL INDICATION: Female, 68 years old with history of ams. rule out aneurysm on right mca, AMS TECHNIQUE: CTA scan is performed with axial images are obtained, coronal and sagittal reformatted duy ges are reviewed. 3-D reconstructed images are created on an independent workstation and reviewed. S ource images are reviewed. NASCET criteria was used in interpretation of this exam? Contrast used:65ML mL of Isovue 370 with IV Contrast, (none if empty) Oral contrast used: (none if empty) CT DLP: 1426.7 mGycm, Automated exposure control for dose reduction was used. FINDINGS: Carotid/Vascular Structures: There is a 3 vessel arch. Common carotid arteries bifurcate into internal and external carotid arteries without significant dianelys w limiting stenosis. Bilateral carotid bifurcation calcifications are present. There is approximately 41% narrowing of both the right and left internal carotid arteries. Vertebral arteries are codominant. Internal carotid arteries and vertebral arteries are patent to the skull base. Cervical of [place]: Vertebral basilar system appears normal. Posterior cerebral vasculature is unrema rkable. Internal carotid arteries bifurcate normally into A1 and M1 segments. A2 segments are normal. The anterior communicating artery is patent. The right posterior communicating artery is patent. The left posterior communicating artery is patent. Attention is paid to the right middle cerebral art yuliet and its branches. The M1 and M2 segments appear normal. Trifurcation region appears normal withou t aneurysmal dilatation. IMPRESSION: 1. No flow-limiting stenosis bilateral carotid bifurcations. Calcification is present at the bifurcat ions with approximately 41% narrowing each. 2. Normal [place] of [place]. No aneurysmal dilatation is identified. [facility], Workstation: [facility], 03/09/2024 7:02 PM
[2024-03-09 19:18] LABS: T4, Free (Free Thyroxine) 0.97 ng/dL (0.78-2.19)
[2024-03-09 19:56] LABS: Glucose,Whole Blood 96 mg/dL (70-110)
[2024-03-09] MEDS: oxyCODONE-APAP 5-325MG 1 EACH TAB PO PRN (20:26)
[2024-03-10 06:03] LABS: Glucose,Whole Blood 162 mg/dL (70-110)
--- NOTE | 2024-03-10 07:25 | CA ---
Transthoracic Echo Report Name: Mercedes Paredes Age: 68 Gender: F : 1955 Exam Date: 03/09/2024 14:57 Exam Location: [place] [facility] Ht (in): 72 Wt (lb): 130 Ordering Physician: Kade Vale Attending/Referring Phys: Hospital Recruiter Etta Crawley RDCS Procedure CPT: Indications: CP, elevated troponin Cardiac Hx: Technical Quality: Fair Contrast 1: Total Dose (mL): Contrast 2: Total Dose (mL): MEASUREMENTS (Male / Female) Normal Values 2D ECHO LV Diastolic Diameter PLAX 4.4 cm 4.2 - 5.9 / 3.9 - 5.3 cm LV Systolic Diameter PLAX 2.9 cm IVS Diastolic Thickness 1.0 cm 0.6 - 1.0 / 0.6 - 0.9 cm LVPW Diastolic Thickness 1.0 cm 0.6 - 1.0 / 0.6 - 0.9 cm LV Relative Wall Thickness 0.5 RV Internal Dim ED PLAX 3.5 cm LVOT Diameter 2.4 cm LA Systolic Diameter LX 3.2 cm 3.0 - 4.0 / 2.7 - 3.8 cm LV Diastolic Volume MOD 4C 62.9 cm??? LV Systolic Volume MOD 4C 36.7 cm??? LV Ejection Fraction MOD 4C 41.6 % LV Cardiac Index MOD 4C 1297.6 cm???/min???m??? LV Diastolic Length 4C 6.6 cm LV Systolic Length 4C 5.6 cm LV Diastolic Volume MOD 2C 84.7 cm??? LV Systolic Volume MOD 2C 41.5 cm??? LV Ejection Fraction MOD 2C 51.0 % LV Cardiac Index MOD 2C 2142.1 cm???/min???m??? LV Diastolic Length 2C 6.7 cm LV Systolic Length 2C 5.8 cm LA Volume 41.0 cm??? 18 - 58 / 22 - 52 cm??? LA Volume Index 23.9 cm???/m??? 16 - 28 cm???/m??? DOPPLER AV Peak Velocity 175.0 cm/s AV Peak Gradient 12.2 mmHg AV Mean Velocity 119.3 cm/s AV Mean Gradient 6.4 mmHg AV Velocity Time Integral 31.9 cm LVOT Peak Velocity 93.2 cm/s LVOT Peak Gradient 3.5 mmHg LVOT Velocity Time Integral 18.4 cm LVOT Stroke Volume 85.0 cm??? LVOT Stroke Volume Index 47.9 ml/m??? LVOT Cardiac Index 4217.6 cm???/min???m??? AV Area Cont Eq vti 2.7 cm??? AV Area Cont Eq pk 2.5 cm??? MV Area PHT 2.8 cm??? Mitral E Point Velocity 88.5 cm/s Mitral A Point Velocity 105.8 cm/s Mitral E to A Ratio 0.8 MV Deceleration Time 266.5 ms TR Peak Velocity 214.6 cm/s TR Peak Gradient 18.4 mmHg Right Ventricular Systolic Press 38.2 mmHg FINDINGS Left Ventricle Left ventricular ejection fraction is estimated at 45-50 %. Mildly increased septal wall thickness. Mildly increased posterior wall thickness. Dystal septal hupokinesis. Apical anterior hypokinesis Right Ventricle Mild right ventricular dilatation. Mild pulmonary hypertension. Right Atrium Normal right atrial size. No right atrial thrombus or mass seen. Left Atrium Normal left atrial size. No left atrial thrombus or mass present. Mitral Valve Mitral valve thickened. Mild mitral annular calcification. Aortic Valve Trileaflet aortic valve. Thickened aortic valve without stenosis. No aortic regurgitation. Tricuspid Valve Structurally normal tricuspid valve. Mild tricuspid regurgitation. Pulmonic Valve Structurally normal pulmonic valve. No pulmonic regurgitation. Pericardium No pericardial or pleural effusion. Aorta Normal size aortic root and proximal ascending aorta. CONCLUSIONS Left ventricular ejection fraction 45-50% with predominantly apical, apical septal hypokinesis. May be related to CAD vs Takotsubo's RVSP 38 Mild tricuspid regurgitation No pericardial effusion Previewed by: Dr. Tony Benavides DO (Electronically Signed) Final Date: 10 March 2024 07:24
[2024-03-10] MEDS: ALBUTEROL NEBULIZED 2.5 MG/3 ML INHALATION PRN (08:05)
[2024-03-10 08:21] LABS: HCT 39.9 % (34.0-46.0); HGB 12.3 gm/dL (11.4-16.0); Hypochromasia Moderate; MCH 30.7 pg (25.0-35.0); MCHC 30.8 g/dL (31.0-37.0); MCV 99.6 fL (80.0-100.0); Platelet Count 141 k/uL (150-450); RDW 13.1 % (11.5-15.5); WBC 12.5 k/uL (3.8-10.6)
[2024-03-10 08:32] LABS: ALT 23 U/L (4-34); AST 23 U/L (14-36); African American GFR (CKD) >90 (>60 ml/min/1.73 sqM); Albumin 3.6 g/dL (3.5-5.0); Alkaline Phosphatase 91 U/L (38-126); Anion Gap 3 mmol/L; Blood Urea Nitrogen 22 mg/dL (7-17); Calcium 8.6 mg/dL (8.4-10.2); Carbon Dioxide 34 mmol/L (22-30); Chloride 100 mmol/L (98-107); Glucose 169 mg/dL (74-99); Magnesium 1.9 mg/dL (1.6-2.3); Non-African American GFR(CKD) >90 (>60 ml/min/1.73 sqM); Potassium 4.3 mmol/L (3.5-5.1); Sodium 137 mmol/L (137-145); Total Bilirubin 0.5 mg/dL (0.2-1.3); Total Protein 6.5 g/dL (6.3-8.2)
[2024-03-10] MEDS: METOPROLOL SUCCINATE (ER) 25 MG TAB.ER.24H PO SCH (10:50)
[2024-03-10 11:25] LABS: Glucose,Whole Blood 180 mg/dL (70-110)
--- NOTE | 2024-03-10 11:41 | P.PN ---
Subjective Progress Note Date: 03/10/24 Consult reason: chest pain History of present illness: This is a 68-year-old female, does not follow with a wellness manager in our office. She has a past medical history of hypertension, hyperlipidemia, diabetes mellitus type 2, CVA, COPD, tobacco use and dependence, chronic back pain, bipolar disorder. We have been asked to evaluate the patient for chest pain. Due to mental status changes, patient is unable to provide any information. Patient presented to the hospital due to weakness nausea and vomiting. Patient apparently had a pain pump shut off 2 weeks ago and was having weakness fatigue nausea vomiting decreased appetite. Blood pressure 146/76, heart rate 74, pulse ox 95% on 3 L nasal cannula. Patient is seen today in the emergency center waiting for bed on the cardiac stepdown unit. Blood pressure 138/67, heart rate 84, pulse ox 100% on room air, afebrile -EKG: Sinus rhythm with nonspecific ST changes. -Chest x-ray: No acute process -Laboratory studies: CBC normal. Sodium 139, potassium 4.9, BUN 26 and creatinine 1.68. Troponin 0.044, 0.045, 0.037. -Home cardiac medications: None 03/10/2024 Patient seen and examined. Patient is now on the cardiac stepdown unit. Blood pressure 122/69, heart rate in the 70s, pulse ox 96% on 3 L nasal cannula. Telemetry is sinus rhythm. Repeat blood work reveals WBC 12.5, hemoglobin 12.3, potassium 4.3, BUN 22 and creatinine 0.63. Yesterday, patient was continued on aspirin and Lipitor. Echocardiogram reveals EF of 45 to 50% with predominantly apical and apical septal hypokinesis. May be related to CAD versus Takotsubo's. RVSP 38. Mild tricuspid regurgitation. No pericardial effusion. Neurology and psychiatry are following the patient. Physical examination: Gen: This is a 68-year-old female in no acute distress VS: reviewed HEENT: Head is atraumatic, normocephalic. Pupils equal, round. Sclerae is anicteric. NECK: Supple. No JVD. LUNGS: Clear to auscultation. No wheezes or rhonchi. No intercostal retractions. HEART: Regular rate and rhythm. Systolic murmur at the apex. ABDOMEN: Soft No tenderness. EXTREMITIES: No pedal edema. No calf tenderness. NEUROLOGICAL: Patient is awake, oriented to person place. Assessment: Elevated troponins most likely due to apical ballooning syndrome Metabolic encephalopathy Hypertension Hyperlipidemia Diabetes mellitus type 2 History of CVA COPD Dementia Tobacco use and dependence Chronic back pain with removal of pain pump 2 weeks ago Plan: Continue patient on aspirin 81 mg daily, Lipitor Start patient on Toprol XL 25 mg daily Smoking cessation. Patient will be provided with the [employer] quit line information at discharge. Further recommendations to follow based upon clinical course Cardiology will sign off this case and follow on an as-needed basis. Please reconsult for any new concerns. Patient may follow-up in the office in [address] Diamond Pichardo. Nurse practitioner note has been reviewed, I agree with documented findings and plan of care. Patient was seen and examined. Objective - Vital Signs Vital signs: Vital Signs Temp 98.9 F 03/10/24 03:47 Pulse 94 03/10/24 08:15 Resp 20 03/10/24 03:47 BP 120/67 03/10/24 03:47 Pulse Ox 96 03/10/24 08:03 FiO2 Intake & Output 03/09/24 03/10/24 03/10/24 18:59 06:59 18:59 Output Total 500 Balance -500 Weight 58.967 kg 50.5 kg Output: Urine 500 Other: Voiding Method Indwelling Catheter Indwelling Catheter - Labs CBC & Chem 7: 03/10/24 07:22 03/10/24 07:22 Labs: Abnormal Lab Results - Last 24 Hours (Table) 03/08/24 03/08/24 03/09/24 Range/Units 07:28 07:28 09:06 WBC (3.8-10.6) k/uL MCV (80.0-100.0) fL MCHC (31.0-37.0) g/dL Plt Count (150-450) k/uL Potassium (3.5-5.1) mmol/L Carbon Dioxide (22-30) mmol/L BUN (7-17) mg/dL Glucose (74-99) mg/dL POC Glucose (mg/dL) 214 H (70-110) mg/dL Hemoglobin A1c 7.2 H (<=6.0) % HDL Cholesterol 68.30 H (40.00-60.00) mg/dL TSH (0.465-4.680) mIU/L 03/09/24 03/09/24 03/09/24 Range/Units 11:14 11:14 11:39 WBC 13.6 H (3.8-10.6) k/uL MCV 100.8 H (80.0-100.0) fL MCHC 30.4 L (31.0-37.0) g/dL Plt Count 147 L (150-450) k/uL Potassium 5.7 H (3.5-5.1) mmol/L Carbon Dioxide (22-30) mmol/L BUN 24 H (7-17) mg/dL Glucose 253 H (74-99) mg/dL POC Glucose (mg/dL) 226 H (70-110) mg/dL Hemoglobin A1c (<=6.0) % HDL Cholesterol (40.00-60.00) mg/dL TSH (0.465-4.680) mIU/L 03/09/24 03/09/24 03/09/24 Range/Units 14:26 16:20 17:10 WBC (3.8-10.6) k/uL MCV (80.0-100.0) fL MCHC (31.0-37.0) g/dL Plt Count (150-450) k/uL Potassium (3.5-5.1) mmol/L Carbon Dioxide (22-30) mmol/L BUN 25 H (7-17) mg/dL Glucose 169 H (74-99) mg/dL POC Glucose (mg/dL) 131 H (70-110) mg/dL Hemoglobin A1c (<=6.0) % HDL Cholesterol (40.00-60.00) mg/dL TSH 0.075 L (0.465-4.680) mIU/L 03/09/24 03/10/24 03/10/24 Range/Units 17:16 06:01 07:22 WBC 12.5 H (3.8-10.6) k/uL MCV (80.0-100.0) fL MCHC 30.8 L (31.0-37.0) g/dL Plt Count 141 L (150-450) k/uL Potassium (3.5-5.1) mmol/L Carbon Dioxide (22-30) mmol/L BUN (7-17) mg/dL Glucose (74-99) mg/dL POC Glucose (mg/dL) 119 H 162 H (70-110) mg/dL Hemoglobin A1c (<=6.0) % HDL Cholesterol (40.00-60.00) mg/dL TSH (0.465-4.680) mIU/L 03/10/24 Range/Units 07:22 WBC (3.8-10.6) k/uL MCV (80.0-100.0) fL MCHC (31.0-37.0) g/dL Plt Count (150-450) k/uL Potassium (3.5-5.1) mmol/L Carbon Dioxide 34 H (22-30) mmol/L BUN 22 H (7-17) mg/dL Glucose 169 H (74-99) mg/dL POC Glucose (mg/dL) (70-110) mg/dL Hemoglobin A1c (<=6.0) % HDL Cholesterol (40.00-60.00) mg/dL TSH (0.465-4.680) mIU/L
--- NOTE | 2024-03-10 13:07 | P.PN ---
Subjective Progress Note Date: 03/10/24 I am following-up with patient and per nursing team, she is doing better. She is more responsive today. Objective - Vital Signs Vital signs: Vital Signs Temp 98.5 F 03/10/24 08:00 Pulse 90 03/10/24 11:25 Resp 18 03/10/24 08:00 BP 122/69 03/10/24 08:00 Pulse Ox 96 03/10/24 08:03 FiO2 Intake & Output 03/09/24 03/10/24 03/10/24 18:59 06:59 18:59 Output Total 500 Balance -500 Weight 58.967 kg 50.5 kg Output: Urine 500 Other: Voiding Method Indwelling Catheter Indwelling Catheter Indwelling Catheter - Exam General: Lying in bed and is not in acute distress. HENT: Supple neck. Neuro: Somewhat limited. Patient is drowsy but is awake both voice. She is more awake both today compared to yesterday. She is oriented to self. She correctly stated that she is in the hospital. Language is limited. Patient is following simple commands. Pupils are round equal reactive to light. Unable to assess visual carrera because of her cooperation. No facial weakness. No dysarthria Motor: Strength is lifting bilateral upper extremity above gravity and is wiggling toes symmetrically. Some of the workup during this hospital visit consisted of: Vitamin B12 is 508 Serum folate 17.0 TSH is 0.075 and the free T4 is 0.97 Ammonia level is 10 CT of the head is reported as no acute intracranial process. Nonspecific white matter change, likely secondary to chronic small vessel ischemic disease. I personally reviewed the CT of the head and there is no acute or subacute stroke. CT Angiography of head and neck: No flow-limiting stenosis bilateral carotid bifurcation. Calcification is present at the bifurcation with approximately 41% narrowing each. Normal [place]. No aneurysm dilation is identified. CT thoracic and lumbar spine is reported as spinal canal stenosis in the lateral dimension L3-4 secondary due to facet hypertrophy and ligamentum of flavum laxity. Central endplate spur T9-T10 without spinal canal stenosis or cord contact. Postsurgical changes L4-L5. 2D echo is reported as ejection fraction of 45 to 50% with predominantly apical, apical septal hypokinesis. May be related to coronary artery disease versus Takotsubo. - Labs CBC & Chem 7: 03/10/24 07:22 12/06/24 07:22 Labs: Abnormal Lab Results - Last 24 Hours (Table) 03/09/24 03/09/24 03/09/24 Range/Units 14:26 16:20 17:10 WBC (3.8-10.6) k/uL MCHC (31.0-37.0) g/dL Plt Count (150-450) k/uL Carbon Dioxide (22-30) mmol/L BUN 25 H (7-17) mg/dL Glucose 169 H (74-99) mg/dL POC Glucose (mg/dL) 131 H (70-110) mg/dL TSH 0.075 L (0.465-4.680) mIU/L 03/09/24 03/10/24 03/10/24 Range/Units 17:16 06:01 07:22 WBC 12.5 H (3.8-10.6) k/uL MCHC 30.8 L (31.0-37.0) g/dL Plt Count 141 L (150-450) k/uL Carbon Dioxide (22-30) mmol/L BUN (7-17) mg/dL Glucose (74-99) mg/dL POC Glucose (mg/dL) 119 H 162 H (70-110) mg/dL TSH (0.465-4.680) mIU/L 03/10/24 03/10/24 Range/Units 07:22 11:24 WBC (3.8-10.6) k/uL MCHC (31.0-37.0) g/dL Plt Count (150-450) k/uL Carbon Dioxide 34 H (22-30) mmol/L BUN 22 H (7-17) mg/dL Glucose 169 H (74-99) mg/dL POC Glucose (mg/dL) 180 H (70-110) mg/dL TSH (0.465-4.680) mIU/L Assessment and Plan Assessment: This is a 68-year-old woman chronic back pain who present emerged since her pain pump was shut off approximately 2 weeks ago and ever since she has been having the generalized weakness nausea and vomiting. As well she is altered. Altered mental status/encephalopathy of unknown etiology--today mentation is improving. Unsure if due to pneumonia. Patient sound coarse even without auscultation. Generalized weakness, nausea vomiting Cardiomyopathy with redominantly apical, apical septal hypokinesis. May be related to coronary artery disease versus Takotsubo on 2D echo. Slightly elevated troponin Underlying history of chronic low back pain and her pain pump was shut off about 2 weeks ago and it seems she went to the pain specialist recently and they attempted to turn on pump back but unsuccessful. History of stroke History of diabetes type 2 Hypertension Hyperlipidemia Bipolar Anxiety Depression Panic disorder Plan: Pending MRI of the brain and routine EEG Cardiology is consulted Psychiatry is consulted Consider Pulmonary consultation. Will defer the rest of the medical management to primary and other specialist Plan is discussed with primary team N.P. Time with Patient: Less than 30
--- NOTE | 2024-03-10 13:17 | P.PN ---
Subjective Progress Note Date: 03/10/24 Hospital Course: Patient is a very pleasant 68-year-old female with a past medical history of hypertension, hyperlipidemia, [id number] diabetes mellitus type 2, CVA, COPD and continued nicotine dependence, chronic back pain, bipolar disorder, anxiety, depression, and panic disorder. She presented to the emergency department chief complaint of generalized weakness, nausea, and vomiting. Patient and her son at bedside reports that her pain pump was shut off approximately 2 weeks ago and since this time she has been experiencing increased generalized weakness, fatigue, nausea, vomiting, and decreased appetite. Patient's son at bedside states his mother symptoms significantly worsened over the past few days and she went back to her pain management doctor and they attempted to turn the pain pump back on today but were unsuccessful. He states he was going to take her home but she is just too weak so he brought her to the emergency department for evaluation. Upon arrival to our facility, patient reporting feeling fatigued, tired, nauseous, and no appetite. She states generalized lower back pain currently rating 5 out of 10 at this time. She denies having any headache, lightheadedness, dizziness, chest pain, palpitations, shortness of breath, cough or congestion, or experiencing any focal numbness/tingling/weakness/swelling in her extremities. Patient underwent evaluation in the emergency department. Vital signs upon arrival show blood pressure 105/69, heart rate 90, respiratory rate 20, temp 97.4 F, and SpO2 of 98% on room air. EKG completed showing normal sinus rhythm at 74 bpm with diffuse T wave inversion. Chest x-ray completed was negative for acute cardiopulmonary process. Labs completed and reviewed. CBC unremarkable. Coagulation profile normal findings. BMP showing hyperchloremia with chloride of 109 and mild prerenal azotemia with BUN of 26. Blood glucose was 169. Magnesium was 1.8. Liver profile showing slightly elevated AST of 39 otherwise normal findings. Troponin was 0.044 with repeat troponin of 0.045. Urinalysis negative for infection. Influenza A, influenza B, RSV, and COVID PCR negative. Physical exam: Patient was seen and fully evaluated at bedside this morning. Patient's orientation much improved and she no longer reports feeling anxious or panicked. Pt alert to person, place and time. She remains confused to situation and her reason for being in the hospital. Patient does report having a cough and rattling in her chest which is new. She denies shortness of breath or any other complaints at this time. Vital signs reviewed and stable. General: Nontoxic, no distress and appears stated age. Derm: Skin warm and dry, normal coloration for ethnicity. Head: Atraumatic, normocephalic and symmetric. Eyes: EOM's intact, no lid lag, and anicteric sclera Mouth: no lip lesions, mucus membranes moist Cardiovascular: regular rate and rhythm with normal S1S2, systolic murmur, positive posterior tibial pulses bilaterally, and cap refill < 2 seconds. Lungs: Respirations even, regular, and unlabored on room air. Lungs CTA bilaterally, no rhonchi, no rales, no wheezing, and no accessory muscle usage. Abdominal: soft, nontender to palpation, no guarding, no appreciable organomegaly Ext: ROM intact. No gross muscle atrophy, no edema, no contractures Neuro: Speech clear, face symmetrical and CN II-XII grossly intact with no noted focal neuro deficits Psych: Alert and oriented to person, place, time, and situation. Appropriate and pleasant affect. Assessment and Plan of Care: Metabolic encephalopathy, suspected secondary to acute panic attack with patient's reports of feeling anxious. Improved -CT brain was negative for acute intracranial process. -Neurochecks every 4 hours. -Neurology was consulted for evaluation order for MRI brain, as well as MR thoracic and lumbar spine.. -Psychiatry also consulted for evaluation. -Continue safe and supportive care with assistance and reorientation as needed. Generalized weakness with intractable nausea and vomiting, possibly secondary to opioid withdrawal Elevated troponins Hypertension Hyperlipidemia History of CVA Chronic back pain -Cardiology consulted, appreciate recommendations -Telemetry monitoring -Trended resulting at 0.044, 0.045, 0.037. -Continue aspirin 81 mg daily and atorvastatin 80 mg daily. -Lipid profile and hemoglobin A1c with a.m. labs. -Echocardiogram -Continue Percocet 5/325 mg tablets every 6 hours as needed for pain management and to prevent further symptoms of opioid withdrawal. -PT/OT consulted for evaluation. Bipolar disorder Anxiety and depression Panic disorder -Continue daily medication regimen with Aricept 5 mg nightly, Keppra 500 mg twice daily, Latuda 20 mg daily, Remeron 45 mg nightly, and Lyrica 150 mg 3 times daily Data and imaging reviewed: Labs reviewed. CBC showing leukocytosis with WBC count of 12.5 thrombocytopenia with platelet count of 141. BMP showing hypercarbia with bicar b of 34 and mild prerenal azotemia with BUN of 22. Blood glucose 169. Magnesium 1.9. Liver profile unremarkable. Vital signs reviewed. Blood pressure 122/69, heart rate 79, respiratory rate 18, temp 98.5 F, and SpO2 of 96% on 3 L. CODE STATUS: Full code DVT prophylaxis: Heparin Anticipated discharge date: Pending clinical course, likely 24 to [address]: Home Patient was seen independently by Nurse Practitioner. This document was prepared using [employer] dictation software. Please allow for errors in injection molding machine operator while rare they do occur. Kade Vale NP rendered care for this patient independently, reviewed the findings and plan as documented in the note above and agree with plan. I did not physically speak with or examine the patient on this date. Objective - Vital Signs Vital signs: Vital Signs Temp 98.9 F 03/10/24 03:47 Pulse 94 03/10/24 08:15 Resp 20 03/10/24 03:47 BP 120/67 03/10/24 03:47 Pulse Ox 96 03/10/24 08:03 FiO2 Intake & Output 03/09/24 03/10/24 03/10/24 18:59 06:59 18:59 Output Total 500 Balance -500 Weight 58.967 kg 50.5 kg Output: Urine 500 Other: Voiding Method Indwelling Catheter Indwelling Catheter - Labs CBC & Chem 7: 03/10/24 07:22 03/10/24 07:22 Labs: Abnormal Lab Results - Last 24 Hours (Table) 03/08/24 03/08/24 03/09/24 Range/Units 07:28 07:28 09:06 WBC (3.8-10.6) k/uL MCV (80.0-100.0) fL MCHC (31.0-37.0) g/dL Plt Count (150-450) k/uL Potassium (3.5-5.1) mmol/L Carbon Dioxide (22-30) mmol/L BUN (7-17) mg/dL Glucose (74-99) mg/dL POC Glucose (mg/dL) 214 H (70-110) mg/dL Hemoglobin A1c 7.2 H (<=6.0) % HDL Cholesterol 68.30 H (40.00-60.00) mg/dL TSH (0.465-4.680) mIU/L 03/09/24 03/09/24 03/09/24 Range/Units 11:14 11:14 11:39 WBC 13.6 H (3.8-10.6) k/uL MCV 100.8 H (80.0-100.0) fL MCHC 30.4 L (31.0-37.0) g/dL Plt Count 147 L (150-450) k/uL Potassium 5.7 H (3.5-5.1) mmol/L Carbon Dioxide (22-30) mmol/L BUN 24 H (7-17) mg/dL Glucose 253 H (74-99) mg/dL POC Glucose (mg/dL) 226 H (70-110) mg/dL Hemoglobin A1c (<=6.0) % HDL Cholesterol (40.00-60.00) mg/dL TSH (0.465-4.680) mIU/L 03/09/24 03/09/24 03/09/24 Range/Units 14:26 16:20 17:10 WBC (3.8-10.6) k/uL MCV (80.0-100.0) fL MCHC (31.0-37.0) g/dL Plt Count (150-450) k/uL Potassium (3.5-5.1) mmol/L Carbon Dioxide (22-30) mmol/L BUN 25 H (7-17) mg/dL Glucose 169 H (74-99) mg/dL POC Glucose (mg/dL) 131 H (70-110) mg/dL Hemoglobin A1c (<=6.0) % HDL Cholesterol (40.00-60.00) mg/dL TSH 0.075 L (0.465-4.680) mIU/L 03/09/24 03/10/24 03/10/24 Range/Units 17:16 06:01 07:22 WBC 12.5 H (3.8-10.6) k/uL MCV (80.0-100.0) fL MCHC 30.8 L (31.0-37.0) g/dL Plt Count 141 L (150-450) k/uL Potassium (3.5-5.1) mmol/L Carbon Dioxide (22-30) mmol/L BUN (7-17) mg/dL Glucose (74-99) mg/dL POC Glucose (mg/dL) 119 H 162 H (70-110) mg/dL Hemoglobin A1c (<=6.0) % HDL Cholesterol (40.00-60.00) mg/dL TSH (0.465-4.680) mIU/L 03/10/24 Range/Units 07:22 WBC (3.8-10.6) k/uL MCV (80.0-100.0) fL MCHC (31.0-37.0) g/dL Plt Count (150-450) k/uL Potassium (3.5-5.1) mmol/L Carbon Dioxide 34 H (22-30) mmol/L BUN 22 H (7-17) mg/dL Glucose 169 H (74-99) mg/dL POC Glucose (mg/dL) (70-110) mg/dL Hemoglobin A1c (<=6.0) % HDL Cholesterol (40.00-60.00) mg/dL TSH (0.465-4.680) mIU/L
--- NOTE | 2024-03-10 14:28 | P.CN ---
Psychiatric Consult - . Consult date: 03/10/24 Consult:: 03/10/24 14:23 IDENTIFYING DATA: This patient is a 68-year-old male REASON FOR REFERRAL: Psychiatry was consulted for AMS, panic disorder HISTORY OF PRESENT ILLNESS: The patient presented to the hospital for generalized weakness. CT head was negative. Patient was a poor historian and appeared to be A&Ox1 to self.note, patient has been prescribed alprazolam 0.5 mg 3 times daily for several years, last filling this medication on 03/05 with prescriber Marylu Abdullahi. This has not been continued on admission and could likely be the cause of patient's worsening anxiety. There are no behaviors today per staff. Patient was unable to elicit any contributory information, stating "I do not know" with most questions or "I hurt". PAST PSYCHIATRIC HISTORY: Patient has a a history of cognitive impairment. She is prescribed Remeron 45 mg at bedtime, Latuda 20 mg daily, Aricept 5 mg at bedtime, melatonin 3 mg as needed at bedtime. PAST MEDICAL HISTORY: COPD, CVA/TIA, Diabetes Mellitus, Hyperlipidemia, Hypertension. ALLERGIES: as per EMR. CHEMICAL DEPENDENCY HISTORY: as per HPI. FAMILY PSYCHIATRIC/SUBSTANCE USE HISTORY: Unknown SOCIAL HISTORY: Unknown MENTAL STATUS EXAM: General Appearance: Patient appears to be stated age is alert and uncooperative. Patient appears to have poor hygiene and grooming wearing hospital gown with downcast eye contact. Behavior: Patient is calmly lying in bed without any agitated behavior. Speech: Patient's speech is fluent and nonpressured. Mood/Affect: Patient reports their mood is "I hurt", affect is restricted Suicidality/Homicidality: unable to assess Perceptions: Patient did not appear internally preoccupied Memory and concentration: AOX1 to self, concentration impaired Judgment and insight: Poor IMPRESSIONS: History of depression History of anxiety Unspecified neurocognitive disorder PLAN: -At this time patient DOES NOT meet criteria for inpatient psychiatric admission. -Patient DOES NOT have decision making capacity at this time and is unable to reason through and communicate/appreciate the risks, benefits and alternatives to treatment. -Would recommend the following medication changes/additions: Given patient's long-term history of Xanax prescriptions, last filling on 03/05 will start patient on Klonopin 1 mg twice daily instead for anxiety -Communicated plan to patient's nurse -Psychiatry will sign off at this time -Please contact with any questions.
--- NOTE | 2024-03-10 14:36 | XR ---
EXAMINATION TYPE: XR chest 1V portable DATE OF EXAM: 03/10/2024 2:21 PM COMPARISON: Chest radiographs from 03/08/2024. CLINICAL INDICATION: Female, 68 years old with history of cough and congestion; [facility] TECHNIQUE: XR chest 1V portable Frontal view of the chest. FINDINGS: Lungs/Pleura: New opacification of the left chest compared to prior with blunting of costophrenic ang le and scattered airspace opacities. The right lung is relatively clear. Pulmonary vascularity: Unremarkable. Heart/mediastinum: Cardiomediastinal silhouette is unremarkable. Musculoskeletal: No acute osseous pathology. IMPRESSION: New near complete opacification of the left chest correlate for developing pleural effusion and/or ai rspace disease and/or atelectasis possibly from obstruction. Not seen on 03/08/2024. [facility], , 03/10/2024 2:34 PM
[2024-03-10 16:31] LABS: ABG Base Excess 4.4 mmol/L; ABG HCO3 30 mmol/L (21-25); ABG Oxygen Saturation 73.4 % (94-97); ABG PCO2 49 mmHg (35-45); ABG TCO2 32 mmol/L (19-24); Allen Test Performed? Yes
[2024-03-10 16:32] LABS: ABG PO2 37 mmHg (83-108)
[2024-03-10 16:33] LABS: Glucose,Whole Blood 178 mg/dL (70-110)
--- NOTE | 2024-03-10 17:04 | P.PN ---
Progress Note - Text Progress Note Date: 03/10/24 A- team: Indication: Acute respiratory failure with hypoxia Arrived on Scene to find: Patient was tachypneic and gasping respirations, she was hypoxic requiring placement on BiPAP. Chest x-ray resulting showing new near complete opacification of the left chest concerning for developing pleural effusion secondary to obstruction from mucous plugging. Prior to event patient was on 2 L O2 via nasal cannula with SpO2 of 97%. She did report development of cough this morning, otherwise denies shortness of breath. Patient reports shortness of breath sudden onset. Once placed on BiPAP settings adjusted, patient remained hypoxic with SpO2 in the 70s despite continuous BiPAP and requiring transfer to ICU. ABG was obtained showing a pH of 7.40, pCO2 of 49, PaO2 37, bicarb 30, total CO2 32, and ABG O2 saturation of 73.4% with a base excess of 4.4. Assessment and Plan: Acute respiratory failure with hypoxia, with complete new onset opacification of left lung suspected to be secondary to mucous plug -Orders place for stat ABG along with continuous BiPAP with IPAP of 10, EPAP 5, FiO2 30% and to be titrated accordingly to keep SpO2 equal to or greater than 90%. -Consult placed to director operating room, called and discussed case with director operating room and pulmonary [employer]. Patient to be transferred to ICU for close continuous monitoring with plans for possible bronchoscopy if no improvement with BiPAP. -Continuous pulse oximetry monitoring. -Patient to be started on IV antibiotics. Metabolic encephalopathy, suspected secondary to acute panic attack with patient's reports of feeling anxious. Improved -CT brain was negative for acute intracranial process. -Neurochecks every 4 hours. -Neurology was consulted for evaluation order for MRI brain, as well as MR thoracic and lumbar spine.. -Psychiatry also consulted for evaluation. -Continue safe and supportive care with assistance and reorientation as needed. Generalized weakness with intractable nausea and vomiting, possibly secondary to opioid withdrawal Elevated troponins Hypertension Hyperlipidemia History of CVA Chronic back pain -Cardiology consulted, appreciate recommendations -Telemetry monitoring -Trended resulting at 0.044, 0.045, 0.037. -Continue aspirin 81 mg daily and atorvastatin 80 mg daily. -Lipid profile and hemoglobin A1c with a.m. labs. -Echocardiogram -Continue Percocet 5/325 mg tablets every 6 hours as needed for pain management and to prevent further symptoms of opioid withdrawal. -PT/OT consulted for evaluation. Bipolar disorder Anxiety and depression Panic disorder -Continue daily medication regimen with Aricept 5 mg nightly, Keppra 500 mg twice daily, Latuda 20 mg daily, Remeron 45 mg nightly, and Lyrica 150 mg 3 times daily Disposition: Transfer to ICU Notified: Marketing Analytics Specialist, Dr. Baptiste and Pulmonary [employer] A Total of 40 minutes of critical care time was spent on the complex care of this patient. Patient was seen independently by Nurse Pracitioner, care being transferred to Supervising Physician for continued ICU care This document was prepared using [employer] dictation software. Please allow for errors in adapted physical education specialist, while rare they do occur. Kade Vale NP rendered care for this patient independently, reviewed the findings and plan as documented in the note above and agree with plan. I did not physically speak with or examine the patient on this date.
--- NOTE | 2024-03-10 18:08 | P.CNPUL ---
History of Present Illness Consult date: 03/10/24 Requesting physician: Kade Vale Reason for consult: hypoxemia, abnormal CXR/CT Chief complaint: Generalized weakness, nausea, vomiting History of present illness: This is a 68-year-old female patient with a known history of hypertension, hyperlipidemia, diabetes mellitus, CVA, chronic tobacco dependence and chronic obstructive pulmonary disease, bipolar disorder. She presented here on 2023 with generalized weakness fatigue nausea and vomiting. She had been followed up on the regular medical floor. Afternoon she developed increasing shortness of breath cough and congestion. A chest x-ray was done and showed a near complete opacification of the left chest that was new compared to 03/08/2024. Arterial blood gases revealed a PaO2 of 37, pCO2 49 and a pH of 7.40. A rapid response team was called and she was placed on BiPAP 14/6 and 100% FiO2 and transferred to the intensive care unit. She is seen today in consultation. She is currently resting fairly comfortably. She is tolerating the BiPAP. She is awake and alert. Continued with O2 saturations in the 90s now. White count 12.5. Hemoglobin 12.3. Platelets 141. Sodium 137. Potassium 4.3. Bicarb 34. BUN 22. Creatinine 0.63. Glucose 169. Review of Systems REVIEW OF SYSTEMS: CONSTITUTIONAL: Positive for generalized weakness, denies any recent significant weight loss or weight gain. EYES: Denies change in vision. EARS, NOSE, MOUTH, THROAT: Denies headaches, denies sore throat. CARDIOVASCULAR: Denies chest pain, palpitations or syncopal episodes. RESPIRATORY: Positive for shortness of breath, cough, congestion or hemoptysis. GASTROINTESTINAL: Positive for nausea and vomiting GENITOURINARY: Denies hematuria, denies infections. MUSKULOSKELETAL: Denies pain, denies swelling. INTEGUMENTARY: Denies rash, denies eczema. NEUROLOGICAL: Denies recent memory loss, no recent seizure activity. PSYCHIATRIC: Denies anxiety, denies depression. HEMATOLOGIC/LYMPHATIC: Denies anemia, denies enlarged lymph nodes. Past Medical History Past Medical History: COPD, CVA/TIA, Diabetes Mellitus, Hyperlipidemia, Hypertension Additional Past Medical History / Comment(s): Diabetes mellitus type 2 insulin requiring, hypertension, hyperlipidemia, CVA, restless leg syndrome, chronic diarrhea. History of Any Multi-Drug Resistant Organisms: None Reported Past Surgical History: Adenoidectomy, Appendectomy, Cholecystectomy, Hysterectomy, Orthopedic Surgery, Tonsillectomy Additional Past Surgical History / Comment(s): right knee repacement x2 , left ankle surgery, bladder suspension x 2 partial hysterectomy , left breast biopsy,T+A, colonoscopy, cholecystectomy, Lasik for both eyes. Past Anesthesia/Blood Transfusion Reactions: No Reported Reaction Past Psychological History: Anxiety, Bipolar, Depression, Panic Disorder Smoking Status: Current every day smoker Past Alcohol Use History: None Reported Past Drug Use History: Prescription Drug Abuse - Past Family History Mother Family Medical History: Diabetes Mellitus Father Family Medical History: CVA/TIA Brother(s) Family Medical History: No Reported History Son(s) Family Medical History: No Reported History Daughter(s) Family Medical History: No Reported History Medications and Allergies Home Medications Medication Instructions Recorded Confirmed Type Ergocalciferol [Vitamin D2 1,250 mcg PO PARKS 01/08/20 03/08/24 History (DRISDOL)] levETIRAcetam [Keppra] 500 mg PO BID 01/08/20 03/08/24 History Albuterol Inhaler [Ventolin Hfa 2 puff INHALATION RT-QID PRN 05/10/20 03/08/24 History Inhaler] ALPRAZolam [Xanax] 0.5 mg PO TID 10/10/20 03/08/24 History Donepezil [Aricept] 5 mg PO HS 10/10/20 03/08/24 History Omeprazole 40 mg PO DAILY 10/10/20 03/08/24 History metFORMIN HCL [Glucophage] 500 mg PO DAILY 10/10/20 03/08/24 History Celecoxib [CeleBREX] 100 mg PO DAILY 03/08/24 03/08/24 History Loratadine 10 mg PO DAILY 03/08/24 03/08/24 History Lurasidone [Latuda] 20 mg PO DAILY 03/08/24 03/08/24 History Mirtazapine [Remeron] 45 mg PO HS 03/08/24 03/08/24 History Pregabalin [Lyrica] 150 mg PO TID 03/08/24 03/08/24 History Triamcinolone 0.1% Cream [Kenalog 1 applic TOPICAL BID 03/08/24 03/08/24 History 0.1% Cream] oxyCODONE-APAP 5-325MG [Percocet 1 tab PO BID PRN 03/08/24 03/08/24 History 5-325 mg] Allergies Allergy/AdvReac Type Severity Reaction Status Date / Time Penicillins Allergy Unknown Verified 03/08/24 17:04 ramipril [From Altace] Allergy Unknown Verified 03/08/24 17:04 Physical Exam Vitals: Vital Signs Temp Pulse Pulse Resp BP BP Pulse Ox 03/10/24 17:00 88 19 129/64 87 L 03/10/24 16:45 93 24 128/61 70 L 03/10/24 16:34 03/10/24 16:30 98.2 F 93 25 H 128/61 73 L 03/10/24 16:26 23 03/10/24 15:28 105 H 03/10/24 15:20 116 H 03/10/24 13:58 74 16 03/10/24 12:00 97.9 F 74 16 110/70 97 03/10/24 11:25 90 03/10/24 11:16 93 03/10/24 08:15 94 03/10/24 08:07 91 03/10/24 08:03 96 03/10/24 08:00 98.5 F 79 18 122/69 96 03/10/24 03:47 98.9 F 86 20 120/67 98 03/10/24 01:18 86 16 03/10/24 00:00 98.8 F 86 20 121/67 100 03/09/24 20:00 98.8 F 93 16 127/62 99 03/09/24 18:43 98.9 F 88 16 122/65 100 FiO2 03/10/24 17:00 100 03/10/24 16:45 100 03/10/24 16:34 100 03/10/24 16:30 100 03/10/24 16:26 03/10/24 15:28 03/10/24 15:20 03/10/24 13:58 03/10/24 12:00 03/10/24 11:25 03/10/24 11:16 03/10/24 08:15 03/10/24 08:07 03/10/24 08:03 03/10/24 08:00 03/10/24 03:47 03/10/24 01:18 03/10/24 00:00 03/09/24 20:00 03/09/24 18:43 Intake and Output 03/10/24 03/10/24 03/10/24 06:59 14:59 22:59 Output Total 500 50 Balance -500 -50 Output: Urine 500 50 Other: Voiding Method Indwelling Catheter Indwelling Catheter # Voids 2 Weight 50.5 kg GENERAL EXAM: Alert, thin 68-year-old female, on BiPAP 14/6 and 100% FiO2, fairly comfortable in no apparent distress. HEAD: Normocephalic. EYES: Normal reaction of pupils, equal size. NOSE: Clear with pink turbinates. THROAT: No erythema or exudates. NECK: No masses, no JVD. CHEST: No chest wall deformity. LUNGS: Equal air entry with rhonchi over the left lung, diminished. CVS: S1 and S2 normal with no audible murmur, regular rhythm. ABDOMEN: No hepatosplenomegaly, normal bowel sounds, no guarding or rigidity. SPINE: No scoliosis or deformity SKIN: No rashes CENTRAL NERVOUS SYSTEM: No focal deficits, tone is normal in all 4 extremities. EXTREMITIES: There is no peripheral edema. No clubbing, no cyanosis. Peripheral pulses are intact. Results - Laboratory Findings CBC and BMP: 03/10/24 07:22 03/10/24 07:22 ABG ABG pH 7.40 (7.35-7.45) 03/10/24 15:56 ABG pCO2 49 mmHg (35-45) H 03/10/24 15:56 ABG pO2 37 mmHg (83-108) L* 03/10/24 15:56 ABG O2 Saturation 73.4 % (94-97) L 03/10/24 15:56 PT/INR, D-dimer PT 11.2 sec (10.0-12.5) 03/08/24 11:25 INR 1.0 (<1.2) 03/08/24 11:25 Abnormal lab findings: Abnormal Labs 03/08/24 03/08/24 03/08/24 07:28 07:28 11:25 WBC MCV MCHC Plt Count ABG pCO2 ABG pO2 ABG HCO3 ABG Total CO2 ABG O2 Saturation Potassium Chloride 109 H Carbon Dioxide BUN 26 H Glucose 169 H POC Glucose (mg/dL) Hemoglobin A1c 7.2 H AST 39 H Troponin I HDL Cholesterol 68.30 H TSH 03/08/24 03/08/24 03/08/24 11:25 14:53 18:18 WBC MCV MCHC Plt Count ABG pCO2 ABG pO2 ABG HCO3 ABG Total CO2 ABG O2 Saturation Potassium Chloride Carbon Dioxide BUN Glucose POC Glucose (mg/dL) Hemoglobin A1c AST Troponin I 0.044 H* 0.045 H* 0.037 H* HDL Cholesterol TSH 03/08/24 03/09/24 03/09/24 20:36 03:57 09:06 WBC MCV MCHC Plt Count ABG pCO2 ABG pO2 ABG HCO3 ABG Total CO2 ABG O2 Saturation Potassium Chloride Carbon Dioxide BUN Glucose POC Glucose (mg/dL) 160 H 211 H 214 H Hemoglobin A1c AST Troponin I HDL Cholesterol TSH 03/09/24 03/09/24 03/09/24 11:14 11:14 11:39 WBC 13.6 H MCV 100.8 H MCHC 30.4 L Plt Count 147 L ABG pCO2 ABG pO2 ABG HCO3 ABG Total CO2 ABG O2 Saturation Potassium 5.7 H Chloride Carbon Dioxide BUN 24 H Glucose 253 H POC Glucose (mg/dL) 226 H Hemoglobin A1c AST Troponin I HDL Cholesterol TSH 03/09/24 03/09/24 03/09/24 14:26 16:20 17:10 WBC MCV MCHC Plt Count ABG pCO2 ABG pO2 ABG HCO3 ABG Total CO2 ABG O2 Saturation Potassium Chloride Carbon Dioxide BUN 25 H Glucose 169 H POC Glucose (mg/dL) 131 H Hemoglobin A1c AST Troponin I HDL Cholesterol TSH 0.075 L 03/09/24 03/10/24 03/10/24 17:16 06:01 07:22 WBC 12.5 H MCV MCHC 30.8 L Plt Count 141 L ABG pCO2 ABG pO2 ABG HCO3 ABG Total CO2 ABG O2 Saturation Potassium Chloride Carbon Dioxide BUN Glucose POC Glucose (mg/dL) 119 H 162 H Hemoglobin A1c AST Troponin I HDL Cholesterol TSH 03/10/24 03/10/24 03/10/24 07:22 11:24 15:56 WBC MCV MCHC Plt Count ABG pCO2 49 H ABG pO2 37 L* ABG HCO3 30 H ABG Total CO2 32 H ABG O2 Saturation 73.4 L Potassium Chloride Carbon Dioxide 34 H BUN 22 H Glucose 169 H POC Glucose (mg/dL) 180 H Hemoglobin A1c AST Troponin I HDL Cholesterol TSH 03/10/24 16:31 WBC MCV MCHC Plt Count ABG pCO2 ABG pO2 ABG HCO3 ABG Total CO2 ABG O2 Saturation Potassium Chloride Carbon Dioxide BUN Glucose POC Glucose (mg/dL) 178 H Hemoglobin A1c AST Troponin I HDL Cholesterol TSH - Diagnostic Findings Chest x-ray: image reviewed Assessment and Plan Assessment: Acute hypoxemic respiratory failure secondary to suspected mucous plug with complete new opacification of the left lung Generalized weakness with nausea and vomiting suspect secondary to opioid withdrawal Metabolic encephalopathy secondary to acute panic attacks Hypertension Hyperlipidemia History of CVA Chronic back pain Bipolar disorder Anxiety/depression History of panic disorder Plan: The patient was seen and evaluated Chest x-ray, ABGs, labs and medications reviewed Placed on BiPAP 14/6 and 100% FiO2 Titrate down the FiO2 as tolerated Initiate azithromycin and Rocephin Check a procalcitonin Initiate chest physiotherapy Follow-up chest x-ray in a.m. May require bronchoscopy in a.m. We will continue to follow and make further recommendations based on her clinical status I have personally seen and examined the patient, performed the documentation and the assessment and plan as written. Number of minutes spent on the visit: 20 Dictation was produced using [employer] dictation software. Please excuse any grammatical, word or spelling errors.
[2024-03-10] MEDS: AZITHROMYCIN 500 MG in SODIUM CHLORIDE 0.9% 250 ML IVPB SCH (19:58)
[2024-03-10 20:21] LABS: Glucose,Whole Blood 209 mg/dL (70-110)
[2024-03-10] MEDS: levETIRAcetam IV 500 MG/5 ML VIAL IVP SCH (21:01)
[2024-03-10] MEDS: clonazePAM 1 MG TAB PO SCH (21:02)
[2024-03-10 23:47] LABS: Glucose,Whole Blood 175 mg/dL (70-110)
--- NOTE | 2024-03-11 02:10 | EEG ---
ELECTROENCEPHALOGRAM REPORT CLINICAL HISTORY: This is a 68-year-old woman with altered mental status. The video EEG is obtained to evaluate for seizure epileptiform activity. RELEVANT MEDICATION: Keppra. EEG TYPE: This is a routine 21-channel EEG with video using the 10/20 electrode placement system. DESCRIPTION: Wakefulness is only obtained. The background consists of [id number] voltage of 6 to 6.5 hertz activity that is well modulated and well sustained. At times, the background consists of diffuse nonrhythmic delta activity. There is no focal slowing. Interictal and ictal, there is suspicious of sharp and slow wave over the left mormonism region with an increased risk for focal seizure. No seizures noted during the study. ACTIVATION PROCEDURE: Photic stimulation did not evoke a posterior driving response. There is no abnormality during the photic stimulation. Hyperventilation is not performed. CLINICAL INTERPRETATION: This is an abnormal routine EEG. The background slowing is suggestive of moderate encephalopathy. There are suspicious discharges over the left temporal (T5 lead) which could increase risk for focal seizure as well as status epilepticus. Otherwise, there is no focal slowing or seizure noted during the study. Clinical correlation is recommended. MMODL / IJN: [id number] /
[2024-03-11 03:20] LABS: HCT 39.1 % (34.0-46.0); HGB 12.6 gm/dL (11.4-16.0); MCH 31.2 pg (25.0-35.0); MCHC 32.2 g/dL (31.0-37.0); MCV 96.6 fL (80.0-100.0); Mean Platelet Volume 8.8; Platelet Count 147 k/uL (150-450); RBC 4.05 m/uL (3.80-5.40); RDW 13.6 % (11.5-15.5); WBC 4.4 k/uL (3.8-10.6)
[2024-03-11 03:32] LABS: African American GFR (CKD) >90 (>60 ml/min/1.73 sqM); Anion Gap 3 mmol/L; Blood Urea Nitrogen 28 mg/dL (7-17); Calcium 8.4 mg/dL (8.4-10.2); Carbon Dioxide 30 mmol/L (22-30); Chloride 103 mmol/L (98-107); Glucose 158 mg/dL (74-99); Magnesium 1.7 mg/dL (1.6-2.3); Non-African American GFR(CKD) 90 (>60 ml/min/1.73 sqM); Potassium 4.3 mmol/L (3.5-5.1); Sodium 136 mmol/L (137-145)
[2024-03-11] MEDS ORDERED: Magnesium Replacement Protocol 1 EACH MISC MISCELLANE PRN (03:58)
[2024-03-11] MEDS: MAGNESIUM SULFATE-D5W PMX 1 GM in DEXTROSE/WATER 1 100ML.BAG IVPB ONE (04:17)
[2024-03-11 04:30] LABS: ABG Base Excess 6.5 mmol/L; ABG HCO3 32 mmol/L (21-25); ABG PCO2 49 mmHg (35-45); ABG PH 7.42 (7.35-7.45); ABG PO2 206 mmHg (83-108); ABG TCO2 34 mmol/L (19-24); Allen Test Performed? Yes
--- NOTE | 2024-03-11 06:45 | XR ---
EXAMINATION TYPE: XR chest 1V portable DATE OF EXAM: 03/11/2024 COMPARISON: 03/10/2024 CLINICAL INDICATION: Female, 68 years old with history of Left lung opacification; TECHNIQUE: Single frontal view of the chest is obtained. Findings: There are patchy airspace opacities in the upper and mid left lung and dense opacification in the ret rocardiac region. Findings most likely combination of pleural effusion and acute airspace process. It appears slightly less prominent than on the prior study. Right lung is clear. There is no pneumothorax.. The osseous structures are intact. IMPRESSION: Mild interval improvement in diffuse acute cardiopulmonary process involving the left lung. The right lung remains clear. [facility], , 03/11/2024 6:42 AM
[2024-03-11 07:00] LABS: Glucose,Whole Blood 258 mg/dL (70-110)
[2024-03-11] MEDS: ACETAMINOPHEN IV (For NPO) 1,000 MG in EMPTY BAG 1 BAG IVPB ONE (07:04)
[2024-03-11] MEDS: SODIUM CHLORIDE 0.9% 1,000 ML IV ONE ×2 (09:00→15:07)
[2024-03-11] MEDS: CEFEPIME 2 GM in SODIUM CHLORIDE 0.9% 100 ML IVPB SCH (09:11)
--- NOTE | 2024-03-11 09:15 | P.PN ---
Subjective Progress Note Date: 03/11/24 Principal diagnosis: Vianca is a 68-year-old female with past medical history of primary hypertension, hyperlipidemia, type 2 diabetes on insulin, CVA COPD and chronic back pain. She had presented to hospital on March 09 with generalized weakness and nausea and vomiting. The patient's pain pump was shut off 2 weeks prior and the patient had continued to have generalized weakness nausea vomiting decreased appetite. Attempts were made to restart the pain pump were unsuccessful. When the patient had presented to the hospital it appears patient was having panic attacks. She had a rapid response on March 10 where it appears patient was having some mucous plugging of her left lung. She was placed on BiPAP and was admitted to the ICU. 03/10: The patient has continued and remained on BiPAP with settings of /. She is currently on 50% FiO2. Her chest x-ray does show some improvement of her aeration of her left lung. Objective - Vital Signs Vital signs: Vital Signs Temp 100.1 F H 03/11/24 08:00 Pulse 101 H 03/11/24 08:00 Resp 18 03/11/24 08:00 BP 104/58 03/11/24 08:00 Pulse Ox 100 03/11/24 08:00 FiO2 50 03/11/24 08:15 Intake & Output 03/10/24 03/11/24 03/11/24 18:59 06:59 18:59 Intake Total 50 250 100 Output Total 80 290 45 Balance -30 -40 55 Weight 66.6 kg Intake: IV 50 cefTRIAXone 2 gm In 50 Sodium Chloride 0.9% 50 ml @ 100 mls/hr IVPB Q24HR [facility] Rx#:[id number] Intake, IV Titration 250 100 Amount ACETAMINOPHEN IV (For NPO 100 ) 1,000 mg In Empty Bag 1 bag @ 400 mls/hr IVPB ONCE ONE Rx#:[id number] Azithromycin 500 mg In 250 Sodium Chloride 0.9% 250 ml @ 250 mls/hr IVPB Q24H [facility] Rx#:[id number] Output: Urine 80 290 45 Other: Voiding Method Indwelling Catheter Indwelling Catheter # Voids 2 - Exam General: Female, appears stated age, response to noxious painful stimuli on BiPAP currently Derm: Skin warm and dry, normal coloration for ethnicity. Head: Atraumatic, normocephalic and symmetric. Eyes: EOM's intact, no lid lag, and anicteric sclera Mouth: no lip lesions, mucus membranes moist Cardiovascular: Clear to auscultation bilaterally and no murmurs rubs or gallops Lungs: Coarse breath sounds of left lung. Right lung is clear. She is on BiPAP. Abdominal: soft, nontender to palpation, no guarding, no appreciable organomegaly Ext: ROM intact. No gross muscle atrophy, no edema, no contractures Neuro: Moving all extremity spontaneously, does respond to simple commands however appears lethargic Psych: Calm - Labs CBC & Chem 7: 03/11/24 02:47 03/11/24 02:47 Labs: Abnormal Lab Results - Last 24 Hours (Table) 03/10/24 03/10/24 03/10/24 Range/Units 11:24 15:56 16:31 Plt Count (150-450) k/uL ABG pCO2 49 H (35-45) mmHg ABG pO2 37 L* (83-108) mmHg ABG HCO3 30 H (21-25) mmol/L ABG Total CO2 32 H (19-24) mmol/L ABG O2 Saturation 73.4 L (94-97) % Sodium (137-145) mmol/L BUN (7-17) mg/dL Glucose (74-99) mg/dL POC Glucose (mg/dL) 180 H 178 H (70-110) mg/dL 03/10/24 03/10/24 03/11/24 Range/Units 20:20 23:46 02:47 Plt Count 147 L (150-450) k/uL ABG pCO2 (35-45) mmHg ABG pO2 (83-108) mmHg ABG HCO3 (21-25) mmol/L ABG Total CO2 (19-24) mmol/L ABG O2 Saturation (94-97) % Sodium (137-145) mmol/L BUN (7-17) mg/dL Glucose (74-99) mg/dL POC Glucose (mg/dL) 209 H 175 H (70-110) mg/dL 03/11/24 03/11/24 03/11/24 Range/Units 02:47 04:28 06:59 Plt Count (150-450) k/uL ABG pCO2 49 H (35-45) mmHg ABG pO2 206 H (83-108) mmHg ABG HCO3 32 H (21-25) mmol/L ABG Total CO2 34 H (19-24) mmol/L ABG O2 Saturation 100.0 H (94-97) % Sodium 136 L (137-145) mmol/L BUN 28 H (7-17) mg/dL Glucose 158 H (74-99) mg/dL POC Glucose (mg/dL) 258 H (70-110) mg/dL Assessment and Plan Assessment: #) Acute hypoxic respiraotry failure req NIV. This is likely from left lung mucus plugging. Continue bilevel at 14/6. Continue aggressive pulmonary hygiene. Continue CPT #) Acute metabolic encephaopathy, multifactorial including malfunction of pain pump along with anxiety. Continue clonzepam 1 mg BID #) Chronic back pain. on pain pump that is now malfunctional. Continue percocet 5/325 q6hr prn for pain and to avoid opioid withdrawal #) Bipolar disorder. Continue aricept 5 mg hs, keppra 500 mg BID, latuda 20 mg daily, remeron 45 mg hs #) Tobacco use, tobacco cessation recommended. nicotine patch while inpatient #) Hx of cva. continue asa 81 mg daily and atorvastatin 80 mg hs Dispo: med surge Anticipated discharge date > 72 hours dvt ppx: subq heparin 5000 TID Time with Patient: Greater than 30
[2024-03-11] MEDS: NOREPINEPHRINE 4 MG in SODIUM CHLORIDE 0.9% 250 ML IV SCH (10:01)
[2024-03-11] MEDS: LIDOCAINE 2% INJ 20 MG/ML INTRATRACH ONE (10:18)
--- NOTE | 2024-03-11 10:51 | XR ---
EXAMINATION TYPE: XR chest 1V portable DATE OF EXAM: 03/11/2024 COMPARISON: 03/11/2024. CLINICAL INDICATION: Female, 68 years old with history of Post bronch, LLL; TECHNIQUE: Single frontal view of the chest is obtained. FINDINGS: Ill-defined partially consolidated opacities in the left lung are essentially stable. The r ight lung remains clear. There is no pneumothorax. Heart size is normal. Pulmonary vasculature does n ot appear congested. There is no large pleural effusion. IMPRESSION: Acute cardiac pulmonary disease involving the left lung essentially unchanged compared to the prior s tudy. [facility], , 03/11/2024 10:49 AM
[2024-03-11 11:21] LABS: Glucose,Whole Blood 98 mg/dL (70-110)
--- NOTE | 2024-03-11 13:37 | OP ---
OPERATIVE REPORT DATE OF SERVICE : PROCEDURES PERFORMED: Bronchoscopy, bronchoalveolar lavage of the left upper lobe, lingula, and left lower lobe, and suctioning of mucus plug from the left mainstem bronchus, lingula, and left lower lobe. PREOPERATIVE DIAGNOSIS: Left lower lobe pneumonia with mucus plugs involving the left lower lobe and lingula with left lower lobe collapse. POSTOPERATIVE DIAGNOSIS: Left lower lobe pneumonia with mucus plugs involving the left lower lobe and lingula with left lower lobe collapse. ANESTHESIA USED: IV conscious sedation. DESCRIPTION OF PROCEDURE: The patient was placed in a supine position, a Ventimask was applied, and we monitored her O2 saturation continuously. Blood pressure was intermittently monitored, cardiac rhythm was continuously monitored. After adequate IV conscious sedation, the bronchoscope was advanced through the bite block down to the vocal cords, which were patent. Lidocaine applied over the vocal cords, and the bronchoscope was advanced further down to the trachea. The trachea was noted to be normal, however, as I entered the left mainstem bronchus, I could see significant amount of mucus secretions, which were thick and looked quite purulent and dark. The mucus secretions were so thick, and the mucus plugging was noted involving mostly the lingula and the left lower lobe. The suctioning was done and all the mucus plugs were removed, lavage of the left lower lobe and lingula was done, and this was sent for different diagnostic studies. Then, more lavage was done of the left upper lobe, and right side was examined, no evidence of mucus plugs or no evidence of significant secretions on the right side, so nothing was done on the right side. The procedure was well tolerated, no complications, and in the meantime, the patient was receiving antibiotics for presumptive left-sided pneumonia. MMODL / IJN: [id number] /
--- NOTE | 2024-03-11 13:46 | P.PN ---
Subjective Progress Note Date: 03/11/24 Principal diagnosis: Acute hypoxic respiratory failure secondary to pneumonia This is a 68-year-old female patient with a known history of hypertension, hyperlipidemia, diabetes mellitus, CVA, chronic tobacco dependence and chronic obstructive pulmonary disease, bipolar disorder. She presented here on 03/08/2024 with generalized weakness fatigue nausea and vomiting. She had been followed up on the regular medical floor. Afternoon she developed increasing shortness of breath cough and congestion. A chest x-ray was done and showed a near complete opacification of the left chest that was new compared to 03/08/2024. Arterial blood gases revealed a PaO2 of 37, pCO2 49 and a pH of 7.40. A rapid response team was called and she was placed on BiPAP 14/6 and 100% FiO2 and transferred to the intensive care unit. She is seen today in consultation. She is currently resting fairly comfortably. She is tolerating the BiPAP. She is awake and alert. Continued with O2 saturations in the 90s now. White count 12.5. Hemoglobin 12.3. Platelets 141. Sodium 137. Potassium 4.3. Bicarb 34. BUN 22. Creatinine 0.63. Glucose 169. Patient was seen today on 03/11/2024, patient remains frail, chronically ill looking, weak, I saw her yesterday in the ICU, and she was placed on BiPAP will for what seems to be acute hypoxic respiratory failure with extensive left sided pneumonia and I suspected mucous plugging involving the left lung. The patient underwent bronchoscopy today, and significant amount of mucous plugs were removed from the lingula and from the left lower lobe as well as left mainstem bronchus. Did well after the procedure, she was placed back on BiPAP, and she is already on antibiotics which will be changed to cefepime patient is allergic to penicillin patient is on BiPAP 14/6/100% her ABG showed a pO2 of 206 pCO2 49 pH of 7.42 she had a Tmax of 101 and patient has cooling blankets at 1 L of fluids and if her blood pressure remains marginal or soft may consider a short course of norepinephrine on this patient. Labs today show WBC is 4.4 hemoglobin 12.6 electrolytes are normal renal profile is normal procalcitonin level is elevated at 1.70 Objective - Vital Signs Vital signs: Vital Signs Temp 97.1 F L 03/11/24 12:00 Pulse 84 03/11/24 12:30 Resp 13 03/11/24 12:30 BP 80/59 03/11/24 12:30 Pulse Ox 99 03/11/24 12:30 FiO2 50 03/11/24 08:15 Intake & Output 03/10/24 03/11/24 03/11/24 18:59 06:59 18:59 Intake Total 50 250 1522.626 Output Total 80 290 135 Balance -30 -40 1387.626 Weight 66.6 kg Intake: IV 50 100 0.9NS 100 cefTRIAXone 2 gm In 50 Sodium Chloride 0.9% 50 ml @ 100 mls/hr IVPB Q24HR [facility] Rx#:[id number] Intake, IV Titration 250 1222.626 Amount ACETAMINOPHEN IV (For NPO 100 ) 1,000 mg In Empty Bag 1 bag @ 400 mls/hr IVPB ONCE ONE Rx#:[id number] Azithromycin 500 mg In 250 Sodium Chloride 0.9% 250 ml @ 250 mls/hr IVPB Q24H [facility] Rx#:[id number] Cefepime 2 gm In Sodium 100 Chloride 0.9% 100 ml @ 25 mls/hr IVPB Q12HR [facility] Rx #:[id number] Norepinephrine 4 mg In 22.626 Sodium Chloride 0.9% 250 ml @ 0.03 MCG/KG/MIN 7. 612 mls/hr IV .Q24H [facility] Rx#:[id number] Sodium Chloride 0.9% 1, 1000 000 ml @ 999 mls/hr IV . Q1H1M ONE Rx#:[id number] Oral 200 Output: Urine 80 290 135 Other: Voiding Method Indwelling Catheter Indwelling Catheter Indwelling Catheter # Voids 2 - Exam GENERAL EXAM: 68-year-old female in no distress, patient looks frail, chr onically ill, confused HEAD: Normocephalic. EYES: Normal reaction of pupils, equal size. NOSE: Clear with pink turbinates. THROAT: No erythema or exudates. NECK: No masses, no JVD. CHEST: No chest wall deformity. LUNGS: Diminished breath sound at the left lung no rhonchi no wheezes CVS: S1 and S2 normal with no audible murmur, regular rhythm. ABDOMEN: Soft nontender no rebound no guarding positive bowel sounds SKIN: No rashes CENTRAL NERVOUS SYSTEM: Patient is confused, does not follow any instructions, on BiPAP EXTREMITIES: There is no peripheral edema. No clubbing, no cyanosis. Peripheral pulses are intact. - Labs CBC & Chem 7: 03/11/24 02:47 03/11/24 02:47 Labs: Abnormal Lab Results - Last 24 Hours (Table) 03/10/24 03/10/24 03/10/24 Range/Units 15:56 16:31 20:20 Plt Count (150-450) k/uL ABG pCO2 49 H (35-45) mmHg ABG pO2 37 L* (83-108) mmHg ABG HCO3 30 H (21-25) mmol/L ABG Total CO2 32 H (19-24) mmol/L ABG O2 Saturation 73.4 L (94-97) % Sodium (137-145) mmol/L BUN (7-17) mg/dL Glucose (74-99) mg/dL POC Glucose (mg/dL) 178 H 209 H (70-110) mg/dL Procalcitonin (0.02-0.50) ng/mL 03/10/24 03/11/24 03/11/24 Range/Units 23:46 02:47 02:47 Plt Count 147 L (150-450) k/uL ABG pCO2 (35-45) mmHg ABG pO2 (83-108) mmHg ABG HCO3 (21-25) mmol/L ABG Total CO2 (19-24) mmol/L ABG O2 Saturation (94-97) % Sodium (137-145) mmol/L BUN (7-17) mg/dL Glucose (74-99) mg/dL POC Glucose (mg/dL) 175 H (70-110) mg/dL Procalcitonin 1.70 H (0.02-0.50) ng/mL 03/11/24 03/11/24 03/11/24 Range/Units 02:47 04:28 06:59 Plt Count (150-450) k/uL ABG pCO2 49 H (35-45) mmHg ABG pO2 206 H (83-108) mmHg ABG HCO3 32 H (21-25) mmol/L ABG Total CO2 34 H (19-24) mmol/L ABG O2 Saturation 100.0 H (94-97) % Sodium 136 L (137-145) mmol/L BUN 28 H (7-17) mg/dL Glucose 158 H (74-99) mg/dL POC Glucose (mg/dL) 258 H (70-110) mg/dL Procalcitonin (0.02-0.50) ng/mL Assessment and Plan Assessment: Impression: Acute hypoxemic respiratory failure secondary to suspected mucous plug with complete new opacification of the left lung Acute sepsis secondary to pneumonia involving left lung clinically the acquired pneumon Generalized weakness with nausea and vomiting suspect secondary to opioid withdrawal Acute metabolic encephalopathy suspect acute sepsis From left lower lobe pneumonia Hypertension Hyperlipidemia History of CVA Chronic back pain Bipolar disorder Anxiety/depression History of panic disorder Recommendation: Continue to monitor in ICU Patient underwent bronchoscopy and mucous plug suctioning from the left lung cultures are pending, reviewed chest x-ray post bronchoscopy significant improvement noted compared to the chest x-ray prior to bronchoscopy Continue antibiotics/cefepime adjust based on the final cultures from the sputum Continue IV fluids, consider pressors if necessary as the patient seems to be septic, and septic shock is in the picture patient has been given fluid boluses for low blood pressure Tylenol and cooling blankets for fever Continue DVT prophylaxis Continue GI prophylaxis/pantoprazole Will continue to follow Time with Patient: Less than 30
--- NOTE | 2024-03-11 14:09 | P.PN ---
Subjective Progress Note Date: 03/11/24 I am following up with the patient and according to the nurse at the patient had bronchoscopy earlier today and she was given sedation. Currently she is on BiPAP. Objective - Vital Signs Vital signs: Vital Signs Temp 97.1 F L 03/11/24 12:00 Pulse 80 03/11/24 13:30 Resp 14 03/11/24 13:30 BP 81/42 03/11/24 13:30 Pulse Ox 93 L 03/11/24 13:30 FiO2 50 03/11/24 08:15 Intake & Output 03/10/24 03/11/24 03/11/24 18:59 06:59 18:59 Intake Total 50 250 1548.378 Output Total 80 290 165 Balance -30 -40 1383.378 Weight 66.6 kg Intake: IV 50 120 0.9NS 120 cefTRIAXone 2 gm In 50 Sodium Chloride 0.9% 50 ml @ 100 mls/hr IVPB Q24HR [facility] Rx#:[id number] Intake, IV Titration 250 1228.378 Amount ACETAMINOPHEN IV (For NPO 100 ) 1,000 mg In Empty Bag 1 bag @ 400 mls/hr IVPB ONCE ONE Rx#:[id number] Azithromycin 500 mg In 250 Sodium Chloride 0.9% 250 ml @ 250 mls/hr IVPB Q24H [facility] Rx#:[id number] Cefepime 2 gm In Sodium 100 Chloride 0.9% 100 ml @ 25 mls/hr IVPB Q12HR [facility] Rx #:[id number] Norepinephrine 4 mg In 28.378 Sodium Chloride 0.9% 250 ml @ 0.03 MCG/KG/MIN 7. 612 mls/hr IV .Q24H [facility] Rx#:[id number] Sodium Chloride 0.9% 1, 1000 000 ml @ 999 mls/hr IV . Q1H1M [facility] Rx#:[id number] Oral 200 Output: Urine 80 290 165 Other: Voiding Method Indwelling Catheter Indwelling Catheter Indwelling Catheter # Voids 2 - Exam General: Lying in bed and is not in acute distress. HENT: Supple neck. LUNG: On BiPAP. Neuro: Severely limited since the patient received sedation earlier and is currently on BiPAP She is severely drowsy. Is not following commands or attempting to verbalize Some of the workup during this hospital visit consisted of: Vitamin B12 is 508 Serum folate 17.0 TSH is 0.075 and the free T4 is 0.97 Ammonia level is 10 CT of the head is reported as no acute intracranial process. Nonspecific white matter change, likely secondary to chronic small vessel ischemic disease. I personally reviewed the CT of the head and there is no acute or subacute stroke. CT Angiography of head and neck: No flow-limiting stenosis bilateral carotid bifurcation. Calcification is present at the bifurcation with approximately 41% narrowing each. Normal [place]. No aneurysm dilation is identified. CT thoracic and lumbar spine is reported as spinal canal stenosis in the lateral dimension L3-4 secondary due to facet hypertrophy and ligamentum of flavum laxity. Central endplate spur T9-T10 without spinal canal stenosis or cord contact. Postsurgical changes L4-L5. 2D echo is reported as ejection fraction of 45 to 50% with predominantly apical, apical septal hypokinesis. May be related to coronary artery disease versus Takotsubo. Routine EEG is abnormal. The background slowing is suggestive of moderate encephalopathy. There are suspicious discharges over the left temporal (T5 lead) increased risk for focal seizure as well as status epilepticus. Otherwise there is no focal slowing or seizure noted during the study. Chest x-ray on 03/10/2024 is reported as new near complete opacification of the left chest correlate for development of pleural effusion and or airspace disease and or atelectasis possibly from obstruction. - Labs CBC & Chem 7: 03/11/24 02:47 03/11/24 02:47 Labs: Abnormal Lab Results - Last 24 Hours (Table) 03/10/24 03/10/24 03/10/24 Range/Units 15:56 16:31 20:20 Plt Count (150-450) k/uL ABG pCO2 49 H (35-45) mmHg ABG pO2 37 L* (83-108) mmHg ABG HCO3 30 H (21-25) mmol/L ABG Total CO2 32 H (19-24) mmol/L ABG O2 Saturation 73.4 L (94-97) % Sodium (137-145) mmol/L BUN (7-17) mg/dL Glucose (74-99) mg/dL POC Glucose (mg/dL) 178 H 209 H (70-110) mg/dL Procalcitonin (0.02-0.50) ng/mL 03/10/24 03/11/24 03/11/24 Range/Units 23:46 02:47 02:47 Plt Count 147 L (150-450) k/uL ABG pCO2 (35-45) mmHg ABG pO2 (83-108) mmHg ABG HCO3 (21-25) mmol/L ABG Total CO2 (19-24) mmol/L ABG O2 Saturation (94-97) % Sodium (137-145) mmol/L BUN (7-17) mg/dL Glucose (74-99) mg/dL POC Glucose (mg/dL) 175 H (70-110) mg/dL Procalcitonin 1.70 H (0.02-0.50) ng/mL 03/11/24 03/11/24 03/11/24 Range/Units 02:47 04:28 06:59 Plt Count (150-450) k/uL ABG pCO2 49 H (35-45) mmHg ABG pO2 206 H (83-108) mmHg ABG HCO3 32 H (21-25) mmol/L ABG Total CO2 34 H (19-24) mmol/L ABG O2 Saturation 100.0 H (94-97) % Sodium 136 L (137-145) mmol/L BUN 28 H (7-17) mg/dL Glucose 158 H (74-99) mg/dL POC Glucose (mg/dL) 258 H (70-110) mg/dL Procalcitonin (0.02-0.50) ng/mL Assessment and Plan Assessment: This is a 68-year-old woman chronic back pain who present emerged since her pain pump was shut off approximately 2 weeks ago and ever since she has been having the generalized weakness nausea and vomiting. As well she is altered. Altered mental status/encephalopathy of 2 to acute hypoxic respiratory failure with suspected mucous plug on the left lung/acquired pneumonia. On EEG left temporal discharges and increased risk for seizure but did not have any seizures noted during the study.. Generalized weakness, nausea vomiting Cardiomyopathy with redominantly apical, apical septal hypokinesis. May be related to coronary artery disease versus Takotsubo on 2D echo. Slightly elevated troponin Underlying history of chronic low back pain and her pain pump was shut off about 2 weeks ago and it seems she went to the pain specialist recently and they attempted to turn on pump back but unsuccessful. History of stroke History of diabetes type 2 Hypertension Hyperlipidemia Bipolar Anxiety Depression Panic disorder Plan: Pending MRI of the brain once stable. Is on Keppra 500 mg twice daily as her home medication and I increase it to 1000 mg twice daily. Cardiology is consulted Psychiatry is consulted Consider Pulmonary consultation. Will defer the rest of the medical management to primary and other specialist Plan is discussed with ICU nurse. Time with Patient: Less than 30
[2024-03-11 16:32] LABS: Glucose,Whole Blood 118 mg/dL (70-110)
[2024-03-11 20:09] LABS: Glucose,Whole Blood 186 mg/dL (70-110)
[2024-03-12 05:04] LABS: African American GFR (CKD) >90 (>60 ml/min/1.73 sqM); Anion Gap 1 mmol/L; Blood Urea Nitrogen 31 mg/dL (7-17); Calcium 7.7 mg/dL (8.4-10.2); Carbon Dioxide 27 mmol/L (22-30); Chloride 109 mmol/L (98-107); Glucose 149 mg/dL (74-99); Magnesium 1.9 mg/dL (1.6-2.3); Non-African American GFR(CKD) 88 (>60 ml/min/1.73 sqM); Potassium 4.2 mmol/L (3.5-5.1); Sodium 137 mmol/L (137-145)
[2024-03-12 05:26] LABS: Basophils % (A) 0 %; Eosinophils % (A) 0 %; HCT 35.2 % (34.0-46.0); HGB 11.3 gm/dL (11.4-16.0); Hypochromasia Moderate; Lymphocytes # (A) 0.7 k/uL (1.0-4.8); Lymphocytes % (A) 9 %; MCH 31.9 pg (25.0-35.0); MCV 99.5 fL (80.0-100.0); Monocytes # (A) 0.3 k/uL (0-1.0); Monocytes % (A) 3 %; Neutrophils # (A) 6.7 k/uL (1.3-7.7); Neutrophils % (A) 85 %; Platelet Count 151 k/uL (150-450); RBC 3.54 m/uL (3.80-5.40); RDW 13.5 % (11.5-15.5); WBC 7.9 k/uL (3.8-10.6)
[2024-03-12 05:27] LABS: Glucose,Whole Blood 175 mg/dL (70-110)
[2024-03-12] MEDS: MAGNESIUM SULFATE-D5W PMX 1 GM in DEXTROSE/WATER 1 100ML.BAG IVPB ONE (07:56)
[2024-03-12] MEDS: ERGOCALCIFEROL 1,250 MCG (50,000 IU) CAPSULE PO SCH (08:15)
[2024-03-12] MEDS: SODIUM CHLORIDE 0.9% 1,000 ML IV SCH (09:00)
--- NOTE | 2024-03-12 09:17 | P.PN ---
Subjective Subjective Progress Note Date: 03/11/24 Principal diagnosis: Vianca is a 68-year-old female with past medical history of primary hypertension, hyperlipidemia, type 2 diabetes on insulin, CVA COPD and chronic back pain. She had presented to hospital on March 09 with generalized weakness and nausea and vomiting. The patient's pain pump was shut off 2 weeks prior and the patient h ad continued to have generalized weakness nausea vomiting decreased appetite. Attempts were made to restart the pain pump were unsuccessful. When the patient had presented to the hospital it appears patient was having panic attacks. She had a rapid response on March 10 where it appears patient was having some mucous plugging of her left lung. She was placed on BiPAP and was admitted to the ICU. Objective - Vital Signs Vital signs: Vital Signs Temp 100.1 F H 03/11/24 08:00 Pulse 101 H 03/11/24 08:00 Resp 18 03/11/24 08:00 BP 104/58 03/11/24 08:00 Pulse Ox 100 03/11/24 08:00 FiO2 50 03/11/24 08:15 Intake & Output 03/10/24 03/11/24 03/11/24 18:59 06:59 18:59 Intake Total 50 250 100 Output Total 80 290 45 Balance -30 -40 55 Weight 66.6 kg Intake: IV 50 cefTRIAXone 2 gm In 50 Sodium Chloride 0.9% 50 ml @ 100 mls/hr IVPB Q24HR [facility] Rx#:[id number] Intake, IV Titration 250 100 Amount ACETAMINOPHEN IV (For NPO 100 ) 1,000 mg In Empty Bag 1 bag @ 400 mls/hr IVPB ONCE ONE Rx#:[id number] Azithromycin 500 mg In 250 Sodium Chloride 0.9% 250 ml @ 250 mls/hr IVPB Q24H [facility] Rx#:[id number] Output: Urine 80 290 45 Other: Voiding Method Indwelling Catheter Indwelling Catheter # Voids 2 - Exam General: Female, appears stated age, response to noxious painful stimuli on BiPAP currently Derm: Skin warm and dry, normal coloration for ethnicity. Head: Atraumatic, normocephalic and symmetric. Eyes: EOM's intact, no lid lag, and anicteric sclera Mouth: no lip lesions, mucus membranes moist Cardiovascular: Clear to auscultation bilaterally and no murmurs rubs or gallops Lungs: Coarse breath sounds of left lung. Right lung is clear. She is on BiPAP. Abdominal: soft, nontender to palpation, no guarding, no appreciable organomegaly Ext: ROM intact. No gross muscle atrophy, no edema, no contractures Neuro: Moving all extremity spontaneously, does respond to simple commands however appears lethargic Psych: Calm - Labs CBC & Chem 7: 03/11/24 02:47 03/11/24 02:47 Labs: Abnormal Lab Results - Last 24 Hours (Table) 03/10/24 03/10/24 03/10/24 Range/Units 11:24 15:56 16:31 Plt Count (150-450) k/uL ABG pCO2 49 H (35-45) mmHg ABG pO2 37 L* (83-108) mmHg ABG HCO3 30 H (21-25) mmol/L ABG Total CO2 32 H (19-24) mmol/L ABG O2 Saturation 73.4 L (94-97) % Sodium (137-145) mmol/L BUN (7-17) mg/dL Glucose (74-99) mg/dL POC Glucose (mg/dL) 180 H 178 H (70-110) mg/dL 03/10/24 03/10/24 03/11/24 Range/Units 20:20 23:46 02:47 Plt Count 147 L (150-450) k/uL ABG pCO2 (35-45) mmHg ABG pO2 (83-108) mmHg ABG HCO3 (21-25) mmol/L ABG Total CO2 (19-24) mmol/L ABG O2 Saturation (94-97) % Sodium (137-145) mmol/L BUN (7-17) mg/dL Glucose (74-99) mg/dL POC Glucose (mg/dL) 209 H 175 H (70-110) mg/dL 03/11/24 03/11/24 03/11/24 Range/Units 02:47 04:28 06:59 Plt Count (150-450) k/uL ABG pCO2 49 H (35-45) mmHg ABG pO2 206 H (83-108) mmHg ABG HCO3 32 H (21-25) mmol/L ABG Total CO2 34 H (19-24) mmol/L ABG O2 Saturation 100.0 H (94-97) % Sodium 136 L (137-145) mmol/L BUN 28 H (7-17) mg/dL Glucose 158 H (74-99) mg/dL POC Glucose (mg/dL) 258 H (70-110) mg/dL Objective - Vital Signs Vital signs: Vital Signs Temp 98.1 F 03/12/24 04:00 Pulse 98 03/12/24 07:00 Resp 17 03/12/24 07:00 BP 121/59 03/12/24 07:00 Pulse Ox 90 L 03/12/24 07:00 FiO2 30 03/12/24 00:41 Intake & Output 03/11/24 03/12/24 03/12/24 18:59 06:59 18:59 Intake Total 2816.635 425.613 20 Output Total 280 405 40 Balance 2536.635 20.613 -20 Weight 66.6 kg Intake: IV 220 240 20 0.9NS 220 240 20 Intake, IV Titration 2296.635 185.613 Amount ACETAMINOPHEN IV (For NPO 100 ) 1,000 mg In Empty Bag 1 bag @ 400 mls/hr IVPB ONCE ONE Rx#:[id number] Cefepime 2 gm In Sodium 100 Chloride 0.9% 100 ml @ 25 mls/hr IVPB Q12HR [facility] Rx #:[id number] Norepinephrine 4 mg In 96.635 185.613 Sodium Chloride 0.9% 250 ml @ 0.03 MCG/KG/MIN 7. 612 mls/hr IV .Q24H [facility] Rx#:[id number] Sodium Chloride 0.9% 1, 1000 000 ml @ 999 mls/hr IV . Q1H1M [facility] Rx#:[id number] Sodium Chloride 0.9% 1, 1000 000 ml @ 999 mls/hr IV . Q1H1M [facility] Rx#:[id number] Oral 300 Output: Urine 280 405 40 Other: Voiding Method Indwelling Catheter Indwelling Catheter - Labs CBC & Chem 7: 03/12/24 04:05 03/12/24 04:05 Labs: Abnormal Lab Results - Last 24 Hours (Table) 03/11/24 03/11/24 03/11/24 Range/Units 02:47 16:30 20:07 RBC (3.80-5.40) m/uL Hgb (11.4-16.0) gm/dL Lymphocytes # (1.0-4.8) k/uL Chloride (98-107) mmol/L BUN (7-17) mg/dL Glucose (74-99) mg/dL POC Glucose (mg/dL) 118 H 186 H (70-110) mg/dL Calcium (8.4-10.2) mg/dL Procalcitonin 1.70 H (0.02-0.50) ng/mL 03/12/24 03/12/24 03/12/24 Range/Units 04:05 04:05 05:26 RBC 3.54 L (3.80-5.40) m/uL Hgb 11.3 L (11.4-16.0) gm/dL Lymphocytes # 0.7 L (1.0-4.8) k/uL Chloride 109 H (98-107) mmol/L BUN 31 H (7-17) mg/dL Glucose 149 H (74-99) mg/dL POC Glucose (mg/dL) 175 H (70-110) mg/dL Calcium 7.7 L (8.4-10.2) mg/dL Procalcitonin (0.02-0.50) ng/mL Assessment and Plan Assessment: Assessment and Plan Assessment: #) Acute hypoxic respiraotry failure req NIV. This is likely from left lung mucus plugging. Continue bilevel at 14/6. Continue aggressive pulmonary hygiene. Continue CPT #) Acute metabolic encephaopathy, multifactorial including malfunction of pain pump along with anxiety. Continue clonzepam 1 mg BID #) Chronic back pain. on pain pump that is now malfunctional. Continue percocet 5/325 q6hr prn for pain and to avoid opioid withdrawal #) Bipolar disorder. Continue aricept 5 mg hs, keppra 500 mg BID, latuda 20 mg daily, remeron 45 mg hs #) Tobacco use, tobacco cessation recommended. nicotine patch while inpatient #) Hx of cva. continue asa 81 mg daily and atorvastatin 80 mg hs 03/12 Patient seen and examined at bedside No acute overnight events Patient states that she had a small bowel movement yesterday and is now requesting some stool softener We will add MiraLAX 17 g in water daily Verify patient is on Xanax 0.5 mg 3 times daily as needed, will Riyad Continue to wean oxygen as tolerated Mentation seems to be improving today History of bipolar, mood is stable Interval chest x-rays as necessary Continue aggressive pulmonary hygiene, CPT Dispo: med surge Anticipated discharge date > 72 hours dvt ppx: subq heparin 5000 TID Time with Patient: Greater than 30
[2024-03-12] MEDS: polyethylene glycoL 3350 17 GM POWD.PACK PO SCH (10:02)
[2024-03-12 11:34] LABS: Glucose,Whole Blood 204 mg/dL (70-110)
[2024-03-12] MEDS: IPRATROPIUM-ALBUTEROL 3 ML NEB INHALATION SCH (12:49)
[2024-03-12] MEDS: ACETYLCYSTEINE 800 MG/4 ML VIAL INHALATION SCH (12:49)
--- NOTE | 2024-03-12 12:51 | P.PN ---
Subjective Progress Note Date: 03/12/24 Principal diagnosis: Acute hypoxic respiratory failure secondary to pneumonia This is a 68-year-old female patient with a known history of hypertension, hyperlipidemia, diabetes mellitus, CVA, chronic tobacco dependence and chronic obstructive pulmonary disease, bipolar disorder. She presented here on 03/08/2024 with generalized weakness fatigue nausea and vomiting. She had been followed up on the regular medical floor. Afternoon she developed increasing shortness of breath cough and congestion. A chest x-ray was done and showed a near complete opacification of the left chest that was new compared to 03/08/2024. Arterial blood gases revealed a PaO2 of 37, pCO2 49 and a pH of 7.40. A rapid response team was called and she was placed on BiPAP 14/6 and 100% FiO2 and transferred to the intensive care unit. She is seen today in consultation. She is currently resting fairly comfortably. She is tolerating the BiPAP. She is awake and alert. Continued with O2 saturations in the 90s now. White count 12.5. Hemoglobin 12.3. Platelets 141. Sodium 137. Potassium 4.3. Bicarb 34. BUN 22. Creatinine 0.63. Glucose 169. Patient was seen today on 03/11/2024, patient remains frail, chronically ill looking, weak, I saw her yesterday in the ICU, and she was placed on BiPAP will for what seems to be acute hypoxic respiratory failure with extensive left sided pneumonia and I suspected mucous plugging involving the left lung. The patient underwent bronchoscopy today, and significant amount of mucous plugs were removed from the lingula and from the left lower lobe as well as left mainstem bronchus. Did well after the procedure, she was placed back on BiPAP, and she is already on antibiotics which will be changed to cefepime patient is allergic to penicillin patient is on BiPAP 14/6/100% her ABG showed a pO2 of 206 pCO2 49 pH of 7.42 she had a Tmax of 101 and patient has cooling blankets at 1 L of fluids and if her blood pressure remains marginal or soft may consider a short course of norepinephrine on this patient. Labs today show WBC is 4.4 hemoglobin 12.6 electrolytes are normal renal profile is normal procalcitonin level is elevated at 1.70 Patient was seen today on 03/12/2024, patient is on 3 L nasal cannula, doing well, off norepinephrine since 7 AM this morning, patient seems to be hemodynamically stable, seems to have difficulty clearing her sputum, hence the patient was placed on albuterol with Mucomyst, and continue chest PT on this patient. Today she underwent bronchoscopy and I was able to clear a significant amount of endobronchial secretions , her chest x-ray post bronchoscopy, showed improvement but not back to normal. Patient is empirically on cefepime cultures from the BAL are pending. Her IV fluid is 125 cc/h urine output is marginal at 20 cc/h patient seems to be congested but able to clear some secretions. Her speech seems to be a bit garbled and patient had previous old CVA WBC count is 7.9 hemoglobin 11.3 electrolytes are normal renal profile is normal Objective - Vital Signs Vital signs: Vital Signs Temp 98.1 F 03/12/24 12:00 Pulse 87 03/12/24 12:00 Resp 21 03/12/24 12:00 BP 107/60 03/12/24 12:00 Pulse Ox 98 03/12/24 12:00 FiO2 30 03/12/24 00:41 Intake & Output 03/11/24 03/12/24 03/12/24 18:59 06:59 18:59 Intake Total 2816.635 425.613 980 Output Total 280 405 175 Balance 2536.635 20.613 805 Weight 66.6 kg Intake: IV 220 240 580 0.9NS 220 240 80 Sodium Chloride 0.9% 1, 500 000 ml @ 125 mls/hr IV . Q8H [facility] Rx#:[id number] Intake, IV Titration 2296.635 185.613 200 Amount ACETAMINOPHEN IV (For NPO 100 ) 1,000 mg In Empty Bag 1 bag @ 400 mls/hr IVPB ONCE ONE Rx#:[id number] Cefepime 2 gm In Sodium 100 100 Chloride 0.9% 100 ml @ 25 mls/hr IVPB Q12HR [facility] Rx #:[id number] Magnesium Sulfate-D5w Pmx 100 1 gm In Dextrose/Water 1 100ml.bag @ 100 mls/hr IVPB ONCE ONE Rx#: [id number] Norepinephrine 4 mg In 96.635 185.613 Sodium Chloride 0.9% 250 ml @ 0.03 MCG/KG/MIN 7. 612 mls/hr IV .Q24H [facility] Rx#:[id number] Sodium Chloride 0.9% 1, 1000 000 ml @ 999 mls/hr IV . Q1H1M [facility] Rx#:[id number] Sodium Chloride 0.9% 1, 1000 000 ml @ 999 mls/hr IV . Q1H1M [facility] Rx#:[id number] Oral 300 200 Output: Urine 280 405 175 Other: Voiding Method Indwelling Catheter Indwelling Catheter Indwelling Catheter - Exam GENERAL EXAM: 68-year-old female in no distress, patient looks frail, chronically ill, seems to be much less confused today compared to yesterday HEAD: Normocephalic. EYES: Normal reaction of pupils, equal size. NOSE: Clear with pink turbinates. THROAT: No erythema or exudates. NECK: No masses, no JVD. CHEST: No chest wall deformity. LUNGS: Diminished breath sound at the left lung no rhonchi no wheezes CVS: S1 and S2 normal with no audible murmur, regular rhythm. ABDOMEN: Soft nontender no rebound no guarding positive bowel sounds SKIN: No rashes CENTRAL NERVOUS SYSTEM: Patient is less confused, as [id number] seems to be fairly appropriate and able to conduct adequate conversation, speech is a bit garbled related to previous CVA EXTREMITIES: There is no peripheral edema. No clubbing, no cyanosis. Peripheral pulses are intact. - Labs CBC & Chem 7: 03/12/24 04:05 03/12/24 04:05 Labs: Abnormal Lab Results - Last 24 Hours (Table) 03/11/24 03/11/24 03/11/24 Range/Units 15:12 16:30 20:07 RBC (3.80-5.40) m/uL Hgb (11.4-16.0) gm/dL Lymphocytes # (1.0-4.8) k/uL Chloride (98-107) mmol/L BUN (7-17) mg/dL Glucose (74-99) mg/dL POC Glucose (mg/dL) 118 H 186 H (70-110) mg/dL Calcium (8.4-10.2) mg/dL Cortisol 27.6 H (3.1-22.4) UG/DL 03/12/24 03/12/24 03/12/24 Range/Units 04:05 04:05 05:26 RBC 3.54 L (3.80-5.40) m/uL Hgb 11.3 L (11.4-16.0) gm/dL Lymphocytes # 0.7 L (1.0-4.8) k/uL Chloride 109 H (98-107) mmol/L BUN 31 H (7-17) mg/dL Glucose 149 H (74-99) mg/dL POC Glucose (mg/dL) 175 H (70-110) mg/dL Calcium 7.7 L (8.4-10.2) mg/dL Cortisol (3.1-22.4) UG/DL 03/12/24 Range/Units 11:31 RBC (3.80-5.40) m/uL Hgb (11.4-16.0) gm/dL Lymphocytes # (1.0-4.8) k/uL Chloride (98-107) mmol/L BUN (7-17) mg/dL Glucose (74-99) mg/dL POC Glucose (mg/dL) 204 H (70-110) mg/dL Calcium (8.4-10.2) mg/dL Cortisol (3.1-22.4) UG/DL Assessment and Plan Assessment: Impression: Acute hypoxemic respiratory failure secondary to suspected mucous plug with complete new opacification of the left lung status post bronchoscopy and suctioning of mucous plugs from left mainstem, lingula, and left lower lobe done on 03/11/2024 Acute sepsis secondary to pneumonia involving left lung clinically the acquired pneumonia Generalized weakness with nausea and vomiting suspect secondary to opioid withdrawal Acute metabolic encephalopathy suspect acute sepsis From left lower lobe pneumonia Hypertension Hyperlipidemia History of CVA Chronic back pain Bipolar disorder Anxiety/depression History of panic disorder Recommendation: Continue to monitor in ICU No need for repeat bronchoscopy today, patient seems to be doing much better today compared to yesterday Continue antibiotics/cefepime adjust based on the final cultures from the sputum Continue IV fluids, patient had to be placed on norepinephrine yesterday which was discontinued this morning and she seems to be hemodynamically stable blood pressure remains marginal Continue DVT prophylaxis Continue GI prophylaxis/pantoprazole Will continue to follow Time with Patient: Less than 30
[2024-03-12] MEDS: ALPRAZolam 0.5 MG TAB PO PRN (14:07)
[2024-03-12 16:38] LABS: Glucose,Whole Blood 193 mg/dL (70-110)
[2024-03-12 19:30] LABS: Appearance,BF Turbid (Clear); RBC, Body Fluid 500 /UL (0-2000)
[2024-03-12 21:13] LABS: Glucose,Whole Blood 172 mg/dL (70-110)
[2024-03-13 06:47] LABS: African American GFR (CKD) >90 (>60 ml/min/1.73 sqM); Anion Gap 4 mmol/L; Blood Urea Nitrogen 23 mg/dL (7-17); Calcium 8.2 mg/dL (8.4-10.2); Carbon Dioxide 27 mmol/L (22-30); Chloride 108 mmol/L (98-107); Glucose 127 mg/dL (74-99); Non-African American GFR(CKD) >90 (>60 ml/min/1.73 sqM); Potassium 4.3 mmol/L (3.5-5.1); Sodium 139 mmol/L (137-145)
[2024-03-13 06:52] LABS: Basophils % (A) 0 %; Eosinophils # (A) 0.1 k/uL (0-0.7); Eosinophils % (A) 1 %; HCT 36.8 % (34.0-46.0); HGB 11.4 gm/dL (11.4-16.0); Hypochromasia Marked; Lymphocytes # (A) 0.7 k/uL (1.0-4.8); Lymphocytes % (A) 8 %; MCH 31.3 pg (25.0-35.0); MCHC 30.9 g/dL (31.0-37.0); MCV 101.3 fL (80.0-100.0); Macrocytosis Slight; Mean Platelet Volume 9.8; Monocytes # (A) 0.3 k/uL (0-1.0); Monocytes % (A) 3 %; Neutrophils # (A) 7.7 k/uL (1.3-7.7); Neutrophils % (A) 85 %; Platelet Count 141 k/uL (150-450); RBC 3.63 m/uL (3.80-5.40); RDW 13.4 % (11.5-15.5); WBC 9.1 k/uL (3.8-10.6)
[2024-03-13 07:08] LABS: Glucose,Whole Blood 133 mg/dL (70-110)
--- NOTE | 2024-03-13 08:08 | XR ---
EXAMINATION TYPE: XR chest 1V portable DATE OF EXAM: 03/13/2024 4:56 AM COMPARISON: Chest radiograph from one day prior. CLINICAL INDICATION: Female, 68 years old with history of Pneumonia; [facility] TECHNIQUE: XR chest 1V portable Frontal view of the chest. FINDINGS: Lungs/Pleura: Left perihilar airspace opacity similar prior. Right lung is stable. Pulmonary vascularity: Unremarkable. Heart/mediastinum: Cardiomediastinal silhouette is unremarkable. Atherosclerotic calcifications are seen in the aorta. Musculoskeletal: No acute osseous pathology. IMPRESSION: Stable exam with left-sided airspace opacities [facility] [place], , 03/13/2024 8:05 AM
[2024-03-13 09:40] LABS: Nucleated Cells, Body Fluid 130200 /UL
[2024-03-13 11:31] LABS: Glucose,Whole Blood 219 mg/dL (70-110)
--- NOTE | 2024-03-13 12:25 | P.PN ---
Subjective Progress Note Date: 03/13/24 Hospital Course: 68-year-old female with PMH of HTN, HLD, type II DM on insulin, CVA, COPD, chr onic back pain, bipolar disorder, who presented to the ER on 03/09/2024 with nausea, vomiting, generalized weakness. During her hospital stay she developed acute shortness of breath with cough and congestion, chest x-ray showed near complete opacification of the left chest, rapid response was called and patient was placed on BiPAP, transferred to ICU and was seen by pulmonology. Mucous plug was suspected and patient underwent bronchoscopy on 03/11 with significant amount of mucous plug removed from the lingula and from the LLL and left mainstem bronchus, patient tolerated procedure well and was started on empiric cefepime, cultures sent. Subjective: Patient was seen and examined at bedside, on BiPAP. Denied chest pain, abdominal pain, no particular complaints today Pertinent positives and negatives as discussed above, a complete review of systems was performed and all other systems are negative. Vitals Signs Reviewed. General: [nontoxic], [no distress], [appears at stated age], ill-appearing, frail Derm: [warm], [dry] Head: [atraumatic], [normocephalic], [symmetric] Eyes: [EOMI], [no lid lag], [anicteric sclera] Mouth: [no lip lesion], [mucus membranes moist] Cardiovascular: [S1S2 reg], [no murmur], bilateral 1+ edema Lungs diminished left sided breath sounds Abdominal: [soft], [ nontender to palpation], [no guarding], [no appreciable organomegaly] Ext: [no gross muscle atrophy], [no edema], [no contractures] Neuro: [ CN II-XI grossly intact], [no focal neuro deficits] Psych: [Alert], [oriented], [appropriate affect] Data Reviewed Today: Pertinent Labs: [] WBC normal, hemoglobin normal and stable, sodium and potassium WNL, glucose is fairly controlled Imaging: Chest x-ray 03/13: Reviewed personally, no significant changes, left- sided opacities present Assessment and Plan: [Active:] Acute hypoxic respiratory failure due to mucous plug status post bronchoscopy 03/11/2024 Sepsis secondary to community-acquired bacteria pneumonia Acute metabolic encephalopathy secondary to above and opioid withdrawal -Pulmonology following -Continue to monitor during the ICU settings -Pending final cultures, continue cefepime in the meantime -Patient is off pressors, on IV fluids, can continue for now -Pulmonary hygiene, CPT -Continue supplemental oxygen, wean off as tolerated -Cytology pending Generalized weakness [Resolved:] [Chronic:] Hypertension Hyperlipidemia History of CVA: Continue aspirin and statins Chronic back pain on pump, currently more functional: Continue with Percocet 5/325 every 6 hours as needed Blood Polar disorder, continue Aricept, Keppra, Latuda, Remeron Anxiety/depression Tobacco use disorder: Recommend tobacco cessation, nicotine patch DVT ppx: [] Heparin subcu Anticipated discharge time: 2-3 days Objective - Vital Signs Vital signs: Vital Signs Temp 98.3 F 03/13/24 08:00 Pulse 90 03/13/24 12:02 Resp 11 L 03/13/24 11:00 BP 108/54 03/13/24 11:00 Pulse Ox 98 03/13/24 11:00 FiO2 50 03/13/24 11:43 Intake & Output 03/12/24 03/13/24 03/13/24 18:59 06:59 18:59 Intake Total 2125 1620 745 Output Total 415 455 335 Balance 1710 1165 410 Weight 69.4 kg Intake: IV 1525 1620 745 0.9NS 150 120 20 Cefepime 2 gm In Sodium 100 Chloride 0.9% 100 ml @ 25 mls/hr IVPB Q12HR [facility] Rx #:[id number] Sodium Chloride 0.9% 1, 1375 1500 625 000 ml @ 125 mls/hr IV . Q8H [facility] Rx#:[id number] Intake, IV Titration 200 Amount Cefepime 2 gm In Sodium 100 Chloride 0.9% 100 ml @ 25 mls/hr IVPB Q12HR [facility] Rx #:[id number] Magnesium Sulfate-D5w Pmx 100 1 gm In Dextrose/Water 1 100ml.bag @ 100 mls/hr IVPB ONCE ONE Rx#: [id number] Oral 400 Output: Urine 415 455 335 Other: Voiding Method Indwelling Catheter Indwelling Catheter - Labs CBC & Chem 7: 03/13/24 05:28 03/13/24 05:28 Labs: Abnormal Lab Results - Last 24 Hours (Table) 03/11/24 03/12/24 03/12/24 Range/Units 10:15 16:36 21:12 RBC (3.80-5.40) m/uL MCV (80.0-100.0) fL MCHC (31.0-37.0) g/dL Plt Count (150-450) k/uL Lymphocytes # (1.0-4.8) k/uL Chloride (98-107) mmol/L BUN (7-17) mg/dL Glucose (74-99) mg/dL POC Glucose (mg/dL) 193 H 172 H (70-110) mg/dL Calcium (8.4-10.2) mg/dL Fluid Appearance Turbid A (Clear) 03/13/24 03/13/24 03/13/24 Range/Units 05:28 05:28 07:06 RBC 3.63 L (3.80-5.40) m/uL MCV 101.3 H (80.0-100.0) fL MCHC 30.9 L (31.0-37.0) g/dL Plt Count 141 L (150-450) k/uL Lymphocytes # 0.7 L (1.0-4.8) k/uL Chloride 108 H (98-107) mmol/L BUN 23 H (7-17) mg/dL Glucose 127 H (74-99) mg/dL POC Glucose (mg/dL) 133 H (70-110) mg/dL Calcium 8.2 L (8.4-10.2) mg/dL Fluid Appearance (Clear) 03/13/24 Range/Units 11:28 RBC (3.80-5.40) m/uL MCV (80.0-100.0) fL MCHC (31.0-37.0) g/dL Plt Count (150-450) k/uL Lymphocytes # (1.0-4.8) k/uL Chloride (98-107) mmol/L BUN (7-17) mg/dL Glucose (74-99) mg/dL POC Glucose (mg/dL) 219 H (70-110) mg/dL Calcium (8.4-10.2) mg/dL Fluid Appearance (Clear) Microbiology - Last 24 Hours (Table) 03/11/24 10:15 Acid Fast Bacilli Smear - Preliminary Bronchoalviolar Lavage - Left 03/11/24 10:15 Gram Stain - Preliminary Bronchoalviolar Lavage - Left
--- NOTE | 2024-03-13 14:08 | P.PN ---
Subjective Progress Note Date: 03/13/24 Principal diagnosis: Acute mental status changes. This is a 68-year-old female patient with a known history of hypertension, hyperlipidemia, diabetes mellitus, CVA, chronic tobacco dependence and chronic obstructive pulmonary disease, bipolar disorder. She presented here on 03/08/2024 with generalized weakness fatigue nausea and vomiting. She had been followed up on the regular medical floor. Afternoon she developed increasing shortness of breath cough and congestion. A chest x-ray was done and showed a near complete opacification of the left chest that was new compared to 03/08/2024. Arterial blood gases revealed a PaO2 of 37, pCO2 49 and a pH of 7.40. A rapid response team was called and she was placed on BiPAP 14/6 and 100% FiO2 and transferred to the intensive care unit. She is seen today in consultation. She is currently resting fairly comfortably. She is tolerating the BiPAP. She is awake and alert. Continued with O2 saturations in the 90s now. White count 12.5. Hemoglobin 12.3. Platelets 141. Sodium 137. Potassium 4.3. Bicarb 34. BUN 22. Creatinine 0.63. Glucose 169. Patient was seen today on 03/11/2024, patient remains frail, chronically ill looking, weak, I saw her yesterday in the ICU, and she was placed on BiPAP will for what seems to be acute hypoxic respiratory failure with extensive left sided pneumonia and I suspected mucous plugging involving the left lung. The patient underwent bronchoscopy today, and significant amount of mucous plugs were removed from the lingula and from the left lower lobe as well as left mainstem bronchus. Did well after the procedure, she was placed back on BiPAP, and she is already on antibiotics which will be changed to cefepime patient is allergic to penicillin patient is on BiPAP 14/6/100% her ABG showed a pO2 of 206 pCO2 49 pH of 7.42 she had a Tmax of 101 and patient has cooling blankets at 1 L of fluids and if her blood pressure remains marginal or soft may consider a short course of norepinephrine on this patient. Labs today show WBC is 4.4 hemoglobin 12.6 electrolytes are normal renal profile is normal procalcitonin level is elevated at 1.70 Patient was seen today on 03/12/2024, patient is on 3 L nasal cannula, doing well, off norepinephrine since 7 AM this morning, patient seems to be hemodynamically stable, seems to have difficulty clearing her sputum, hence the patient was placed on albuterol with Mucomyst, and continue chest PT on this patient. Today she underwent bronchoscopy and I was able to clear a significant amount of endobronchial secretions , her chest x-ray post bronchoscopy, showed improvement but not back to normal. Patient is empirically on cefepime cultures from the BAL are pending. Her IV fluid is 125 cc/h urine output is marginal at 20 cc/h patient seems to be congested but able to clear some secretions. Her speech seems to be a bit garbled and patient had previous old CVA WBC count is 7.9 hemoglobin 11.3 electrolytes are normal renal profile is normal Progress note dated March 13, 2024. This is a 68-year-old female who is seen today in room 255. She was admitted on March 10, with mental status changes, shortness of breath, nausea, and vomiting. She came to the intensive care unit on March 10. The patient has been on BiPAP since that time. BiPAP settings include 14/6 and 50%. The patient is also on saline at 125 cc an hour, is on cefepime, and had bronchoscopy performed on March 11 by my partner. The patient's procalcitonin level is 1.70. Current labs include a white count 9.1, hemoglobin 11.4, hematocrit 36.8, and a platelet count of 141,000. Sodium 139, potassium 4.3, chlorides 108, CO2 27, BUN 23, creatinine 0.65. Calcium 8.2. Magnesium 2. BAL specimens are currently negative. Chest x-ray shows left-sided airspace disease. Objective - Vital Signs Vital signs: Vital Signs Temp 98.6 F 03/13/24 12:00 Pulse 90 03/13/24 12:02 Resp 11 L 03/13/24 12:00 BP 110/57 03/13/24 12:00 Pulse Ox 100 03/13/24 12:00 FiO2 50 03/13/24 12:00 Intake & Output 03/12/24 03/13/24 03/13/24 18:59 06:59 18:59 Intake Total 2125 1620 870 Output Total 415 455 435 Balance 1710 1165 435 Weight 69.4 kg Intake: IV 1525 1620 870 0.9NS 150 120 20 Cefepime 2 gm In Sodium 100 Chloride 0.9% 100 ml @ 25 mls/hr IVPB Q12HR [facility] Rx #:[id number] Sodium Chloride 0.9% 1, 1375 1500 750 000 ml @ 125 mls/hr IV . Q8H [facility] Rx#:[id number] Intake, IV Titration 200 Amount Cefepime 2 gm In Sodium 100 Chloride 0.9% 100 ml @ 25 mls/hr IVPB Q12HR [facility] Rx #:[id number] Magnesium Sulfate-D5w Pmx 100 1 gm In Dextrose/Water 1 100ml.bag @ 100 mls/hr IVPB ONCE ONE Rx#: [id number] Oral 400 Output: Urine 415 455 435 Other: Voiding Method Indwelling Catheter Indwelling Catheter - Exam No acute distress, BiPAP mask in place. The patient is very lethargic. HEENT examination is grossly unremarkable. Mucous membranes are moist. No oral lesions. Neck supple. Full range of motion. No adenopathy thyromegaly or neck vein distention. Cardiovascular examination reveals regular rhythm rate. S1-S2 normal. No S3 or S4. No discernible murmur noted. Heart sounds are distant. Lungs reveal bilateral rhonchi. Diminished breath sounds at the left lung base. No wheezes. No crackles. Abdomen soft without obvious bowel sounds. No masses or tenderness. Extremities are intact. No cyanosis clubbing or edema. Skin is without rash or lesion. Neurologic examination is very difficult to evaluate given her poor mental status. - Labs CBC & Chem 7: 03/13/24 05:28 03/13/24 05:28 Labs: Abnormal Lab Results - Last 24 Hours (Table) 03/11/24 03/12/24 03/12/24 Range/Units 10:15 16:36 21:12 RBC (3.80-5.40) m/uL MCV (80.0-100.0) fL MCHC (31.0-37.0) g/dL Plt Count (150-450) k/uL Lymphocytes # (1.0-4.8) k/uL Chloride (98-107) mmol/L BUN (7-17) mg/dL Glucose (74-99) mg/dL POC Glucose (mg/dL) 193 H 172 H (70-110) mg/dL Calcium (8.4-10.2) mg/dL Fluid Appearance Turbid A (Clear) 03/13/24 03/13/24 03/13/24 Range/Units 05:28 05:28 07:06 RBC 3.63 L (3.80-5.40) m/uL MCV 101.3 H (80.0-100.0) fL MCHC 30.9 L (31.0-37.0) g/dL Plt Count 141 L (150-450) k/uL Lymphocytes # 0.7 L (1.0-4.8) k/uL Chloride 108 H (98-107) mmol/L BUN 23 H (7-17) mg/dL Glucose 127 H (74-99) mg/dL POC Glucose (mg/dL) 133 H (70-110) mg/dL Calcium 8.2 L (8.4-10.2) mg/dL Fluid Appearance (Clear) 03/13/24 Range/Units 11:28 RBC (3.80-5.40) m/uL MCV (80.0-100.0) fL MCHC (31.0-37.0) g/dL Plt Count (150-450) k/uL Lymphocytes # (1.0-4.8) k/uL Chloride (98-107) mmol/L BUN (7-17) mg/dL Glucose (74-99) mg/dL POC Glucose (mg/dL) 219 H (70-110) mg/dL Calcium (8.4-10.2) mg/dL Fluid Appearance (Clear) Microbiology - Last 24 Hours (Table) 03/11/24 10:15 Acid Fast Bacilli Smear - Preliminary Bronchoalviolar Lavage - Left 03/11/24 10:15 Gram Stain - Preliminary Bronchoalviolar Lavage - Left Assessment and Plan Assessment: Acute hypoxemic respiratory failure secondary to suspected mucous plugging, and left lung pneumonia. Acute sepsis, secondary to pneumonia. Generalized weakness and nausea, with vomiting, likely secondary opioid withdrawal. Acute metabolic encephalopathy. History of hypertension. History of hyperlipidemia. History of CVA. History of chronic back pain. History of bipolar disorder. History of anxiety/depression. History of panic disorder. Plan: Plan dated March 13, 2024. The patient will continue to be monitored in the intensive care unit. The patient is currently BiPAP dependent, and, has a very poor mental status. She was admitted on [place] 6. She came in with mental status changes, and had a bronchoscopy performed on March 11. The patient's procalcitonin level was elevated at 1.70. She is getting saline at 125 cc an hour. She is also getting cefepime. We will continue to follow patient, make recommendations. Labs, x- rays, and all medications are reviewed. Overall prognosis remains guarded. Current microbiologic studies are negative. Time with Patient: Greater than 30
--- NOTE | 2024-03-13 16:17 | P.PN ---
Subjective Progress Note Date: 03/13/24 I am following up with the patient and the patient is on BiPAP. Continues to be drowsy and as stated earlier she is on BiPAP Objective - Vital Signs Vital signs: Vital Signs Temp 98.6 F 03/13/24 13:00 Pulse 82 03/13/24 15:42 Resp 13 03/13/24 15:00 BP 103/55 03/13/24 15:00 Pulse Ox 99 03/13/24 15:00 FiO2 50 03/13/24 15:25 Intake & Output 03/12/24 03/13/24 03/13/24 18:59 06:59 18:59 Intake Total 2125 1620 1245 Output Total 415 455 635 Balance 1710 1165 610 Weight 69.4 kg 69.4 kg Intake: IV 1525 1620 1245 0.9NS 150 120 20 Cefepime 2 gm In Sodium 100 Chloride 0.9% 100 ml @ 25 mls/hr IVPB Q12HR [facility] Rx #:[id number] Sodium Chloride 0.9% 1, 1375 1500 1125 000 ml @ 125 mls/hr IV . Q8H [facility] Rx#:[id number] Intake, IV Titration 200 Amount Cefepime 2 gm In Sodium 100 Chloride 0.9% 100 ml @ 25 mls/hr IVPB Q12HR [facility] Rx #:[id number] Magnesium Sulfate-D5w Pmx 100 1 gm In Dextrose/Water 1 100ml.bag @ 100 mls/hr IVPB [facility] Rx#: [id number] Oral 400 0 Output: Urine 415 455 635 Other: Voiding Method Indwelling Catheter Indwelling Catheter Indwelling Catheter - Exam General: Lying in bed and is not in acute distress. HENT: Supple neck. LUNG: On BiPAP. Neuro: Severely limited. Patient is severely drowsy and is awake able to voice. She was not cooperating much during examination. Some of the workup during this hospital visit consisted of: Vitamin B12 is 508 Serum folate 17.0 TSH is 0.075 and the free T4 is 0.97 Ammonia level is 10 CT of the head is reported as no acute intracranial process. Nonspecific white matter change, likely secondary to chronic small vessel ischemic disease. I personally reviewed the CT of the head and there is no acute or subacute stroke. CT Angiography of head and neck: No flow-limiting stenosis bilateral carotid bifurcation. Calcification is present at the bifurcation with approximately 41% narrowing each. Normal [place]. No aneurysm dilation is identified. CT thoracic and lumbar spine is reported as spinal canal stenosis in the lateral dimension L3-4 secondary due to facet hypertrophy and ligamentum of flavum laxity. Central endplate spur T9-T10 without spinal canal stenosis or cord contact. Postsurgical changes L4-L5. 2D echo is reported as ejection fraction of 45 to 50% with predominantly apical, apical septal hypokinesis. May be related to coronary artery disease versus Takotsubo. Routine EEG is abnormal. The background slowing is suggestive of moderate encephalopathy. There are suspicious discharges over the left temporal (T5 lead) increased risk for focal seizure as well as status epilepticus. Otherwise there is no focal slowing or seizure noted during the study. Chest x-ray on 03/10/2024 is reported as new near complete opacification of the left chest correlate for development of pleural effusion and or airspace disease and or atelectasis possibly from obstruction. - Labs CBC & Chem 7: 03/13/24 05:28 03/13/24 05:28 Labs: Abnormal Lab Results - Last 24 Hours (Table) 03/11/24 03/12/24 03/12/24 Range/Units 10:15 16:36 21:12 RBC (3.80-5.40) m/uL MCV (80.0-100.0) fL MCHC (31.0-37.0) g/dL Plt Count (150-450) k/uL Lymphocytes # (1.0-4.8) k/uL Chloride (98-107) mmol/L BUN (7-17) mg/dL Glucose (74-99) mg/dL POC Glucose (mg/dL) 193 H 172 H (70-110) mg/dL Calcium (8.4-10.2) mg/dL Fluid Appearance Turbid A (Clear) 03/13/24 03/13/24 03/13/24 Range/Units 05:28 05:28 07:06 RBC 3.63 L (3.80-5.40) m/uL MCV 101.3 H (80.0-100.0) fL MCHC 30.9 L (31.0-37.0) g/dL Plt Count 141 L (150-450) k/uL Lymphocytes # 0.7 L (1.0-4.8) k/uL Chloride 108 H (98-107) mmol/L BUN 23 H (7-17) mg/dL Glucose 127 H (74-99) mg/dL POC Glucose (mg/dL) 133 H (70-110) mg/dL Calcium 8.2 L (8.4-10.2) mg/dL Fluid Appearance (Clear) 03/13/24 Range/Units 11:28 RBC (3.80-5.40) m/uL MCV (80.0-100.0) fL MCHC (31.0-37.0) g/dL Plt Count (150-450) k/uL Lymphocytes # (1.0-4.8) k/uL Chloride (98-107) mmol/L BUN (7-17) mg/dL Glucose (74-99) mg/dL POC Glucose (mg/dL) 219 H (70-110) mg/dL Calcium (8.4-10.2) mg/dL Fluid Appearance (Clear) Microbiology - Last 24 Hours (Table) 03/11/24 10:15 Gram Stain - Preliminary Bronchoalviolar Lavage - Left Bronchial Washings Culture - Preliminary Gram Neg Bacilli 03/11/24 10:15 Acid Fast Bacilli Smear - Preliminary Bronchoalviolar Lavage - Left Assessment and Plan Assessment: This is a 68-year-old woman chronic back pain who present emerged since her pain pump was shut off approximately 2 weeks ago and ever since she has been having the generalized weakness nausea and vomiting. As well she is altered. Altered mental status/encephalopathy of 2 to acute hypoxic respiratory failure with suspected mucous plug on the left lung/acquired pneumonia. On EEG left temporal discharges and increased risk for seizure but did not have any seizures noted during the study.. Generalized weakness, nausea vomiting Cardiomyopathy with redominantly apical, apical septal hypokinesis. May be related to coronary artery disease versus Takotsubo on 2D echo. Slightly elevated troponin Underlying history of chronic low back pain and her pain pump was shut off about 2 weeks ago and it seems she went to the pain specialist recently and they attempted to turn on pump back but unsuccessful. History of stroke History of diabetes type 2 Hypertension Hyperlipidemia Bipolar Anxiety Depression Panic disorder Plan: Pending MRI of the brain once stable. Continue Keppra 1000 mg twice daily. Cardiology is consulted Psychiatry is consulted Consider Pulmonary consultation. Will defer the rest of the medical management to primary and other specialist Follow-up with the patient sporadically Time with Patient: Less than 30
[2024-03-13 17:02] LABS: Glucose,Whole Blood 127 mg/dL (70-110)
[2024-03-13] MEDS: CEFEPIME 2 GM in SODIUM CHLORIDE 0.9% 100 ML IVPB SCH (17:58)
[2024-03-13 22:08] LABS: Glucose,Whole Blood 111 mg/dL (70-110)
[2024-03-14 06:16] LABS: Basophils % (A) 0 %; Eosinophils # (A) 0.1 k/uL (0-0.7); Eosinophils % (A) 1 %; HCT 34.8 % (34.0-46.0); HGB 10.7 gm/dL (11.4-16.0); Hypochromasia Slight; Lymphocytes # (A) 0.8 k/uL (1.0-4.8); Lymphocytes % (A) 8 %; MCH 30.7 pg (25.0-35.0); MCHC 30.9 g/dL (31.0-37.0); MCV 99.4 fL (80.0-100.0); Mean Platelet Volume 9.3; Monocytes # (A) 0.5 k/uL (0-1.0); Monocytes % (A) 5 %; Neutrophils % (A) 83 %; Platelet Count 154 k/uL (150-450); RDW 13.5 % (11.5-15.5); WBC 9.7 k/uL (3.8-10.6)
[2024-03-14 06:30] LABS: African American GFR (CKD) >90 (>60 ml/min/1.73 sqM); Anion Gap 4 mmol/L; Blood Urea Nitrogen 16 mg/dL (7-17); Calcium 8.4 mg/dL (8.4-10.2); Carbon Dioxide 26 mmol/L (22-30); Chloride 107 mmol/L (98-107); Glucose 108 mg/dL (74-99); Non-African American GFR(CKD) >90 (>60 ml/min/1.73 sqM); Sodium 137 mmol/L (137-145)
--- NOTE | 2024-03-14 08:33 | XR ---
EXAMINATION TYPE: XR chest 1V portable DATE OF EXAM: 03/14/2024 4:54 AM COMPARISON: Chest radiograph from one day prior. CLINICAL INDICATION: Female, 68 years old with history of pneumonia; [facility] TECHNIQUE: XR chest 1V portable Frontal view of the chest. FINDINGS: Lungs/Pleura: Increased density of left midlung airspace opacities possibly due to phase of inspirati on. There is no evidence of pleural effusion, focal consolidation, or pneumothorax. Pulmonary vascularity: Unremarkable. Heart/mediastinum: Cardiomediastinal silhouette is unremarkable. Musculoskeletal: No acute osseous pathology. Other findings: None IMPRESSION: Left midlung airspace opacities slightly worsened from prior. [facility], , 03/14/2024 8:31 AM
[2024-03-14] MEDS: PANTOPRAZOLE 40 MG/10 ML VIAL IVP SCH (09:59)
[2024-03-14 11:19] LABS: Glucose,Whole Blood 128 mg/dL (70-110)
--- NOTE | 2024-03-14 11:26 | P.CONS ---
History of Present Illness - Reason for Consult Consult date: 03/14/24 GI bleed Requesting physician: Bonifacio Nicholas - Chief Complaint Generalized weakness, shortness of breath - History of Present Illness This is a 68-year-old female with multiple complex comorbidities including COPD, CVA, diabetes mellitus, hyperlipidemia, chronic diarrhea, hypertension, psychiatric disorder, chronic pain syndrome with pain pump who had presented to the emergency department 6 days ago brought in by her son for complaints of weakness. She was admitted for pneumonia with hypoxic respiratory failure, altered mental status changes, panic disorder and chest pain with multiple consultants following patient. She is status post bronchoscopy and bronchial avascular lavage with removal of mucous plug. Apparently patient has been on subcu heparin and is on a low-dose aspirin. She takes Mobic at home but has not been getting any during this hospitalization according to nursing. Reportedly around 5 AM patient had a large bowel movement that smelt like blood. Nursing is unsure if this was dark or bright red. Patient has not had any further bleeding. Patient denies any abdominal pain, nausea or vomiting. She is currently n.p.o. being evaluated for swallow evaluation. Patient denies any previous history of GI bleed. Denies any previous history of EGD or colonoscopy. Hemoglobin is stable at 10.7 within normal BUN and creatinine. Review of Systems REVIEW OF SYSTEMS: CARDIOPULMONARY: No chest pain or shortness of breath. Gastrointestinal: No abdominal pain. No nausea or vomiting. No hematemesis, coffee-ground emesis. Reported possible melena. GENITOURINARY: No dysuria or hematuria. MUSCULOSKELETAL: Chronic pain syndrome, patient has pain pump. Joint pain. SKIN: No rashes. No jaundice. ENDOCRINE: No chills, fevers. No excessive weight gain or loss. No polydipsia or polyuria. PSYCHIATRIC: Anxiety, panic disorder. NEUROLOGY: No patient reportedly had altered mental status changes. Denies dizz iness, headache. ENT: Vision unremarkable. CONSTITUTIONAL: No recent weight loss. No fever, chills, night sweats. Past Medical History Past Medical History: COPD, CVA/TIA, Diabetes Mellitus, Hyperlipidemia, Hypertension Additional Past Medical History / Comment(s): Diabetes mellitus type 2 insulin requiring, hypertension, hyperlipidemia, CVA, restless leg syndrome, chronic diarrhea. History of Any Multi-Drug Resistant Organisms: None Reported Past Surgical History: Adenoidectomy, Appendectomy, Cholecystectomy, Hysterectomy, Orthopedic Surgery, Tonsillectomy Additional Past Surgical History / Comment(s): right knee repacement x2 , left ankle surgery, bladder suspension x 2 partial hysterectomy , left breast biopsy,T+A, colonoscopy, cholecystectomy, Lasik for both eyes. Past Anesthesia/Blood Transfusion Reactions: No Reported Reaction Past Psychological History: Anxiety, Bipolar, Depression, Panic Disorder Smoking Status: Current every day smoker Past Alcohol Use History: None Reported Past Drug Use History: Prescription Drug Abuse - Past Family History Mother Family Medical History: Diabetes Mellitus Father Family Medical History: CVA/TIA Brother(s) Family Medical History: No Reported History Son(s) Family Medical History: No Reported History Daughter(s) Family Medical History: No Reported History Medications and Allergies Home Medications Medication Instructions Recorded Confirmed Type Ergocalciferol [Vitamin D2 1,250 mcg PO PARKS 01/08/20 03/08/24 History (DRISDOL)] levETIRAcetam [Keppra] 500 mg PO BID 01/08/20 03/08/24 History Albuterol Inhaler [Ventolin Hfa 2 puff INHALATION RT-QID PRN 05/10/20 03/08/24 History Inhaler] ALPRAZolam [Xanax] 0.5 mg PO TID 10/10/20 03/08/24 History Donepezil [Aricept] 5 mg PO HS 10/10/20 03/08/24 History Omeprazole 40 mg PO DAILY 10/10/20 03/08/24 History metFORMIN HCL [Glucophage] 500 mg PO DAILY 10/10/20 03/08/24 History Celecoxib [CeleBREX] 100 mg PO DAILY 03/08/24 03/08/24 History Loratadine 10 mg PO DAILY 03/08/24 03/08/24 History Lurasidone [Latuda] 20 mg PO DAILY 03/08/24 03/08/24 History Mirtazapine [Remeron] 45 mg PO HS 03/08/24 03/08/24 History Pregabalin [Lyrica] 150 mg PO TID 03/08/24 03/08/24 History Triamcinolone 0.1% Cream [Kenalog 1 applic TOPICAL BID 03/08/24 03/08/24 History 0.1% Cream] oxyCODONE-APAP 5-325MG [Percocet 1 tab PO BID PRN 03/08/24 03/08/24 History 5-325 mg] Allergies Allergy/AdvReac Type Severity Reaction Status Date / Time Penicillins Allergy Unknown Verified 03/08/24 17:04 ramipril [From Altace] Allergy Unknown Verified 03/08/24 17:04 Physical Exam Vitals: Vital Signs Temp Pulse Resp BP Pulse Ox FiO2 03/14/24 08:22 90 03/14/24 08:05 80 99 03/14/24 07:00 78 11 L 130/66 99 03/14/24 06:00 80 13 156/89 99 03/14/24 05:00 96 14 139/71 98 03/14/24 04:00 98.3 F 80 14 132/72 99 03/14/24 03:00 84 14 125/64 99 03/14/24 02:00 86 15 124/60 99 03/14/24 01:00 80 14 131/62 96 03/14/24 00:30 50 03/14/24 00:00 97.8 F 84 15 129/67 100 50 03/13/24 23:10 84 13 129/67 100 03/13/24 23:00 91 16 136/67 100 03/13/24 22:20 88 03/13/24 22:05 88 50 03/13/24 22:00 80 16 142/68 100 03/13/24 21:00 87 20 135/64 98 03/13/24 20:00 98.2 F 85 15 121/59 99 50 03/13/24 19:00 80 12 129/65 99 03/13/24 18:00 82 27 H 142/82 99 40 03/13/24 17:00 95 27 H 112/56 97 50 03/13/24 16:00 87 24 122/64 97 50 03/13/24 15:42 82 03/13/24 15:25 90 50 03/13/24 15:00 86 13 103/55 99 03/13/24 14:00 86 12 105/57 99 03/13/24 13:00 98.6 F 88 10 L 103/53 97 03/13/24 12:02 90 03/13/24 12:00 98.6 F 92 11 L 110/57 100 50 03/13/24 11:43 86 50 03/13/24 11:00 86 11 L 108/54 98 50 03/13/24 10:00 91 11 L 127/63 98 50 03/13/24 09:00 96 29 H 123/64 95 50 Intake and Output 03/13/24 03/14/24 03/14/24 22:59 06:59 14:59 Intake Total 975 1100 125 Output Total 560 875 120 Balance 415 225 5 Intake: IV 975 1100 125 Cefepime 2 gm In Sodium 100 100 Chloride 0.9% 100 ml @ 25 mls/hr IVPB Q12HR [facility] Rx #:[id number] Sodium Chloride 0.9% 1, 875 1000 125 000 ml @ 125 mls/hr IV . Q8H [facility] Rx#:[id number] Oral 0 Output: Urine 560 875 120 Other: Voiding Method Indwelling Catheter Indwelling Catheter Weight 73.4 kg General appearance: The patient is alert, oriented, appears in no acute distre ss. HET: Head is normocephalic and atraumatic. Pupils are equal and reactive. Neck: Supple. Heart: Regular. Lungs: Equal expansion, normal respiratory effort. Abdomen: Soft, nontender, nondistended. Extremities: Normal skin color and turgor. Neurological: Patient alert and oriented to self and place. Results CBC & Chem 7: 03/14/24 05:40 03/14/24 05:40 Labs: Abnormal Lab Results - Last 24 Hours (Table) 03/13/24 03/13/24 03/13/24 Range/Units 11:28 17:02 22:06 RBC (3.80-5.40) m/uL Hgb (11.4-16.0) gm/dL MCHC (31.0-37.0) g/dL Neutrophils # (1.3-7.7) k/uL Lymphocytes # (1.0-4.8) k/uL Glucose (74-99) mg/dL POC Glucose (mg/dL) 219 H 127 H 111 H (70-110) mg/dL 03/14/24 03/14/24 Range/Units 05:40 05:40 RBC 3.50 L (3.80-5.40) m/uL Hgb 10.7 L (11.4-16.0) gm/dL MCHC 30.9 L (31.0-37.0) g/dL Neutrophils # 8.0 H (1.3-7.7) k/uL Lymphocytes # 0.8 L (1.0-4.8) k/uL Glucose 108 H (74-99) mg/dL POC Glucose (mg/dL) (70-110) mg/dL Microbiology - Last 24 Hours (Table) 03/11/24 10:15 Gram Stain - Preliminary Bronchoalviolar Lavage - Left Bronchial Washings Culture - Preliminary Gram Neg Bacilli 03/11/24 10:15 Acid Fast Bacilli Smear - Preliminary Bronchoalviolar Lavage - Left Comments: Chest x-ray reports left midlung airspace opacity slightly worsened from prior. Assessment and Plan (1) GI bleed Narrative/Plan: 68-year-old female with multiple complex medical comorbidities with multiple consultants following admitted for acute hypoxic respiratory failure secondary to pneumonia and mucous plug again with multiple other complaints and multiple consultants following. Apparently today early patient had a one-time episode of a large bowel movement that reportedly had blood in it or smelled like blood. Unknown clear if this was dark or bright red. Hemoglobin stable at 10.7. Admitting hemoglobin at 13 6 days ago. BUN was elevated on admission for last several days but normal today. No further episodes reported of GI bleed. Will start Protonix 40 mg daily and continue to monitor bleeding. Will hold aspirin and heparin. Avoid NSAIDs. Later had a large solid hard brown bowel movement was some small amount of rectal bleeding with it. Likely hemorrhoidal, fissure also need to consider stercoral ulcer. Continue with MiraLAX, for regular bowel regimen. No plans for colonoscopy at this time. Current Visit: Yes Status: Acute Code(s): K92.2 - GASTROINTESTINAL HEMORRHAGE, UNSPECIFIED SNOMED Code(s): 00412673 (2) Acute respiratory failure Current Visit: Yes Status: Acute Code(s): J96.00 - ACUTE RESPIRATORY FAILURE, UNSP W HYPOXIA OR HYPERCAPNIA SNOMED Code(s): 48744834 (3) Generalized weakness Current Visit: Yes Status: Acute Code(s): R53.1 - WEAKNESS SNOMED Code(s): 74977126 (4) AMS (altered mental status) Current Visit: No Status: Acute Code(s): R41.82 - ALTERED MENTAL STATUS, UNSPECIFIED SNOMED Code(s): 394501208 Plan: 1. Continue symptomatic and supportive care 2. Daily CBC, transfuse for hemoglobin less than 7 3. Protonix 40 mg twice daily 4. Hold heparin, consider holding aspirin 5. Avoid NSAIDs, discontinue Mobic 6. Monitor for further bleeding 7. No plans at this time for endoscopic evaluation at this time 8.. Continue with MiraLAX daily, may consider twice daily for regular bowel regimen 9. Further recommendations forthcoming based on clinical course 10. Continue with multiple consultants input Patient may be downgraded from ICU. Thank you for this consultation, we will continue to follow. Dr. Osbaldo Pichardo I agree with the dictator's note, documented as a scribe by Jessi Laguerre.
[2024-03-14 11:28] VITALS: BMI 21.9
--- NOTE | 2024-03-14 11:43 | P.PN ---
Subjective Progress Note Date: 03/14/24 Principal diagnosis: Acute mental status changes. This is a 68-year-old female patient with a known history of hypertension, hyperlipidemia, diabetes mellitus, CVA, chronic tobacco dependence and chronic obstructive pulmonary disease, bipolar disorder. She presented here on 03/08/2024 with generalized weakness fatigue nausea and vomiting. She had been followed up on the regular medical floor. Afternoon she developed increasing shortness of breath cough and congestion. A chest x-ray was done and showed a near complete opacification of the left chest that was new compared to 03/08/2024. Arterial blood gases revealed a PaO2 of 37, pCO2 49 and a pH of 7.40. A rapid response team was called and she was placed on BiPAP 14/6 and 100% FiO2 and transferred to the intensive care unit. She is seen today in consultation. She is currently resting fairly comfortably. She is tolerating the BiPAP. She is awake and alert. Continued with O2 saturations in the 90s now. White count 12.5. Hemoglobin 12.3. Platelets 141. Sodium 137. Potassium 4.3. Bicarb 34. BUN 22. Creatinine 0.63. Glucose 169. Patient was seen today on 03/11/2024, patient remains frail, chronically ill looking, weak, I saw her yesterday in the ICU, and she was placed on BiPAP will for what seems to be acute hypoxic respiratory failure with extensive left sided pneumonia and I suspected mucous plugging involving the left lung. The patient underwent bronchoscopy today, and significant amount of mucous plugs were removed from the lingula and from the left lower lobe as well as left mainstem bronchus. Did well after the procedure, she was placed back on BiPAP, and she is already on antibiotics which will be changed to cefepime patient is allergic to penicillin patient is on BiPAP 14/6/100% her ABG showed a pO2 of 206 pCO2 49 pH of 7.42 she had a Tmax of 101 and patient has cooling blankets at 1 L of fluids and if her blood pressure remains marginal or soft may consider a short course of norepinephrine on this patient. Labs today show WBC is 4.4 hemoglobin 12.6 electrolytes are normal renal profile is normal procalcitonin level is elevated at 1.70 Patient was seen today on 03/12/2024, patient is on 3 L nasal cannula, doing well, off norepinephrine since 7 AM this morning, patient seems to be hemodynamically stable, seems to have difficulty clearing her sputum, hence the patient was placed on albuterol with Mucomyst, and continue chest PT on this patient. Today she underwent bronchoscopy and I was able to clear a significant amount of endobronchial secretions , her chest x-ray post bronchoscopy, showed improvement but not back to normal. Patient is empirically on cefepime cultures from the BAL are pending. Her IV fluid is 125 cc/h urine output is marginal at 20 cc/h patient seems to be congested but able to clear some secretions. Her speech seems to be a bit garbled and patient had previous old CVA WBC count is 7.9 hemoglobin 11.3 electrolytes are normal renal profile is normal Progress note dated March 13, 2024. This is a 68-year-old female who is seen today in room 255. She was admitted on March 10, with mental status changes, shortness of breath, nausea, and vomiting. She came to the intensive care unit on March 10. The patient has been on BiPAP since that time. BiPAP settings include 14/6 and 50%. The patient is also on saline at 125 cc an hour, is on cefepime, and had bronchoscopy performed on March 11 by my partner. The patient's procalcitonin level is 1.70. Current labs include a white count 9.1, hemoglobin 11.4, hematocrit 36.8, and a platelet count of 141,000. Sodium 139, potassium 4.3, chlorides 108, CO2 27, BUN 23, creatinine 0.65. Calcium 8.2. Magnesium 2. BAL specimens are currently negative. Chest x-ray shows left-sided airspace disease. Progress note dated March 14, 2024. 68-year-old female seen in room 255. The patient is doing BiPAP at 14/6, 50%, or nasal cannula at 5 L. She is also getting saline at 125 cc an hour. This morning, she developed a GI bleed, with bloody stools. This only happened 1 time. Clinically, she otherwise remains relatively stable. She is seen in the intensive care unit, room 255. Current labs include a white count 9.7, hemoglobin 10.7, hematocrit 34.8, and a platelet count of 154,000. Sodium 137, potassium 4, chlorides 107, CO2 26, BUN 16, creatinine 0.58. Glucose was 128. Calcium is 8.4. Chest x-ray reveals left midlung airspace opacities, which is slightly worsened. BAL from the left lung, done on March 11, shows Klebsiella pneumoniae. Objective - Vital Signs Vital signs: Vital Signs Temp 98.7 F 03/14/24 09:00 Pulse 100 03/14/24 11:36 Resp 16 03/14/24 11:00 BP 144/71 03/14/24 11:00 Pulse Ox 100 03/14/24 11:00 FiO2 50 03/14/24 00:30 Intake & Output 03/13/24 03/14/24 03/14/24 18:59 06:59 18:59 Intake Total 1720 1475 125 Output Total 835 1175 820 Balance 885 300 -695 Weight 69.4 kg 73.4 kg 73.4 kg Intake: IV 1720 1475 125 0.9NS 20 Cefepime 2 gm In Sodium 200 100 Chloride 0.9% 100 ml @ 25 mls/hr IVPB Q12HR [facility] Rx #:[id number] Sodium Chloride 0.9% 1, 1500 1375 125 000 ml @ 125 mls/hr IV . Q8H [facility] Rx#:[id number] Oral 0 Output: Urine 835 1175 820 Other: Voiding Method Indwelling Catheter Indwelling Catheter - Exam No acute distress, much more awake and alert, currently on 5 L nasal cannula. HEENT examination is grossly unremarkable. Mucous membranes are moist. No oral lesions. Neck supple. Full range of motion. No adenopathy thyromegaly or neck vein distention. Cardiovascular examination reveals regular rhythm rate. S1-S2 normal. No S3 or S4. No discernible murmur noted. Heart sounds are distant. Lungs reveal bilateral rhonchi. Diminished breath sounds at the left lung base. No wheezes. No crackles. Abdomen soft without obvious bowel sounds. No masses or tenderness. Extremities are intact. No cyanosis clubbing or edema. Skin is without rash or lesion. Neurologic examination reveals the patient to be much more awake today than yesterday. - Labs CBC & Chem 7: 03/14/24 05:40 03/14/24 05:40 Labs: Abnormal Lab Results - Last 24 Hours (Table) 03/13/24 03/13/24 03/14/24 Range/Units 17:02 22:06 05:40 RBC 3.50 L (3.80-5.40) m/uL Hgb 10.7 L (11.4-16.0) gm/dL MCHC 30.9 L (31.0-37.0) g/dL Neutrophils # 8.0 H (1.3-7.7) k/uL Lymphocytes # 0.8 L (1.0-4.8) k/uL Glucose (74-99) mg/dL POC Glucose (mg/dL) 127 H 111 H (70-110) mg/dL 03/14/24 03/14/24 Range/Units 05:40 11:17 RBC (3.80-5.40) m/uL Hgb (11.4-16.0) gm/dL MCHC (31.0-37.0) g/dL Neutrophils # (1.3-7.7) k/uL Lymphocytes # (1.0-4.8) k/uL Glucose 108 H (74-99) mg/dL POC Glucose (mg/dL) 128 H (70-110) mg/dL Microbiology - Last 24 Hours (Table) 03/11/24 10:15 Gram Stain - Final Bronchoalviolar Lavage - Left Bronchial Washings Culture - Final Klebsiella pneumoniae Kluyvera ascorbata 03/11/24 10:15 Acid Fast Bacilli Smear - Preliminary Bronchoalviolar Lavage - Left Assessment and Plan Assessment: Acute hypoxemic respiratory failure secondary to suspected mucous plugging, and left lung pneumonia, secondary to Klebsiella pneumoniae. Acute sepsis, secondary to pneumonia. Generalized weakness and nausea, with vomiting, likely secondary opioid withdrawal. Acute metabolic encephalopathy. History of hypertension. History of hyperlipidemia. History of CVA. History of chronic back pain. History of bipolar disorder. History of anxiety/depression. History of panic disorder. Plan: Plan dated March 13, 2024. The patient will continue to be monitored in the intensive care unit. The patient is currently BiPAP dependent, and, has a very poor mental status. She was admitted on March 10. She came in with mental status changes, and had a bronchoscopy performed on March 11. The patient's procalcitonin level was elevated at 1.70. She is getting saline at 125 cc an hour. She is also getting cefepime. We will continue to follow patient, make recommendations. Labs, x-ra ys, and all medications are reviewed. Overall prognosis remains guarded. Current microbiologic studies are negative. Plan dated March 14, 2024. The patient is seen in the intensive care unit, room 255. She spent the night on BiPAP, with settings of 14/6, and 50%. She is currently on 5 L nasal cannula. She continues on saline at 125 cc an hour. This morning she did develop a GI bleed with bloody stools. She failed her swallow evaluation from yesterday. Her bronchoscopy washings from March 11, show evidence of Klebsiella pneumoniae. The patient is currently on cefepime. Will continue to follow. Prognosis is guarded. No additional recommendations are made. Time with Patient: Greater than 30
--- NOTE | 2024-03-14 12:47 | P.PN ---
Subjective Progress Note Date: 03/07/24 Hospital Course: 68-year-old female with PMH of HTN, HLD, type II DM on insulin, CVA, COPD, chronic back pain, bipolar disorder, who presented to the ER on 03/09/2024 with nausea, vomiting, generalized weakness. During her hospital stay she developed acute shortness of breath with cough and congestion, chest x-ray showed near complete opacification of the left chest, rapid response was called and patient was placed on BiPAP, transferred to ICU and was seen by pulmonology. Mucous plug was suspected and patient underwent bronchoscopy on 03/11 with significant amount of mucous plug removed from the lingula and from the LLL and left mainstem bronchus, patient tolerated procedure well and was started on empiric cefepime, cultures sent. Subjective: Patient seen in the ICU. She was awake and alert. She was AO x 3. Patient states that she lives with her son. She said that she normally moves around the house with a walker. Patient is also asking to be restarted on her Xanax. She denied overdosing on her medications. Spoke with the ICU nurse who said that patient had bright red blood per rectum this morning. Vitals Signs Reviewed. 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 Follow-up on cultures from BAL. Currently growing gram-negative bacilli Continue with IV cefepime 2 g every 8 hours Dysphagia Continue to work with speech therapy Bright red blood per rectum No hemoglobin. Hemoglobin this morning stable at 10.7 Patient was started on IV Protonix 40 mg twice daily and GI was consulted Hold subcu heparin Generalized weakness PT OT [Resolved:] [Chronic:] Hypertension Hyperlipidemia History of CVA: Continue aspirin and statins Chronic back pain on pump: Continue with Percocet 5/325 every 6 hours as needed Blood Polar disorder: continue Aricept, Keppra, Latuda, Remeron Anxiety/depression: Will restart her Xanax 0.5 mg 3 times daily as needed Tobacco use disorder: Recommend tobacco cessation, nicotine patch DVT ppx: [] No Anticoagulation due to bright red blood per rectum Anticipated discharge time: 2-3 days Objective - Vital Signs Vital signs: Vital Signs Temp 98.7 F 03/14/24 09:00 Pulse 100 03/14/24 11:52 Resp 16 03/14/24 11:00 BP 144/71 03/14/24 11:00 Pulse Ox 100 03/14/24 11:00 FiO2 50 03/14/24 00:30 Intake & Output 03/13/24 03/14/24 03/14/24 18:59 06:59 18:59 Intake Total 1720 1475 125 Output Total 835 1175 820 Balance 885 300 -695 Weight 69.4 kg 73.4 kg 73.4 kg Intake: IV 1720 1475 125 0.9NS 20 Cefepime 2 gm In Sodium 200 100 Chloride 0.9% 100 ml @ 25 mls/hr IVPB Q12HR [facility] Rx #:[id number] Sodium Chloride 0.9% 1, 1500 1375 125 000 ml @ 125 mls/hr IV . Q8H [facility] Rx#:[id number] Oral 0 Output: Urine 835 1175 820 Other: Voiding Method Indwelling Catheter Indwelling Catheter - Labs CBC & Chem 7: 03/14/24 05:40 03/14/24 05:40 Labs: Abnormal Lab Results - Last 24 Hours (Table) 03/13/24 03/13/24 03/14/24 Range/Units 17:02 22:06 05:40 RBC 3.50 L (3.80-5.40) m/uL Hgb 10.7 L (11.4-16.0) gm/dL MCHC 30.9 L (31.0-37.0) g/dL Neutrophils # 8.0 H (1.3-7.7) k/uL Lymphocytes # 0.8 L (1.0-4.8) k/uL Glucose (74-99) mg/dL POC Glucose (mg/dL) 127 H 111 H (70-110) mg/dL 03/14/24 03/14/24 Range/Units 05:40 11:17 RBC (3.80-5.40) m/uL Hgb (11.4-16.0) gm/dL MCHC (31.0-37.0) g/dL Neutrophils # (1.3-7.7) k/uL Lymphocytes # (1.0-4.8) k/uL Glucose 108 H (74-99) mg/dL POC Glucose (mg/dL) 128 H (70-110) mg/dL Microbiology - Last 24 Hours (Table) 03/11/24 10:15 Gram Stain - Final Bronchoalviolar Lavage - Left Bronchial Washings Culture - Final Klebsiella pneumoniae Kluyvera ascorbata 03/11/24 10:15 Acid Fast Bacilli Smear - Preliminary Bronchoalviolar Lavage - Left
[2024-03-14 16:18] LABS: Glucose,Whole Blood 163 mg/dL (70-110)
[2024-03-14 20:01] LABS: Glucose,Whole Blood 183 mg/dL (70-110)
[2024-03-14] MEDS: ALPRAZolam 0.5 MG TAB PO PRN (20:06)
[2024-03-15 06:03] LABS: HCT 36.9 % (34.0-46.0); HGB 11.6 gm/dL (11.4-16.0); MCH 30.9 pg (25.0-35.0); MCHC 31.5 g/dL (31.0-37.0); MCV 98.1 fL (80.0-100.0); Mean Platelet Volume 8.7; Platelet Count 175 k/uL (150-450); RBC 3.76 m/uL (3.80-5.40); RDW 13.6 % (11.5-15.5); WBC 8.9 k/uL (3.8-10.6)
[2024-03-15 06:13] LABS: African American GFR (CKD) >90 (>60 ml/min/1.73 sqM); Anion Gap 2 mmol/L; Blood Urea Nitrogen 11 mg/dL (7-17); Calcium 8.3 mg/dL (8.4-10.2); Carbon Dioxide 34 mmol/L (22-30); Chloride 99 mmol/L (98-107); Glucose 146 mg/dL (74-99); Non-African American GFR(CKD) >90 (>60 ml/min/1.73 sqM); Potassium 3.4 mmol/L (3.5-5.1); Sodium 135 mmol/L (137-145)
[2024-03-15 06:19] LABS: Glucose,Whole Blood 176 mg/dL (70-110)
[2024-03-15 06:34] LABS: Glucose,Whole Blood 150 mg/dL (70-110)
[2024-03-15 07:36] LABS: Band Neutrophils % 3 %; Eosinophils # (M) 0.27 k/uL (0-0.7); Lymphocytes # (M) 1.25 k/uL (1.0-4.8); Monocytes # (M) 0.89 k/uL (0-1.0); Neutrophils % (M) 70 %; Nucleated Red Blood Cells 0 /100 WBC (0-0); RBC Morphology Normal; Total Cells Counted 100
[2024-03-15] MEDS: POTASSIUM CHLORIDE ER 20 MEQ TAB.ER PO SCH (08:10)
--- NOTE | 2024-03-15 08:26 | XR ---
EXAMINATION TYPE: XR chest 1V portable DATE OF EXAM: 03/15/2024 5:34 AM COMPARISON: Chest radiographs from 03/14/2024 CLINICAL INDICATION: Female, 68 years old with history of pneumonia; [facility] TECHNIQUE: XR chest 1V portable Frontal view of the chest. FINDINGS: Lungs/Pleura: Chest opacification with enlarging left pleural effusion. Airspace opacities remain pre sent. Pulmonary vascularity: Unremarkable. Heart/mediastinum: Cardiomediastinal silhouette is unremarkable. Musculoskeletal: No acute osseous pathology. IMPRESSION: Enlarging left pleural effusion with associated atelectasis. Given airspace opacities in prior correl ate for parapneumonic effusion. [facility], , 03/15/2024 8:24 AM
--- NOTE | 2024-03-15 10:46 | P.PN ---
Subjective Progress Note Date: 03/15/24 Hospital Course: 68-year-old female with PMH of HTN, HLD, type II DM on insulin, CVA, COPD, chronic back pain, bipolar disorder, who presented to the ER on 03/09/2024 with nausea, vomiting, generalized weakness. During her hospital stay she developed acute shortness of breath with cough and congestion, chest x-ray showed near complete opacification of the left chest, rapid response was called and patient was placed on BiPAP, transferred to ICU and was seen by pulmonology. Mucous plug was suspected and patient underwent bronchoscopy on 03/11 with significant amount of mucous plug removed from the lingula and from the LLL and left mainstem bronchus, patient tolerated procedure well and was started on empiric cefepime, cultures sent. Subjective: Patient seen this morning. She appears to be back to her baseline. She denies any bloody bowel movement. She has no acute complaints. She is amenable to going to rehab. She denies wearing oxygen at home. Vitals Signs Reviewed. 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 At home patient was on room air. Patient's mentation has improved and is likely back to her baseline Follow-up on cultures from BAL. Patient's sputum culture growing Klebsiella pneumonia and Kluyvera ascorbata that is sensitive to cefepime Continue with IV cefepime 2 g every 8 hours Dysphagia Speech therapy cleared the patient for dysphagia pured diet Bright red blood per rectum No hemoglobin. Hemoglobin this morning stable at 11.6 stable Patient was started on IV Protonix 40 mg twice daily GI on board Hold subcu heparin Generalized weakness PT OT -> recommending [facility]p facility [Chronic:] Hypertension Hyperlipidemia History of CVA: Continue aspirin and statins Chronic back pain on pump: Continue with Percocet 5/325 every 6 hours as needed Blood Polar disorder: continue Aricept, Keppra, Latuda, Remeron Anxiety/depression: Will restart her Xanax 0.5 mg 3 times daily as needed Tobacco use disorder: Recommend tobacco cessation, nicotine patch DVT ppx: [] No Anticoagulation due to bright red blood per rectum Anticipated discharge time: 1-2 days Objective - Vital Signs Vital signs: Vital Signs Temp 97.3 F L 03/15/24 08:00 Pulse 74 03/15/24 04:00 Resp 17 03/15/24 08:00 BP 124/70 03/15/24 08:00 Pulse Ox 93 L 03/15/24 08:00 FiO2 50 03/14/24 00:30 Intake & Output 03/14/24 03/15/24 03/15/24 18:59 06:59 18:59 Intake Total 125 250 Output Total 1120 2800 Balance -995 -2550 Weight 73.4 kg Intake: IV 125 250 Sodium Chloride 0.9% 1, 125 250 000 ml @ 20 mls/hr IV . Q24H [facility] Rx#:[id number] Output: Urine 1120 2800 Other: Voiding Method Indwelling Catheter Indwelling Catheter # Bowel Movements 0 - Labs CBC & Chem 7: 03/15/24 05:40 03/15/24 05:40 Labs: Abnormal Lab Results - Last 24 Hours (Table) 03/14/24 03/14/24 03/14/24 Range/Units 11:17 16:17 20:00 RBC (3.80-5.40) m/uL Sodium (137-145) mmol/L Potassium (3.5-5.1) mmol/L Carbon Dioxide (22-30) mmol/L Glucose (74-99) mg/dL POC Glucose (mg/dL) 128 H 163 H 183 H (70-110) mg/dL Calcium (8.4-10.2) mg/dL 03/15/24 03/15/24 03/15/24 Range/Units 05:40 05:40 06:18 RBC 3.76 L (3.80-5.40) m/uL Sodium 135 L (137-145) mmol/L Potassium 3.4 L (3.5-5.1) mmol/L Carbon Dioxide 34 H (22-30) mmol/L Glucose 146 H (74-99) mg/dL POC Glucose (mg/dL) 176 H (70-110) mg/dL Calcium 8.3 L (8.4-10.2) mg/dL 03/15/24 Range/Units 06:33 RBC (3.80-5.40) m/uL Sodium (137-145) mmol/L Potassium (3.5-5.1) mmol/L Carbon Dioxide (22-30) mmol/L Glucose (74-99) mg/dL POC Glucose (mg/dL) 150 H (70-110) mg/dL Calcium (8.4-10.2) mg/dL Microbiology - Last 24 Hours (Table) 03/11/24 10:15 Gram Stain - Final Bronchoalviolar Lavage - Left Bronchial Washings Culture - Final Klebsiella pneumoniae Kluyvera ascorbata
[2024-03-15 11:29] LABS: Glucose,Whole Blood 192 mg/dL (70-110)
--- NOTE | 2024-03-15 12:36 | P.PN ---
Subjective Progress Note Date: 03/15/24 Principal diagnosis: Shortness of breath This is a 68-year-old female with multiple complex comorbidities including COPD, CVA, diabetes mellitus, hyperlipidemia, chronic diarrhea, hypertension, psychiatric disorder, chronic pain syndrome with pain pump who had presented to the emergency department 6 days ago brought in by her son for complaints of weakness. She was admitted for pneumonia with hypoxic respiratory failure, altered mental status changes, panic disorder and chest pain with multiple consultants following patient. She is status post bronchoscopy and bronchial avascular lavage with removal of mucous plug. Apparently patient has been on subcu heparin and is on a low-dose aspirin. She takes Mobic at home but has not been getting any during this hospitalization according to nursing. Reportedly around 5 AM patient had a large bowel movement that smelt like blood. Nursing is unsure if this was dark or bright red. Patient has not had any further bleeding. Patient denies any abdominal pain, nausea or vomiting. She is currently n.p.o. being evaluated for swallow evaluation. Patient denies any previous history of GI bleed. Denies any previous history of EGD or colonoscopy. Hemoglobin is stable at 10.7 within normal BUN and creatinine. 03/15/2024 Patient seen and examined today in the ICU. She denies any abdominal pain, nausea or vomiting. Denies any blood in her stool. Hemoglobin 11.6 up from 10.7. Objective - Vital Signs Vital signs: Vital Signs Temp 97.8 F 03/15/24 04:00 Pulse 74 03/15/24 04:00 Resp 20 03/15/24 04:00 BP 108/51 03/15/24 04:00 Pulse Ox 98 03/15/24 04:00 FiO2 50 03/14/24 00:30 Intake & Output 03/14/24 03/15/24 03/15/24 18:59 06:59 18:59 Intake Total 125 250 Output Total 1120 2800 Balance -995 -2550 Weight 73.4 kg Intake: IV 125 250 Sodium Chloride 0.9% 1, 125 250 000 ml @ 20 mls/hr IV . Q24H [facility] Rx#:[id number] Output: Urine 1120 2800 Other: Voiding Method Indwelling Catheter Indwelling Catheter # Bowel Movements 0 - Exam General appearance: The patient is alert, oriented, appears in no acute distress. HET: Head is normocephalic and atraumatic. Conjunctiva pink. Sclera anicteric. Neck: Supple without lymphadenopathy. Abdomen: Soft, nontender, nondistended. Extremities: Normal skin color and turgor. No pedal edema Skin: No rashes, no jaundice Neurological: No focal deficits. Alert and oriented. - Labs CBC & Chem 7: 03/15/24 05:40 03/15/24 05:40 Labs: Abnormal Lab Results - Last 24 Hours (Table) 03/14/24 03/14/24 03/14/24 Range/Units 11:17 16:17 20:00 RBC (3.80-5.40) m/uL Sodium (137-145) mmol/L Potassium (3.5-5.1) mmol/L Carbon Dioxide (22-30) mmol/L Glucose (74-99) mg/dL POC Glucose (mg/dL) 128 H 163 H 183 H (70-110) mg/dL Calcium (8.4-10.2) mg/dL 03/15/24 03/15/24 03/15/24 Range/Units 05:40 05:40 06:18 RBC 3.76 L (3.80-5.40) m/uL Sodium 135 L (137-145) mmol/L Potassium 3.4 L (3.5-5.1) mmol/L Carbon Dioxide 34 H (22-30) mmol/L Glucose 146 H (74-99) mg/dL POC Glucose (mg/dL) 176 H (70-110) mg/dL Calcium 8.3 L (8.4-10.2) mg/dL 03/15/24 Range/Units 06:33 RBC (3.80-5.40) m/uL Sodium (137-145) mmol/L Potassium (3.5-5.1) mmol/L Carbon Dioxide (22-30) mmol/L Glucose (74-99) mg/dL POC Glucose (mg/dL) 150 H (70-110) mg/dL Calcium (8.4-10.2) mg/dL Microbiology - Last 24 Hours (Table) 03/11/24 10:15 Gram Stain - Final Bronchoalviolar Lavage - Left Bronchial Washings Culture - Final Klebsiella pneumoniae Kluyvera ascorbata Assessment and Plan (1) GI bleed Narrative/Plan: 68-year-old female with multiple complex medical comorbidities with multiple consultants following admitted for acute hypoxic respiratory failure secondary to pneumonia and mucous plug again with multiple other complaints and multiple consultants following. Apparently today early patient had a one-time episode of a large bowel movement that reportedly had blood in it or smelled like blood. Unknown clear if this was dark or bright red. Hemoglobin stable at 10.7. Admitting hemoglobin at 13 6 days ago. BUN was elevated on admission for last several days but normal today. No further episodes reported of GI bleed. Will start Protonix 40 mg daily and continue to monitor bleeding. Will hold aspirin and heparin. Avoid NSAIDs. Later had a large solid hard brown bowel movement was some small amount of rectal bleeding with it. Likely hemorrhoidal, fissure also need to consider stercoral ulcer. Continue with MiraLAX, for regular bowel regimen. No plans for colonoscopy at this time. Current Visit: Yes Status: Acute Code(s): K92.2 - GASTROINTESTINAL HEMORRHAGE, UNSPECIFIED SNOMED Code(s): 84162705 (2) Acute respiratory failure Current Visit: Yes Status: Acute Code(s): J96.00 - ACUTE RESPIRATORY FAILURE, UNSP W HYPOXIA OR HYPERCAPNIA SNOMED Code(s): 52112351 (3) Generalized weakness Current Visit: Yes Status: Acute Code(s): R53.1 - WEAKNESS SNOMED Code(s): 63382129 (4) AMS (altered mental status) Current Visit: No Status: Acute Code(s): R41.82 - ALTERED MENTAL STATUS, UNSPECIFIED SNOMED Code(s): 880539770 Plan: 1. Continue symptomatic and supportive care 2. Continue Protonix 40 mg daily 3. May resume subcu heparin 4. Avoid NSAIDs, discontinue Mobic 5. No plans at this time for endoscopic evaluation at this time 6. Continue with MiraLAX daily, may consider twice daily for regular bowel regimen 7. Continue with multiple consultants input Thank you for this consultation, gastroenterology will sign off at this time. Dr. Osbaldo Pichardo I agree with the dictator's note, documented as a scribe by Jessi Laguerre.
--- NOTE | 2024-03-15 13:57 | P.PN ---
Subjective Progress Note Date: 03/15/24 Principal diagnosis: Acute mental status changes. This is a 68-year-old female patient with a known history of hypertension, hyperlipidemia, diabetes mellitus, CVA, chronic tobacco dependence and chronic obstructive pulmonary disease, bipolar disorder. She presented here on 03/08/2024 with generalized weakness fatigue nausea and vomiting. She had been followed up on the regular medical floor. Afternoon she developed increasing shortness of breath cough and congestion. A chest x-ray was done and showed a near complete opacification of the left chest that was new compared to 03/08/2024. Arterial blood gases revealed a PaO2 of 37, pCO2 49 and a pH of 7.40. A rapid response team was called and she was placed on BiPAP 14/6 and 100% FiO2 and transferred to the intensive care unit. She is seen today in consultation. She is currently resting fairly comfortably. She is tolerating the BiPAP. She is awake and alert. Continued with O2 saturations in the 90s now. White count 12.5. Hemoglobin 12.3. Platelets 141. Sodium 137. Potassium 4.3. Bicarb 34. BUN 22. Creatinine 0.63. Glucose 169. Patient was seen today on 03/11/2024, patient remains frail, chronically ill looking, weak, I saw her yesterday in the ICU, and she was placed on BiPAP will for what seems to be acute hypoxic respiratory failure with extensive left sided pneumonia and I suspected mucous plugging involving the left lung. The patient underwent bronchoscopy today, and significant amount of mucous plugs were removed from the lingula and from the left lower lobe as well as left mainstem bronchus. Did well after the procedure, she was placed back on BiPAP, and she is already on antibiotics which will be changed to cefepime patient is allergic to penicillin patient is on BiPAP 14/6/100% her ABG showed a pO2 of 206 pCO2 49 pH of 7.42 she had a Tmax of 101 and patient has cooling blankets at 1 L of fluids and if her blood pressure remains marginal or soft may consider a short course of norepinephrine on this patient. Labs today show WBC is 4.4 hemoglobin 12.6 electrolytes are normal renal profile is normal procalcitonin level is elevated at 1.70 Patient was seen today on 03/12/2024, patient is on 3 L nasal cannula, doing well, off norepinephrine since 7 AM this morning, patient seems to be hemodynamically stable, seems to have difficulty clearing her sputum, hence the patient was placed on albuterol with Mucomyst, and continue chest PT on this patient. Today she underwent bronchoscopy and I was able to clear a significant amount of endobronchial secretions , her chest x-ray post bronchoscopy, showed improvement but not back to normal. Patient is empirically on cefepime cultures from the BAL are pending. Her IV fluid is 125 cc/h urine output is marginal at 20 cc/h patient seems to be congested but able to clear some secretions. Her speech seems to be a bit garbled and patient had previous old CVA WBC count is 7.9 hemoglobin 11.3 electrolytes are normal renal profile is normal Progress note dated March 13, 2024. This is a 68-year-old female who is seen today in room 255. She was admitted on March 10, with mental status changes, shortness of breath, nausea, and vomiting. She came to the intensive care unit on March 10. The patient has been on BiPAP since that time. BiPAP settings include 14/6 and 50%. The patient is also on saline at 125 cc an hour, is on cefepime, and had bronchoscopy performed on March 11 by my partner. The patient's procalcitonin level is 1.70. Current labs include a white count 9.1, hemoglobin 11.4, hematocrit 36.8, and a platelet count of 141,000. Sodium 139, potassium 4.3, chlorides 108, CO2 27, BUN 23, creatinine 0.65. Calcium 8.2. Magnesium 2. BAL specimens are currently negative. Chest x-ray shows left-sided airspace disease. Progress note dated March 14, 2024. 68-year-old female seen in room 255. The patient is doing BiPAP at 14/6, 50%, or nasal cannula at 5 L. She is also getting saline at 125 cc an hour. This morning, she developed a GI bleed, with bloody stools. This only happened 1 time. Clinically, she otherwise remains relatively stable. She is seen in the intensive care unit, room 255. Current labs include a white count 9.7, hemoglobin 10.7, hematocrit 34.8, and a platelet count of 154,000. Sodium 137, potassium 4, chlorides 107, CO2 26, BUN 16, creatinine 0.58. Glucose was 128. Calcium is 8.4. Chest x-ray reveals left midlung airspace opacities, which is slightly worsened. BAL from the left lung, done on March 11, shows Klebsiella pneumoniae. Progress note dated March 15, 2024. 68-year-old female seen in room 255. Currently, the patient is on 3 L of oxygen by nasal cannula. She is receiving saline at 20 cc an hour. Because of Klebsiella, the patient is on cefepime. I also recommend a flutter valve for her. She is resting comfortably in bed. No respiratory distress. No acute abnormalities on examination. The patient has a white count of 8.9, hemoglobin 9.6, hematocrit 36.9, and a platelet count of 175,000. Sodium 135, potassium 3.4, chloride 99, CO2 34, BUN 11, creatinine 0.57. Glucose is 192. Calcium is 8.3. BAL, from March 11 shows evidence of Klebsiella pneumoniae. Chest x-ray shows enlarging left-sided pleural effusion with atelectasis. Objective - Vital Signs Vital signs: Vital Signs Temp 97.3 F L 03/15/24 08:00 Pulse 63 03/15/24 11:55 Resp 19 03/15/24 11:55 BP 124/70 03/15/24 08:00 Pulse Ox 93 L 03/15/24 08:00 FiO2 40 03/15/24 11:33 Intake & Output 03/14/24 03/15/24 03/15/24 18:59 06:59 18:59 Intake Total 125 250 Output Total 1120 2800 Balance -995 -2550 Weight 73.4 kg Intake: IV 125 250 Sodium Chloride 0.9% 1, 125 250 000 ml @ 20 mls/hr IV . Q24H [facility] Rx#:[id number] Output: Urine 1120 2800 Other: Voiding Method Indwelling Catheter Indwelling Catheter Indwelling Catheter # Bowel Movements 0 - Exam No acute distress, much more awake and alert, currently on 3 L nasal cannula. HEENT examination is grossly unremarkable. Mucous membranes are moist. No oral lesions. Neck supple. Full range of motion. No adenopathy thyromegaly or neck vein distention. Cardiovascular examination reveals regular rhythm rate. S1-S2 normal. No S3 or S4. No discernible murmur noted. Heart sounds are distant. Lungs reveal bilateral rhonchi. Diminished breath sounds at the left lung base. No wheezes. No crackles. Abdomen soft without obvious bowel sounds. No masses or tenderness. Extremities are intact. No cyanosis clubbing or edema. Skin is without rash or lesion. Neurologic examination reveals the patient to be much more awake today than yesterday. - Labs CBC & Chem 7: 03/15/24 05:40 03/15/24 05:40 Labs: Abnormal Lab Results - Last 24 Hours (Table) 03/14/24 03/14/24 03/15/24 Range/Units 16:17 20:00 05:40 RBC 3.76 L (3.80-5.40) m/uL Sodium (137-145) mmol/L Potassium (3.5-5.1) mmol/L Carbon Dioxide (22-30) mmol/L Glucose (74-99) mg/dL POC Glucose (mg/dL) 163 H 183 H (70-110) mg/dL Calcium (8.4-10.2) mg/dL 03/15/24 03/15/24 03/15/24 Range/Units 05:40 06:18 06:33 RBC (3.80-5.40) m/uL Sodium 135 L (137-145) mmol/L Potassium 3.4 L (3.5-5.1) mmol/L Carbon Dioxide 34 H (22-30) mmol/L Glucose 146 H (74-99) mg/dL POC Glucose (mg/dL) 176 H 150 H (70-110) mg/dL Calcium 8.3 L (8.4-10.2) mg/dL 03/15/24 Range/Units 11:27 RBC (3.80-5.40) m/uL Sodium (137-145) mmol/L Potassium (3.5-5.1) mmol/L Carbon Dioxide (22-30) mmol/L Glucose (74-99) mg/dL POC Glucose (mg/dL) 192 H (70-110) mg/dL Calcium (8.4-10.2) mg/dL Microbiology - Last 24 Hours (Table) 03/11/24 10:15 Gram Stain - Final Bronchoalviolar Lavage - Left Bronchial Washings Culture - Final Klebsiella pneumoniae Kluyvera ascorbata Assessment and Plan Assessment: Acute hypoxemic respiratory failure secondary to suspected mucous plugging, and left lung pneumonia, secondary to Klebsiella pneumoniae. Acute sepsis, secondary to pneumonia. Generalized weakness and nausea, with vomiting, likely secondary opioid withdrawal. Acute metabolic encephalopathy. History of hypertension. History of hyperlipidemia. History of CVA. History of chronic back pain. History of bipolar disorder. History of anxiety/depression. History of panic disorder. Plan: Plan dated March 13, 2024. The patient will continue to be monitored in the intensive care unit. The jasvir ent is currently BiPAP dependent, and, has a very poor mental status. She was admitted on March 10. She came in with mental status changes, and had a bronchoscopy performed on March 11. The patient's procalcitonin level was elevated at 1.70. She is getting saline at 125 cc an hour. She is also getting cefepime. We will continue to follow patient, make recommendations. Labs, x- rays, and all medications are reviewed. Overall prognosis remains guarded. Current microbiologic studies are negative. Plan dated March 14, 2024. The patient is seen in the intensive care unit, room 255. She spent the night on BiPAP, with settings of 14/6, and 50%. She is currently on 5 L nasal cannu la. She continues on saline at 125 cc an hour. This morning she did develop a GI bleed with bloody stools. She failed her swallow evaluation from yesterday. Her bronchoscopy washings from March 11, show evidence of Klebsiella pneumoniae. The patient is currently on cefepime. Will continue to follow. Prognosis is guarded. No additional recommendations are made. Plan dated March 15, 2024. Chest x-ray is reviewed. It shows near complete collapse of the left lung. She may have a left-sided effusion is small. Will recommend BiPAP, and chest physiotherapy. The patient is seen today in room 255. She continues on oxygen at 3 L. She looks relatively stable. We did recommend a flutter valve. She is currently on cefepime for Klebsiella infection in her BAL. Patient is getting saline at 20 cc an hour. Labs, x-rays, medications are reviewed. Prognosis is guarded. The patient may benefit from bronchoscopy again, should she not improve. Time with Patient: Greater than 30
[2024-03-15 16:23] LABS: Glucose,Whole Blood 166 mg/dL (70-110)
--- NOTE | 2024-03-15 18:16 | P.PN ---
Subjective Progress Note Date: 03/15/24 I am following the patient and patient was transferred out of ICU and she is doing much better. She denies of any focal weakness numbness visual disturbance that is new. Objective - Vital Signs Vital signs: Vital Signs Temp 97.6 F 03/15/24 15:05 Pulse 78 03/15/24 16:26 Resp 19 03/15/24 15:05 BP 107/63 03/15/24 15:05 Pulse Ox 93 L 03/15/24 15:05 FiO2 40 03/15/24 11:33 Intake & Output 03/14/24 03/15/24 03/15/24 18:59 06:59 18:59 Intake Total 125 250 Output Total 1120 2800 Balance -995 -2550 Weight 73.4 kg Intake: IV 125 250 Sodium Chloride 0.9% 1, 125 250 000 ml @ 20 mls/hr IV . Q24H [facility] Rx#:[id number] Output: Urine 1120 2800 Other: Voiding Method Indwelling Catheter Indwelling Catheter Indwelling Catheter # Bowel Movements 0 - Exam General: Lying in bed and is not in acute distress. HENT: Supple neck. Neuro: Patient is awake alert oriented to self place and year. She did not know exactl y the current month. She is following commands appropriately Visual carrera are full to confrontation. Has mild dysarthria but does not have her dentures No facial weakness. Motor is lifting all extremities above gravity and appears symmetrical. Some of the workup during this hospital visit consisted of: Vitamin B12 is 508 Serum folate 17.0 TSH is 0.075 and the free T4 is 0.97 Ammonia level is 10 CT of the head is reported as no acute intracranial process. Nonspecific white matter change, likely secondary to chronic small vessel ischemic disease. I personally reviewed the CT of the head and there is no acute or subacute stroke. CT Angiography of head and neck: No flow-limiting stenosis bilateral carotid bifurcation. Calcification is present at the bifurcation with approximately 41% narrowing each. Normal [place] [facility] [place]. No aneurysm dilation is identified. CT thoracic and lumbar spine is reported as spinal canal stenosis in the lateral dimension L3-4 secondary due to facet hypertrophy and ligamentum of flavum laxity. Central endplate spur T9-T10 without spinal canal stenosis or cord contact. Postsurgical changes L4-L5. 2D echo is reported as ejection fraction of 45 to 50% with predominantly apical, apical septal hypokinesis. May be related to coronary artery disease versus Takotsubo. Routine EEG is abnormal. The background slowing is suggestive of moderate encephalopathy. There are suspicious discharges over the left temporal (T5 lead) increased risk for focal seizure as well as status epilepticus. Otherwise there is no focal slowing or seizure noted during the study. Chest x-ray on 03/10/2024 is reported as new near complete opacification of the left chest correlate for development of pleural effusion and or airspace disease and or atelectasis possibly from obstruction. - Labs CBC & Chem 7: 03/15/24 05:40 03/15/24 05:40 Labs: Abnormal Lab Results - Last 24 Hours (Table) 03/14/24 03/15/24 03/15/24 Range/Units 20:00 05:40 05:40 RBC 3.76 L (3.80-5.40) m/uL Sodium 135 L (137-145) mmol/L Potassium 3.4 L (3.5-5.1) mmol/L Carbon Dioxide 34 H (22-30) mmol/L Glucose 146 H (74-99) mg/dL POC Glucose (mg/dL) 183 H (70-110) mg/dL Calcium 8.3 L (8.4-10.2) mg/dL 03/15/24 03/15/24 03/15/24 Range/Units 06:18 06:33 11:27 RBC (3.80-5.40) m/uL Sodium (137-145) mmol/L Potassium (3.5-5.1) mmol/L Carbon Dioxide (22-30) mmol/L Glucose (74-99) mg/dL POC Glucose (mg/dL) 176 H 150 H 192 H (70-110) mg/dL Calcium (8.4-10.2) mg/dL 03/15/24 Range/Units 16:17 RBC (3.80-5.40) m/uL Sodium (137-145) mmol/L Potassium (3.5-5.1) mmol/L Carbon Dioxide (22-30) mmol/L Glucose (74-99) mg/dL POC Glucose (mg/dL) 166 H (70-110) mg/dL Calcium (8.4-10.2) mg/dL Assessment and Plan Assessment: This is a 68-year-old woman chronic back pain who present emerged since her pain pump was shut off approximately 2 weeks ago and ever since she has been having the generalized weakness nausea and vomiting. As well she is altered. Altered mental status/encephalopathy of 2 to acute hypoxic respiratory failure with suspected mucous plug on the left lung/acquired pneumonia. On EEG has left temporal discharges and increased risk for seizure but did not have any seizures noted during the study-->improved Generalized weakness, nausea vomiting likely due to pneumonia-->improved Cardiomyopathy with redominantly apical, apical septal hypokinesis. May be related to coronary artery disease versus Takotsubo on 2D echo. Slightly elevated troponin Underlying history of chronic low back pain and her pain pump was shut off about 2 weeks ago and it seems she went to the pain specialist recently and they attempted to turn on pump back but unsuccessful. History of stroke History of diabetes type 2 Hypertension Hyperlipidemia Bipolar Anxiety Depression Panic disorder Plan: Will cancel MRI since patient is drastically better. Continue Keppra 1000 mg twice daily. Cardiology is consulted Psychiatry is consulted Consider Pulmonary consultation. Will defer the rest of the medical management to primary and other specialist Upon discharge recommend the patient to follow-up with a neurologist as an outpatient within 2 to 3 weeks. There is no further neurological workup. Will sign off. Please reconsult if needed. Time with Patient: Less than 30
[2024-03-15 20:03] LABS: Glucose,Whole Blood 210 mg/dL (70-110)
[2024-03-16 06:30] LABS: Glucose,Whole Blood 163 mg/dL (70-110)
[2024-03-16 08:56] LABS: African American GFR (CKD) >90 (>60 ml/min/1.73 sqM); Blood Urea Nitrogen 11 mg/dL (7-17); Calcium 8.6 mg/dL (8.4-10.2); Chloride 95 mmol/L (98-107); Glucose 157 mg/dL (74-99); Non-African American GFR(CKD) 88 (>60 ml/min/1.73 sqM); Potassium 3.9 mmol/L (3.5-5.1); Sodium 136 mmol/L (137-145)
[2024-03-16 09:03] LABS: Anion Gap 5 mmol/L; Basophils % (A) 0 %; Carbon Dioxide 36 mmol/L (22-30); Eosinophils # (A) 0.1 k/uL (0-0.7); Eosinophils % (A) 1 %; HCT 39.6 % (34.0-46.0); HGB 12.4 gm/dL (11.4-16.0); Lymphocytes # (A) 1.2 k/uL (1.0-4.8); Lymphocytes % (A) 11 %; MCH 30.2 pg (25.0-35.0); MCHC 31.3 g/dL (31.0-37.0); MCV 96.3 fL (80.0-100.0); Mean Platelet Volume 8.6; Monocytes # (A) 0.8 k/uL (0-1.0); Monocytes % (A) 8 %; Neutrophils # (A) 8.5 k/uL (1.3-7.7); Neutrophils % (A) 77 %; Platelet Count 235 k/uL (150-450); RBC 4.11 m/uL (3.80-5.40); RDW 13.4 % (11.5-15.5); WBC 11.1 k/uL (3.8-10.6)
[2024-03-16 11:40] LABS: Glucose,Whole Blood 187 mg/dL (70-110)
--- NOTE | 2024-03-16 12:28 | P.PN ---
Subjective Progress Note Date: 03/16/24 Hospital Course: 68-year-old female with PMH of HTN, HLD, type II DM on insulin, CVA, COPD, chronic back pain, bipolar disorder, who presented to the ER on 03/09/2024 with nausea, vomiting, generalized weakness. During her hospital stay she developed acute shortness of breath with cough and congestion, chest x-ray showed near complete opacification of the left chest, rapid response was called and patient was placed on BiPAP, transferred to ICU and was seen by pulmonology. Mucous plug was suspected and patient underwent bronchoscopy on 03/11 with significant amount of mucous plug removed from the lingula and from the LLL and left mainstem bronchus, patient tolerated procedure well and was started on empiric cefepime, cultures sent. Subjective: Patient seen this morning. She states that she does not feel well. She states that she feels depressed. She states that her ex [id number] scammed her and ran away with $1700. Patient currently on 4 L nasal cannula. She does not appear to be in any respiratory distress. Patient states that she did get some chest therapy. She believes that it did help. Vitals Signs Reviewed. 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 At home patient was on room air. Patient's mentation has improved and is likely back to her baseline Follow-up on cultures from BAL. Patient's sputum culture growing Klebsiella pneumonia and Kluyvera ascorbata that is sensitive to cefepime Continue with IV cefepime 2 g every 8 hours Will plan to discharge the patient to shelter facility if cleared by pulmonology. Dysphagia Speech therapy cleared the patient for dysphagia pured diet Bright red blood per rectum No hemoglobin. Hemoglobin this morning stable at 11.6 stable Patient was started on IV Protonix 40 mg twice daily GI on board Hold subcu heparin Generalized weakness PT OT -> recommending shelter facility [Chronic:] Hypertension Hyperlipidemia History of CVA: Continue aspirin and statins Chronic back pain on pump: Continue with Percocet 5/325 every 6 hours as needed Blood Polar disorder: continue Aricept, Keppra, Latuda, Remeron Anxiety/depression: Continue with Xanax 0.5 mg 3 times daily as needed. Will consult psychiatry. Patient adamantly denies overdosing on her medications. Tobacco use disorder: Recommend tobacco cessation, nicotine patch DVT ppx: [] No Anticoagulation due to bright red blood per rectum Anticipated discharge time: 1-2 days Objective - Vital Signs Vital signs: Vital Signs Temp 99.5 F 03/16/24 07:28 Pulse 76 03/16/24 11:49 Resp 18 03/16/24 08:58 BP 121/67 03/16/24 07:28 Pulse Ox 92 L 03/16/24 07:28 FiO2 40 03/15/24 11:33 Intake & Output 03/15/24 03/16/24 03/16/24 18:59 06:59 18:59 Output Total 2400 Balance -2400 Output: Urine 2400 Other: Voiding Method Indwelling Catheter Indwelling Catheter Indwelling Catheter # Bowel Movements 1 - Labs CBC & Chem 7: 03/16/24 08:28 03/16/24 08:28 Labs: Abnormal Lab Results - Last 24 Hours (Table) 03/15/24 03/15/24 03/16/24 Range/Units 16:17 20:01 06:28 WBC (3.8-10.6) k/uL Neutrophils # (1.3-7.7) k/uL Sodium (137-145) mmol/L Chloride (98-107) mmol/L Carbon Dioxide (22-30) mmol/L Glucose (74-99) mg/dL POC Glucose (mg/dL) 166 H 210 H 163 H (70-110) mg/dL 03/16/24 03/16/24 03/16/24 Range/Units 08:28 08:28 11:39 WBC 11.1 H (3.8-10.6) k/uL Neutrophils # 8.5 H (1.3-7.7) k/uL Sodium 136 L (137-145) mmol/L Chloride 95 L (98-107) mmol/L Carbon Dioxide 36 H (22-30) mmol/L Glucose 157 H (74-99) mg/dL POC Glucose (mg/dL) 187 H (70-110) mg/dL
--- NOTE | 2024-03-16 14:08 | P.PN ---
Subjective Progress Note Date: 03/16/24 This is a 68-year-old female patient with a known history of hypertension, hyperlipidemia, diabetes mellitus, CVA, chronic tobacco dependence and chronic obstructive pulmonary disease, bipolar disorder. She presented here on 03/08/2024 with generalized weakness fatigue nausea and vomiting. She had been f ollowed up on the regular medical floor. Afternoon she developed increasing shortness of breath cough and congestion. A chest x-ray was done and showed a near complete opacification of the left chest that was new compared to 03/08/2024. Arterial blood gases revealed a PaO2 of 37, pCO2 49 and a pH of 7.40. A rapid response team was called and she was placed on BiPAP 14/6 and 100% FiO2 and transferred to the intensive care unit. She is seen today in consultation. She is currently resting fairly comfortably. She is tolerating the BiPAP. She is awake and alert. Continued with O2 saturations in the 90s now. White count 12.5. Hemoglobin 12.3. Platelets 141. Sodium 137. Potassium 4.3. Bicarb 34. BUN 22. Creatinine 0.63. Glucose 169. Patient was seen today on 03/11/2024, patient remains frail, chronically ill looking, weak, I saw her yesterday in the ICU, and she was placed on BiPAP will for what seems to be acute hypoxic respiratory failure with extensive left sided pneumonia and I suspected mucous plugging involving the left lung. The patient underwent bronchoscopy today, and significant amount of mucous plugs were removed from the lingula and from the left lower lobe as well as left mainstem bronchus. Did well after the procedure, she was placed back on BiPAP, and she is already on antibiotics which will be changed to cefepime patient is allergic to penicillin patient is on BiPAP 14/6/100% her ABG showed a pO2 of 206 pCO2 49 pH of 7.42 she had a Tmax of 101 and patient has cooling blankets at 1 L of fluids and if her blood pressure remains marginal or soft may consider a short course of norepinephrine on this patient. Labs today show WBC is 4.4 hemoglobin 12.6 electrolytes are normal renal profile is normal procalcitonin level is elevated at 1.70 Patient was seen today on 03/12/2024, patient is on 3 L nasal cannula, doing well, off norepinephrine since 7 AM this morning, patient seems to be hemodynamically stable, seems to have difficulty clearing her sputum, hence the patient was placed on albuterol with Mucomyst, and continue chest PT on this patient. Today she underwent bronchoscopy and I was able to clear a significant amount of endobronchial secretions , her chest x-ray post bronchoscopy, showed improvement but not back to normal. Patient is empirically on cefepime cultures from the BAL are pending. Her IV fluid is 125 cc/h urine output is marginal at 20 cc/h patient seems to be congested but able to clear some secretions. Her speech seems to be a bit garbled and patient had previous old CVA WBC count is 7.9 hemoglobin 11.3 electrolytes are normal renal profile is normal Progress note dated March 13, 2024. This is a 68-year-old female who is seen today in room 255. She was admitted on March 10, with mental status changes, shortness of breath, nausea, and vomiting. She came to the intensive care unit on March 10. The patient has been on BiPAP since that time. BiPAP settings include 14/6 and 50%. The patient is also on saline at 125 cc an hour, is on cefepime, and had bronchoscopy performed on March 11 by my partner. The patient's procalcitonin level is 1.70. Current labs include a white count 9.1, hemoglobin 11.4, hematocrit 36.8, and a platelet count of 141,000. Sodium 139, potassium 4.3, chlorides 108, CO2 27, BUN 23, creatinine 0.65. Calcium 8.2. Magnesium 2. BAL specimens are currently negative. Chest x-ray shows left-sided airspace disease. Progress note dated March 14, 2024. 68-year-old female seen in room 255. The patient is doing BiPAP at 14/6, 50%, or nasal cannula at 5 L. She is also getting saline at 125 cc an hour. This morning, she developed a GI bleed, with bloody stools. This only happened 1 time. Clinically, she otherwise remains relatively stable. She is seen in the intensive care unit, room 255. Current labs include a white count 9.7, hemoglobin 10.7, hematocrit 34.8, and a platelet count of 154,000. Sodium 137, potassium 4, chlorides 107, CO2 26, BUN 16, creatinine 0.58. Glucose was 128. Calcium is 8.4. Chest x-ray reveals left midlung airspace opacities, which is slightly worsened. BAL from the left lung, done on March 11, shows Klebsiella pneumoniae. Progress note dated March 15, 2024. 68-year-old female seen in room 255. Currently, the patient is on 3 L of oxygen by nasal cannula. She is receiving saline at 20 cc an hour. Because of Klebsiella, the patient is on cefepime. I also recommend a flutter valve for her. She is resting comfortably in bed. No respiratory distress. No acute abnormalities on examination. The patient has a white count of 8.9, hemoglobin 9.6, hematocrit 36.9, and a platelet count of 175,000. Sodium 135, potassium 3.4, chloride 99, CO2 34, BUN 11, creatinine 0.57. Glucose is 192. Calcium is 8.3. BAL, from March 11 shows evidence of Klebsiella pneumoniae. Chest x-ray shows enlarging left-sided pleural effusion with atelectasis. The patient was seen today March 16, 2024 in follow-up on the regular medical floor. She is currently sitting up in a chair. Awake and alert in no acute distress. Maintaining O2 saturations in the 90s on 2 L/min per nasal cannula. Bronchial wash cultures were positive for Klebsiella pneumoniae and kluyvera ascorbata. White count 11.1. Hemoglobin 12.4. Platelets 235. Sodium 136. Potassium 3.9. Bicarb 36. BUN 11. Creatinine 0.70. Glucose 88. She remains on cefepime. Remains on bronchodilators. Objective - Vital Signs Vital signs: Vital Signs Temp 99.5 F 03/16/24 07:28 Pulse 76 03/16/24 11:49 Resp 18 03/16/24 08:58 BP 121/67 03/16/24 07:28 Pulse Ox 92 L 03/16/24 07:28 FiO2 40 03/15/24 11:33 Intake & Output 03/15/24 03/16/24 03/16/24 18:59 06:59 18:59 Output Total 2400 Balance -2400 Weight 73.4 kg Output: Urine 2400 Other: Voiding Method Indwelling Catheter Indwelling Catheter Indwelling Catheter # Bowel Movements 1 - Exam GENERAL EXAM: Alert, weak, 68-year-old female, up in a chair, on 2 L nasal cannula, comfortable in no apparent distress. HEAD: Normocephalic. EYES: Normal reaction of pupils, equal size. NOSE: Clear with pink turbinates. THROAT: No erythema or exudates. NECK: No masses, no JVD. CHEST: No chest wall deformity. LUNGS: Equal air entry with bilateral scattered rhonchi, crackles in the left base. CVS: S1 and S2 normal with no audible murmur, regular rhythm. ABDOMEN: No hepatosplenomegaly, normal bowel sounds, no guarding or rigidity. SPINE: No scoliosis or deformity SKIN: No rashes CENTRAL NERVOUS SYSTEM: Awake and alert, tone is normal in all 4 extremities. EXTREMITIES: There is no peripheral edema. No clubbing, no cyanosis. Peripheral pulses are intact. - Labs CBC & Chem 7: 03/16/24 08:28 03/16/24 08:28 Labs: Abnormal Lab Results - Last 24 Hours (Table) 03/15/24 03/15/24 03/16/24 Range/Units 16:17 20:01 06:28 WBC (3.8-10.6) k/uL Neutrophils # (1.3-7.7) k/uL Sodium (137-145) mmol/L Chloride (98-107) mmol/L Carbon Dioxide (22-30) mmol/L Glucose (74-99) mg/dL POC Glucose (mg/dL) 166 H 210 H 163 H (70-110) mg/dL 03/16/24 03/16/24 03/16/24 Range/Units 08:28 08:28 11:39 WBC 11.1 H (3.8-10.6) k/uL Neutrophils # 8.5 H (1.3-7.7) k/uL Sodium 136 L (137-145) mmol/L Chloride 95 L (98-107) mmol/L Carbon Dioxide 36 H (22-30) mmol/L Glucose 157 H (74-99) mg/dL POC Glucose (mg/dL) 187 H (70-110) mg/dL Assessment and Plan Assessment: Acute hypoxemic respiratory failure secondary to suspected mucous plug with complete opacification of the left lung. Status post bronchoscopy with cultures positive for Klebsiella pneumoniae Generalized weakness with nausea and vomiting suspect secondary to opioid withdrawal Metabolic encephalopathy secondary to acute panic attacks Hypertension Hyperlipidemia History of CVA Chronic back pain Bipolar disorder Anxiety/depression History of panic disorder Plan: The patient was seen and evaluated Labs and medications reviewed Titrate down the FiO2 as tolerated Continued on bronchodilators, cefepime Plan is for [facility] on the pereyra at discharge I have personally seen and examined the patient, performed the documentation and the assessment and plan as written. Number of minutes spent on the visit: 10 Dictation was produced using [employer] dictation software. Please excuse any grammatical, word or spelling errors.
[2024-03-16] MEDS: ACETAMINOPHEN TAB 325 MG TAB PO PRN (16:07)
[2024-03-16 16:32] LABS: Glucose,Whole Blood 263 mg/dL (70-110)
[2024-03-16 20:32] LABS: Glucose,Whole Blood 377 mg/dL (70-110)
[2024-03-17 06:30] LABS: Glucose,Whole Blood 177 mg/dL (70-110)
[2024-03-17 08:37] LABS: Basophils # (A) 0.09 X 10*3/uL (0.00-0.10); Basophils % (A) 0.7 %; Eosinophils % (A) 0.8 %; HCT 37.4 % (37.2-46.3); HGB 11.7 g/dL (12.0-15.0); Lymphocytes # (A) 1.45 X 10*3/uL (0.90-5.00); Lymphocytes % (A) 11.6 %; MCH 30.2 pg (27.0-32.0); MCHC 31.3 g/dL (32.0-37.0); MCV 96.4 FL (80.0-97.0); Mean Platelet Volume 10.5 FL (9.5-12.2); Monocytes # (A) 0.77 X 10*3/uL (0.20-1.00); Monocytes % (A) 6.2 %; NRBC Per 100 WBC 0 X 10*3/uL (0.00-0.01); Neutrophils # (A) 9.78 X 10*3/uL (1.80-7.70); Neutrophils % (A) 78.2 %; Platelet Count 228 X 10*3/uL (140-440); RBC 3.88 X 10*6/uL (4.10-5.20); RDW 13.5 % (11.5-14.5)
[2024-03-17 08:42] LABS: BUN/Creat Ratio 20.17 Ratio (12.00-20.00); Blood Urea Nitrogen 12.1 mg/dL (9.0-27.0); Calcium 8.5 mg/dL (8.7-10.3); Carbon Dioxide 35.3 mmol/L (21.6-31.8); Chloride 95 mmol/L (96-109); Glucose 158 mg/dL (70-110); Potassium 3.8 mmol/L (3.5-5.5); Sodium 140 mmol/L (135-145)
[2024-03-17 09:45] VITALS: BP 114/66; RESP 20; TEMP 98.3
[2024-03-17] MEDS ORDERED: LEVOFLOXACIN 750 MG TAB PO STA (11:24)
[2024-03-17 11:42] LABS: Glucose,Whole Blood 220 mg/dL (70-110)
--- NOTE | 2024-03-17 11:47 | P.DS ---
Providers Date of admission: 03/11/24 20:19 Attending physician: Rena Ca MD Consults: 03/08/24 17:22 Consult Physician Routine Consulting Provider: [facility] Consult Reason/Comments: Chest Pain Do you want consulting provider notified?: Yes 03/09/24 13:19 Consult Physician Routine Consulting Provider: Nitesh Crawley Consult Reason/Comments: altered mental status Do you want consulting provider notified?: Yes 03/09/24 13:20 Consult Physician Routine Consulting Provider: Bonifacio Tejada Consult Reason/Comments: altered mental status, panic disorder Do you want consulting provider notified?: Yes 03/10/24 15:36 Consult Physician Urgent Consulting Provider: Siddhartha Baptiste Consult Reason/Comments: near complete opacification of left lung Do you want consulting provider notified?: Yes [facility]: Discharge Diagnosis: Acute hypoxic respiratory failure due to mucous plug and pneumonia status post bronchoscopy 03/11/2024 Sepsis secondary to community-acquired bacteria pneumonia Acute metabolic encephalopathy Dysphagia Bright red blood per rectum Generalized weakness Hypertension Hyperlipidemia History of CVA: Chronic back pain on pump Bipolar disorder: Anxiety/depression: Tobacco use disorder: Hospital Course: 68-year-old female with PMH of HTN, HLD, type II DM on insulin, CVA, COPD, chronic back pain, bipolar disorder, who presented to the ER on 03/09/2024 with nausea, vomiting, generalized weakness. During her hospital stay she developed acute shortness of breath with cough and congestion, chest x-ray showed near complete opacification of the left chest, rapid response was called and patient was placed on BiPAP, transferred to ICU and was seen by pulmonology. Mucous plug was suspected and patient underwent bronchoscopy on 03/11 with significant amount of mucous plug removed from the lingula and from the LLL and left mainstem bronchus, patient tolerated procedure well and was started on empiric cefepime. Patient's cultures grew Klebsiella pneumonia and Kluyvera ascorbata both sensitive to IV cefepime and Levaquin. At the time of discharge patient reported that her breathing was much better. I discussed with pulmonology who said patient stable for discharge. Patient's O2 was stable on 4 L. Patient will be discharged to [facility] facility and she will need to be gradually weaned off of oxygen. I will discharge patient on Levaquin for 5 more days. Patient will need a prolonged course of antibiotics due to oxygen needs. Patient was also confused when she came to the hospital. Her confusion is likely due to sepsis. Neurology was on board. Patient did have EEG done that showed no epileptiform activity however there was concern for potential high risk for epileptiform activity. Patient was started on Keppra by neurology. At the time of discharge patient mental status was back to baseline. Patient also had issues with dysphagia. Patient was seen by speech therapy and was cleared for dysphagia 1 pured diet. Patient also had a complicated hospital course due bright red per rectum. Patient was seen by GI. Her hemoglobin was stable so GI recommended no interventions and signed off. Patient likely has hemorrhoids. Patient did also have issues with anxiety. She was restarted back on her Xanax. At the time of discharge patient reported that her anxiety was much better. Patient instructed to follow-up with her psychiatrist. Patient also worked with physical therapy. Recommendation was [facility] facility. online education manager arranged for the patient to go to [facility] rehab. Patient stable for discharge. Of note patient will have voiding trial prior to discharge. Patient seen and examined at bedside.[] Vital signs reviewed and stable. General examination - Alert and Oriented 3 in NAD, appears chronically debilitated Heart - + S1S2 no murmurs Lungs - Clear to auscultation Abdomen soft NT ND +ve BS Extremities - No edema BROTH MIXER - Moving all 4 extremities spontaneously, bilateral lower extremity weakness Psych - Calm and cooperative A total of [33] minutes of time were spent preparing this complex discharge summary . Patient discharged on [03/17/2024] Patient Condition at Discharge: Stable Plan - Discharge Summary New Discharge Prescriptions: New Aspirin 81 mg PO DAILY tab Metoprolol Succinate (ER) [Toprol XL] 25 mg PO DAILY tab Levofloxacin [Levaquin] 750 mg PO Q48H 5 Days #2 tab levETIRAcetam [Keppra] 1,000 mg PO Q12HR 30 Days #60 tab Atorvastatin [Lipitor] 80 mg PO DAILY tab Continue Ergocalciferol [Vitamin D2 (DRISDOL)] 1,250 mcg PO PARKS Albuterol Inhaler [Ventolin Hfa Inhaler] 2 puff INHALATION RT-QID PRN PRN Reason: Shortness Of Breath Donepezil [Aricept] 5 mg PO HS ALPRAZolam [Xanax] 0.5 mg PO TID Lurasidone [Latuda] 20 mg PO DAILY Loratadine 10 mg PO DAILY metFORMIN HCL [Glucophage] 500 mg PO DAILY Omeprazole 40 mg PO DAILY Mirtazapine [Remeron] 45 mg PO HS oxyCODONE-APAP 5-325MG [Percocet 5-325 mg] 1 tab PO BID PRN PRN Reason: Pain Pregabalin [Lyrica] 150 mg PO TID Discontinued levETIRAcetam [Keppra] 500 mg PO BID Celecoxib [CeleBREX] 100 mg PO DAILY Triamcinolone 0.1% Cream [Kenalog 0.1% Cream] 1 applic TOPICAL BID Discharge Medication List Ergocalciferol [Vitamin D2 (DRISDOL)] 1,250 mcg PO PARKS 01/08/20 [History] Albuterol Inhaler [Ventolin Hfa Inhaler] 2 puff INHALATION RT-QID PRN 05/10/20 [History] ALPRAZolam [Xanax] 0.5 mg PO TID 10/10/20 [History] Donepezil [Aricept] 5 mg PO HS 10/10/20 [History] Omeprazole 40 mg PO DAILY 10/10/20 [History] metFORMIN HCL [Glucophage] 500 mg PO DAILY 10/10/20 [History] Loratadine 10 mg PO DAILY 03/08/24 [History] Lurasidone [Latuda] 20 mg PO DAILY 03/08/24 [History] Mirtazapine [Remeron] 45 mg PO HS 03/08/24 [History] Pregabalin [Lyrica] 150 mg PO TID 03/08/24 [History] oxyCODONE-APAP 5-325MG [Percocet 5-325 mg] 1 tab PO BID PRN 03/08/24 [History] Aspirin 81 mg PO DAILY tab 03/17/24 [Rx] Atorvastatin [Lipitor] 80 mg PO DAILY tab 03/17/24 [Rx] Levofloxacin [Levaquin] 750 mg PO Q48H 5 Days #2 tab 03/17/24 [Rx] Metoprolol Succinate (ER) [Toprol XL] 25 mg PO DAILY tab 03/17/24 [Rx] levETIRAcetam [Keppra] 1,000 mg PO Q12HR 30 Days #60 tab 03/17/24 [Rx] Follow up Appointment(s)/Referral(s): William Crawley DO [Doctor of Osteopathic Medicine] - 1 Week Tate Gore DO [Primary Care Provider] - 1-2 days Discharge Disposition: TRANSFER TO SNF/ECF
[2024-03-17] MEDS: LEVOFLOXACIN 750 MG TAB PO SCH (12:00)
--- NOTE | 2024-03-17 15:05 | P.PN ---
Subjective Progress Note Date: 03/17/24 This is a 68-year-old female patient with a known history of hypertension, hyperlipidemia, diabetes mellitus, CVA, chronic tobacco dependence and chronic obstructive pulmonary disease, bipolar disorder. She presented here on 03/08/2024 with generalized weakness fatigue nausea and vomiting. She had been f ollowed up on the regular medical floor. Afternoon she developed increasing shortness of breath cough and congestion. A chest x-ray was done and showed a near complete opacification of the left chest that was new compared to 03/08/2024. Arterial blood gases revealed a PaO2 of 37, pCO2 49 and a pH of 7.40. A rapid response team was called and she was placed on BiPAP 14/6 and 100% FiO2 and transferred to the intensive care unit. She is seen today in consultation. She is currently resting fairly comfortably. She is tolerating the BiPAP. She is awake and alert. Continued with O2 saturations in the 90s now. White count 12.5. Hemoglobin 12.3. Platelets 141. Sodium 137. Potassium 4.3. Bicarb 34. BUN 22. Creatinine 0.63. Glucose 169. Patient was seen today on 03/11/2024, patient remains frail, chronically ill looking, weak, I saw her yesterday in the ICU, and she was placed on BiPAP will for what seems to be acute hypoxic respiratory failure with extensive left sided pneumonia and I suspected mucous plugging involving the left lung. The patient underwent bronchoscopy today, and significant amount of mucous plugs were removed from the lingula and from the left lower lobe as well as left mainstem bronchus. Did well after the procedure, she was placed back on BiPAP, and she is already on antibiotics which will be changed to cefepime patient is allergic to penicillin patient is on BiPAP 14/6/100% her ABG showed a pO2 of 206 pCO2 49 pH of 7.42 she had a Tmax of 101 and patient has cooling blankets at 1 L of fluids and if her blood pressure remains marginal or soft may consider a short course of norepinephrine on this patient. Labs today show WBC is 4.4 hemoglobin 12.6 electrolytes are normal renal profile is normal procalcitonin level is elevated at 1.70 Patient was seen today on 03/12/2024, patient is on 3 L nasal cannula, doing well, off norepinephrine since 7 AM this morning, patient seems to be hemodynamically stable, seems to have difficulty clearing her sputum, hence the patient was placed on albuterol with Mucomyst, and continue chest PT on this patient. Today she underwent bronchoscopy and I was able to clear a significant amount of endobronchial secretions , her chest x-ray post bronchoscopy, showed improvement but not back to normal. Patient is empirically on cefepime cultures from the BAL are pending. Her IV fluid is 125 cc/h urine output is marginal at 20 cc/h patient seems to be congested but able to clear some secretions. Her speech seems to be a bit garbled and patient had previous old CVA WBC count is 7.9 hemoglobin 11.3 electrolytes are normal renal profile is normal Progress note dated March 13, 2024. This is a 68-year-old female who is seen today in room 255. She was admitted on March 10, with mental status changes, shortness of breath, nausea, and vomiting. She came to the intensive care unit on March 10. The patient has been on BiPAP since that time. BiPAP settings include 14/6 and 50%. The patient is also on saline at 125 cc an hour, is on cefepime, and had bronchoscopy performed on March 11 by my partner. The patient's procalcitonin level is 1.70. Current labs include a white count 9.1, hemoglobin 11.4, hematocrit 36.8, and a platelet count of 141,000. Sodium 139, potassium 4.3, chlorides 108, CO2 27, BUN 23, creatinine 0.65. Calcium 8.2. Magnesium 2. BAL specimens are currently negative. Chest x-ray shows left-sided airspace disease. Progress note dated March 14, 2024. 68-year-old female seen in room 255. The patient is doing BiPAP at 14/6, 50%, or nasal cannula at 5 L. She is also getting saline at 125 cc an hour. This morning, she developed a GI bleed, with bloody stools. This only happened 1 time. Clinically, she otherwise remains relatively stable. She is seen in the intensive care unit, room 255. Current labs include a white count 9.7, hemoglobin 10.7, hematocrit 34.8, and a platelet count of 154,000. Sodium 137, potassium 4, chlorides 107, CO2 26, BUN 16, creatinine 0.58. Glucose was 128. Calcium is 8.4. Chest x-ray reveals left midlung airspace opacities, which is slightly worsened. BAL from the left lung, done on March 11, shows Klebsiella pneumoniae. Progress note dated March 15, 2024. 68-year-old female seen in room 255. Currently, the patient is on 3 L of oxygen by nasal cannula. She is receiving saline at 20 cc an hour. Because of Klebsiella, the patient is on cefepime. I also recommend a flutter valve for her. She is resting comfortably in bed. No respiratory distress. No acute abnormalities on examination. The patient has a white count of 8.9, hemoglobin 9.6, hematocrit 36.9, and a platelet count of 175,000. Sodium 135, potassium 3.4, chloride 99, CO2 34, BUN 11, creatinine 0.57. Glucose is 192. Calcium is 8.3. BAL, from March 11 shows evidence of Klebsiella pneumoniae. Chest x-ray shows enlarging left-sided pleural effusion with atelectasis. The patient was seen today March 16, 2024 in follow-up on the regular medical floor. She is currently sitting up in a chair. Awake and alert in no acute distress. Maintaining O2 saturations in the 90s on 2 L/min per nasal cannula. Bronchial wash cultures were positive for Klebsiella pneumoniae and kluyvera ascorbata. White count 11.1. Hemoglobin 12.4. Platelets 235. Sodium 136. Potassium 3.9. Bicarb 36. BUN 11. Creatinine 0.70. Glucose 88. She remains on cefepime. Remains on bronchodilators. The patient is seen today March 17, 2024 in follow-up on the regular medical floor. She is currently resting comfortably in bed. Awake and alert in no acute distress. Maintaining O2 saturations in the 90s on 4 L/min per nasal cannula. No IV fluids. She has been treated for her Klebsiella pneumoniae and Evelia found in her bronchial wash cultures of the left lung. White count 12.5. Hemoglobin 11.7. Platelets 228. Sodium 140. Potassium 3.8. Bicarb 35. BUN 12. Creatinine 0.6. Glucose 158. She remains on bronchodilators antibiotics in the form of Levaquin. NicoDerm patch in place. Objective - Vital Signs Vital signs: Vital Signs Temp 98.3 F 03/17/24 07:42 Pulse 82 03/17/24 12:18 Resp 20 03/17/24 08:12 BP 114/66 03/17/24 07:42 Pulse Ox 98 03/17/24 07:42 FiO2 40 03/15/24 11:33 Intake & Output 03/16/24 03/17/24 03/17/24 18:59 06:59 18:59 Output Total 650 1400 Balance -650 -1400 Weight 73.4 kg Output: Urine 650 1400 Uretheral (Farrell) 900 Other: Voiding Method Indwelling Catheter Indwelling Catheter Indwelling Catheter - Exam GENERAL EXAM: Alert, weak, 68-year-old female, on 4 L nasal cannula, comfortable in no apparent distress. HEAD: Normocephalic. EYES: Normal reaction of pupils, equal size. NOSE: Clear with pink turbinates. THROAT: No erythema or exudates. NECK: No masses, no JVD. CHEST: No chest wall deformity. LUNGS: Equal air entry with bilateral scattered rhonchi, crackles in the left base. CVS: S1 and S2 normal with no audible murmur, regular rhythm. ABDOMEN: No hepatosplenomegaly, normal bowel sounds, no guarding or rigidity. SPINE: No scoliosis or deformity SKIN: No rashes CENTRAL NERVOUS SYSTEM: Awake and alert, tone is normal in all 4 extremities. EXTREMITIES: There is no peripheral edema. No clubbing, no cyanosis. Peripheral pulses are intact. - Labs CBC & Chem 7: 03/17/24 04:33 03/17/24 04:33 Labs: Abnormal Lab Results - Last 24 Hours (Table) 03/16/24 03/16/24 03/17/24 Range/Units 16:28 20:29 04:33 WBC 12.50 H (4.50-10.00) X 10*3/uL RBC 3.88 L (4.10-5.20) X 10*6/uL Hgb 11.7 L (12.0-15.0) g/dL MCHC 31.3 L (32.0-37.0) g/dL Immature Gran # 0.31 H (0.00-0.04) X 10*3/uL Neutrophils # 9.78 H (1.80-7.70) X 10*3/uL Chloride (96-109) mmol/L Carbon Dioxide (21.6-31.8) mmol/L BUN/Creatinine Ratio (12.00-20.00) Ratio Glucose (70-110) mg/dL POC Glucose (mg/dL) 263 H 377 H (70-110) mg/dL Calcium (8.7-10.3) mg/dL 03/17/24 03/17/24 03/17/24 Range/Units 04:33 06:28 11:40 WBC (4.50-10.00) X 10*3/uL RBC (4.10-5.20) X 10*6/uL Hgb (12.0-15.0) g/dL MCHC (32.0-37.0) g/dL Immature Gran # (0.00-0.04) X 10*3/uL Neutrophils # (1.80-7.70) X 10*3/uL Chloride 95 L (96-109) mmol/L Carbon Dioxide 35.3 H (21.6-31.8) mmol/L BUN/Creatinine Ratio 20.17 H (12.00-20.00) Ratio Glucose 158 H (70-110) mg/dL POC Glucose (mg/dL) 177 H 220 H (70-110) mg/dL Calcium 8.5 L (8.7-10.3) mg/dL Microbiology - Last 24 Hours (Table) 03/11/24 10:15 Fungal Culture - Preliminary Bronchoalviolar Lavage - Left Evelia glabrata Evelia albicans Assessment and Plan Assessment: Acute hypoxemic respiratory failure secondary to suspected mucous plug with complete opacification of the left lung. Status post bronchoscopy with cultures positive for Klebsiella pneumoniae Generalized weakness with nausea and vomiting suspect secondary to opioid withdrawal Metabolic encephalopathy secondary to acute panic attacks Hypertension Hyperlipidemia History of CVA Chronic back pain Bipolar disorder Anxiety/depression History of panic disorder Plan: The patient was seen and evaluated Labs and medications reviewed Titrate down the FiO2 as tolerated Continue bronchodilators Complete a course of antibiotics Plan is for [facility] I have personally seen and examined the patient, performed the documentation and the assessment and plan as written. Number of minutes spent on the visit: 10 Dictation was produced using [employer] software. Please excuse any grammatical, word or spelling errors.
[2024-03-17 16:07] VITALS: PULSE 84
== END 2024-03-17 16:10 | DRG 871 ==
LOC: EC 10:30 → 3SCARD 16:40 → 2SICU 03-10 16:14 → OBSVTOIN 03-11 20:19 → 4SSUR 03-15 15:00
PROVIDERS: ADMIT Family Medicine; ATTEND Family Medicine
PROC: 4A10X4Z Monitoring of Central Nervous Electrical Activity, External Approach (ICD-10-PCS; 2024-03-10)
PROC: 0B9J8ZX Drainage of Left Lower Lung Lobe, Via Natural or Artificial Opening Endoscopic, Diagnostic (ICD-10-PCS; 2024-03-11)
PROC: 0B9H8ZX Drainage of Lung Lingula, Via Natural or Artificial Opening Endoscopic, Diagnostic (ICD-10-PCS; 2024-03-11)
PROC: 5A09557 Assistance with Respiratory Ventilation, Greater than 96 Consecutive Hours, Continuous Positive Airway Pressure (ICD-10-PCS; 2024-03-11)
PROC: 0B9G8ZX Drainage of Left Upper Lung Lobe, Via Natural or Artificial Opening Endoscopic, Diagnostic (ICD-10-PCS; principal; 2024-03-11 10:00)
DX: A41.59 Other Gram-negative sepsis (principal); G93.41 Metabolic encephalopathy; J96.01 Acute respiratory failure with hypoxia; J15.0 Pneumonia due to Klebsiella pneumoniae; F11.23 Opioid dependence with withdrawal; J98.19 Other pulmonary collapse; I51.81 Takotsubo syndrome; J44.0 Chronic obstructive pulmonary disease with (acute) lower respiratory infection; T17.890A Other foreign object in other parts of respiratory tract causing asphyxiation, initial encounter; E11.9 Type 2 diabetes mellitus without complications; E78.5 Hyperlipidemia, unspecified; R54 Age-related physical debility; I34.0 Nonrheumatic mitral (valve) insufficiency; E87.8 Other disorders of electrolyte and fluid balance, not elsewhere classified; F17.210 Nicotine dependence, cigarettes, uncomplicated; F31.9 Bipolar disorder, unspecified; F41.0 Panic disorder [episodic paroxysmal anxiety]; G89.4 Chronic pain syndrome; I10 Essential (primary) hypertension; G25.81 Restless legs syndrome; Z88.0 Allergy status to penicillin; R01.1 Cardiac murmur, unspecified; Z88.8 Allergy status to other drugs, medicaments and biological substances; R13.10 Dysphagia, unspecified; K64.9 Unspecified hemorrhoids; Z79.1 Long term (current) use of non-steroidal anti-inflammatories (NSAID); Z79.4 Long term (current) use of insulin; Z79.82 Long term (current) use of aspirin; Z79.84 Long term (current) use of oral hypoglycemic drugs; Z79.899 Other long term (current) drug therapy; Z86.73 Personal history of transient ischemic attack (TIA), and cerebral infarction without residual deficits; Z90.711 Acquired absence of uterus with remaining cervical stump; Z90.49 Acquired absence of other specified parts of digestive tract; Z87.19 Personal history of other diseases of the digestive system; Z96.651 Presence of right artificial knee joint; Z71.6 Tobacco abuse counseling
CPT/HCPCS: 31624; 36415; 36600; 51702; 70450; 70496; 70498; 71045; 71046; 72128; 72131; 80048; 80053; 80061; 81003; 82140; 82533; 82607; 82746; 82805; 83036; 83605; 83735; 84145; 84439; 84443; 84484; 85025; 85027; 85610; 85730; 87070; 87077; 87102; 87116; 87186; 87205; 87206; 87449; 87496; 87498; 87502; 87529; 87634; 87635; 87636; 87798; 88108; 88305; 89050; 93005; 93306; 94640; 94660; 94667; 94668; 94760; 95816; 96365; 96372; 96375; 99285